=== PATIENT | male | born 1950 | race Caucasian/White ===

== ENCOUNTER → 2020-09-16 10:23 | Outpatient (BNVA) | payer MEDICARE, SELFPAY | PROVIDERS: PCP Internal Medicine; Visit Provider Internal Medicine | DX: I95.1 Orthostatic hypotension (principal); I10 Essential (primary) hypertension; Z79.899 Other long term (current) drug therapy; Z86.79 Personal history of other diseases of the circulatory system | CPT/HCPCS: 93005; 99212 ==

== ENCOUNTER 2021-02-15 10:03 | Day surgery (SDC) | payer MEDICARE, SELFPAY ==
--- NOTE | 2021-02-14 10:26 | P.CONAN_ITS ---
Documented by User: Petra Perezney 02/14/21 10:34 HPI - Anesthesia Eval Consult details Narrative: 70yo M for Colonoscopy tonsilar cancer with radiation - 2007 [facility] Active Problems Active Problems: All Active Problems (Updated 12/22/20 @ 09:10 by Olesya Billingsley MD) Colon cancer screening (Acute) Hypercholesterolemia (Acute) GERD (gastroesophageal reflux disease) (Acute) Orthostatic hypotension (Acute) Essential hypertension (Acute) PAF (paroxysmal atrial fibrillation) (Acute) Past Medical History Medical History Asthma Cancer of tonsil Essential hypertension GERD (gastroesophageal reflux disease) Hypercholesterolemia Orthostatic hypotension PAF (paroxysmal atrial fibrillation) Family History Family History Father Dementia Hx of CABG Mother Diabetes Surgical History Surgical History History of tonsillectomy S/P repair of hydrocele Social History Social History Alcohol intake: current Alcohol intake frequency: holidays/special occasions only Alcohol type: beer Smoking Status: Never smoker Use of substances other than those prescribed or required for medical reasons: No Advance Directives: No Advance Directives Information Provided: Yes Meds Allergies Allergy/AdvReac Type Severity Reaction Status Date / Time lisinopril AdvReac Unknown cough Verified 12/08/20 10:33 Home Medications Medication Instructions Recorded Confirmed Last Taken Type cholecalciferol (vitamin D3) 25 25 mcg PO DAILY 09/16/20 12/22/20 Unknown History mcg (1,000 unit) capsule cyanocobalamin (vitamin B-12) 1,000 mcg PO DAILY 09/16/20 12/22/20 Unknown History 1,000 mcg capsule loratadine 10 mg tablet 10 mg PO DAILY 09/16/20 12/22/20 Unknown History omeprazole 20 mg capsule,delayed 20 mg PO DAILY 09/16/20 12/22/20 Unknown History release albuterol sulfate 90 mcg/actuation 2 puff INHALATION Q4-6H PRN 12/22/20 12/22/20 Unknown History aerosol inhaler budesonide-formoterol HFA 160 2 puff INHALATION BID 12/22/20 12/22/20 Unknown History mcg-4.5 mcg/actuation aerosol inhaler metoprolol succinate 50 mg 25 mg PO DAILY tab 12/22/20 12/22/20 Unknown History tablet,extended release 24 hr Exam Exam Date and Time: February 14, 2021 1026 Assessment and Plan Assessment Anesthesia Assessment: Chart Reviewed Documented by User: Scott Bello 02/15/21 13:16 PMFSH Past Medical History Medical History Asthma Cancer of tonsil Essential hypertension GERD (gastroesophageal reflux disease) Hypercholesterolemia Orthostatic hypotension PAF (paroxysmal atrial fibrillation) Family History Family History Father Dementia Hx of CABG Mother Diabetes Surgical History Surgical History History of tonsillectomy S/P repair of hydrocele Social History Social History Alcohol intake: current Alcohol intake frequency: holidays/special occasions only Alcohol type: beer Smoking Status: Never smoker Use of substances other than those prescribed or required for medical reasons: No Advance Directives: No Advance Directives Information Provided: Yes Meds Allergies Allergy/AdvReac Type Severity Reaction Status Date / Time lisinopril AdvReac Unknown cough Verified 12/08/20 10:33 Home Medications Medication Instructions Recorded Confirmed Last Taken Type cholecalciferol (vitamin D3) 25 25 mcg PO DAILY 09/16/20 12/22/20 Unknown History mcg (1,000 unit) capsule cyanocobalamin (vitamin B-12) 1,000 mcg PO DAILY 09/16/20 12/22/20 Unknown H istory 1,000 mcg capsule loratadine 10 mg tablet 10 mg PO DAILY 09/16/20 12/22/20 Unknown History omeprazole 20 mg capsule,delayed 20 mg PO DAILY 09/16/20 12/22/20 Unknown History release albuterol sulfate 90 mcg/actuation 2 puff INHALATION Q4-6H PRN 12/22/20 12/22/20 Unknown History aerosol inhaler budesonide-formoterol HFA 160 2 puff INHALATION BID 12/22/20 12/22/20 Unknown History mcg-4.5 mcg/actuation aerosol inhaler metoprolol succinate 50 mg 25 mg PO DAILY tab 12/22/20 12/22/20 Unknown History tablet,extended release 24 hr Exam Airway Mallampati Class: III TM Dist: >3cm Neck ROM: Full Heart: [id number] Lungs: cta b/l Assessment and Plan Assessment Anesthesia Assessment: Anesthesia Plan Discussed, PAT Visit and Chart Reviewed Final Anesthetic Review NPO: Yes ASA Class: III Final Preanesthetic Review: No Changes in Pt Med Stat, Meds/Allgs Chart Reviewed, Consent Obtained/Reviewed and Anes Risks/Benef Reviewed Patient Risk: Intermediate Procedure Risk: Low Assessment/Block/Sedation in SS: Assess/Block/Sedation-SS Anesthetic Plan Anesthetic Plan: MAC: and Agree w/ Assess. and Plan Disposition: Standard PACU
[2021-02-15 10:56] VITALS: BP 155/88; PULSE 82; RESP 18; TEMP 36.6; O2SAT 96; BMI 23.4
[2021-02-15] MEDS: Lactated Ringers 1,000 ML 100 ML IVCONT (11:06)
--- NOTE | 2021-02-15 13:17 | MHC.SHP ---
Pre-Procedural Eval Section A The patient is an INPATIENT: No Changes since office visit: No Cold of Flu in the past 2 weeks, No New Medical Problems, No Changes in Medication and No Patient answered all questions The History & Physical has been completed within 30 days and I have reviewed it.: Yes Section B Chief Complaint: screening Allergies: Allergies Allergy/AdvReac Type Severity Reaction Status Date / Time lisinopril AdvReac Unknown cough Verified 12/08/20 10:33 Plan I have reviewed the history and physical and performed a pertinent physical examination on my patient. No changes have occurred unless specified.
--- NOTE | 2021-02-15 13:49 | PM.OP ---
Brief Operative Note Date of Service: 02/15/21 Pre-op diagnosis: screening Post-op diagnosis: other (limited exam) Procedure: colonoscopy to 60 cm Surgeon: Darshan Swartz Anesthesia: MAC Estimated blood loss (mL): 0 Pathology: none sent Condition: stable Disposition: PACU
[2021-02-15 13:52] VITALS: BP 96/52; PULSE 61; RESP 16; TEMP 36.7; O2SAT 99
[2021-02-15 14:07] VITALS: BP 144/67; PULSE 76; RESP 16; O2SAT 96
--- NOTE | 2021-02-15 14:12 | OP_ITS ---
SURGEON: Darshan Swartz MD INDICATIONS: Colon cancer screening. PREOPERATIVE DIAGNOSIS: POSTOPERATIVE DIAGNOSIS: PROCEDURE PERFORMED: Colonoscopy to 60 cm. ESTIMATED BLOOD LOSS: COMPLICATIONS: ANESTHESIA: ASSISTANTS: SPECIMENS: MEDICATIONS: Monitored anesthesia care. DESCRIPTION OF PROCEDURE: History and physical performed. The risks and benefits of the procedure were explained to the patient. Informed consent was obtained. The patient was placed in the left lateral decubitus position. A digital rectal exam was performed and showed some liquid stool. The Olympus pediatric video colonoscope was introduced into the rectum and advanced to 60 cm, where further advancement was no longer possible due to the poor prep. Examination was performed and the scope was removed. He tolerated the procedure well and was taken to recovery area in stable condition. FINDINGS: The visualized colonic mucosa was only visible by washing away liquid and semi-formed stool what was seen was normal; however, the exam was nondiagnostic and unable to be completed. Retroflexed examination showed internal hemorrhoids. IMPRESSION: Limited examination to 60 cm. RECOMMENDATION: Followup colonoscopy should be rescheduled with a 2-day prep within the next 6 months.. MD HAMZAH Worley/EDWARD / [id number] MTDD
[2021-02-15 14:22] VITALS: BP 145/80; PULSE 80; RESP 16; TEMP 36.7; O2SAT 96
== END 2021-02-15 14:47 | disposition home or self-care (01) ==
PROVIDERS: PCP Internal Medicine; Visit Provider Internal Medicine Gastroenterology
PROC: 0DJD8ZZ Inspection of Lower Intestinal Tract, Via Natural or Artificial Opening Endoscopic (ICD-10-PCS; CPT 45378; principal; 2021-02-15 11:30)
DX: Z12.11 Encounter for screening for malignant neoplasm of colon (principal); K64.8 Other hemorrhoids; K21.9 Gastro-esophageal reflux disease without esophagitis; I48.0 Paroxysmal atrial fibrillation; Z79.01 Long term (current) use of anticoagulants; J45.909 Unspecified asthma, uncomplicated; M19.042 Primary osteoarthritis, left hand; M19.041 Primary osteoarthritis, right hand; M17.0 Bilateral primary osteoarthritis of knee; I10 Essential (primary) hypertension; Z79.899 Other long term (current) drug therapy; Z79.1 Long term (current) use of non-steroidal anti-inflammatories (NSAID); Z85.818 Personal history of malignant neoplasm of other sites of lip, oral cavity, and pharynx; Z92.21 Personal history of antineoplastic chemotherapy; Z92.3 Personal history of irradiation
CPT/HCPCS: G0104

== ENCOUNTER 2021-03-01 08:28 | Day surgery (SDC) | payer MEDICARE, SELFPAY ==
[2021-02-24 11:48] VITALS: BMI 24.2
[2021-03-01 08:37] VITALS: BP 174/100; PULSE 79; RESP 16; TEMP 36.8; O2SAT 95
[2021-03-01] MEDS: Sodium Phosphate,Mono-Dibasic 133 ML ENEMA PR ×3 (08:51→09:42)
--- NOTE | 2021-03-01 08:55 | PC.NURSE ---
fleet enema performed. chapo well. laying on left side.
--- NOTE | 2021-03-01 09:02 | PC.NURSE ---
output from first enema is liquid brown.
--- NOTE | 2021-03-01 09:07 | PC.NURSE ---
SECOND FLEET GIVEN. [place] LEFT SIDE. DERICK WELL.
--- NOTE | 2021-03-01 09:23 | PC.NURSE ---
[facility]. SLIGHT BLOOD NOTED ON TOILET PAPER ONLY. PATIENT STATES HE HAS HEMMORHOIDS.
[2021-03-01] MEDS: Lactated Ringers 1,000 ML 100 ML IVCONT (09:30)
--- NOTE | 2021-03-01 09:36 | PC.NURSE ---
MD SMITH AWARE. OK TO PROCEED WITH PROCEDURE.
--- NOTE | 2021-03-01 09:39 | HO.ANESPROP2 ---
HPI - Anesthesia Eval Consult details Narrative: 89 yo male patient here for colonoscopy PMFSH Active Problems Active Problems: All Active Problems (Updated 02/24/21 @ 11:40 by Rosalina Dove) Colon cancer screening (Acute) Hypercholesterolemia (Acute) GERD (gastroesophageal reflux disease) (Acute) Orthostatic hypotension (Acute) Essential hypertension (Acute) PAF (paroxysmal atrial fibrillation) (Acute) Past Medical History Medical History Asthma Cancer of tonsil Essential hypertension GERD (gastroesophageal reflux disease) History of chemotherapy Hx of radiation therapy Hypercholesterolemia Orthostatic hypotension PAF (paroxysmal atrial fibrillation) Family History Family History Father Dementia Hx of CABG Mother Diabetes Family history of problems with anesthesia: No Surgical History Surgical History H/O colonoscopy History of tonsillectomy S/P repair of hydrocele History of Problems with Anesthesia: No Social History Social History Alcohol intake: current Alcohol intake frequency: holidays/special occasions only Alcohol type: beer Smoking Status: Never smoker Advance Directives Information Provided: No Meds Allergies Allergy/AdvReac Type Severity Reaction Status Date / Time lisinopril AdvReac Unknown cough Verified 12/08/20 10:33 Home Medications Medication Instructions Recorded Confirmed Last Taken Type cholecalciferol (vitamin D3) 25 25 mcg PO DAILY 09/16/20 02/24/21 Unknown History mcg (1,000 unit) capsule cyanocobalamin (vitamin B-12) 1,000 mcg PO DAILY 09/16/20 02/24/21 Unknown History 1,000 mcg capsule loratadine 10 mg tablet 10 mg PO DAILY 09/16/20 02/24/21 Unknown History omeprazole 20 mg capsule,delayed 20 mg PO DAILY 09/16/20 02/24/21 Unknown History release albuterol sulfate 90 mcg/actuation 2 puff INHALATION Q4-6H PRN 12/22/20 02/24/21 Unknown History aerosol inhaler budesonide-formoterol HFA 160 2 puff INHALATION BID 12/22/20 02/24/21 Unknown History mcg-4.5 mcg/actuation aerosol inhaler metoprolol succinate 50 mg 25 mg PO DAILY tab 12/22/20 02/24/21 Unknown History tablet,extended release 24 hr Exam Exam Date and Time: March 01, 2021 0939 Height,Weight and Vital Signs: Height 5 ft 10 in Weight 76.657 kg Last Vital Signs Temp 98.3 F 03/01/21 08:37 Pulse 79 03/01/21 08:37 Resp 16 03/01/21 08:37 BP 174/100 H 03/01/21 08:37 Pulse Ox 95 03/01/21 08:37 Airway Mallampati Class: II TM Dist: >3cm Neck ROM: Full Loose/Missing/Broken Teeth: Yes (Broken Back bottom right) Heart: RRR Lungs: CTAB Assessment and Plan Assessment Anesthesia Assessment: Anesthesia Plan Discussed and Chart Reviewed Final Anesthetic Review NPO: Yes ASA Class: III Final Preanesthetic Review: No Changes in Pt Med Stat, Meds/Allgs Chart Reviewed, Consent Obtained/Reviewed and Anes Risks/Benef Reviewed Patient Risk: Intermediate Procedure Risk: Low Assessment/Block/Sedation in SS: Assess/Block/Sedation-SS Anesthetic Plan Anesthetic Plan: MAC: Disposition: Standard PACU
[2021-03-01 10:17] VITALS: BP 113/64; PULSE 66; RESP 14; TEMP 36.1; O2SAT 98
--- NOTE | 2021-03-01 10:18 | PM.OP ---
Brief Operative Note Date of Service: 03/01/21 Pre-op diagnosis: screening Post-op diagnosis: same Procedure: colonsocopy Surgeon: Darshan Swartz Anesthesia: MAC Estimated blood loss (mL): 0 Pathology: none sent Condition: stable Disposition: PACU
[2021-03-01 10:32] VITALS: BP 152/95; PULSE 76; RESP 17; TEMP 36.1; O2SAT 98
--- NOTE | 2021-03-01 11:19 | OP_ITS ---
SURGEON: Darshan Swartz MD INDICATIONS: Colon cancer screening. PREOPERATIVE DIAGNOSIS: POSTOPERATIVE DIAGNOSIS: PROCEDURE PERFORMED: Colonoscopy to the terminal ileum. ESTIMATED BLOOD LOSS: COMPLICATIONS: ANESTHESIA: ASSISTANTS: SPECIMENS: MEDICATIONS: Monitored anesthesia care. DESCRIPTION OF PROCEDURE: History and physical performed. The risks and benefits of the procedure were explained to the patient. Informed consent was obtained. The patient was placed in left lateral decubitus position. A digital rectal exam was performed and was found to be normal. The Olympus pediatric video colonoscope was introduced into the rectum and advanced to the cecum without difficulty. The cecum was identified by transillumination, palpation, and identification of ileocecal valve. Examination was performed and the scope was removed. He tolerated the procedure well and was taken to recovery in stable condition. FINDINGS: The terminal ileum was examined and appeared normal. The visualized colonic mucosa was normal. There was a large amount of liquid stool and undigested food material limiting sensitivity examination for detection of small polyps. This was washed and suctioned as best possible. No polyps were identified. Retroflexed examination was normal. IMPRESSION: Normal colonoscopy. RECOMMENDATIONS: 1. Follow up as needed. 2. Repeat colonoscopy is recommended in 10 years for average risk individuals. MD HAMZAH Worley/EDWARD / [id number]
== END 2021-03-01 11:20 | disposition home or self-care (01) ==
PROVIDERS: PCP Internal Medicine; Visit Provider Internal Medicine Gastroenterology
PROC: 0DJD8ZZ Inspection of Lower Intestinal Tract, Via Natural or Artificial Opening Endoscopic (ICD-10-PCS; CPT 45378; principal; 2021-03-01 09:30)
DX: Z12.11 Encounter for screening for malignant neoplasm of colon (principal); K21.9 Gastro-esophageal reflux disease without esophagitis; J45.909 Unspecified asthma, uncomplicated; I48.0 Paroxysmal atrial fibrillation; I10 Essential (primary) hypertension; Z85.818 Personal history of malignant neoplasm of other sites of lip, oral cavity, and pharynx; Z92.21 Personal history of antineoplastic chemotherapy; Z92.3 Personal history of irradiation
CPT/HCPCS: G0121

== ENCOUNTER → 2021-09-19 09:26 | Outpatient (BNVA) | payer MEDICARE, SELFPAY | PROVIDERS: PCP Internal Medicine; Referring Provider Internal Medicine; Visit Provider Internal Medicine | DX: I48.0 Paroxysmal atrial fibrillation (principal); I95.1 Orthostatic hypotension; I10 Essential (primary) hypertension | CPT/HCPCS: 93005; 99212 ==

== ENCOUNTER 2022-01-20 08:16 | Outpatient (REF) | payer MEDICARE, SELFPAY ==
[2022-01-20 08:35] LABS: MANUAL DIFF FLAG NO
[2022-01-20 09:12] LABS: Basophils Absolute Auto 0.1 X10*3/uL (0.0-0.2); Basophils Percent Auto 1.2 % (0-2); Eosinophils Absolute Auto 0.2 X10*3/uL (0.0-0.4); Eosinophils Percent Auto 4.2 % (0-4); Hematocrit 40.3 % (42.0-52.0); Hemoglobin 13.2 g/dl (14.0-18.0); Imm Gran Abs Auto 0.01 X10*3/uL (0.00-0.03); Imm Gran Pct Auto 0.2 % (0.0-0.4); Lymphocytes Absolute Auto 0.9 X10*3/uL (1.2-4.9); Lymphocytes Percent Auto 21.9 % (20-40); Mean Corpuscular HGB Conc 32.8 g/dl (31.0-36.0); Mean Corpuscular Hemoglobin 30.3 pg (27.0-33.0); Mean Corpuscular Volume 92.4 fL (80.0-98.0); Mean Platelet Volume 9.9 fL (9.4-12.4); Monocytes Absolute Auto 0.5 X10*3/uL (0.1-1.2); Monocytes Percent Auto 11.4 % (2-11); Neutrophils Absolute Auto 2.5 x10*3/uL (2.0-8.3); Neutrophils Percent Auto 61.1 % (45-73); Platelet Count 221 X10*3/uL (160-400); Red Blood Count 4.36 X10*6/uL (4.60-5.80); Red Cell Distribution Width 12.5 % (11.0-16.0)
[2022-01-20 09:47] LABS: Appearance Urine CLEAR; Color Urine YELLOW; Glucose Urine UA NEG (NEG); Leukocyte Esterase Urine NEG (NEG); Nitrite Urine NEG (NEG); Urine Blood NEG (NEG); Urine Ketones NEG (NEG); Urine Protein NEG (NEG-TRACE)
[2022-01-20 10:04] LABS: Alanine Aminotransferase 26 U/L (0-40); Albumin Level 4.1 g/dL (3.5-5.0); Alkaline Phosphatase 67 U/L (39-117); Anion Gap 14 (12-20); Aspartate Amino Transferase 29 U/L (5-37); Bilirubin Total 0.8 mg/dL (0.0-1.0); Blood Urea Nitrogen 20 mg/dL (9-16); Calcium 9.6 mg/dL (8.4-10.2); Carbon Dioxide 27 mmol/L (22-29); Chloride 100 mmol/L (96-108); Cholesterol 158 mg/dL; Estimated Glomerular Filt Rate > 60; Glucose Random 95 mg/dL (60-115); HDL Cholesterol 67 mg/dL; LDL Cholesterol Calculated 84 mg/dl; Potassium 4.5 mmol/L (3.3-5.1); Sodium 136 mmol/L (135-145); Total Protein 6.2 g/dL (6.5-8.0); Triglycerides 36 mg/dL
[2022-01-20 10:13] LABS: Free T4 (Free Thyroxine) 1.07 ng/dL (0.71-1.85); Prostate Specific Antigen Scr 0.68 ng/mL (<0.05-4.0); Thyroid Stimulating Hormone 2.62 uIU/mL (0.32-4.0)
[2022-01-20 10:18] LABS: Folate 8.3 ng/mL (> or = 4.0); Vitamin B12 558 pg/mL (200-900)
[2022-01-20 10:19] LABS: RBC Urine 0 /HPF (0); WBC Urine 0 /HPF (0-4)
== END 2022-01-20 08:17 | disposition home or self-care (01) ==
LOC: HO.LAB 08:16
PROVIDERS: PCP Internal Medicine; Visit Provider Internal Medicine
DX: I10 Essential (primary) hypertension (principal); K59.00 Constipation, unspecified; E78.00 Pure hypercholesterolemia, unspecified; Z12.5 Encounter for screening for malignant neoplasm of prostate
CPT/HCPCS: 36415; 80053; 80061; 81001; 82607; 82746; 84153; 84439; 84443; 85025

== ENCOUNTER 2022-02-28 13:57 | Outpatient (REF) | payer MEDICARE, SELFPAY ==
--- NOTE | ~2022-02-28 | US_ITS ---
EXAMINATION: US PELVIS LIMITED (BLADDER) CLINICAL INFORMATION: Constipation. Urinary incontinence. COMPARISON: None TECHNIQUE: Real-time imaging of the bladder. FINDINGS: BLADDER: The bladder wall is thickened and trabeculated. No stone or mass is seen. Right ureteral jet is demonstrated; left is not. Prevoid bladder volume is 270 mL. Postvoid bladder volume is 17.2 mL. PROSTATE: The prostate gland is enlarged. The prostate gland measures 5.9 x 7.2 x 6.4 cm. Prostate volume 131 mL. US/US bladder IMPRESSION: Thickened trabeculated bladder wall. No post void bladder residual. Enlarged prostate gland.
== END 2022-02-28 13:58 | disposition home or self-care (01) ==
LOC: HO.US 13:57
PROVIDERS: Visit Provider Internal Medicine
DX: K59.00 Constipation, unspecified (principal)
CPT/HCPCS: 76857

== ENCOUNTER → 2022-08-10 10:17 | Outpatient (BNVA) | payer MEDICARE, SELFPAY | PROVIDERS: PCP Internal Medicine; Visit Provider Urology | DX: N40.0 Benign prostatic hyperplasia without lower urinary tract symptoms (principal) | CPT/HCPCS: 51798; 99202 ==

== ENCOUNTER → 2022-09-18 09:26 | Outpatient (BNVA) | payer MEDICARE, SELFPAY | PROVIDERS: PCP Internal Medicine; Referring Provider Internal Medicine; Visit Provider Internal Medicine | DX: I48.0 Paroxysmal atrial fibrillation (principal); I95.1 Orthostatic hypotension; I10 Essential (primary) hypertension | CPT/HCPCS: 93005; 99212 ==

== ENCOUNTER → 2022-10-25 10:24 | Outpatient (BNVA) | payer MEDICARE, SELFPAY | PROVIDERS: PCP Internal Medicine; Visit Provider Urology | DX: N40.1 Benign prostatic hyperplasia with lower urinary tract symptoms (principal); N13.8 Other obstructive and reflux uropathy; R33.8 Other retention of urine; R39.12 Poor urinary stream; R35.1 Nocturia | CPT/HCPCS: 51798; 99212 ==

== ENCOUNTER → 2022-12-21 13:31 | Outpatient (BNVA) | payer MEDICARE, SELFPAY | PROVIDERS: PCP Internal Medicine; Visit Provider Urology | DX: N40.1 Benign prostatic hyperplasia with lower urinary tract symptoms (principal); R39.12 Poor urinary stream; Z79.899 Other long term (current) drug therapy | CPT/HCPCS: Q3014 ==

== ENCOUNTER 2023-01-23 09:58 | Outpatient (REF) | payer MEDICARE, SELFPAY ==
[2023-01-23 10:21] LABS: MANUAL DIFF FLAG NO
[2023-01-23 10:34] LABS: Basophils Absolute Auto 0.1 X10*3/uL (0.0-0.2); Basophils Percent Auto 1.1 % (0-2); Eosinophils Absolute Auto 0.2 X10*3/uL (0.0-0.4); Eosinophils Percent Auto 3.3 % (0-4); Hematocrit 40.5 % (42.0-52.0); Hemoglobin 13.3 g/dl (14.0-18.0); Imm Gran Abs Auto 0.01 X10*3/uL (0.00-0.03); Imm Gran Pct Auto 0.2 % (0.0-0.4); Lymphocytes Absolute Auto 0.8 X10*3/uL (1.2-4.9); Lymphocytes Percent Auto 17.1 % (20-40); Mean Corpuscular HGB Conc 32.8 g/dl (31.0-36.0); Mean Corpuscular Hemoglobin 30.2 pg (27.0-33.0); Mean Platelet Volume 9.6 fL (9.4-12.4); Monocytes Absolute Auto 0.4 X10*3/uL (0.1-1.2); Monocytes Percent Auto 9.8 % (2-11); Neutrophils Absolute Auto 3.1 x10*3/uL (2.0-8.3); Neutrophils Percent Auto 68.5 % (45-73); Platelet Count 211 X10*3/uL (160-400); Red Cell Distribution Width 12.6 % (11.0-16.0); White Blood Count 4.5 X10*3/uL (4.8-10.8)
[2023-01-23 11:27] LABS: B Type Natriuretic Peptide 36 pg/mL (<100)
[2023-01-23 11:44] LABS: Alanine Aminotransferase 24 U/L (0-40); Alkaline Phosphatase 68 U/L (39-117); Anion Gap 13 (12-20); Aspartate Amino Transferase 28 U/L (5-37); Bilirubin Total 0.9 mg/dL (0.0-1.0); Blood Urea Nitrogen 17 mg/dL (9-16); Calcium 9.2 mg/dL (8.4-10.2); Carbon Dioxide 29 mmol/L (22-29); Chloride 101 mmol/L (96-108); Estimated Glomerular Filt Rate > 60; Glucose Random 119 mg/dL (60-115); Potassium 4.6 mmol/L (3.3-5.1); Sodium 138 mmol/L (135-145); Total Protein 6.1 g/dL (6.5-8.0)
[2023-01-23 12:15] LABS: Folate 11.1 ng/mL (> or = 4.0); Free T4 (Free Thyroxine) 1.03 ng/dL (0.71-1.85); Thyroid Stimulating Hormone 2.65 uIU/mL (0.32-4.0); Vitamin B12 658 pg/mL (200-900)
== END 2023-01-23 09:59 | disposition home or self-care (01) ==
LOC: HO.LAB 09:58
PROVIDERS: PCP Internal Medicine; Visit Provider Internal Medicine
DX: K21.9 Gastro-esophageal reflux disease without esophagitis (principal); I95.9 Hypotension, unspecified; E78.00 Pure hypercholesterolemia, unspecified; I48.0 Paroxysmal atrial fibrillation; I10 Essential (primary) hypertension
CPT/HCPCS: 36415; 80053; 82607; 82746; 83735; 83880; 84439; 84443; 85025

== ENCOUNTER → 2023-01-30 08:51 | Outpatient (REF) | payer MEDICARE, SELFPAY ==
--- NOTE | 2023-01-30 08:54 | CA_ITS ---
Transthoracic Echocardiogram Patient (Last, First, Middle): Jose Rafael Arellano T Gender: Male Date of : 1950 Age: 72 Procedure Date: 01/30/2023 Procedure Type: Transthoracic Echocardiogram Location: OP Height: 180.34 cm Weight: 74.84 kg BSA: 1.94 m2 Heart Rate: 79 bpm BP: 98 / 60 mmHg Core Java Software Engineer: SB Referring MD: Olesya Billingsley MD Symptoms: I48.0 - Paroxysmal atrial fibrillation Study Quality: Adequate ECG Rhythm: Sinus Conclusions: - The left ventricular systolic function is normal. The calculated ejection fraction is 60% by biplane method. - Moderate focal hypertrophy of the basal septum. - No obvious valvular pathology seen on this study. Findings Left Ventricle Normal left ventricular cavity size. The left ventricular systolic function is normal. The calculated ejection fraction is 60% by biplane method. There is no evidence of regional wall motion abnormalities. Diastolic function is normal for age. Moderate focal hypertrophy of the basal septum. Right Ventricle Mildly increased right ventricular cavity size. There is normal right ventricular systolic function. Atria Both atria are normal in size. Aortic Valve There is a normal trileaflet aortic valve. There is no aortic valve stenosis. There is no aortic valve regurgitation. Mitral Valve The mitral valve appears normal. There is no mitral valve regurgitation. There is no mitral valve stenosis. Pulmonic Valve The pulmonic valve is likely normal. Tricuspid Valve There is trace tricuspid valve regurgitation. There is no evidence of pulmonary hypertension. Great Vessels The asc aorta is normal in size. Small plaque is seen in the sino tubular ridge. Venous The inferior vena cava is normal in size and collapses greater than 50% with inspiration. Pericardium/Pleural There is no evidence of pericardial effusion. Prior Study Comparison No significant change compared to prior study dated: 01/20/2019. Recommendations, Care & Conclusions No obvious valvular pathology seen on this study. Measurements 2D Linear Measurements IVSd: 0.57 0.6-0.9/0.6-1.0 cm LVIDd: 4.93 3.9-5.3/4.2-5.9 cm LVIDd Index: 2.54 2.4-3.2/2.2-3.1 cm/m2 LVIDs: 3.64 2.0-3.6 cm LVPWd: 0.66 0.7-1.1 cm LA Diam: 2.30 2.7-3.8/3.0-4.0 cm LAIDs Index: 1.19 1.5-2.3 cm/m2 LV Mass: 118.83 67-162/88-224 g LV Mass Index: 61.25 43-95/49-115 g/m2 LVOT Diam: 2.10 3.0+(-)1.3 cm 2D Systolic Function EF 4C: 60.70 >55% EF 2C: 61.90 >55% EF BiP: 59.50 >55% Mitral Valve MV Pk E: 0.63 MV PK A: 0.90 MV Decel Time: 178.00 E/A: 0.70 E'Lateral: 6.85 E'Medial: 5.11 E/E' Med: 12.30 E/E' Lat: 9.20 PHT: 52.00 MVA PHT: 4.23 Decel Oliver: 3.53 Aortic Valve AoV Pk Simon: 0.98 AoV Pk Grad: 4.00 IMELDA: 3.62 LVOT LVOT Pk Simon: 1.02 LVOT Mn Simon: 0.68 LVOT VTI: 0.22 LVOT Pk Grad: 4.00 LVOT Mn Grad: 2.00 LVOT Diam: 2.10 LVOT Area: 3.46 Diastolic Function MV Pk E: 0.63 MV Pk A: 0.90 E/A: 0.70 E'Medial: 5.11 E/E' Med: 12.30 E' Laterial: 6.85 E/E' Lat: 9.20 Right Ventricle TAPSE (mm): 22.60 TVS' Simon: 15.10 Tricuspid Valve TR Pk Simon: 2.12 TR Pk Grad: 18.00 RA Press: 3.00 RVSP: 21.00 Great Vessels Aorta Sinus of Valsalva: 3.60 2.0-3.5 cm Ao Asc: 3.80 2.1-3.4 cm Ao Arch: 3.00 Pulmonary Valve PV Pk Simon: 0.85 Peak PV Grad: 3.00 Updated in Other Vendor System with Status of Final Akil Crystal MD electronically signed on 01/31/2023 12:05:02 PM with status of Final
== END ==
LOC: HO.CARD 08:51
PROVIDERS: PCP Internal Medicine; Visit Provider Internal Medicine
DX: I48.0 Paroxysmal atrial fibrillation (principal)
CPT/HCPCS: 93306

== ENCOUNTER → 2023-02-01 12:50 | Outpatient (BNVA) | payer MEDICARE, SELFPAY | PROVIDERS: PCP Internal Medicine; Referring Provider Internal Medicine; Visit Provider Internal Medicine | DX: I95.1 Orthostatic hypotension (principal); I48.0 Paroxysmal atrial fibrillation; I10 Essential (primary) hypertension | CPT/HCPCS: 99212 ==

== ENCOUNTER 2023-05-14 12:47 | Outpatient (AMB) | payer MEDICARE, SELFPAY ==
[2023-05-14 12:49] VITALS: BP 198/98; PULSE 89; O2SAT 95; BMI 23.5
--- NOTE | 2023-05-14 12:49 | MHC.PC.OV ---
Vital Signs 05/14/23 12:49 05/14/23 13:05 Height 5 ft 10 in Weight 164 lb BMI 23.5 BP 198/98 H 150/100 H Blood Pressure Location Lt brachial Lt brachial Position Sitting Sitting Pulse 89 Pulse Source Pulse Oximeter Pulse Oximetry (%) 95 Oxygen Delivery Method Room Air Intake Visit Reasons: 6m follow up Allergies lisinopril Adverse Reaction (Unknown, Verified 05/14/23 12:50) cough Medication List - Last Reconciled 05/14/23 by lOesya Billingsley MD albuterol sulfate 90 mcg/actuation (ProAir HFA) 2 puffs inhalation Q4-6H PRN atorvastatin 10 mg PO DAILY budesonide-formoterol 160-4.5 mcg/actuation (Symbicort) 2 puffs inhalation BID 90 days cholecalciferol (vitamin D3) 25 mcg PO DAILY cyanocobalamin (vitamin B-12) 1,000 mcg PO DAILY loratadine 10 mg PO DAILY losartan 100 mg PO DAILY metoprolol succinate ER 25 mg (1/2 x 50 mg) PO DAILY 30 days omeprazole 20 mg PO DAILY 90 days Tobacco use date assessed: 01/22/23 Fall risk assessment: No Falls in past year Last assessed Fall Risk: 05/14/23 Dental Screening Dental Screen Date: 05/14/23 Did you have a dental visit in the last 12 months?: No Did you have a dental problem in the last 6 months where you did not have access to dental care?: No Was dental information given to patient?: No HPI 6m follow up HPI Details 72 Year old male with hypertension, GERD hypercholesterolemia asthma BPH last seen in January 2023. Patient had an episode of syncope in which an echocardiogram was done: January 2023The left ventricular systolic function is normal.? The ? calculated ejection fraction is 60% by biplane method. ? - Moderate focal hypertrophy of the basal septum.? - No obvious valvular pathology seen on this study.? Patient has met with cardiology had episodes of low blood pressure with abdominal pain and blood pressure medications were held but now cardiology notes blood pressure has been running high placed back on metoprolol and losartan. admits to not taking med today. uses the symbicort regularly witht he poor quality of air. for the urination - takes alfuzosin but states not as effective as tamsulosin [facility] Medical History (Updated 05/14/23 @ 13:01 by Olesya Billingsley MD) Asthma Cancer of tonsil Colon cancer screening Essential hypertension GERD (gastroesophageal reflux disease) History of chemotherapy Hx of radiation therapy Hypercholesterolemia Hypotension Orthostatic hypotension PAF (paroxysmal atrial fibrillation) Syncope Urinary incontinence Surgical History H/O colonoscopy History of tonsillectomy S/P repair of hydrocele Family History Father Dementia Hx of CABG Mother Diabetes Social History Housing: House Alcohol intake: current Alcohol intake frequency: holidays/special occasions only Alcohol type: beer Patient Tobacco Use Status: Never used Tobacco e-Cigarette/Vaping Use: Never Used Second Hand Smoke Exposure: No service: No Current occupational status: retired Cognitive needs: No Hearing needs: No Vision needs: Yes Questionnaire PHQ-9 Over the last 2 weeks, how often have you been bothered by any of the following problems? 1. Little interest or pleasure in doing things: not at all 2. Feeling down, depressed, or hopeless: not at all 3. Trouble falling or staying asleep, or sleeping too much: not at all 4. Feeling tired or having little energy: not at all 5. Poor appetite or overeating: not at all 6. Feeling bad about yourself - or that you are a failure or have let yourself or your family down: not at all 7. Trouble concentrating on things, such as reading the newspaper or watching television: not at all 8. Moving or speaking so slowly that other people could have noticed. Or the opposite - being so fidgety or restless that you have been moving around a lot more than usual: not at all 9. Thoughts that you would be better off or of hurting yourself in some way: not at all Total score: 0 Depression Screening Interpretation: Negative Source: Developed by Drs. Scotty Jessica, Liliam Shaw, Deangelo Carvalho and colleagues, with an educational juan miguel from [employer]. Thrive Questionnaire Date Thrive assessed: 01/22/23 AUDIT C Alcohol Use Questionnaire (AUDIT-C) 1. How often do you have a drink containing alcohol?: Never 3. How often do you have six or more drinks on one occasion?: Never Total Score: 0 Score Reviewed/Action Taken: No LUZ ELENA-7 AMB Questionnaire LUZ ELENA-7 Date LUZ ELENA - 7 assessed: 01/22/23 Source: Developed by Drs. Scotty Jessica, Liliam Shaw, Deangelo Carvalho and colleagues, with an educational juan miguel from [employer]. Physical exam (Primary Care) Vital Signs: Last Vital Signs Pulse 89 05/14/23 12:49 BP 198/98 H 05/14/23 12:49 Pulse Ox 95 05/14/23 12:49 Oxygen Delivery Method Room Air 05/14/23 12:49 BMI result Body Mass Index 23.5 Tobacco/Smoking Status: Tobacco use Status Tobacco use date assessed 01/22/23 05/14/23 12:56 Patient Tobacco Use Status Never used Tobacco 05/14/23 12:56 e-Cigarette/Vaping Use Never Used 05/14/23 12:56 PHQ-9: PHQ-9 Score PHQ-9: Total score 0 05/14/23 12:56 Depression Screening Interpretation: Negative Thrive Assessment: Date of Thrive Assessment Date Thrive assessed 01/22/23 05/14/23 12:56 Const General: alert; No acute distress Eyes Conjunctivae: conjunctivae normal Resp Auscultation: clear to auscultation bilaterally Cardio Rate: regular rate Rhythm: regular rhythm GI Inspection: Yes normal to inspection Extrem General: Yes normal to inspection and No edema Assessment and Plan Assessment & Plan (1) Asthma: Code(s): J45.909 - Unspecified asthma, uncomplicated Plan: Continue with the inhaler as needed (2) Hypercholesterolemia: Code(s): E78.00 - Pure hypercholesterolemia, unspecified Plan: Avoid fried foods, chicken skin, eggs, butter margarine, pastries and meat. Be it pork or beef they have a lot of cholesterol LDL goal of less than 130 and triglyceride of (3) GERD (gastroesophageal reflux disease): Code(s): K21.9 - Gastro-esophageal reflux disease without esophagitis Plan: Avoid the foods that causes that usually spicy foods, tomato products, juices, coffee, soda and foods that your sensitive to. After eating do not lie down, allow 3-4 hours before in lie down. And keep the head of bed above 30 degrees to avoid the acid from going up. (4) Orthostatic hypotension: Code(s): I95.1 - Orthostatic hypotension Plan: Keep well hydrated and continue to monitor blood pressures (5) Essential hypertension: Code(s): I10 - Essential (primary) hypertension Plan: Continue with blood pressure medication. Decrease salt intake and exercise patient is on metoprolol 25 mg once a day, losartan 100 mg once a day (6) PAF (paroxysmal atrial fibrillation): Comment: no recurrence Code(s): I48.0 - Paroxysmal atrial fibrillation Plan: Patient has seen Cardiology and had 1 episode of recurrence only. No anticoagulation (7) Anemia: Code(s): D64.9 - Anemia, unspecified Orders: Orders Vitamin B12 and Folate Today D64.9 - Anemia, unspecified Comprehensive Met. Panel Today E78.00 - Pure hypercholesterolemia, unspecified Ferritin Today D64.9 - Anemia, unspecified IRON PROFILE Today D64.9 - Anemia, unspecified Lipid Panel Today E78.00 - Pure hypercholesterolemia, unspecified Free T4 (Free Thyroxine) Today E78.00 - Pure hypercholesterolemia, unspecified Thyroid Stimulating Hormone Today E78.00 - Pure hypercholesterolemia, unspecified Complete Blood Count Auto Diff Today D64.9 - Anemia, unspecified Reticulocyte Count Today D64.9 - Anemia, unspecified UA w Microscopic Today E78.00 - Pure hypercholesterolemia, unspecified Coding Level of Care Code Est Pt Level 4 (41411) Diagnoses Asthma J45.909 Hypercholesterolemia E78.00 GERD (gastroesophageal reflux disease) K21.9 Orthostatic hypotension I95.1 Essential hypertension I10 PAF (paroxysmal atrial fibrillation) I48.0 Anemia D64.9 Additional Codes PHQ-9 - 69896 - PHQ-9 Billing: Y ([id number])
[2023-05-14 13:05] VITALS: BP 150/100
== END 2023-05-14 13:15 | disposition home or self-care (01) ==
PROVIDERS: Visit Provider Internal Medicine
DX: J45.909 Unspecified asthma, uncomplicated (principal); K21.9 Gastro-esophageal reflux disease without esophagitis; I10 Essential (primary) hypertension; I48.0 Paroxysmal atrial fibrillation; E78.00 Pure hypercholesterolemia, unspecified; I95.1 Orthostatic hypotension; D64.9 Anemia, unspecified
CPT/HCPCS: 99214

== ENCOUNTER 2023-06-22 13:33 | Outpatient (AMB) | payer MEDICARE, SELFPAY ==
--- NOTE | 2023-06-22 13:43 | MHC.OFFVIS ---
Intake Intake Visit Reasons: 6m follow up Intake Note: Patient is present for Follow Up Urology Med: None Antibiotic Allergy: None Blood Thinner: None Pharmacy: [facility] PVR: 0ml Allergies lisinopril Adverse Reaction (Unknown, Verified 06/22/23 13:47) cough HPI HPI Comments History of Present Illness Details Jose Rafael is a pleasant male. He is a patient of Dr BRAY. He is seen for the following urologic conditions - lower urinary tract symptoms PVR 0 cc Does have some hesitancy and nocturia x3 Is considering procedure Alfuzosin had less dizziness then tamsulosin Not quite as effective for control of stream in symptoms Lower urinary tract symptoms Current therapy - alfuzosin Initial symptom presentation - lower urinary tract symptoms predominantly irritative symptoms. Prior treatment includes - tamsulosin Prostate Symptom Score - Initial moderate with bother 3 Symptoms include - urgency, frequency with nocturia greater than 2 - and are progressing Results from testing include - Renal/bladder US Yes Date 02/24 PVR 15 Prostate Size 130 Prior Prostate Score unknown PSA - 01/24 0.7 Associated conditions - none listed Treatment plan - alfuzosin [facility] Medical History Asthma Cancer of tonsil Colon cancer screening Essential hypertension GERD (gastroesophageal reflux disease) History of chemotherapy Hx of radiation therapy Hypercholesterolemia Hypotension Orthostatic hypotension PAF (paroxysmal atrial fibrillation) Syncope Urinary incontinence Surgical History H/O colonoscopy History of tonsillectomy S/P repair of hydrocele Family History Father Dementia Hx of CABG Mother Diabetes Social History Housing: House Alcohol intake: current Alcohol intake frequency: holidays/special occasions only Alcohol type: beer Patient Tobacco Use Status: Never used Tobacco e-Cigarette/Vaping Use: Never Used Second Hand Smoke Exposure: No service: No Current occupational status: retired Cognitive needs: No Hearing needs: No Vision needs: Yes Review of Systems Const Denies chills and Denies fever(s) Card Reports no additional complaints and Denies syncope Resp Denies cough GI Denies abdominal pain and Denies heartburn Reports as per HPI and Denies change in libido Neuro Denies syncope Psych Denies change in libido Endo Denies change in libido Physical Exam Const General: cooperative, healthy appearing, comfortable and no acute distress Orientation/consciousness: patient oriented x3 HEENT Face and sinus: Yes normal facial exam Mouth: moist mucous membranes Neck Neck: Yes normal visual inspection, Yes full ROM and Yes trachea midline Chest Chest palpation & inspection: normal inspection of the chest Resp Effort & Inspection: normal respiratory effort, able to speak in complete sentences and no respiratory distress GI Inspection: Yes normal to inspection Back/Spine/Pelvis Cervical Spine: normal cervical lordosis Thoracic/Lumbar Spine: thoracic and lumbar spine normal to inspection Skin General skin exam: no rashes or lesions noted Neuro General: patient oriented x3, gait normal, tone normal and moves all extremities Extrem General: Yes normal to inspection and Yes capillary refill normal Office Procedures Post Void Residual Post Residual Void Post Void Residual (PVR): 0 [id number] Void Residual by ultrasound Results AMB Urinalysis, Automated UA Leukoctes 0 [place]/uL Last Edit by lAana Santiago [facility] on 06/22/23 14:05 UA Nitrite Negative Last Edit by Alana Santiago [facility] on 06/22/23 14:05 UA Urobilinogen 0.2 mg/dL Last Edit by Alana Santiago [facility] on 06/22/23 14:05 UA Protein 0 mg/dL Last Edit by Alana Santiago [facility] on 06/22/23 14:05 UA pH 6.0 Last Edit by Alana Santiago [facility] on 06/22/23 14:05 UA Blood 0 [place]/uL Last Edit by Alana Santiago [facility] on 06/22/23 14:05 UA Specific [place] 1.015 Last Edit by Alana Santiago [facility] on 06/22/23 14:05 UA Ketone Negative Last Edit by Alana Santiago [facility] on 06/22/23 14:05 UA Bilirubin 0 mg/dL Last Edit by Alana Santiago [facility] on 06/22/23 14:05 UA Glucose 0 mg/dL Last Edit by Alana Santiago [facility] on 06/22/23 14:05 Assessment & Plan Assessment & Plan (1) BPH (benign prostatic hyperplasia): Code(s): N40.0 - Benign prostatic hyperplasia without lower urinary tract symptoms Plan Six month follow-up Orders: Orders AMB Urinalysis Automated Today Z13.9 - Encounter for screening, unspecified AMB Post Void Residual by ultrasound Today N40.0 - Benign prostatic hyperplasia without lower urinary tract symptoms Patient Instructions: Imaging studies, laboratory and physical exam results were discussed and reviewed in detail. No major barriers to patient understanding were identified. An opportunity to ask questions regarding the treatment plan was provided. All questions were answered. The patient expressed understanding and agreement with the above treatment plan. The patient is aware they should contact our office by phone for worsening of their current condition or the appearance of new urologic symptoms. Compliance is encouraged with any medications and followup testing that is ordered. It is a privilege to participate in the urologic care of your patient. If you have any questions or concerns regarding treatment for the above conditions, or other urologic issues, please do not hesitate to contact me. The office telephone contact is [phone]. This note is constructed using voice recognition software. While every effort has been made to ensure accuracy supervisor wound errors may have been included. Yours sincerely, Dr Davis Rivas MD, [facility] - Urology Providers of Expert, Compassionate Care for the Genitourinary System Coding Level of Care Code Est Pt Level 3 (80565) Diagnoses BPH (benign prostatic hyperplasia) N40.0 CPT Codes Post Residual Void - PVR CPT Code: 08055-Vkxh Void Residual by ultrasound ([id number])
== END 2023-06-22 14:32 | disposition home or self-care (01) ==
PROVIDERS: PCP Internal Medicine; Visit Provider Urology
DX: Z13.9 Encounter for screening, unspecified (principal); N40.0 Benign prostatic hyperplasia without lower urinary tract symptoms
CPT/HCPCS: 99213

== ENCOUNTER → 2023-06-22 13:33 | Outpatient (BNVA) | payer MEDICARE, SELFPAY | PROVIDERS: Visit Provider Urology | DX: N40.0 Benign prostatic hyperplasia without lower urinary tract symptoms (principal) | CPT/HCPCS: 51798; 81003; 99212 ==

== ENCOUNTER 2023-06-28 11:53 | Outpatient (AMB) | payer MEDICARE, SELFPAY ==
[2023-06-28 11:56] VITALS: BP 128/78; PULSE 82; O2SAT 97
--- NOTE | 2023-06-28 11:56 | MHC.PC.OV ---
Vital Signs 06/28/23 11:56 Weight 162 lb 2 oz BP 128/78 Blood Pressure Location Lt brachial Position Sitting Pulse 82 Pulse Source Pulse Oximeter Pulse Oximetry (%) 97 Oxygen Delivery Method Room Air Intake Visit Reasons: SAWV Intake Note: Patient is here for an Annual Wellness Visit. 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 Allergies lisinopril Adverse Reaction (Unknown, Verified 06/28/23 12:01) cough Tobacco use date assessed: 01/22/23 Dental Screening Dental Screen Date: 06/28/23 Did you have a dental visit in the last 12 months?: Yes Did you have a dental problem in the last 6 months where you did not have access to dental care?: No Was dental information given to patient?: Patient has dentist [facility] Medical History Asthma Cancer of tonsil Colon cancer screening Essential hypertension GERD (gastroesophageal reflux disease) History of chemotherapy Hx of radiation therapy Hypercholesterolemia Hypotension Orthostatic hypotension PAF (paroxysmal atrial fibrillation) Syncope Urinary incontinence Surgical History H/O colonoscopy History of tonsillectomy S/P repair of hydrocele Family History Father Dementia Hx of CABG Mother Diabetes Social History Housing: House Alcohol intake: current Alcohol intake frequency: holidays/special occasions only Alcohol type: beer Patient Tobacco Use Status: Never used Tobacco e-Cigarette/Vaping Use: Never Used Second Hand Smoke Exposure: No service: No Current occupational status: retired Cognitive needs: No Hearing needs: No Vision needs: Yes Questionnaire Thrive Questionnaire Date Thrive assessed: 01/22/23 LUZ ELENA-7 AMB Questionnaire LUZ ELENA-7 Date LUZ ELENA - 7 assessed: 01/22/23 Source: Developed by Drs. Scotty Jessica, Liliam Shaw, Deangelo Carvalho and colleagues, with an educational juan miguel from [employer]. Physical exam (Primary Care) Tobacco/Smoking Status: Tobacco use Status Tobacco use date assessed 01/22/23 06/22/23 14:13 Patient Tobacco Use Status Never used Tobacco 06/22/23 14:13 e-Cigarette/Vaping Use Never Used 06/22/23 14:13 Thrive Assessment: Date of Thrive Assessment Date Thrive assessed 01/22/23 06/22/23 14:13 Coding Diagnoses
--- NOTE | 2023-06-28 12:03 | AM.OFFVISMDC ---
Intake Vital Signs 06/28/23 11:56 Weight 162 lb 2 oz BP 128/78 Blood Pressure Location Lt brachial Position Sitting Pulse 82 Pulse Source Pulse Oximeter Pulse Oximetry (%) 97 Oxygen Delivery Method Room Air Intake Visit Reasons: SAWV Intake Note: Patient is here for an Annual Wellness Visit. 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 Accompanied by: Self / Same As Patient Allergies lisinopril Adverse Reaction (Unknown, Verified 06/28/23 12:08) cough Medication List - Last Reconciled 06/28/23 by MARKIE Foster albuterol sulfate 90 mcg/actuation (ProAir HFA) 2 puffs inhalation Q4-6H PRN atorvastatin 10 mg PO DAILY budesonide-formoterol 160-4.5 mcg/actuation (Symbicort) 2 puffs inhalation BID 90 days cholecalciferol (vitamin D3) 25 mcg PO DAILY cyanocobalamin (vitamin B-12) 1,000 mcg PO DAILY loratadine 10 mg PO DAILY losartan 100 mg PO DAILY metoprolol succinate ER 25 mg (1/2 x 50 mg) PO DAILY 30 days omeprazole 20 mg PO DAILY 90 days HPI SAWV HPI Details Patient is a 72-year-old male who presents today for subsequent wellness visit. Patient of Dr. Billingsley. Today we discussed patient's need for prostate cancer screening, he has order from his PCP, he was encouraged to complete his blood work. Up-to-date with immunizations. [place] of care was reviewed with the patient and he was provided with a screening schedule. End of life planning was discussed with the patient and he was provided with healthcare proxy and MOLST forms. ON LICENSE OF [facility] Medical History Asthma Cancer of tonsil Colon cancer screening Essential hypertension GERD (gastroesophageal reflux disease) History of chemotherapy Hx of radiation therapy Hypercholesterolemia Hypotension Orthostatic hypotension PAF (paroxysmal atrial fibrillation) Syncope Urinary incontinence Surgical History H/O colonoscopy History of tonsillectomy S/P repair of hydrocele Family History Father Dementia Hx of CABG Mother Diabetes Social History Housing: House Alcohol intake: current Alcohol intake frequency: holidays/special occasions only Alcohol type: beer Patient Tobacco Use Status: Never used Tobacco e-Cigarette/Vaping Use: Never Used Second Hand Smoke Exposure: No service: No Current occupational status: retired Cognitive needs: No Hearing needs: No Vision needs: Yes Questionnaire Medicare Wellness Checkup [age] What gender do you identify with?: male During the past 4 weeks, how much have you been bothered by emotional problems such as feeling anxious, depressed, irritable, sad or downhearted, and blue?: slightly During the past 4 weeks, has your physical & emotional health limited your social activities with family, friends, neighbors, or groups?: not at all During the past 4 weeks, how much bodily pain have you generally had?: very mild pain During the past 4 weeks, was someone available to help you if you needed & wanted help?: yes, quite a bit During the past 4 weeks, what was the hardest physical activity you could do for at least 2 minutes?: heavy Can you get to places out of walking distance without help? (For eg., can you travel alone on buses, taxis or drive your car?): Yes Can you go shopping for groceries or clothes without someone's help?: Yes Can you prepare your own meals?: Yes Can you do your housework without help?: Yes Because of any health problems, do you need the help of another person with your personal care needs such as eating, bathing, dressing or getting around the house?: No Can you handle your own money without help?: Yes During the past 4 weeks, how would you rate your health in general?: very good Are you having difficulties driving your car?: no Do you always fasten your seat belt when you are in a car?: yes, usually During past 4 weeks, have you been bothered by the following: never: Sexual problems?, Trouble eating well? and Problems using the telephone?, seldom: Teeth or denture problems? and sometimes: Falling or dizzy when standing up and Tiredness or fatigue? Have you fallen 2 or more times in the past year?: Yes Are you afraid of falling?: Yes Are you a smoker?: no During the past 4 weeks, how many drinks of wine, beer, or other alcoholic beverages did you have?: no alcohol at all Do you exercise for about 20 minutes 3 or more times a week?: yes, some of the time Have you been given information to help with the following?: yes: Keeping track of your medications? and no: Hazards in your house that might hurt you? How often do you have trouble taking medicines the way you have been told to take them?: I always take medicine as prescribed How confident are you that you can control & manage most of your health problems?: very confident What is your race?: White Mini Mental State Exam (MMSE) Orientation What is the (year) (season) (date) (day) (month)?: year, season, date, day and month Score Score: 5 Activity of Daily Living Bathing - sponge bath, tub bath or shower: receives no assistance (gets in/out by self, if usual bathing means Dressing - getting clothes from closets & drawers, including inner/outer garments & fasteners.: gets clothes & gets completely dressed without help Toileting - going to the 'toilet room' for urine/bowel elimination & cleaning self/arranging clothes: goes to toilet room, cleans self, arranges clothes without help Transfer: moves in & out of bed and chair without help (may use support object) Continence: controls urination/bowel movements completely by self Feeding: feeds self without help Total Score: 0 Information obtained from: patient Using telephone: independent Traveling: independent Shopping: independent Preparing meals: independent Housework: independent Taking medicine: independent Managing money: independent PHQ-9 Over the last 2 weeks, how often have you been bothered by any of the following problems? 1. Little interest or pleasure in doing things: not at all 2. Feeling down, depressed, or hopeless: not at all 3. Trouble falling or staying asleep, or sleeping too much: not at all 4. Feeling tired or having little energy: not at all 5. Poor appetite or overeating: not at all 6. Feeling bad about yourself - or that you are a failure or have let yourself or your family down: not at all 7. Trouble concentrating on things, such as reading the newspaper or watching television: not at all 8. Moving or speaking so slowly that other people could have noticed. Or the opposite - being so fidgety or restless that you have been moving around a lot more than usual: not at all 9. Thoughts that you would be better off or of hurting yourself in some way: not at all Total score: 0 Depression Screening Interpretation: Negative 31618 - PHQ-9 Billing: Yes Source: Developed by Drs. Scotty Jessica, Liliam Shaw, Deangelo Carvalho and colleagues, with an educational juan miguel from [employer]. PHQ-2/PHQ-9 PHQ-2 Over the last 2 weeks, how often have you been bothered by any of the following problems? 1. Little interest or pleasure in doing things: not at all 2. Feeling down, depressed, or hopeless: not at all Total score: 0 If score is 3 or greater, continue 3. Trouble falling or staying asleep, or sleeping too much: not at all 4. Feeling tired or having little energy: not at all 5. Poor appetite or overeating: not at all 6. Feeling bad about yourself - or that you are a failure or have let yourself or your family down: not at all 7. Trouble concentrating on things, such as reading the newspaper or watching television: not at all 8. Moving or speaking so slowly that other people could have noticed. Or the opposite - being so fidgety or restless that you have been moving around a lot more than usual: not at all 9. Thoughts that you would be better off or of hurting yourself in some way: not at all Total score: 0 0-4 None-Minimal, 5-9 Mild, 10-14 Moderate, 15-19 Moderately Severe, 20-27 Severe Source: Developed by Drs. Scotty Jessica, Liliam Shaw, Deangelo Carvalho and colleagues, with an educational juan miguel from [employer]. Physical Exam Vital Signs: Last Vital Signs Pulse 82 06/28/23 11:56 BP 128/78 06/28/23 11:56 Pulse Ox 97 06/28/23 11:56 Oxygen Delivery Method Room Air 06/28/23 11:56 Const General: cooperative and no acute distress Orientation/consciousness: patient oriented x3 HEENT Other: Whisper test: pass Neuro Other: Balance: Normal Get up and walk: able to Romberg: negative Tandem gait: able to General: patient oriented x3 Assessment & Plan Assessment & Plan (1) Adult general medical exam: Code(s): Z00.00 - Encounter for general adult medical examination without abnormal findings (2) Hypercholesterolemia: Code(s): E78.00 - Pure hypercholesterolemia, unspecified Plan: Continue current treatment. Reinforced low-cholesterol diet. (3) GERD (gastroesophageal reflux disease): Code(s): K21.9 - Gastro-esophageal reflux disease without esophagitis Plan: Continue omeprazole daily. Avoid GERD trigger foods. (4) Essential hypertension: Code(s): I10 - Essential (primary) hypertension Plan: Continue metoprolol, losartan. Low-sodium diet and exercise as tolerated. (5) PAF (paroxysmal atrial fibrillation): Comment: no recurrence Code(s): I48.0 - Paroxysmal atrial fibrillation Plan: Continue to follow-up with cardiology as scheduled. Continue metoprolol 25 mg daily (6) BPH (benign prostatic hyperplasia): Code(s): N40.0 - Benign prostatic hyperplasia without lower urinary tract symptoms Plan: Continue to follow-up with urology Dr. Rivas (7) Asthma: Code(s): J45.909 - Unspecified asthma, uncomplicated Plan: Stable Continue current inhalers as prescribed (8) Screening for prostate cancer: Code(s): Z12.5 - Encounter for screening for malignant neoplasm of prostate Plan: Patient has blood work order from his PCP Quality Reporting (2019) Depression/Bipolar (159/160/161/177) PHQ-9: Total score: 0 Coding Level of Care Code Medicare Subsequent (G0439) Diagnoses Adult general medical exam Z00.00 Hypercholesterolemia E78.00 GERD (gastroesophageal reflux disease) K21.9 Essential hypertension I10 PAF (paroxysmal atrial fibrillation) I48.0 BPH (benign prostatic hyperplasia) N40.0 Asthma J45.909 Screening for prostate cancer Z12.5 CPT Codes Advance Care Planning - Time spent: 1-15 minutes, not on file ([id number]) Advance Care Planning Date of discussion: 06/28/23 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
== END 2023-06-28 12:21 | disposition home or self-care (01) ==
PROVIDERS: Visit Provider Nurse Practitioner Family
DX: Z00.00 Encounter for general adult medical examination without abnormal findings (principal); K21.9 Gastro-esophageal reflux disease without esophagitis; I10 Essential (primary) hypertension; J45.909 Unspecified asthma, uncomplicated; E78.00 Pure hypercholesterolemia, unspecified
CPT/HCPCS: 1124F; G0439

== ENCOUNTER 2023-08-16 09:20 | Outpatient (REF) | payer MEDICARE, SELFPAY ==
[2023-08-16 09:40] LABS: MANUAL DIFF FLAG NO
[2023-08-16 10:01] LABS: Basophils Absolute Auto 0.1 X10*3/uL (0.0-0.2); Basophils Percent Auto 1.6 % (0-2); Eosinophils Absolute Auto 0.5 X10*3/uL (0.0-0.4); Eosinophils Percent Auto 9.3 % (0-4); Hematocrit 38.2 % (42.0-52.0); Imm Gran Abs Auto 0.02 X10*3/uL (0.00-0.03); Imm Gran Pct Auto 0.4 % (0.0-0.4); Lymphocytes Absolute Auto 0.9 X10*3/uL (1.2-4.9); Lymphocytes Percent Auto 17.3 % (20-40); Mean Corpuscular Hemoglobin 31.3 pg (27.0-33.0); Mean Corpuscular Volume 91.8 fL (80.0-98.0); Mean Platelet Volume 9.4 fL (9.4-12.4); Monocytes Absolute Auto 0.5 X10*3/uL (0.1-1.2); Monocytes Percent Auto 8.8 % (2-11); Neutrophils Absolute Auto 3.2 x10*3/uL (2.0-8.3); Neutrophils Percent Auto 62.6 % (45-73); Platelet Count 200 X10*3/uL (160-400); Red Blood Count 4.16 X10*6/uL (4.60-5.80); Red Cell Distribution Width 13.2 % (11.0-16.0); Retic HGB Equivalent 35.8 pg (30.0-35.0); Reticulocyte Percent 1.1 % (0.5-1.8); Reticulocytes Absolute 0.044 X10*6/uL (0.026-0.095); White Blood Count 5.1 X10*3/uL (4.8-10.8)
[2023-08-16 10:50] LABS: Appearance Urine Clear; Color Urine Yellow; Glucose Urine UA Negative (Negative); Leukocyte Esterase Urine Negative (Negative); Nitrite Urine Negative (Negative); PH 6.5 (5.0-9.0); Urine Blood Negative (Negative); Urine Ketones Negative (Negative); Urine Protein Negative (Neg-Trace)
[2023-08-16 10:55] LABS: Alanine Aminotransferase 16 U/L (0-40); Alkaline Phosphatase 67 U/L (39-117); Anion Gap 12 (12-20); Aspartate Amino Transferase 25 U/L (5-37); Bilirubin Total 0.8 mg/dL (0.0-1.0); Blood Urea Nitrogen 12 mg/dL (9-16); Calcium 9.6 mg/dL (8.4-10.2); Carbon Dioxide 28 mmol/L (22-29); Chloride 101 mmol/L (96-108); Cholesterol 157 mg/dL (<200); Estimated Glomerular Filt Rate > 60; Glucose Random 93 mg/dL (60-115); HDL Cholesterol 65 mg/dL (>40); Iron 90 mcg/dL (45-160); LDL Cholesterol Calculated 86 mg/dL (<100); Percent Iron Saturation 34 % (15-50); Potassium 4.2 mmol/L (3.3-5.1); Sodium 137 mmol/L (135-145); Total Iron Binding Capacity 267 mcg/dL (228-428); Total Protein 6.4 g/dL (6.5-8.0); Triglycerides 34 mg/dL (<150); Unsaturated Iron Binding 177 ug/dL
[2023-08-16 11:15] LABS: Ferritin 218 ng/mL (20-250); Free T4 (Free Thyroxine) 1.02 ng/dL (0.71-1.85); Thyroid Stimulating Hormone 2.69 uIU/mL (0.32-4.0)
[2023-08-16 11:17] LABS: Folate 8.7 ng/mL (> or = 4.0); Prostate Specific Antigen Scr 0.69 ng/mL (<0.05-4.0); Vitamin B12 1056 pg/mL (200-900)
[2023-08-16 12:49] LABS: Bacteria Urine None Seen (None Seen); Hyaline Casts Urine 0-2 /LPF (0-2); RBC Urine 0-2 /HPF (0-2); Squamous Epithelial Cell Urine 0-2 /HPF (0-2); WBC Urine 0-5 /HPF (0-5)
== END 2023-08-16 09:21 | disposition home or self-care (01) ==
LOC: HO.LAB 09:20
PROVIDERS: PCP Internal Medicine; Visit Provider Internal Medicine
DX: D64.9 Anemia, unspecified (principal); E78.00 Pure hypercholesterolemia, unspecified; N40.0 Benign prostatic hyperplasia without lower urinary tract symptoms; Z12.5 Encounter for screening for malignant neoplasm of prostate
CPT/HCPCS: 36415; 80053; 80061; 81001; 82607; 82728; 82746; 83540; 84153; 84439; 84443; 85025; 85045

== ENCOUNTER 2023-08-22 08:49 | Outpatient (AMB) | payer MEDICARE, SELFPAY ==
[2023-08-22 08:50] VITALS: BP 170/108; PULSE 79; O2SAT 96; BMI 23.4
--- NOTE | 2023-08-22 08:50 | MHC.PC.OV ---
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: No Accompanied by: Self / Same As Patient Allergies lisinopril Adverse Reaction (Unknown, Verified 08/22/23 08:53) cough Medication List - Last Reconciled 08/22/23 by Olesya Billingsley MD albuterol sulfate 90 mcg/actuation (ProAir HFA) 2 puffs inhalation Q4-6H PRN alfuzosin ER 10 mg PO BEDTIME 90 days atorvastatin 10 mg PO DAILY budesonide-formoterol 160-4.5 mcg/actuation (Symbicort) 2 puffs inhalation BID 90 days cholecalciferol (vitamin D3) 25 mcg PO DAILY cyanocobalamin (vitamin B-12) 1,000 mcg PO DAILY loratadine 10 mg PO DAILY losartan 100 mg PO DAILY omeprazole 20 mg PO DAILY 90 days Tobacco use date assessed: 01/22/23 Fall risk assessment: No Falls in past year Last assessed Fall Risk: 08/22/23 Dental Screening Dental Screen Date: 08/22/23 Did you have a dental visit in the last 12 months?: Yes Did you have a dental problem in the last 6 months where you did not have access to dental care?: No Was dental information given to patient?: Patient has dentist HPI 3 Mon F/U HPI Details 73-year-old male with asthma hypercholesterolemia GERD hypertension atrial fibrillation last seen in May 2023. Patient's colonoscopy is up-to-date echocardiogram earlier this year normal left ventricular ejection fraction. Patient was recently seen by the nurse practitioner in June for AW V. Patient follows up with urology for nocturia on alfuzosin [facility] Medical History (Updated 08/22/23 @ 09:14 by Olesya Billingsley MD) Screening for prostate cancer Hypotension Syncope Urinary incontinence Hx of radiation therapy History of chemotherapy Colon cancer screening Hypercholesterolemia Asthma GERD (gastroesophageal reflux disease) Cancer of tonsil Orthostatic hypotension Essential hypertension PAF (paroxysmal atrial fibrillation) Surgical History H/O colonoscopy S/P repair of hydrocele History of tonsillectomy Family History Father Dementia Hx of CABG Mother Diabetes Social History Housing: House Alcohol intake: current Alcohol intake frequency: holidays/special occasions only Alcohol type: beer Patient Tobacco Use Status: Never used Tobacco e-Cigarette/Vaping Use: Never Used Second Hand Smoke Exposure: No service: No Current occupational status: retired Cognitive needs: No Hearing needs: No Vision needs: Yes Questionnaire Thrive Questionnaire Date Thrive assessed: 01/22/23 LUZ ELENA-7 AMB Questionnaire LUZ ELENA-7 Date LUZ ELENA - 7 assessed: 01/22/23 Source: Developed by Drs. Scotty Jessica, Liliam Shaw, Deangelo Carvalho and colleagues, with an educational juan miguel from [employer]. Physical exam (Primary Care) Vital Signs: Last Vital Signs Pulse 79 08/22/23 08:50 BP 170/108 H 08/22/23 08:50 Pulse Ox 96 08/22/23 08:50 Oxygen Delivery Method Room Air 08/22/23 08:50 BMI result Body Mass Index 23.4 Tobacco/Smoking Status: Tobacco use Status Tobacco use date assessed 01/22/23 08/22/23 08:56 Patient Tobacco Use Status Never used Tobacco 08/22/23 08:56 e-Cigarette/Vaping Use Never Used 08/22/23 08:56 Thrive Assessment: Date of Thrive Assessment Date Thrive assessed 01/22/23 08/22/23 08:56 Const General: alert; No acute distress Eyes Conjunctivae: conjunctivae normal Resp Auscultation: clear to auscultation bilaterally Cardio Rate: regular rate Rhythm: regular rhythm GI Inspection: Yes normal to inspection Extrem General: Yes normal to inspection and No edema Assessment and Plan Assessment & Plan (1) Essential hypertension: Code(s): I10 - Essential (primary) hypertension Plan: Continue with blood pressure medication. Decrease salt intake and exercise patient is taking losartan 100 mg once a day and metoprolol 25 mg once a day. due to hypotension will d/c metoprolol (2) GERD (gastroesophageal reflux disease): Code(s): K21.9 - Gastro-esophageal reflux disease without esophagitis Plan: continune with omeprazole (3) Hypercholesterolemia: Code(s): E78.00 - Pure hypercholesterolemia, unspecified Plan: Avoid fried foods, chicken skin, eggs, butter margarine, pastries and meat. Be it pork or beef they have a lot of cholesterol LDL goal of less than 130 and triglyceride of less than 150 patient on atorvastatin 10 mg once a day (4) Asthma: Code(s): J45.909 - Unspecified asthma, uncomplicated Plan: Continue with controller as well as the rescue inhaler as needed (5) BPH (benign prostatic hyperplasia): Code(s): N40.0 - Benign prostatic hyperplasia without lower urinary tract symptoms Plan: Patient follows up with urology was placed on alfuzosin Medications: Refilled alfuzosin ER Take before bedtime 10 mg PO BEDTIME 90 days 90 tabs 1RF N40.0 - Benign prostatic hyperplasia without lower urinary tract symptoms, R39.12 - Poor urinary stream Discontinued metoprolol succinate ER Discontinued Reason: Doctor's Order 25 mg (1/2 x 50 mg) PO DAILY 30 days 15 tabs 1RF Coding Level of Care Code Est Pt Level 4 (11652) Diagnoses Essential hypertension I10 GERD (gastroesophageal reflux disease) K21.9 Hypercholesterolemia E78.00 Asthma J45.909 BPH (benign prostatic hyperplasia) N40.0
[2023-08-22 09:18] VITALS: BP 90/60
== END 2023-08-22 09:32 | disposition home or self-care (01) ==
PROVIDERS: PCP Internal Medicine; Visit Provider Internal Medicine
DX: I10 Essential (primary) hypertension (principal); K21.9 Gastro-esophageal reflux disease without esophagitis; E78.00 Pure hypercholesterolemia, unspecified; J45.909 Unspecified asthma, uncomplicated; N40.0 Benign prostatic hyperplasia without lower urinary tract symptoms
CPT/HCPCS: 99214

== ENCOUNTER 2023-09-11 14:21 | Outpatient (AMB) | payer MEDICARE, SELFPAY ==
[2023-09-11 14:29] VITALS: BP 72/40; PULSE 80; BMI 24.2
--- NOTE | 2023-09-11 14:29 | MHC.OFFVIS ---
Intake Vital Signs 09/11/23 14:29 09/11/23 14:44 09/11/23 14:55 Height 5 ft 10 in Weight 168 lb 6.931 oz BMI 24.2 BP 72/40 L 98/50 L 102/52 L Blood Pressure Location Lt brachial Rt brachial Rt brachial Position Sitting Sitting Sitting Pulse 80 Intake Visit Reasons: follow up Intake Note: f/u Homemaker Companion Required: No Allergies lisinopril Adverse Reaction (Unknown, Verified 09/11/23 14:31) cough Medication List - Last Reconciled 09/11/23 by Annelise Chen NP alfuzosin ER 10 mg PO BEDTIME 90 days atorvastatin 10 mg PO DAILY budesonide-formoterol 160-4.5 mcg/actuation (Symbicort) 2 puffs inhalation BID 90 days cholecalciferol (vitamin D3) 25 mcg PO DAILY cyanocobalamin (vitamin B-12) 1,000 mcg PO DAILY loratadine 10 mg PO DAILY losartan 100 mg PO DAILY omeprazole 20 mg PO DAILY 90 days HPI HPI Comments History of Present Illness Details 73-year-old male presents today for a follow-up. He reports doing well but he gets home blood pressures 80-140s systolic. He gets dizzy with low blood pressures. he denies palpitations, sob, or chest pain. Patient reports not always hydrating well but he has been trying to increase his fluids. He has a history of orthostatic hypotension. Blood pressure recheck by me upon my arrival to the room and before departure and was much improved. [facility] Medical History Screening for prostate cancer Hypotension Syncope Urinary incontinence Hx of radiation therapy History of chemotherapy Colon cancer screening Hypercholesterolemia Asthma GERD (gastroesophageal reflux disease) Cancer of tonsil Orthostatic hypotension Essential hypertension PAF (paroxysmal atrial fibrillation) Surgical History H/O colonoscopy S/P repair of hydrocele History of tonsillectomy Family History Father Dementia Hx of CABG Mother Diabetes Social History Housing: House Alcohol intake: current Alcohol intake frequency: holidays/special occasions only Alcohol type: beer Patient Tobacco Use Status: Never used Tobacco e-Cigarette/Vaping Use: Never Used Second Hand Smoke Exposure: No service: No Current occupational status: retired Cognitive needs: No Hearing needs: No Vision needs: Yes Review of Systems Const Denies chills, Denies fatigue, Denies fever(s), Denies frequent falls, Denies weakness, Denies weight gain and Denies weight loss ENT Reports dizziness Card Denies chest pain, Denies chest pain at rest, Denies chest pain with activity, Denies rapid heart rate, Denies pedal edema, Denies edema, Denies leg edema, Denies lightheadedness, Denies palpitations, Denies dyspnea, Denies dyspnea on exertion and Denies orthopnea Resp Denies cough, Denies dyspnea and Denies dyspnea on exertion GI Denies hematochezia and Denies change in stool character Musc Denies abnormal gait, Reports limited range of motion, Reports muscle cramps, Denies muscle weakness, Denies numbness, Denies radiating pain into limb, Denies stiffness and Denies tingling Neuro Denies abnormal gait, Reports dizziness, Denies frequent falls, Denies numbness, Denies tingling and Denies weakness Endo Denies fatigue and Denies palpitations Physical Exam Vital Signs: Last Vital Signs Pulse 80 09/11/23 14:29 BP 72/40 L 09/11/23 14:29 BMI result Body Mass Index 24.2 Const General: healthy appearing and no acute distress Orientation/consciousness: patient oriented x3 HEENT Head: Yes normal to inspection Eyes General: appearance normal, both eyes and all related structures Neck Neck: Yes normal visual inspection Chest Chest palpation & inspection: normal inspection of the chest Resp Effort & Inspection: normal respiratory effort Auscultation: clear to auscultation bilaterally Cardio Jugular venous distension: no JVD Palpation: normal PMI Rate: regular rate Rhythm: regular rhythm Heart sounds: S1 normal heart sound present, S2 normal heart sound present, no click, no gallops, no murmurs and no rubs GI Inspection: Yes normal to inspection Palpation (GI): Soft to palpation Skin General skin exam: no rashes or lesions noted Neuro General: patient oriented x3 Extrem General: Yes normal to inspection Psych Appearance: grossly normal Assessment & Plan Assessment & Plan (1) Orthostatic hypotension: Code(s): I95.1 - Orthostatic hypotension (2) Essential hypertension: Code(s): I10 - Essential (primary) hypertension (3) PAF (paroxysmal atrial fibrillation): Comment: no recurrence Code(s): I48.0 - Paroxysmal atrial fibrillation Plan Reduce losartan to 50mg. BP check in two weeks. Goal for blood pressure 90-130 systolic and 60-80 diastolic report low or high blood pressures. Hydrate well. Will have him see the doctor in 6 months or sooner if needed Medications: New losartan 50 mg PO DAILY 30 tabs 3RF Coding Level of Care Code Est Pt Level 3 (50304) Diagnoses Orthostatic hypotension I95.1 Essential hypertension I10 PAF (paroxysmal atrial fibrillation) I48.0
[2023-09-11 14:44] VITALS: BP 98/50
[2023-09-11 14:55] VITALS: BP 102/52
== END 2023-09-11 15:01 | disposition home or self-care (01) ==
PROVIDERS: Visit Provider Nurse Practitioner
DX: I95.1 Orthostatic hypotension (principal); I10 Essential (primary) hypertension; I48.0 Paroxysmal atrial fibrillation
CPT/HCPCS: 93010; 99213

== ENCOUNTER → 2023-09-11 14:21 | Outpatient (BNVA) | payer MEDICARE, SELFPAY | PROVIDERS: Visit Provider Nurse Practitioner | DX: I95.1 Orthostatic hypotension (principal); I10 Essential (primary) hypertension; I48.0 Paroxysmal atrial fibrillation | CPT/HCPCS: 93005; 99212 ==

== ENCOUNTER → 2023-09-25 09:20 | Outpatient (BNVA) | payer MEDICARE, SELFPAY | PROVIDERS: PCP Internal Medicine; Visit Provider Nurse Practitioner ==

== ENCOUNTER 2023-12-06 09:43 | Outpatient (AMB) | payer MEDICARE, SELFPAY ==
[2023-12-06 09:49] VITALS: BP 160/98; PULSE 83; O2SAT 96; BMI 24.0
--- NOTE | 2023-12-06 09:49 | MHC.PC.OV ---
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 Required: No Allergies lisinopril Adverse Reaction (Unknown, Verified 12/06/23 09:52) cough Medication List - Last Reconciled 12/06/23 by Olesya Billingsley MD alfuzosin ER 10 mg PO BEDTIME 90 days atorvastatin 10 mg PO DAILY budesonide-formoterol 160-4.5 mcg/actuation (Symbicort) 2 puffs inhalation BID 90 days cholecalciferol (vitamin D3) 25 mcg PO DAILY cyanocobalamin (vitamin B-12) 1,000 mcg PO DAILY loratadine 10 mg PO DAILY losartan 50 mg PO DAILY omeprazole 20 mg PO DAILY 90 days Tobacco use date assessed: 12/06/23 Fall risk assessment: No Falls in past year Last assessed Fall Risk: 12/06/23 Dental Screening Dental Screen Date: 12/06/23 Did you have a dental visit in the last 12 months?: Yes Did you have a dental problem in the last 6 months where you did not have access to dental care?: No Was dental information given to patient?: Patient has dentist HPI HTN, gerd HPI Details 73-year-old male with hypertension GERD hypercholesterolemia asthma and BPH last seen in August 2023. Patient's colonoscopy is up-to-date February 2021 10 years review of the notes in September was seen by Cardiology EKG was normal history of orthostatic no recurrence of atrial fibrillation patient's blood pressure medication was decreased to 50 mg of losartan once a day PFSH Medical History Screening for prostate cancer Hypotension Syncope Urinary incontinence Hx of radiation therapy History of chemotherapy Colon cancer screening Hypercholesterolemia Asthma GERD (gastroesophageal reflux disease) Cancer of tonsil Orthostatic hypotension Essential hypertension PAF (paroxysmal atrial fibrillation) Surgical History H/O colonoscopy S/P repair of hydrocele History of tonsillectomy Family History Father Dementia Hx of CABG Mother Diabetes Social History Housing: House Alcohol intake: current Alcohol intake frequency: holidays/special occasions only Alcohol type: beer Patient Tobacco Use Status: Never used Tobacco e-Cigarette/Vaping Use: Never Used Second Hand Smoke Exposure: No service: No Current occupational status: retired Cognitive needs: No Hearing needs: No Vision needs: Yes Questionnaire Thrive Questionnaire Date Thrive assessed: 12/06/23 AUDIT C Alcohol Use Questionnaire (AUDIT-C) 1. How often do you have a drink containing alcohol?: Never 3. How often do you have six or more drinks on one occasion?: Never Total Score: 0 Score Reviewed/Action Taken: No LUZ ELENA-7 AMB Questionnaire LUZ ELENA-7 Date LUZ ELENA - 7 assessed: 12/06/23 Source: Developed by Drs. Scotty Jessica, Liilam Shaw, Deangelo Carvalho and colleagues, with an educational juan miguel from [employer]. Physical exam (Primary Care) Vital Signs: Last Vital Signs Pulse 83 12/06/23 09:49 BP 160/98 H 12/06/23 09:49 Pulse Ox 96 12/06/23 09:49 Oxygen Delivery Method Room Air 12/06/23 09:49 BMI result Body Mass Index 24.0 Tobacco/Smoking Status: Tobacco use Status Tobacco use date assessed 12/06/23 12/06/23 09:55 Patient Tobacco Use Status Never used Tobacco 12/06/23 09:55 e-Cigarette/Vaping Use Never Used 12/06/23 09:55 Thrive Assessment: Date of Thrive Assessment Date Thrive assessed 12/06/23 12/06/23 09:55 Const General: alert; No acute distress Eyes Conjunctivae: conjunctivae normal Resp Auscultation: clear to auscultation bilaterally Cardio Rate: regular rate Rhythm: regular rhythm GI Inspection: Yes normal to inspection Extrem General: Yes normal to inspection and No edema Assessment and Plan Assessment & Plan (1) Essential hypertension: Code(s): I10 - Essential (primary) hypertension Plan: Continue with blood pressure medication. Decrease salt intake and exercise. With orthostatics patient was seen by Cardiology and has decrease the losartan to 50 mg once a day, will continue to monitor (2) Orthostatic hypotension: Code(s): I95.1 - Orthostatic hypotension Plan: Keep well hydrated decrease losartan (3) GERD (gastroesophageal reflux disease): Code(s): K21.9 - Gastro-esophageal reflux disease without esophagitis Plan: Avoid the foods that causes that usually spicy foods, tomato products, juices, coffee, soda and foods that your sensitive to. After eating do not lie down, allow 3-4 hours before in lie down. And keep the head of bed above 30 degrees to avoid the acid from going up. (4) Hypercholesterolemia: Code(s): E78.00 - Pure hypercholesterolemia, unspecified Plan: Avoid fried foods, chicken skin, eggs, butter margarine, pastries and meat. Be it pork or beef they have a lot of cholesterol LDL goal of less than 130 and triglyceride of less than 150 patient on atorvastatin 10 mg once a day (5) Asthma: Code(s): J45.909 - Unspecified asthma, uncomplicated Plan: Continue with Symbicort (6) BPH (benign prostatic hyperplasia): Code(s): N40.0 - Benign prostatic hyperplasia without lower urinary tract symptoms Plan: Continue with alfuzosin (7) Left arm weakness: Code(s): R29.898 - Other symptoms and signs involving the musculoskeletal system Plan: will do US carotids Medications: Discontinued losartan Discontinued Reason: Duplicate 100 mg PO DAILY 90 tabs 1RF I10 - Essential (primary) hypertension Coding Level of Care Code Est Pt Level 4 (70085) Diagnoses Essential hypertension I10 Orthostatic hypotension I95.1 GERD (gastroesophageal reflux disease) K21.9 Hypercholesterolemia E78.00 Asthma J45.909 BPH (benign prostatic hyperplasia) N40.0 Left arm weakness R29.898
[2023-12-06 10:17] VITALS: BP 154/90
== END 2023-12-06 10:22 | disposition home or self-care (01) ==
PROVIDERS: PCP Internal Medicine; Visit Provider Internal Medicine
DX: I10 Essential (primary) hypertension (principal); I95.1 Orthostatic hypotension; K21.9 Gastro-esophageal reflux disease without esophagitis; E78.00 Pure hypercholesterolemia, unspecified; J45.909 Unspecified asthma, uncomplicated; N40.0 Benign prostatic hyperplasia without lower urinary tract symptoms; R29.898 Other symptoms and signs involving the musculoskeletal system
CPT/HCPCS: 99214

== ENCOUNTER 2024-01-02 12:31 | Outpatient (AMB) | payer MEDICARE, SELFPAY ==
--- NOTE | 2024-01-02 12:35 | A.OFFVIS_ITS ---
Intake Intake Visit Reasons: 6M Follow Up(BPH)Confirmed portal Intake Note: Patient presents today for a telehealth follow-up Meds- Alfuzosin ER Allergies to Antibiotic- No Known Allergies Blood Thinner- None Patient symptoms: Patient stated he stopped taking Alfuzosin due to make him feel dizzy. Assurance Engineer Required: No Allergies lisinopril Adverse Reaction (Unknown, Verified 01/02/24 12:36) cough Medication List - Last Reconciled 01/02/24 by Davis Rivas MD atorvastatin 10 mg PO DAILY budesonide-formoterol 160-4.5 mcg/actuation (Symbicort) 2 puffs inhalation BID 90 days cholecalciferol (vitamin D3) 25 mcg PO DAILY cyanocobalamin (vitamin B-12) 1,000 mcg PO DAILY loratadine 10 mg PO DAILY losartan 50 mg PO DAILY omeprazole 20 mg PO DAILY 90 days HPI HPI Comments History of Present Illness Details Jose Rafael is a pleasant male. He is a patient of Dr BRAY. He is seen for the following urologic conditions - lower urinary tract symptoms Telemedicine Evaluation 15 min Consultation [employer] Video attempted PVR 0 cc Does have some hesitancy and nocturia x3 Is considering procedure Alfuzosin had less dizziness then tamsulosin Not quite as effective for control of stream in symptoms Lower urinary tract symptoms Current therapy - alfuzosin Initial symptom presentation - lower urinary tract symptoms predomina ntly irritative symptoms. Prior treatment includes - tamsulosin, alfuzosin Prostate Symptom Score - Initial moderate with bother 3 Symptoms include - urgency, frequency with nocturia great er than 2 - and are progressing Results from testing include - Renal/bladder US Yes Date 02/24 PVR 15 Prostate Size 130 Prior Prostate Score unknown PSA - 01/24 0.7 Associated conditions - none listed Treatment plan - alfuzosin [facility] Medical History Screening for prostate cancer Hypotension Syncope Urinary incontinence Hx of radiation therapy History of chemotherapy Colon cancer screening Hypercholesterolemia Asthma GERD (gastroesophageal reflux disease) Cancer of tonsil Orthostatic hypotension Essential hypertension PAF (paroxysmal atrial fibrillation) Surgical History H/O colonoscopy S/P repair of hydrocele History of tonsillectomy Family History Father Dementia Hx of CABG Mother Diabetes Social History Housing: House Alcohol intake: current Alcohol intake frequency: holidays/special occasions only Alcohol type: beer Patient Tobacco Use Status: Never used Tobacco e-Cigarette/Vaping Use: Never Used Second Hand Smoke Exposure: No service: No Current occupational status: retired Cognitive needs: No Hearing needs: No Vision needs: Yes Review of Systems Const All systems reviewed & are unremarkable except as noted in HPI and below Reports no additional complaints Resp Reports no additional complaints GI Reports no additional complaints Reports as per HPI Musc Reports no additional complaints Physical Exam Telemedicine evaluation Appropriate responses Regular breathing rate and rhythm HEENT Head: Yes normal to inspection Ears: hearing grossly normal bilaterally Eyes General: appearance normal, both eyes and all related structures Neck Neck: Yes normal visual inspection Chest Chest palpation & inspection: normal inspection of the chest Resp Effort & Inspection: normal respiratory effort and able to speak in complete sentences Assessment & Plan Assessment & Plan (1) BPH (benign prostatic hyperplasia): Code(s): N40.0 - Benign prostatic hyperplasia without lower urinary tract symptoms Plan Six-month follow-up PVR Medications: Discontinued alfuzosin ER Take before bedtime Discontinued Reason: Patient no longer taking 10 mg PO BEDTIME 90 tabs 1RF 90 days N40.0 - Benign prostatic hyperplasia without lower urinary tract symptoms, R39.12 - Poor urinary stream Patient Instructions: Imaging studies, laboratory and physical exam results were discussed and reviewed in detail. No major barriers to patient understanding were identified. An opportunity to ask questions regarding the treatment plan was provided. All questions were answered. The patient expressed understanding and agreement with the above treatment plan. The patient is aware they should contact our office by phone for worsening of their current condition or the appearance of new urologic symptoms. Compliance is encouraged with any medications and followup testing that is ordered. It is a privilege to participate in the urologic care of your patient. If you have any questions or concerns regarding treatment for the above conditions, or other urologic issues, please do not hesitate to contact me. The office telephone contact is [phone]. This note is constructed using voice recognition software. While every effort has been made to ensure accuracy breaker machine operator errors may have been included. Yours sincerely, Dr Davis Rivas MD, [facility] - Urology Providers of Expert, Compassionate Care for the Genitourinary System Telehealth Telehealth Location of provider rendering services: practice address Location of patient: address on file Patient Identification confirmed using: Name, : Yes Telehealth method: video Patient verbally consented to treatment: Yes Patient verbally consented to billing insurance company: Yes Patient informed of any privacy concerns related to visit: Yes Coding Level of Care Code Tele Est Pt Level 3 (98440) Diagnoses BPH (benign prostatic hyperplasia) N40.0
== END 2024-01-02 14:09 | disposition home or self-care (01) ==
LOC: HO.HUSH 12:32
PROVIDERS: PCP Internal Medicine; Visit Provider Urology
DX: N40.0 Benign prostatic hyperplasia without lower urinary tract symptoms (principal)
CPT/HCPCS: 99213

== ENCOUNTER → 2024-01-02 12:31 | Outpatient (BNVA) | payer MEDICARE, SELFPAY | PROVIDERS: PCP Internal Medicine; Visit Provider Urology ==

== ENCOUNTER 2024-02-27 10:20 | Outpatient (REF) | payer MEDICARE, SELFPAY ==
--- NOTE | ~2024-02-27 | US_ITS ---
EXAMINATION: US EXTRACRANIAL CAROTID DUPLEX, BILATERAL CLINICAL INFORMATION: TIA COMPARISON: None available. TECHNIQUE: Real-time ultrasound and Doppler techniques (integrating B-mode 2-D vascular images, Doppler spectral analysis and color-flow Doppler imaging) were utilized to interrogate the extracranial carotid arteries, the vertebral arteries and proximal subclavian arteries bilaterally. The degree of stenosis is determined by criteria similar to NASCET. FINDINGS: Right Side: 1. There is mild atherosclerotic plaque seen in the bifurcation/proximal ICA region. 2. The common carotid artery PSV proximally is 146 cm/s and distally 345 cm/s. 3. The proximal internal carotid artery velocities are 159 cm/s systolic and 62 cm/s diastolic. 4. The proximal external carotid artery PSV is 209 cm/s. 5. The vertebral artery shows antegrade flow. 6. The subclavian artery waveforms are normal. Left Side: 1. There is extensive atherosclerotic plaque seen in the bifurcation/proximal ICA region, minimal flow possibly retrograde. 2. The common carotid artery PSV proximally is 20 cm/s and distally 23 cm/s, flow not well evaluated. 3. The proximal internal carotid artery velocities are 37 cm/s systolic and 6 cm/s diastolic. 4. The proximal external carotid artery PSV is 40 cm/s. 5. The vertebral artery shows antegrade flow. 6. The subclavian artery waveforms are normal. US/US carotid duplex BI IMPRESSION: 1. RIGHT: Minimal, non-hemodynamically significant stenosis of the proximal right internal carotid artery corresponding to a 0-49% stenosis by velocity criteria. 2. LEFT: Extensive atherosclerotic plaque seen in the bifurcation/proximal ICA region, minimal flow possibly retrograde. CTA head and neck is recommended for further evaluation and has already been ordered.
== END 2024-02-27 10:21 | disposition home or self-care (01) ==
LOC: HO.US 10:20
PROVIDERS: PCP Internal Medicine; Visit Provider Internal Medicine
DX: Z13.89 Encounter for screening for other disorder (principal)
CPT/HCPCS: 93880

== ENCOUNTER 2024-02-27 11:06 | Emergency (ER) | payer MEDICARE, SELFPAY ==
--- NOTE | ~2024-02-27 | CT_ITS ---
EXAMINATION: CTA OF THE HEAD AND NECK CLINICAL INFORMATION: Abnormal carotid exam with intermittent TIA symptoms. COMPARISON: Carotid ultrasound report from 02/27/2024. Neck CT dated 08/10/2008. TECHNIQUE: Test bolus sequences followed by intravenous administration 70 mL of Omnipaque 350. Helical imaging was performed in the axial plane from the mediastinum to the skull vertex. Delayed postcontrast imaging of the head was also performed. The data was processed at the space technologist's workstation for generation of MIP sequences. Three-dimensional volume rendered reformatted images were also generated at an offline 3-D workstation. Stenoses are assessed in accordance with NASCET criteria unless otherwise indicated. This CT examination was performed using dose optimization techniques as appropriate, variously including the following: *Automated exposure control *Adjustment of mA and/or kV according to patient size (this includes techniques or standardized protocols for targeted exams where dose is matched to indication/reason for exam; i.e. extremities or head) *Use of iterative reconstruction technique DLP: 2355 mGy-cm. FINDINGS: CT head: There is no evidence of acute intracranial hemorrhage or territorial infarction. There is no loss of jones to white matter differentiation. No abnormal mass effect or midline shift is seen. No extra-axial fluid collections are identified. There is no abnormal enhancement. Mild generalized brain parenchymal volume loss noted with mild chronic white matter microangiopathic changes. 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 The soft tissues are normal. The mastoid air cells and visualized portions of the paranasal sinuses are well aerated. CTA neck: The imaged aortic arch and origins of the great vessels are patent with mild atherosclerotic wall calcification. The right common carotid artery minimally irregular from eccentric fibrofatty plaque and wall calcification, more so distally. Wall calcifications are present at the right carotid bifurcation, though the origin of the right internal carotid artery is normal. Remainder of the cervical right ICA is widely patent. The dominant left vertebral artery is normal in caliber. The V1 and majority of the V2 segments of the right vertebral artery to the level of the C3-C4 disc space are small in caliber with moderate multifocal areas of luminal irregularity, possibly due to a prior dissection with recanalization and collateral flow from a hypertrophic right paraspinal intramuscular arterial branch. The cervical left vertebral artery is normal. There is absence of contrast in the left common carotid artery approximately 1.5 cm distal to the vessel origin. At the left carotid bifurcation, contrast is present in the vasculature and the left carotid bulb is widely patent. Finding may be due to vessel recanalization or retrograde flow from left ECA branches. The remainder of the left internal carotid artery distal to this level is asymmetrically small in caliber, though opacifies with contrast to a slightly lesser degree at compared to the right ICA. There are chronic fatty atrophic changes of the submandibular glands. 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 Previous lobulated soft tissue along the tongue base on the 08/10/2008 exam is no longer seen. No pathologically enlarged cervical lymph nodes are visible. Moderate mid to lower cervical spondylosis with disc-osteophyte complexes visible at the C5-C6 and C6-C7 levels. There are subpleural fibrotic changes at the lung apices possibly due to previous radiation therapy. The imaged lungs are otherwise clear. CTA head: The intradural vertebral arteries and basilar artery are normal. The posterior cerebral arteries are widely patent. The right internal carotid artery is normal. The left internal carotid artery is reduced in caliber with slightly decreased avidity of contrast opacification compared to the normal right ICA. MOHSEN and MCA vascular complexes bilaterally are normal. The venous sinuses opacify normally. CT/CT angio head neck IMPRESSION: Age-indeterminate absence of contrast opacification just distal to the origin of the left common carotid artery to the level of the carotid bifurcation, which demonstrates atheromatous plaque and wall calcification. Decreased avidity of contrast in the left internal carotid artery distally, which is asymmetrically reduced in caliber compared to the normal right ICA. Irregular decreased caliber cervical right vertebral artery from the V1 segment through a majority of the V2 segment, where there is suspected collateral supply from a hypertrophied right paraspinal intramuscular branch at the C3-C4 level. Findings may be due to a prior chronic dissection with subsequent recanalization and collateral flow. Asymmetrically reduced caliber of the intracranial left internal carotid artery which is otherwise patent. The remaining intracranial vasculature at the level of the [place] is relatively normal. Findings reported to Dr. Collins at 2:10 PM on 02/27/2024.
--- NOTE | 2024-02-27 11:09 | ECG_ITS ---
Test Reason : STROKE ? Blood Pressure : / mmHG Vent. Rate : 083 BPM Atrial Rate : 083 BPM P-R Int : 180 ms QRS Dur : 094 ms QT Int : 346 ms P-R-T Axes : 050 -05 001 degrees QTc Int : 406 ms Normal sinus rhythm Normal ECG When compared with ECG of 05-MAY-2009 14:55, Inverted T waves have replaced nonspecific T wave abnormality in Inferior leads Referred By: Kimmy Collins Electronically Signed By:RENALDO HOUSE MD
[2024-02-27 11:16] VITALS: BP 230/130; PULSE 92; RESP 14; TEMP 36.7; O2SAT 95; BMI 23.9
--- NOTE | 2024-02-27 11:18 | ED.GENADULT ---
HPI - General Adult General Chief complaint: Stroke Stated complaint: Sent by dr Huerta Seen by Provider: 02/27/24 11:09 Source: patient and old records reviewed Mode of arrival: ambulatory Limitations: no limitations History of Present Illness HPI narrative: 73 yo male with PMH of PAF not on thinners reported one isolated episode, GERD, HLD, asthma, BPH, HTN states he took his BP medications today comes in with c/o asking for carotid studies from PCP for repeated episodes of dizziness, intermittent R arm weakness, syncope when standing over 6 months. He was in vascular lab today and they noted acute clot in L common carotid artery - he has no symptoms today or now and I spoke to Dr. Naidu who advised CTA head and neck. Patient is not on aspirin, thinners or anti-platelet agent. MD complaint: abnormal carotid study Onset (ago): minute(s) (10) Radiation: non-radiation Severity: moderate Relieving factors: rest Exacerbating factors: other (notes his syncope and arm issues happen when he stands up mostly) Associated symptoms: other (intermittent R arm weakness) Treatments prior to arrival: none Related Data Home Medications ?Medication ?Instructions ?Recorded ?Confirmed cholecalciferol (vitamin D3) 25 25 mcg PO DAILY 09/16/20 01/02/24 mcg (1,000 unit) capsule cyanocobalamin (vitamin B-12) 1,000 mcg PO DAILY 09/16/20 01/02/24 1,000 mcg capsule loratadine 10 mg tablet 10 mg PO DAILY 09/16/20 01/02/24 Previous Rx's ?Medication ?Instructions ?Recorded omeprazole 20 mg capsule,delayed 20 mg PO DAILY 90 days #90 caps 09/27/22 release budesonide-formoterol HFA 160 2 puff inhalation BID 90 days #3 ea 01/12/23 mcg-4.5 mcg/actuation aerosol inhaler (Symbicort) atorvastatin 10 mg tablet 10 mg PO DAILY #90 tabs 05/02/23 losartan 50 mg tablet 50 mg PO DAILY #30 tabs 01/24/24 aspirin 81 mg tablet,delayed 81 mg PO DAILY #30 tabs 02/27/24 release atorvastatin 40 mg tablet 40 mg PO DAILY #30 tabs 02/27/24 clopidogrel 75 mg tablet (Plavix) 75 mg PO DAILY #30 tabs 02/27/24 metoprolol succinate 25 mg 25 mg PO DAILY #30 tabs 02/27/24 tablet,extended release 24 hr (Toprol XL) Allergies Allergy/AdvReac Type Severity Reaction Status Date / Time lisinopril AdvReac Unknown cough Verified 02/27/24 11:18 Review of Systems Review of Systems: Constitutional : No Fever, No Chills, No Fatigue ENT/Mouth : No sore throat, No Rhinorrhea Eyes: No Eye Pain, No Swelling, No Redness Cardiovascular : No Chest Pain, No SOB, No Dyspnea on Exertion Respiratory : No Cough, No Sputum Gastrointestinal : No Nausea, No Vomiting, No Diarrhea, No abdominal Pain Genitourinary : No Dysuria, No Urinary Frequency, No Hematuria, Musculoskeletal : No joint pain, No Myalgias, No Joint Swelling Skin : No Skin Lesions, No rash Neuro : No Weakness, No Numbness, pos Dizziness, no Headache Psych : No Anxiety/Panic, No Depression Heme/Lymph: No Bruising, No Bleeding,No Lymphadenopathy Endocrine : No Polyuria, No Polydipsia All other systems reviewed and are negative PMFSH Past Medical History Attestation statement: The following information was validated with the patient. Source: old records reviewed Medical History Screening for prostate cancer Hypotension Syncope Urinary incontinence Hx of radiation therapy History of chemotherapy Colon cancer screening Hypercholesterolemia Asthma GERD (gastroesophageal reflux disease) Cancer of tonsil Orthostatic hypotension Essential hypertension PAF (paroxysmal atrial fibrillation) Surgical History H/O colonoscopy S/P repair of hydrocele History of tonsillectomy Family History Family History Father Dementia Hx of CABG Mother Diabetes Social History Social History Housing: House Alcohol intake: current Alcohol intake frequency: holidays/special occasions only Alcohol type: beer Patient Tobacco Use Status: Never used Tobacco Smoked in Last 30 Days: No e-Cigarette/Vaping Use: Never Used Second Hand Smoke Exposure: No Use of substances other than those prescribed or required for medical reasons: No Advance Directives: No Advance Directives Information Provided: No Do you have a plan to hurt others: No Plan service: No Current occupational status: retired Cognitive needs: No Hearing needs: No Vision needs: Yes Physical Exam ED Vital Signs: Vital Signs - 24 hr 02/27/24 11:16 02/27/24 11:50 02/27/24 12:15 Temperature 98.1 F Pulse Rate 92 80 76 Respiratory Rate 14 11 L Blood Pressure 230/130 H 258/129 H 224/135 H Pulse Oximetry 95 96 Oxygen Delivery Method Room Air Room Air 02/27/24 13:08 Temperature Pulse Rate 77 Respiratory Rate 16 Blood Pressure 175/102 H Pulse Oximetry 97 Oxygen Delivery Method Room Air BMI result Body Mass Index 23.9 Appearance: Alert. Oriented X3. No acute distress. anxious Eyes: Pupils equal, round and reactive to light. ENT: Pharynx normal. Neck: Normal inspection. Neck supple. CVS: Normal heart rate and rhythm. Pulses normal. Respiratory: No respiratory distress. Breath sounds normal. Abdomen: Soft and nontender. Skin: Skin warm and dry. Normal skin color. Normal skin turgor. Extremities: No lower extremity edema. No calf ttp Neuro: Oriented X 3. No motor deficit. No sensory deficit. NIH Stroke Scale Internal: Initial- Upon Arrival Level of Consciousness: Alert Level of Consciousness Questions: Answers both questions correctly Level of Consciousness Commands: Performs both tasks correctly Best Gaze: Normal Visual: No visual loss Facial Palsy: Normal Motor Arm (Right): No drift Motor Arm (Left): No drift Motor Leg (Right): No drift Motor Leg (Left): No drift Limb Ataxia: Absent Sensory: Normal Best Language: No aphasia Dysarthia: Normal Extinction and Inattention: No abnormality Score: 0 Course Course Course Narrative: good response to labetalol Medications Administered Discontinued Medications Generic Name Dose Route Start Last Admin Trade Name Freq PRN Reason Stop Dose Admin Iohexol 100 ml 02/27/24 13:12 02/27/24 13:12 Iohexol 350 Mg/Ml 100 Ml Infus..Btl IV 02/27/24 13:13 70 ml ONCE ONE Administration Labetalol HCl 5 mg 02/27/24 11:46 02/27/24 11:50 Labetalol Hcl 100 Mg/20 Ml Vial IVPUSH 02/27/24 11:47 5 mg ONCE ONE Administration Labetalol HCl 5 mg 02/27/24 13:02 02/27/24 13:16 Labetalol Hcl 100 Mg/20 Ml Vial IVPUSH 02/27/24 13:03 Not Given ONCE ONE Medical Decision Making Medical Decision Making [facility] Narrative: 73 yo male with PMH of PAF not on thinners reported one isolated episode, GERD, HLD, asthma, BPH, HTN here with c/o 6 months intermittent R arm weakness, syncope when standing and feeling dizzy at times while having 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 Naidu, his BP is incredibly elevated low dose labetalol ordered though I do not want to drop it acutely. Will touch base again with Dr. 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 Naidu) Lab Data [facility] Lab Attestation statement: I reviewed the patient's lab results. 02/27/24 11:35 02/27/24 11:35 Labs: Lab Results 02/27/24 02/27/24 02/27/24 Range/Units 11:34 11:35 13:27 WBC 5.0 (4.8-10.8) X10*3/uL RBC 4.77 (4.60-5.80) X10*6/uL Hgb 14.5 (14.0-18.0) g/dl Hct 42.5 (42.0-52.0) % MCV 89.1 (80.0-98.0) fL MCH 30.4 (27.0-33.0) pg MCHC 34.1 (31.0-36.0) g/dl RDW 12.7 (11.0-16.0) % Plt Count 208 (160-400) X10*3/uL MPV 9.3 L (9.4-12.4) fL Immature Gran % (Auto) 0.2 (0.0-0.4) % Neut % (Auto) 64.3 (45-73) % Lymph % (Auto) 15.3 L (20-40) % [place] % (Auto) 10.7 (2-11) % Eos % (Auto) 8.5 H (0-4) % Baso % (Auto) 1.0 (0-2) % Lymph # (Auto) 0.8 L (1.2-4.9) X10*3/uL [place] # (Auto) 0.5 (0.1-1.2) X10*3/uL Eos # (Auto) 0.4 (0.0-0.4) X10*3/uL Baso # (Auto) 0.1 (0.0-0.2) X10*3/uL Abs Immat Gran (auto) 0.01 (0.00-0.03) X10*3/uL Absolute Neuts (auto) 3.2 (2.0-8.3) x10*3/uL Absolute Nucleated RBC 0.000 (0.0-0.012) X10*3/uL Nucleated RBC % (auto) 0.0 (0.0-0.2) /100WBC PT 11.1 (11.1-13.3) SEC INR 0.9 (0.9-1.1) APTT 35.2 (26.0-36.8) SEC Sodium 138 (135-145) mmol/L Potassium 4.3 (3.3-5.1) mmol/L Chloride 101 (96-108) mmol/L Carbon Dioxide 31 H (22-29) mmol/L Anion Gap 10 L (12-20) BUN 18 H (9-16) mg/dL Creatinine 0.87 (0.5-1.4) mg/dL Estim Creat Clear Calc 79.2 Estimated GFR > 60 POC Glucose 125 H (60-115) mg/dL Random Glucose 108 (60-115) mg/dL Calcium 9.8 (8.4-10.2) mg/dL Magnesium 2.2 (1.6-2.6) mg/dL Total Bilirubin 0.6 (0.0-1.0) mg/dL Direct Bilirubin 0.3 (0.0-0.5) mg/dL AST 32 (5-37) U/L ALT 25 (0-40) U/L Alkaline Phosphatase 95 (39-117) U/L Total Protein 7.3 (6.5-8.0) g/dL Albumin 4.4 (3.5-5.0) g/dL Blood Type O Positive Antibody Screen NEGATIVE Independent Interpretation I performed an independent interpretation of an: EKG, Ultrasound and CT Scan Interpretation: Rate: 83 Rhythm: NSR Blaine: left Normal P waves. Normal RODRIGO. Normal QRS complex. ST T wave : no MICHEAL, inverted t waves III and aVF qTC: 406 prior studies: no acute ischemia The study has been interpreted contemporaneously by me. . Radiology Impression Discussion of test interpretation with radiology: I discussed test interpretation with the radiologist and I have reviewed the radiologist's reading. Radiologist Impression: call from radiology 209pm age indeterminate in L common carotid artery contrast again after bifurcation - occlusion in common carotid artery R vertebral artery irregular and decreased artery ? chronic dissection with collateral flow no infarcts External Record Review External record reviewed: Office record Prescription Management I considered prescription management with: Other (aspirin, plavix, toprol 25mg xl) Discharge Plan Discharge Clinical Impression: Bilateral carotid artery disease, Chronic hypertension Patient Disposition: Home, Self-Care Instructions: Chronic Hypertension (ED) Additional Instructions: no acute findings this is old disease but it needs to be treated spoke to our vascular doctor you will be started on two medications to help prevent worsening disease - aspirin and plavix. do not take any OTC NSAID but tylenol is okay AVOID MOTRIN, IBUPROFEN, ALEVE, NAPROSYN, IBUPROFEN return for bloody or black stools, bleeding or any other concerns I am going to add on blood pressure medication - hold if blood pressure less than 100 systolic (top number) heart rate less than [address] Billingsley and follow up with call Dr. Naidu and follow up with him number is listed below INCREASE YOUR ATORVASTATIN TO 40MG DAILY Prescriptions: New atorvastatin 40 mg tablet 40 mg PO DAILY Qty: 30 1RF metoprolol succinate [Toprol XL] 25 mg tablet extended release 24 hr 25 mg PO DAILY Qty: 30 1RF aspirin 81 mg tablet,delayed release (DR/EC) 81 mg PO DAILY Qty: 30 1RF clopidogrel [Plavix] 75 mg tablet 75 mg PO DAILY Qty: 30 1RF No Action budesonide-formoterol [Symbicort] 160-4.5 mcg/actuation HFA aerosol inhaler 2 puff inhalation BID 90 Days Qty: 3 0RF atorvastatin 10 mg tablet 10 mg PO DAILY Qty: 90 3RF losartan 50 mg tablet 50 mg PO DAILY Qty: 30 5RF omeprazole 20 mg capsule,delayed release(DR/EC) 20 mg PO DAILY 90 Days Qty: 90 0RF cyanocobalamin (vitamin B-12) 1,000 mcg capsule 1,000 mcg PO DAILY cholecalciferol (vitamin D3) 25 mcg (1,000 unit) capsule 25 mcg PO DAILY loratadine 10 mg tablet 10 mg PO DAILY Referrals: Augusto Naidu MD [Physician] - (call to schedule appointment - vascular surgery) Print Language: Turkmen
[2024-02-27 11:41] LABS: MANUAL DIFF FLAG NO
[2024-02-27 11:45] LABS: Basophils Absolute Auto 0.1 X10*3/uL (0.0-0.2); Eosinophils Absolute Auto 0.4 X10*3/uL (0.0-0.4); Eosinophils Percent Auto 8.5 % (0-4); Hematocrit 42.5 % (42.0-52.0); Hemoglobin 14.5 g/dl (14.0-18.0); Imm Gran Abs Auto 0.01 X10*3/uL (0.00-0.03); Imm Gran Pct Auto 0.2 % (0.0-0.4); Lymphocytes Absolute Auto 0.8 X10*3/uL (1.2-4.9); Lymphocytes Percent Auto 15.3 % (20-40); Mean Corpuscular HGB Conc 34.1 g/dl (31.0-36.0); Mean Corpuscular Hemoglobin 30.4 pg (27.0-33.0); Mean Corpuscular Volume 89.1 fL (80.0-98.0); Mean Platelet Volume 9.3 fL (9.4-12.4); Monocytes Absolute Auto 0.5 X10*3/uL (0.1-1.2); Monocytes Percent Auto 10.7 % (2-11); Neutrophils Absolute Auto 3.2 x10*3/uL (2.0-8.3); Neutrophils Percent Auto 64.3 % (45-73); Platelet Count 208 X10*3/uL (160-400); Red Blood Count 4.77 X10*6/uL (4.60-5.80); Red Cell Distribution Width 12.7 % (11.0-16.0)
[2024-02-27 11:50] VITALS: BP 258/129; PULSE 80
[2024-02-27] MEDS: Labetalol HCL 100 MG/20 ML VIAL IVPUSH (11:50)
[2024-02-27 11:54] LABS: INTERNATIONAL NORM RATIO 0.9 (0.9-1.1); Prothrombin Time 11.1 SEC (11.1-13.3)
[2024-02-27 11:57] LABS: Partial Thromboplastin Time 35.2 SEC (26.0-36.8)
--- NOTE | 2024-02-27 11:57 | PC.NURSE ---
Pt brought down to ED after venous duplex upstairs, that showed an occlusion in the left carotid artery. Pt is getting full stroke work-up, AOx4, Neuro intact, pt reports right arm tingling when lifting items, that lasts a few minutes, as well as loss of balance when standing. Meds given per JAN. 18G RAC, 20G LAC, Tele monitor placed. Labs drawn and sent to lab, awaiting scan. pt calm and cooperative, resting quietly. Pending swallow eval until after scan.
[2024-02-27 12:03] LABS: Alanine Aminotransferase 25 U/L (0-40); Albumin Level 4.4 g/dL (3.5-5.0); Alkaline Phosphatase 95 U/L (39-117); Anion Gap 10 (12-20); Aspartate Amino Transferase 32 U/L (5-37); Bilirubin Direct 0.3 mg/dL (0.0-0.5); Bilirubin Total 0.6 mg/dL (0.0-1.0); Blood Urea Nitrogen 18 mg/dL (9-16); Calcium 9.8 mg/dL (8.4-10.2); Carbon Dioxide 31 mmol/L (22-29); Chloride 101 mmol/L (96-108); Creatinine Clr Calc Pharmacy 79.2; Estimated Glomerular Filt Rate > 60; Glucose Random 108 mg/dL (60-115); Magnesium 2.2 mg/dL (1.6-2.6); Potassium 4.3 mmol/L (3.3-5.1); Sodium 138 mmol/L (135-145); Total Protein 7.3 g/dL (6.5-8.0)
[2024-02-27 12:15] VITALS: BP 224/135; PULSE 76; RESP 11; O2SAT 96
[2024-02-27 13:08] VITALS: BP 175/102; PULSE 77; RESP 16; O2SAT 97
[2024-02-27] MEDS: iohexoL 350 MG/ML 100 ML INFUS..BTL IV (13:12)
[2024-02-27 13:30] LABS: Glucose, Whole Blood 125 mg/dL (60-115)
[2024-02-27 14:59] VITALS: BP 103/58; PULSE 72; RESP 14; TEMP 36.3; O2SAT 96
[2024-02-27 15:48] VITALS: BP 131/80; PULSE 75; RESP 14; TEMP 36.3; O2SAT 98
== END 2024-02-27 15:55 | disposition home or self-care (01) ==
PROVIDERS: Emergency Provider Emergency Medicine; PCP Internal Medicine
DX: I77.9 Disorder of arteries and arterioles, unspecified (principal); I65.22 Occlusion and stenosis of left carotid artery; I10 Essential (primary) hypertension; I48.0 Paroxysmal atrial fibrillation; Z79.899 Other long term (current) drug therapy
CPT/HCPCS: 36415; 70496; 70498; 80048; 80076; 82947; 83735; 85025; 85610; 85730; 86850; 86900; 86901; 93005; 93880; 96374; 99284; 99285; J1920; Q9967

== ENCOUNTER → 2024-02-27 11:09 | Outpatient (BNV) | payer MEDICARE, SELFPAY | PROVIDERS: Emergency Provider Emergency Medicine; PCP Internal Medicine; Visit Provider Internal Medicine Cardiovascular Disease | DX: I63.9 Cerebral infarction, unspecified (principal) | CPT/HCPCS: 93010 ==

== ENCOUNTER 2024-03-13 09:40 | Outpatient (AMB) | payer MEDICARE, SELFPAY ==
[2024-03-13 09:43] VITALS: BP 150/80; PULSE 81; BMI 23.7
--- NOTE | 2024-03-13 09:43 | MHC.OFFVIS ---
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 Remote history of atrial fibrillation more than 15 years ago. Brief episode per patient but no recurrences since that time. Otherwise, he also has a history of hypertension, orthostatic hypotension. Orthostatic syncope with increased beta-blockers in the past. He continues to have labile episodes where sometimes the blood pressure goes quite low and he feels dizzy. Other times, it goes quite high. Sometimes as much as 200 mm Hg. On the lower side, as low as 60s. Is currently only on Losartan. [facility] Medical History Screening for prostate cancer Hypotension Syncope Urinary incontinence Hx of radiation therapy History of chemotherapy Colon cancer screening Hypercholesterolemia Asthma GERD (gastroesophageal reflux disease) Cancer of tonsil Orthostatic hypotension Essential hypertension PAF (paroxysmal atrial fibrillation) Surgical History H/O colonoscopy S/P repair of hydrocele History of tonsillectomy Family History Father Dementia Hx of CABG Mother Diabetes Social History Housing: House Alcohol intake: current Alcohol intake frequency: holidays/special occasions only Alcohol type: beer Patient Tobacco Use Status: Never used Tobacco e-Cigarette/Vaping Use: Never Used Second Hand Smoke Exposure: No service: No Current occupational status: retired Cognitive needs: No Hearing needs: No Vision needs: Yes Review of Systems Const Denies chills, Denies fatigue, Denies fever(s), Denies frequent falls, Denies weakness, Denies weight gain and Denies weight loss ENT Denies dizziness Card Denies chest pain, Denies leg edema, Denies lightheadedness, Denies palpitations, Denies dyspnea and Denies dyspnea on exertion Resp Denies cough, Denies dyspnea and Denies dyspnea on exertion GI Denies hematochezia Musc Denies abnormal gait, Denies muscle weakness, Denies numbness, Denies radiating pain into limb and Denies tingling Neuro Denies abnormal gait, Denies dizziness, Denies frequent falls, Denies numbness, Denies tingling and Denies weakness Endo Denies fatigue and Denies palpitations Physical Exam Vital Signs: Last Vital Signs Pulse 81 03/13/24 09:43 BP 150/80 H 03/13/24 09:43 BMI result Body Mass Index 23.7 Const General: comfortable and no acute distress Orientation/consciousness: patient oriented x3 HEENT Other: Unremarkable Head: Yes normal to inspection Neck Neck: Yes normal visual inspection Chest Chest palpation & inspection: normal inspection of the chest Resp Auscultation: clear to auscultation bilaterally Cardio Palpation: normal PMI Heart sounds: S1 normal heart sound present, S2 normal heart sound present, no gallops, no murmurs and no rubs GI Palpation (GI): Soft to palpation Back/Spine/Pelvis Other: unremarkable Skin General skin exam: no rashes or lesions noted Neuro General: patient oriented x3 Extrem General: Yes normal to inspection Psych Mental Status: mental status grossly normal Assessment & Plan Assessment & Plan (1) Essential hypertension: Code(s): I10 - Essential (primary) hypertension Category: Medical Plan: Difficult to treat as he has very labile episodes with high and low readings. He probably has to check his blood pressure daily and then take medicines only on the days when it is on the higher side. We discussed about this at length today. In the past, he has also been on amlodipine and metoprolol but not anymore in his list. On the days when the blood pressure is truly high, may need a higher dose of losartan and he can take an extra 50 mg tablet. Discussed today. (2) Orthostatic hypotension: Code(s): I95.1 - Orthostatic hypotension Category: Medical Plan: As discussed above. (3) PAF (paroxysmal atrial fibrillation): Comment: no recurrence Code(s): I48.0 - Paroxysmal atrial fibrillation Category: Medical Plan: PREETI in the past had shown sinus rhythm only with occasional PAC/PVCs but no atrial fibrillation. Echocardiogram with preserved LVEF at 60-65% and otherwise unremarkable. Continue beta-blockers. No need for anticoagulation as there is only 1 episode, based on history which is also remote. Plan Total time spent including review of data, counseling, documentation, coordination of care-31 minutes. Coding Level of Care Code Est Pt Level 4 (72418) Diagnoses Essential hypertension I10 Orthostatic hypotension I95.1 PAF (paroxysmal atrial fibrillation) I48.0
== END 2024-03-13 10:07 | disposition home or self-care (01) ==
PROVIDERS: PCP Internal Medicine; Visit Provider Internal Medicine
DX: I10 Essential (primary) hypertension (principal); I95.1 Orthostatic hypotension; I48.0 Paroxysmal atrial fibrillation
CPT/HCPCS: 99214

== ENCOUNTER → 2024-03-13 09:40 | Outpatient (BNVA) | payer MEDICARE, SELFPAY | PROVIDERS: PCP Internal Medicine; Visit Provider Internal Medicine | DX: I10 Essential (primary) hypertension (principal); I95.1 Orthostatic hypotension; I48.0 Paroxysmal atrial fibrillation | CPT/HCPCS: 99212 ==

== ENCOUNTER 2024-03-18 11:55 | Emergency (ER) | payer MEDICARE, SELFPAY ==
--- NOTE | ~2024-03-18 | XR_ITS ---
EXAMINATION: XR CHEST CLINICAL INFORMATION: Fever COMPARISON: None available. TECHNIQUE: Frontal view of the chest was obtained. FINDINGS: Lungs are well expanded. No interstitial infiltrate, consolidation or pleural effusion. Cardiac silhouette has normal size and contour. Mild dextrocurvature of the degenerated thoracic spine. XR/XR chest 1V IMPRESSION: No radiographic evidence of pneumonia. No acute pulmonary disease.
[2024-03-18 12:01] VITALS: BP 239/127; BP 241/131; PULSE 75; PULSE 77; RESP 18; TEMP 36.6; O2SAT 95; O2SAT 97; BMI 24.2
--- NOTE | 2024-03-18 12:06 | ECG_ITS ---
Test Reason : hypertention Blood Pressure : / mmHG Vent. Rate : 071 BPM Atrial Rate : 071 BPM P-R Int : 208 ms QRS Dur : 164 ms QT Int : 410 ms P-R-T Axes : 064 004 025 degrees QTc Int : 445 ms Normal sinus rhythm Non-specific intra-ventricular conduction block Possible Lateral infarct , age undetermined Abnormal ECG When compared with ECG of 27-FEB-2024 11:21, QRS duration has increased ST elevation now present in Anterior leads T wave amplitude has decreased in Anterior leads Referred By: Generic ED Physician Electronically Signed By:
[2024-03-18 12:29] LABS: MANUAL DIFF FLAG NO
--- NOTE | 2024-03-18 12:30 | ED.GENADULT ---
HPI - General Adult General Chief complaint: General Medical Stated complaint: HTN 250/120 Time Seen by Provider: 03/18/24 12:22 Source: patient Mode of arrival: ambulatory Limitations: no limitations History of Present Illness HPI narrative: 73-year-old male was history of hypertension takes metoprolol 25 mg daily and losartan 50 mg daily to control his blood pressure, states that his blood pressure usually runs on the high side, woke up this morning feeling pressure on the front of his neck when he checked his blood pressure was 220s over 110s at home called 911, in the ED patient appeared comfortable with no distress, stated that his neck pain is better his blood pressure found to be 239/127 in the ED, patient has no shortness of breath, or chest pain. no fever, no chills, no coughing, no chest trauma, no recent travel, no lower extremity swelling or tenderness , no headache, no blurry vision. Patient declined exertional dyspnea, orthopnea, and PND. Related Data Home Medications ?Medication ?Instructions ?Recorded ?Confirmed cholecalciferol (vitamin D3) 25 25 mcg PO DAILY 09/16/20 03/13/24 mcg (1,000 unit) capsule cyanocobalamin (vitamin B-12) 1,000 mcg PO DAILY 09/16/20 03/13/24 1,000 mcg capsule Previous Rx's ?Medication ?Instructions ?Recorded omeprazole 20 mg capsule,delayed 20 mg PO DAILY 90 days #90 caps 09/27/22 release budesonide-formoterol HFA 160 2 puff inhalation BID 90 days #3 ea 01/12/23 mcg-4.5 mcg/actuation aerosol inhaler (Symbicort) losartan 50 mg tablet 50 mg PO DAILY #30 tabs 01/24/24 aspirin 81 mg tablet,delayed 81 mg PO DAILY #30 tabs 02/27/24 release atorvastatin 40 mg tablet 40 mg PO DAILY #30 tabs 02/27/24 clopidogrel 75 mg tablet (Plavix) 75 mg PO DAILY #30 tabs 02/27/24 Allergies Allergy/AdvReac Type Severity Reaction Status Date / Time lisinopril AdvReac Unknown cough Verified 03/18/24 12:04 Review of Systems Review of Systems: All other systems are reviewed and are negative Constitutional: Reports as per HPI and Reports no additional constitutional complaints Eyes: Reports as per HPI and Reports no additional eye complaints Reports system reviewed and no additional complaints, except as documented Cardiovascular: Reports as per HPI and Reports no additional cardiovascular complaints Respiratory: Reports as per HPI and Reports no additional respiratory complaints Gastrointestinal: Reports as per HPI and Reports no additional gastrointestinal complaints Genitourinary: Reports no additional female genitourinary complaints Musculoskeletal: Reports no additional musculoskeletal complaints Skin/Breast: Reports system reviewed and no additional complaints, except as docu Psychiatric: Reports no additional psychiatric complaints Endocrine: Reports no additional endocrine complaints Hematologic/Lymphatic: Reports no additional hematologic/lymphatic complaints Allergic/Immunologic: Reports no additional allergic/immunologic complaints Reports system reviewed and no additional complaints, except as documented and Reports Abnormal speech present [facility] Past Medical History Medical History Screening for prostate cancer Hypotension Syncope Urinary incontinence Hx of radiation therapy History of chemotherapy Colon cancer screening Hypercholesterolemia Asthma GERD (gastroesophageal reflux disease) Cancer of tonsil Orthostatic hypotension Essential hypertension PAF (paroxysmal atrial fibrillation) Surgical History H/O colonoscopy S/P repair of hydrocele History of tonsillectomy Family History Family History Father Dementia Hx of CABG Mother Diabetes Social History Social History Housing: House Alcohol intake: current Alcohol intake frequency: holidays/special occasions only Alcohol type: beer Patient Tobacco Use Status: Never used Tobacco e-Cigarette/Vaping Use: Never Used Second Hand Smoke Exposure: No Advance Directives: No Advance Directives Information Provided: Yes service: No Current occupational status: retired Cognitive needs: No Hearing needs: No Vision needs: Yes Physical Exam ED Vital Signs: Vital Signs - 24 hr 03/18/24 12:01 03/18/24 12:59 03/18/24 14:14 Temperature 97.9 F 98.3 F Pulse Rate 75 70 72 Respiratory Rate 18 20 14 Blood Pressure 239/127 H 122/59 L 215/124 H Pulse Oximetry 95 97 97 Oxygen Delivery Method Room Air Room Air 03/18/24 16:27 Temperature 98.0 F Pulse Rate 75 Respiratory Rate 18 Blood Pressure 156/101 H Pulse Oximetry 97 Oxygen Delivery Method Room Air BMI result Body Mass Index 24.2 Vital signs have been reviewed and appear to be correct. Blood pressure elevated. Heart rate normal. Respiratory rate normal. Temperature normal. Oxygen saturation normal. Appearance: Alert. Oriented X3. No acute distress. Head: Normal external exam. Normocephalic. Atraumatic. No Quiros signs noted. No raccoon eyes noted Eyes: PERRLA. EOMI. Conjunctiva and sclera normal. Eyelids normal. ENT: TM's Normal. Pharynx normal. Uvula midline. Moist mucous membranes. No trismus noted. No drooling noted. No muffled voice noted. Neck: Normal inspection. Neck supple. FROM. No adenopathy. Thyroid Normal. No meningeal signs. No neck mass noted. CVS: Normal heart rate and rhythm. Heart sound normal. No murmurs noted. Pulses normal throughout. Respiratory: No respiratory distress. Painless inspiration. Breath sounds normal. No wheezes/rales/rhonchi noted. Chest nontender. No accessory muscle usage noted or decreased air movement noted. Abdomen: Soft and nontender. Bowel sounds normal in all 4 quadrants. No distention noted. No organomegaly noted. No visible injury noted. Back: No CVA tenderness. Full range of motion noted. Skin: Skin warm and dry. Normal skin color. Normal skin turgor. No rashes/lesions/lacerations noted. Extremities: No lower extremity edema. Extremities exhibit normal range of motion. Extremities nontender. Neuro: Oriented X 3. Cranial nerve exam: II-XII are grossly intact No motor deficit. No sensory deficit. Reflexes normal. Course Reevaluation(s) Reevaluation #1: a 73-year-old male with history of essential hypertension patient is compliant with his home medication came in blood pressure is high patient reported that his blood pressure fluctuates too much too fast normally, patient felt some anterior neck pain that the patient feels it is more of his anxiety, labs unrevealing, blood pressure is 156/101, no headache, no blurry vision, no CP, no SOB, no abdominal pain. Patient feels back to his normal baseline. Time: 17:28 Medications Administered Discontinued Medications Generic Name Dose Route Start Last Admin Trade Name Freq PRN Reason Stop Dose Admin Amlodipine Besylate 5 mg 03/18/24 12:29 03/18/24 13:02 Amlodipine Besylate 5 Mg Tablet PO 03/18/24 12:30 5 mg ONCE ONE Administration Protocol Medical Decision Making Differential Diagnosis Differential Diagnoses: The differential diagnosis associated with the presentation includes ( Essential hypertension, hypertensive emergency, ACS, pneumonia, pneumothorax, pleural effusion, electrolyte derangement, severe anemia.) Admission/Observation Consideration of admission/observation: Escalation of care including admission/observation considered Lab Data MDM Lab Attestation statement: I reviewed the patient's lab results. 03/18/24 12:19 03/18/24 12:19 Labs: Lab Results 03/18/24 03/18/24 Range/Units 12:19 16:23 WBC 5.1 (4.8-10.8) X10*3/uL RBC 4.47 L (4.60-5.80) X10*6/uL Hgb 13.9 L (14.0-18.0) g/dl Hct 40.6 L (42.0-52.0) % MCV 90.8 (80.0-98.0) fL MCH 31.1 (27.0-33.0) pg MCHC 34.2 (31.0-36.0) g/dl RDW 12.8 (11.0-16.0) % Plt Count 191 (160-400) X10*3/uL MPV 9.7 (9.4-12.4) fL Immature Gran % (Auto) 0.2 (0.0-0.4) % Neut % (Auto) 65.6 (45-73) % Lymph % (Auto) 13.0 L (20-40) % [place] % (Auto) 10.4 (2-11) % Eos % (Auto) 9.4 H (0-4) % Baso % (Auto) 1.4 (0-2) % Lymph # (Auto) 0.7 L (1.2-4.9) X10*3/uL [place] # (Auto) 0.5 (0.1-1.2) X10*3/uL Eos # (Auto) 0.5 H (0.0-0.4) X10*3/uL Baso # (Auto) 0.1 (0.0-0.2) X10*3/uL Abs Immat Gran (auto) 0.01 (0.00-0.03) X10*3/uL Absolute Neuts (auto) 3.3 (2.0-8.3) x10*3/uL Absolute Nucleated RBC 0.000 (0.0-0.012) X10*3/uL Nucleated RBC % (auto) 0.0 (0.0-0.2) /100WBC Sodium 135 (135-145) mmol/L Potassium 4.9 (3.3-5.1) mmol/L Chloride 99 (96-108) mmol/L Carbon Dioxide 27 (22-29) mmol/L Anion Gap 14 (12-20) BUN 15 (9-16) mg/dL Creatinine 0.79 (0.5-1.4) mg/dL Estim Creat Clear Calc 87.2 Estimated GFR > 60 Random Glucose 101 (60-115) mg/dL Calcium 9.7 (8.4-10.2) mg/dL Total Bilirubin 0.7 (0.0-1.0) mg/dL AST 41 H (5-37) U/L ALT 28 (0-40) U/L Alkaline Phosphatase 95 (39-117) U/L Troponin I High Sens < 2.7 3.7 (<3.5-35.0) ng/L Total Protein 6.9 (6.5-8.0) g/dL Albumin 4.2 (3.5-5.0) g/dL Lipase 29 (8-78) U/L Independent Interpretation I performed an independent interpretation of an: Plain X-Ray ( Chest: No acute intrathoracic pathology.) Radiology Impression Discussion of test interpretation with radiology: I have reviewed the radiologist's reading. Chronic Conditions Patient?s care impacted by: Hypertension Critical Care Time Critical Care Time Critical Care Time: Yes Total Critical Care Time: 40 Attestation: The patient was critically ill with a high probability of imminent or life-threatening deterioration. I spent greater than 30 minutes of discontinuous time evaluating the patient, delivering critical care at the bedside, discussing evaluating data with consultants. Critical care time does not include time spent performing separately billable procedures or teaching. Time spent performing critical care was 40 minutes. Discharge Plan Discharge Clinical Impression: Essential hypertension, Atypical chest pain Patient Disposition: Home, Self-Care Instructions: Hypertension (ED) Prescriptions: No Action budesonide-formoterol [Symbicort] 160-4.5 mcg/actuation HFA aerosol inhaler 2 puff inhalation BID 90 Days Qty: 3 0RF losartan 50 mg tablet 50 mg PO DAILY Qty: 30 5RF atorvastatin 40 mg tablet 40 mg PO DAILY Qty: 30 1RF aspirin 81 mg tablet,delayed release (DR/EC) 81 mg PO DAILY Qty: 30 1RF clopidogrel [Plavix] 75 mg tablet 75 mg PO DAILY Qty: 30 1RF omeprazole 20 mg capsule,delayed release(DR/EC) 20 mg PO DAILY 90 Days Qty: 90 0RF cyanocobalamin (vitamin B-12) 1,000 mcg capsule 1,000 mcg PO DAILY cholecalciferol (vitamin D3) 25 mcg (1,000 unit) capsule 25 mcg PO DAILY Referrals: Po,Olesya Vitale MD [Primary Care Provider] - Print Language: Turkmen
[2024-03-18 12:34] LABS: Basophils Absolute Auto 0.1 X10*3/uL (0.0-0.2); Basophils Percent Auto 1.4 % (0-2); Eosinophils Absolute Auto 0.5 X10*3/uL (0.0-0.4); Eosinophils Percent Auto 9.4 % (0-4); Hematocrit 40.6 % (42.0-52.0); Hemoglobin 13.9 g/dl (14.0-18.0); Imm Gran Abs Auto 0.01 X10*3/uL (0.00-0.03); Imm Gran Pct Auto 0.2 % (0.0-0.4); Lymphocytes Absolute Auto 0.7 X10*3/uL (1.2-4.9); Mean Corpuscular HGB Conc 34.2 g/dl (31.0-36.0); Mean Corpuscular Hemoglobin 31.1 pg (27.0-33.0); Mean Corpuscular Volume 90.8 fL (80.0-98.0); Mean Platelet Volume 9.7 fL (9.4-12.4); Monocytes Absolute Auto 0.5 X10*3/uL (0.1-1.2); Monocytes Percent Auto 10.4 % (2-11); Neutrophils Absolute Auto 3.3 x10*3/uL (2.0-8.3); Neutrophils Percent Auto 65.6 % (45-73); Platelet Count 191 X10*3/uL (160-400); Red Blood Count 4.47 X10*6/uL (4.60-5.80); Red Cell Distribution Width 12.8 % (11.0-16.0); White Blood Count 5.1 X10*3/uL (4.8-10.8)
[2024-03-18 12:46] LABS: Alanine Aminotransferase 28 U/L (0-40); Albumin Level 4.2 g/dL (3.5-5.0); Alkaline Phosphatase 95 U/L (39-117); Anion Gap 14 (12-20); Aspartate Amino Transferase 41 U/L (5-37); Bilirubin Total 0.7 mg/dL (0.0-1.0); Blood Urea Nitrogen 15 mg/dL (9-16); Calcium 9.7 mg/dL (8.4-10.2); Carbon Dioxide 27 mmol/L (22-29); Chloride 99 mmol/L (96-108); Creatinine Clr Calc Pharmacy 87.2; Estimated Glomerular Filt Rate > 60; Glucose Random 101 mg/dL (60-115); Lipase 29 U/L (8-78); Potassium 4.9 mmol/L (3.3-5.1); Sodium 135 mmol/L (135-145); Total Protein 6.9 g/dL (6.5-8.0)
[2024-03-18 12:59] VITALS: BP 122/59; PULSE 70; RESP 20; O2SAT 97
[2024-03-18] MEDS: amLODIPine Besylate 5 MG TABLET PO (13:02)
[2024-03-18 13:11] LABS: Troponin-I High Sensitivity < 2.7 ng/L (<3.5-35.0)
[2024-03-18 14:14] VITALS: BP 215/124; PULSE 72; RESP 14; TEMP 36.8; O2SAT 97
[2024-03-18 16:27] VITALS: BP 156/101; PULSE 75; RESP 18; TEMP 36.7; O2SAT 97
[2024-03-18 17:06] LABS: Troponin-I High Sensitivity 3.7 ng/L (<3.5-35.0)
== END 2024-03-18 18:36 | disposition home or self-care (01) ==
PROVIDERS: Emergency Provider Emergency Medicine; PCP Internal Medicine
DX: I10 Essential (primary) hypertension (principal); R07.89 Other chest pain; E78.00 Pure hypercholesterolemia, unspecified; I48.0 Paroxysmal atrial fibrillation; K21.9 Gastro-esophageal reflux disease without esophagitis
CPT/HCPCS: 36415; 71045; 80053; 83690; 84484; 85025; 93005; 99283

== ENCOUNTER 2024-03-20 09:56 | Outpatient (AMB) | payer MEDICARE, SELFPAY ==
--- NOTE | 2024-03-20 10:04 | A.OFFVIS_ITS ---
Intake Visit Reasons: ED follow up carotid stenosis s/p CTA Intake Note: Patient presents for follow up carotid stenosis, referred from ED. Patient went to the ED twice for dizziness and right arm weakness. CTA of head and neck done. Accompanied by: Self / Same As Patient Allergies lisinopril Adverse Reaction (Unknown, Verified 03/20/24 10:07) cough HPI HPI ED follow up carotid stenosis s/p CTA: Details: Very pleasant 73-year-old gentleman with the past medical history of hypertension AFib presented to the emergency room with episodes of dizziness and intermittent right arm weakness. He underwent CT angiogram which was concerning for clot in the left common carotid. He now presents to us for follow-up evaluation. Of note upon discussion with him he does note that this weakness of the left arm happens on a weekly basis. [facility] Medical History Screening for prostate cancer Hypotension Syncope Urinary incontinence Hx of radiation therapy History of chemotherapy Colon cancer screening Hypercholesterolemia Asthma GERD (gastroesophageal reflux disease) Cancer of tonsil Orthostatic hypotension Essential hypertension PAF (paroxysmal atrial fibrillation) Surgical History H/O colonoscopy S/P repair of hydrocele History of tonsillectomy Family History Father Dementia Hx of CABG Mother Diabetes Social History Housing: House Alcohol intake: current Alcohol intake frequency: holidays/special occasions only Alcohol type: beer Patient Tobacco Use Status: Never used Tobacco e-Cigarette/Vaping Use: Never Used Second Hand Smoke Exposure: No service: No Current occupational status: retired Cognitive needs: No Hearing needs: No Vision needs: Yes Review of Systems Const All systems reviewed & are unremarkable except as noted in HPI and below Reports no additional complaints ENT Reports Normal hearing present Card Denies chest pain, Denies chest pain at rest, Denies chest pain with activity and Denies pedal edema Resp Denies cough GI Denies abdominal pain Musc Denies abnormal gait, Denies muscle cramps and Denies radiating pain into limb Skin/Breast Denies skin ulcer and Denies wounds Neuro Reports Normal hearing present and Denies abnormal gait Psych Reports no additional complaints Physical Exam Const General: cooperative, healthy appearing and comfortable Orientation/consciousness: oriented to person, oriented to place and oriented to time HEENT Head: Yes normal to inspection Neck Neck: Yes normal visual inspection Carotids: no bruits Chest Chest palpation & inspection: normal inspection of the chest Resp Effort & Inspection: normal respiratory effort and able to speak in complete sentences Auscultation: clear to auscultation bilaterally, no crackles, no rales, no rhonchi and no wheezes Cardio Rate: regular rate Rhythm: regular rhythm Heart sounds: S1 normal heart sound present and S2 normal heart sound present Bruits: no carotid bruits Peripheral pulses: Peripheral pulses 2+ throughout GI Inspection: Yes normal to inspection Skin Wounds: no wounds Hair: normal Neuro General: oriented to person, oriented to place and oriented to time Cranial nerves: Yes CN's II-XII intact bilaterally and Yes Normal hearing present Cognition (Neuro): normal cognition Motor exam (neuro): 5/5 motor strength present throughout Extrem Other: venous exam: No significant superficial varicosities or spider telangiectasias, minimal edema General: No clubbing, No cyanosis and No edema Psych Appearance: grossly normal Mental Status: mental status grossly normal Speech and movement: Normal speech and movement present Results Reviewed Results Reviewed: CTA of the carotids dated 02/27/2024 demonstrates absence of contrast in the origin of the left common carotid Assessment & Plan Assessment & Plan (1) Carotid stenosis: Code(s): I65.29 - Occlusion and stenosis of unspecified carotid artery Category: Medical Qualifiers: Laterality: left Qualified Code(s): I65.22 - Occlusion and stenosis of left carotid artery Plan: In short patient has left carotid disease. It is difficult to ascertain if this is acute clot or what the true degree of stenosis of this is on the CT angiogram. He will require a carotid angiogram to better elucidate the true de gree of stenosis. Risks benefits complications including but not limited to bleeding infection stroke and were discussed in detail with the patient. He understood and consented. Coding Level of Care Code Est Pt Level 4 (19660) Diagnoses Stenosis of left carotid artery I65.22 Laterality: left
== END 2024-03-20 10:36 | disposition home or self-care (01) ==
PROVIDERS: PCP Internal Medicine; Visit Provider Surgery Vascular Surgery
DX: I65.22 Occlusion and stenosis of left carotid artery (principal)
CPT/HCPCS: 99214

== ENCOUNTER → 2024-03-20 09:56 | Outpatient (BNVA) | payer MEDICARE, SELFPAY | PROVIDERS: PCP Internal Medicine; Visit Provider Surgery Vascular Surgery | DX: I65.22 Occlusion and stenosis of left carotid artery (principal) | CPT/HCPCS: 99212 ==

== ENCOUNTER 2024-03-27 09:54 | Outpatient (AMB) | payer MEDICARE, SELFPAY ==
[2024-03-27 10:07] VITALS: BP 110/70; PULSE 82; O2SAT 94; BMI 23.1
--- NOTE | 2024-03-27 10:07 | A.OFFPC_ITS ---
Vital Signs 03/27/24 10:07 Height 5 ft 10 in Weight 161 lb BMI 23.1 BP 110/70 Blood Pressure Location Lt brachial Position Sitting Pulse 82 Pulse Source Pulse Oximeter Pulse Oximetry (%) 94 Oxygen Delivery Method Room Air Intake Visit Reasons: Hypertension Allergies lisinopril Adverse Reaction (Unknown, Verified 03/27/24 10:07) cough Medication List - Last Reconciled 03/27/24 by Olesya Billingsley MD amlodipine 10 mg PO DAILY PRN aspirin 81 mg PO DAILY atorvastatin 40 mg PO DAILY budesonide-formoterol 160-4.5 mcg/actuation (Symbicort) 2 puffs inhalation BID 90 days cholecalciferol (vitamin D3) 25 mcg PO DAILY clopidogrel (Plavix) 75 mg PO DAILY cyanocobalamin (vitamin B-12) 1,000 mcg PO DAILY losartan 50 mg PO DAILY metoprolol succinate ER 25 mg PO DAILY omeprazole 20 mg PO DAILY 90 days Tobacco use date assessed: 12/06/23 Fall risk assessment: No Falls in past year Last assessed Fall Risk: 03/27/24 Dental Screening Dental Screen Date: 12/06/23 HPI Hypertension HPI Details 73-year-old male with a history of hyper tension GERD hypercholesterolemia asthma BPH last seen in December 2023. Patient's colonoscopy is up-to-date . Patient was in the emergency room 03/18/2024 due to pressure on his neck and noted blood pressure to be 220s diagnosis of hypertension and atypical chest pain no additional medication given. review of the notes has seen vascular surgeon for the carotid stenosis had an ER visit for dizziness and CT angiogram(February 27, 2024) done showing a clot in the left common carotid 03/21/2024 advise carotid angiogram. Patient has recently seen Cardiology anyway March 13 remote history of atrial fibrillation diagnosis of orthostatic syncope with increase beta blockers in the past patient was advised losartan and he can take an extra 50 mg tablet for elevated blood pressures. Echocardiogram 60-65% ejection fraction otherwise negative. February 2024 noted ER visit also patient also followed up with Urology a December 2023 on BPH. [facility] Medical History Screening for prostate cancer Hypotension Syncope Urinary incontinence Hx of radiation therapy History of chemotherapy Colon cancer screening Hypercholesterolemia Asthma GERD (gastroesophageal reflux disease) Cancer of tonsil Orthostatic hypotension Essential hypertension PAF (paroxysmal atrial fibrillation) Surgical History H/O colonoscopy S/P repair of hydrocele History of tonsillectomy Family History Father Dementia Hx of CABG Mother Diabetes Social History Housing: House Alcohol intake: current Alcohol intake frequency: holidays/special occasions only Alcohol type: beer Patient Tobacco Use Status: Never used Tobacco e-Cigarette/Vaping Use: Never Used Second Hand Smoke Exposure: No service: No Current occupational status: retired Cognitive needs: No Hearing needs: No Vision needs: Yes Questionnaire PHQ-9 Over the last 2 weeks, how often have you been bothered by any of the following problems? 1. Little interest or pleasure in doing things: not at all 2. Feeling down, depressed, or hopeless: not at all 3. Trouble falling or staying asleep, or sleeping too much: not at all 4. Feeling tired or having little energy: not at all 5. Poor appetite or overeating: not at all 6. Feeling bad about yourself - or that you are a failure or have let yourself or your family down: not at all 7. Trouble concentrating on things, such as reading the newspaper or watching television: not at all 8. Moving or speaking so slowly that other people could have noticed. Or the opposite - being so fidgety or restless that you have been moving around a lot more than usual: not at all 9. Thoughts that you would be better off or of hurting yourself in some way: not at all Total score: 0 Depression Screening Interpretation: Negative Depression Screening Done: Yes 47513 - PHQ-9 Billing: Yes Source: Developed by Drs. Scotty Jessica, Liliam Shaw, Deangelo Carvalho and colleagues, with an educational juan miguel from [employer]. Thrive Questionnaire Date Thrive assessed: 12/06/23 AUDIT C Alcohol Use Questionnaire (AUDIT-C) 1. How often do you have a drink containing alcohol?: Never 3. How often do you have six or more drinks on one occasion?: Never Total Score: 0 Score Reviewed/Action Taken: No LUZ ELENA-7 AMB Questionnaire LUZ ELENA-7 Date LUZ ELENA - 7 assessed: 12/06/23 Source: Developed by Drs. Scotty Jessica, Liliam Shaw, Deangelo Carvalho and colleagues, with an educational juan miguel from [employer]. Physical exam (Primary Care) Vital Signs: Last Vital Signs Pulse 82 03/27/24 10:07 BP 110/70 03/27/24 10:07 Pulse Ox 94 03/27/24 10:07 Oxygen Delivery Method Room Air 03/27/24 10:07 BMI result Body Mass Index 23.1 Tobacco/Smoking Status: Tobacco use Status Tobacco use date assessed 12/06/23 03/27/24 10:12 Patient Tobacco Use Status Never used Tobacco 03/27/24 10:12 e-Cigarette/Vaping Use Never Used 03/27/24 10:12 PHQ-9: PHQ-9 Score PHQ-9: Total score 0 03/27/24 10:12 Depression Screening Interpretation: Negative Thrive Assessment: Date of Thrive Assessment Date Thrive assessed 12/06/23 03/27/24 10:12 Const General: alert; No acute distress Eyes Conjunctivae: conjunctivae normal Resp Auscultation: clear to auscultation bilaterally Cardio Rate: regular rate Rhythm: regular rhythm GI Inspection: Yes normal to inspection Extrem General: Yes normal to inspection and No edema Assessment and Plan Assessment & Plan (1) Carotid stenosis: Code(s): I65.29 - Occlusion and stenosis of unspecified carotid artery Qualifiers: Laterality: left Qualified Code(s): I65.22 - Occlusion and stenosis of left carotid artery Plan: Patient has seen the vascular surgeon and advised repeat CTA (2) Anemia: Code(s): D64.9 - Anemia, unspecified Plan: Chronic and stable (3) Hypercholesterolemia: Code(s): E78.00 - Pure hypercholesterolemia, unspecified Plan: Avoid fried foods, chicken skin, eggs, butter margarine, pastries and meat. Be it pork or beef they have a lot of cholesterol LDL goal of less than 70 and patient is on atorvastatin 40 mg once a day (4) GERD (gastroesophageal reflux disease): Code(s): K21.9 - Gastro-esophageal reflux disease without esophagitis Plan: Avoid the foods that causes that usually spicy foods, tomato products, juices, coffee, soda and foods that your sensitive to. After eating do not lie down, allow 3-4 hours before in lie down. And keep the head of bed above 30 degrees to avoid the acid from going up. (5) Essential hypertension: Code(s): I10 - Essential (primary) hypertension Plan: Continue with blood pressure medication. Decrease salt intake and exercise patient has been known to have a labile hypertension and is being followed up by Cardiology on losartan 50 mg once a day and metoprolol 25 mg once a day (6) PAF (paroxysmal atrial fibrillation): Comment: no recurrence Code(s): I48.0 - Paroxysmal atrial fibrillation Plan: Patient has had no recurrence and this is being monitored only. (7) Labile hypertension: Code(s): R09.89 - Other specified symptoms and signs involving the circulatory and resp iratory systems Orders: Orders Comprehensive Met. Panel Today E78.00 - Pure hypercholesterolemia, unspecified Lipid Panel Today E78.00 - Pure hypercholesterolemia, unspecified Complete Blood Count Auto Diff Today E78.00 - Pure hypercholesterolemia, unspecified Referrals Nephrology Referral R09.89 - Other specified symptoms and signs involving the circulatory and respiratory systems Coding Level of Care Code Est Pt Level 4 (73483) Diagnoses Stenosis of left carotid artery I65.22 Laterality: left Anemia D64.9 Hypercholesterolemia E78.00 GERD (gastroesophageal reflux disease) K21.9 Essential hypertension I10 PAF (paroxysmal atrial fibrillation) I48.0 Labile hypertension R09.89
== END 2024-03-27 10:45 | disposition home or self-care (01) ==
PROVIDERS: PCP Internal Medicine; Visit Provider Internal Medicine
DX: D64.9 Anemia, unspecified (principal); I65.22 Occlusion and stenosis of left carotid artery; I48.0 Paroxysmal atrial fibrillation; E78.00 Pure hypercholesterolemia, unspecified; K21.9 Gastro-esophageal reflux disease without esophagitis; I10 Essential (primary) hypertension
CPT/HCPCS: 99214

== ENCOUNTER 2024-04-07 09:12 | Outpatient (REF) | payer MEDICARE, SELFPAY ==
[2024-04-07 09:29] LABS: MANUAL DIFF FLAG NO
[2024-04-07 10:09] LABS: Basophils Absolute Auto 0.1 X10*3/uL (0.0-0.2); Basophils Percent Auto 1.3 % (0-2); Eosinophils Absolute Auto 0.2 X10*3/uL (0.0-0.4); Eosinophils Percent Auto 4.3 % (0-4); Hematocrit 38.7 % (42.0-52.0); Hemoglobin 13.3 g/dl (14.0-18.0); Imm Gran Abs Auto 0.01 X10*3/uL (0.00-0.03); Imm Gran Pct Auto 0.2 % (0.0-0.4); Lymphocytes Absolute Auto 0.7 X10*3/uL (1.2-4.9); Lymphocytes Percent Auto 15.7 % (20-40); Mean Corpuscular HGB Conc 34.4 g/dl (31.0-36.0); Mean Corpuscular Hemoglobin 31.1 pg (27.0-33.0); Mean Corpuscular Volume 90.6 fL (80.0-98.0); Monocytes Absolute Auto 0.5 X10*3/uL (0.1-1.2); Monocytes Percent Auto 10.3 % (2-11); Neutrophils Absolute Auto 3.2 x10*3/uL (2.0-8.3); Neutrophils Percent Auto 68.2 % (45-73); Platelet Count 210 X10*3/uL (160-400); Red Blood Count 4.27 X10*6/uL (4.60-5.80); Red Cell Distribution Width 12.6 % (11.0-16.0); White Blood Count 4.7 X10*3/uL (4.8-10.8)
[2024-04-07 11:04] LABS: Alanine Aminotransferase 23 U/L (0-40); Albumin Level 4.1 g/dL (3.5-5.0); Alkaline Phosphatase 75 U/L (39-117); Anion Gap 12 (12-20); Aspartate Amino Transferase 36 U/L (5-37); Bilirubin Total 0.8 mg/dL (0.0-1.0); Blood Urea Nitrogen 11 mg/dL (9-16); Calcium 9.2 mg/dL (8.4-10.2); Carbon Dioxide 25 mmol/L (22-29); Chloride 99 mmol/L (96-108); Cholesterol 135 mg/dL (<200); Estimated Glomerular Filt Rate > 60; Glucose Random 96 mg/dL (60-115); HDL Cholesterol 68 mg/dL (>40); LDL Cholesterol Calculated 60 mg/dL (<100); Potassium 4.2 mmol/L (3.3-5.1); Sodium 132 mmol/L (135-145); Total Protein 6.5 g/dL (6.5-8.0); Triglycerides 35 mg/dL (<150)
== END 2024-04-07 09:13 | disposition home or self-care (01) ==
LOC: HO.LAB 09:12
PROVIDERS: PCP Internal Medicine; Visit Provider Internal Medicine
DX: E78.00 Pure hypercholesterolemia, unspecified (principal)
CPT/HCPCS: 36415; 80053; 80061; 85025

== ENCOUNTER 2024-04-14 14:38 | Outpatient (AMB) | payer MEDICARE, SELFPAY ==
[2024-04-14 14:42] VITALS: BP 118/66; PULSE 75; O2SAT 97; BMI 23.1
--- NOTE | 2024-04-14 14:42 | HO.NEPHOV_ITS ---
Vital Signs 04/14/24 14:42 04/14/24 15:25 04/14/24 15:25 04/14/24 15:25 04/14/24 15:25 Height 5 ft 10 in Weight 161 lb BMI 23.1 BP 118/66 110/60 80/50 L 70/50 L 80/50 L Blood Pressure Location Lt brachial Lt brachial Lt brachial Lt brachial Rt brachial Position Sitting Supine Sitting Standing Sitting Pulse 75 Pulse Source Pulse Oximeter Pulse Oximetry (%) 97 Oxygen Delivery Method Room Air Intake Visit Reasons: Hypertension/ Conf Commercial Driver Required: No Accompanied by: Self / Same As Patient Allergies lisinopril Adverse Reaction (Unknown, Verified 04/14/24 14:44) cough HPI Comments Details: . Jose Rafael is a pleasant 73-year-old man with a history of hypertension for more than 10 years. He has been referred for labile hypertension. Jose Rafael is currently on losartan 50 mg and metoprolol 25 mg daily. He takes amlodipine 10 mg as needed. He is taken about 4 or 5 times this month. There has been a wide fluctuation in his blood pressure. Blood pressure has been as high as 239/130 mm Hg. And the low reading has been as low as 70/50 mm Hg. He has not undergone any workup for hypertension. He has a history of atrial fibrillation. He is on metoprolol for rate control. There is a history of peripheral as disease. He has been followed by Dr. Naidu. There was suspicion for carotid stenosis and is scheduled for an angiogram. He has no history of any kidney disease. No history of smoking. No history of dyslipidemia. He has no history of weight loss. No palpitation. No unexplained sweating. No edema. No urinary symptoms. No polyuria polydipsia. No hematuria. No headaches. No blurred vision. [facility] Medical History Screening for prostate cancer Hypotension Syncope Urinary incontinence Hx of radiation therapy History of chemotherapy Colon cancer screening Hypercholesterolemia Asthma GERD (gastroesophageal reflux disease) Cancer of tonsil Orthostatic hypotension Essential hypertension PAF (paroxysmal atrial fibrillation) Surgical History H/O colonoscopy S/P repair of hydrocele History of tonsillectomy Family History Father Dementia Hx of CABG Mother Diabetes Social History Housing: House Alcohol intake: current Alcohol intake frequency: holidays/special occasions only Alcohol type: beer Patient Tobacco Use Status: Never used Tobacco e-Cigarette/Vaping Use: Never Used Second Hand Smoke Exposure: No service: No Current occupational status: retired Cognitive needs: No Hearing needs: No Vision needs: Yes Review of Systems Const Denies fever(s) and Denies weight loss Card Denies chest pain Resp Denies cough and Denies hemoptysis GI Denies abdominal pain, Denies diarrhea and Denies nausea Musc Denies back pain Neuro Denies focal weakness Physical Exam Vital Signs: Last Vital Signs Pulse 75 04/14/24 14:42 BP 80/50 L 04/14/24 15:25 Pulse Ox 97 04/14/24 14:42 Oxygen Delivery Method Room Air 04/14/24 14:42 BMI result Body Mass Index 23.1 Const General: comfortable; No acute distress Orientation/consciousness: patient oriented x3 Eyes General: appearance normal, both eyes and all related structures Visual Mayer: normal visual mayer by confrontation Neck Neck: Yes supple and Yes no JVD Carotids: bruit on the right Resp Effort & Inspection: normal respiratory effort and respiratory effort not decreased Auscultation: rhonchi Cardio Palpation: no palpable S3 and no palpable S4 Heart sounds: no rubs GI Inspection: Yes normal to inspection Palpation (GI): Soft to palpation Percussion: Yes normal to percussion Auscultation: normal bowel sounds and Abdominal bruit (faint: right) General: Yes no CVA tenderness Back/Spine/Pelvis Back: no CVA tenderness Skin General skin exam: no petechiae and no purpura Neuro General: patient oriented x3 and no focal motor deficits Extrem General: No clubbing and No edema Results Reviewed Results Reviewed: Echocardiogram in 01/22/2023. - The left ventricular systolic function is normal. The calculated ejection fraction is 60% by biplane method. - Moderate focal hypertrophy of the basal septum. - No obvious valvular pathology seen on this study. Nephrology Results: Hgb 13.3 g/dl (14.0-18.0) L 04/07/24 WBC 4.7 X10*3/uL (4.8-10.8) L 04/07/24 Plt Count 210 X10*3/uL (160-400) 04/07/24 Sodium 132 mmol/L (135-145) L 04/07/24 Potassium 4.2 mmol/L (3.3-5.1) 04/07/24 Chloride 99 mmol/L (96-108) 04/07/24 Carbon Dioxide 25 mmol/L (22-29) 04/07/24 BUN 11 mg/dL (9-16) 04/07/24 Creatinine 0.89 mg/dL (0.5-1.4) 04/07/24 Calcium 9.2 mg/dL (8.4-10.2) 04/07/24 Assessment & Plan Assessment & Plan (1) Labile hypertension: Code(s): R09.89 - Other specified symptoms and signs involving the circulatory and respiratory systems Category: Medical Plan . Jose Rafael is a 73-year-old man with a history of labile hypertension. There has been wide fluctuation in his blood pressure. Secondary causes should be ruled out. With a history of vascular disease underlying renal artery stenosis should be ruled out. However endocrine causes like pheochromocytoma should be ruled out especially with significant orthostatic blood pressure changes. I have initiated a workup for the same. Including Doppler of the renal arteries Check serum catecholamines aldosterone and plasma renin activity Also obtain a 24 hour ambulatory blood pressure monitoring. For now I will continue with the current medication. Discussed importance of orthostatic precautions. At present renal function stable. He is mild hyponatremia. Encouraged him to limit free water intake for now. Orders: Orders Renin 1 Day R0 - Other specified symptoms and signs involving the circulatory and respiratory systems Catecholamines,Frac.,Random Ur 1 Day R0 - Other specified symptoms and signs involving the circulatory and respiratory systems Total Protein Urine Random 1 Day R0 - Other specified symptoms and signs involving the circulatory and respiratory systems Cortisol, Free 1 Day R0 - Other specified symptoms and signs involving the circulatory and respiratory systems AMB 24 Hour Blood Pressure Monitor PLACEMENT 1 Day I10 - Essential (primary) hypertension, R0. - Other specified symptoms and signs involving the circulatory and respiratory systems Aldosterone 1 Day R0 - Other specified symptoms and signs involving the circulatory and respiratory systems Catecholamines, Frac., Plasma 1 Day R0 - Other specified symptoms and signs involving the circulatory and respiratory systems Creatinine Urine 1 Day R09.89 - Other specified symptoms and signs involving the circulatory and respiratory systems Sodium Urine Random 1 Day R09.89 - Other specified symptoms and signs involving the circulatory and respiratory systems US renal doppler Today R09.89 - Other specified symptoms and signs involving the circulatory and respiratory systems Coding Level of Care Code New Pt Level 4 (31793) Diagnoses Labile hypertension R09.89
[2024-04-14 15:25] VITALS: BP 110/60; BP 70/50; BP 80/50
== END 2024-04-14 15:24 | disposition home or self-care (01) ==
PROVIDERS: PCP Internal Medicine; Visit Provider Internal Medicine Hypertension Specialist
DX: R09.89 Other specified symptoms and signs involving the circulatory and respiratory systems (principal)
CPT/HCPCS: 99204

== ENCOUNTER → 2024-04-14 14:38 | Outpatient (BNVA) | payer MEDICARE, SELFPAY | PROVIDERS: PCP Internal Medicine; Visit Provider Internal Medicine Hypertension Specialist | DX: R09.89 Other specified symptoms and signs involving the circulatory and respiratory systems (principal) | CPT/HCPCS: 99202 ==

== ENCOUNTER 2024-04-15 09:01 | Outpatient (REF) | payer MEDICARE, SELFPAY ==
[2024-04-15 12:02] LABS: Creatinine Urine 78.13 mg/dL; Total Protein Urine Random 9 mg/dL (<12)
[2024-04-20 11:08] LABS: Catecholamine,Calc Tot.(E+NE) 71 mcg/g cr (9-74); Creatinine, Random Urine 81 mg/dL (20-320); Dopamine, Random Urine 197 mcg/g cr (40-390); Epinephrine, Random Urine 4 mcg/g cr (2-16); Norepinephrine, Random Urine 67 mcg/g cr (7-65)
[2024-04-23 00:09] LABS: Cortisol, Free 0.72 mcg/dL
[2024-04-25 17:42] LABS: Renin 1.84 ng/mL/h (0.25-5.82)
[2024-05-03 23:08] LABS: Catecholamine Frac, Total 759 pg/mL
== END 2024-04-15 09:02 | disposition home or self-care (01) ==
LOC: HO.LAB 09:01
PROVIDERS: PCP Internal Medicine; Visit Provider Internal Medicine Hypertension Specialist
DX: R09.89 Other specified symptoms and signs involving the circulatory and respiratory systems (principal)
CPT/HCPCS: 36415; 82088; 82384; 82530; 82570; 84156; 84244; 84300

== ENCOUNTER → 2024-04-16 06:00 | Day surgery (SDC) | payer MEDICARE, SELFPAY ==
--- NOTE | ~2024-04-16 | CT_ITS ---
EXAMINATION: CT HEAD WITHOUT CONTRAST (STROKE PROTOCOL) CLINICAL INFORMATION: Stroke protocol. Recent angiogram COMPARISON: IR angiogram in external 04/16/2024. TECHNIQUE: Contiguous axial imaging was performed from the skull base to vertex without intravenous administration of contrast. This CT examination was performed using dose optimization techniques as appropriate, variously including the following: *Automated exposure control *Adjustment of mA and/or kV according to patient size (this includes techniques or standardized protocols for targeted exams where dose is matched to indication/reason for exam; i.e. extremities or head) *Use of iterative reconstruction technique DLP: 970 mGy-cm FINDINGS: There is mild prominence to the sulci and ventricles with moderate deep white matter gliosis. Minimal residual contrast enhancement in the [place] of [place]. No evidence for intra or extra-axial fluid collection, hemorrhage, mass, enhancing mass, or mass effect. Calvarium intact. CT/CT head for stroke IMPRESSION: No acute intracranial pathology. Results to be telephoned in by the [facility].
[2024-04-16 06:23] VITALS: BMI 23.2
[2024-04-16 06:38] LABS: MANUAL DIFF FLAG NO
[2024-04-16] MEDS: 0.9 % Sodium Chloride 1,000 ML 100 ML IVCONT (06:39)
[2024-04-16 06:56] LABS: Basophils Absolute Auto 0.1 X10*3/uL (0.0-0.2); Eosinophils Absolute Auto 0.2 X10*3/uL (0.0-0.4); Eosinophils Percent Auto 4.4 % (0-4); Hematocrit 41.5 % (42.0-52.0); Hemoglobin 14.1 g/dl (14.0-18.0); Imm Gran Abs Auto 0.01 X10*3/uL (0.00-0.03); Imm Gran Pct Auto 0.2 % (0.0-0.4); Lymphocytes Absolute Auto 0.8 X10*3/uL (1.2-4.9); Lymphocytes Percent Auto 14.9 % (20-40); Mean Corpuscular Hemoglobin 30.9 pg (27.0-33.0); Mean Corpuscular Volume 90.8 fL (80.0-98.0); Mean Platelet Volume 9.6 fL (9.4-12.4); Monocytes Absolute Auto 0.7 X10*3/uL (0.1-1.2); Monocytes Percent Auto 12.6 % (2-11); Neutrophils Absolute Auto 3.5 x10*3/uL (2.0-8.3); Neutrophils Percent Auto 66.9 % (45-73); Platelet Count 229 X10*3/uL (160-400); Red Blood Count 4.57 X10*6/uL (4.60-5.80); Red Cell Distribution Width 12.8 % (11.0-16.0); White Blood Count 5.2 X10*3/uL (4.8-10.8)
[2024-04-16 07:18] LABS: Blood Urea Nitrogen 16 mg/dL (9-16); Creatinine Clr Calc Pharmacy 79.2; Estimated Glomerular Filt Rate > 60
--- NOTE | 2024-04-16 09:53 | P.OP_ITS ---
Operative Note Operative Note Date of Service: 04/16/24 Narrative: Angiogram report from [facility] Preoperative diagnosis: Carotid stenosis Postoperative diagnosis: Same Procedure: 1. Ultrasound-guided right common femoral access 2. Aortic arch angiogram 3. Selective imaging of right common carotid 4. Selective imaging of left subclavian Surgeon:Augusto Naidu M.D., FACS, RPVI Reconciliation Analyst:None Anesthesia: Local with moderate conscious sedation. Total intraservice moderate sedation time was 63 minutes. I monitored the patient's level of consciousness and physiologic status continuously throughout the procedure. Specimens:none Drains:none Estimated blood loss: Less than 10 ml Implant: None Indications: Very pleasant 73-year-old gentleman with history of carotid stenosis. Had unusual findings questionable acute thrombus on CT angiogram. He has been worked up for labile hypertension. He now presents for diagnostic The patient has signed the informed consent after reviewing risks, complications, benefits, and alternatives previously discussed with the patient. The patient was given the opportunity to ask any additional questions or voice any concerns. All questions were answered to the patient's satisfaction. Procedure in detail: Patient was brought to the angiography suite prior to which a time-out was called for patient identification and site verification. Bilateral groins were prepped and draped in the standard surgical fashion. Under ultrasound guidance right common femoral was punctured with micro puncture needle and wire. Subsequently a precision 5 [place] sheath was then placed. Bentson wire was advanced to the level of the aorta. 4 [place] Citizen Flush catheter was brought up and parked at the level of the renal arteries. Aortogram was then undertaken. Pigtail catheter was brought up to the aortic arch and aortic arch angiogram was then undertaken. We then administered 3000 units of systemic heparin. After 5 minutes of circulation time we used a a C2 catheter and we were able to selectively cannulate the right innominate artery and selective angiogram of that was performed. We then did a selective angiogram subclavian and was able to image that as well. Unfortunately we were unable to cannulate the left common carotid which appear to be totally occluded. During the procedure the patient started off with an extremely high blood pressure of over 200. Hydralazine was administered and we had systolic of 180s a 2nd round of hydralazine was then administered. The pressure did come down enough to proceed with the procedure. During the procedure patient tolerated it all well. Became hypotensive towards the end of the procedure and somewhat lethargic. The concern was for a stroke. We administered an additional 2000 units of systemic heparin We placed a CELT closure device and terminated the procedure. At this time his pressure still remained hypotensive and he was somewhat confused. We subsequently called a radid response. Patient was taken to the emergency room. Prior to the emergency room noncontrast CT of the head was undertaken. This was noted to be negative for stroke. He was bolused nearly a L of crystalloid. Pressure did improve to a systolic of 90s. He was mentating well and transferred to emergency room for further workup. Interpretation of films: 1. Ultrasound demonstrates appropriate femoral access site. Vessel was patent with minimal stenosis. Needle entry was visualized. Image of ultrasound was saved. 2. Aortogram demonstrates appropriate caliber aorta. Minimal disease. Appropriate take-off of the renals. Renals were specifically visualized and no evidence of stenosis 3. Iliac images demonstrate no significant disease 4. Aortic arch was a type 3 arch 5. Innominate along with right carotid appear to be stable with no significant disease normal flow throughout 6. Left subclavian appear to be normal with supply to the face via collaterals. 7. We were unable to cannulate the left common carotid Conclusion: 1. Successful diagnostic angiogram. 2. Anticoagulation status: No change This note is constructed using voice recognition software. While every effort has been made to ensure accuracy, mobile developer errors may have been included. Thank you for allowing me to participate in the care of your patient. Yours sincerely, Augusto Naidu MD, FACS, R.P.V.I.
== END ==
LOC: HO.SSS 06:01
PROVIDERS: PCP Internal Medicine; Visit Provider Surgery Vascular Surgery
DX: I65.22 Occlusion and stenosis of left carotid artery (principal); I10 Essential (primary) hypertension; I97.88 Other intraoperative complications of the circulatory system, not elsewhere classified; I95.9 Hypotension, unspecified; Y83.8 Other surgical procedures as the cause of abnormal reaction of the patient, or of later complication, without mention of misadventure at the time of the procedure; Y92.234 Operating room of hospital as the place of occurrence of the external cause; I48.0 Paroxysmal atrial fibrillation; J45.909 Unspecified asthma, uncomplicated
CPT/HCPCS: 36222; 36225; 36227; 36415; 70450; 70496; 70498; 76775; 76937; 80048; 82550; 82565; 82947; 84484; 84520; 85025; 85610; 85730; 93005; 93975; 96372; 99152; 99153; 99222; 99285; A4364; C1769; C1887; C1894; J0360; J1644; J2250; J2310; J3010; Q9967

== ENCOUNTER → 2024-04-16 06:00 | Outpatient (BNV) | payer MEDICARE, SELFPAY | PROVIDERS: PCP Internal Medicine; Visit Provider Surgery Vascular Surgery | DX: I65.23 Occlusion and stenosis of bilateral carotid arteries (principal) | CPT/HCPCS: 36223; 75625; 75710; 76937; 99152 ==

== ENCOUNTER 2024-04-16 09:24 | Observation (INO) | payer MEDICARE, SELFPAY ==
[2024-04-16] VITALS (10 sets, daily range): BP systolic 95–173; BP diastolic 46–96; PULSE 71–87; RESP 12–20; TEMP 36.4–37; O2SAT 93–99; BMI 23.2
--- NOTE | ~2024-04-16 | US_ITS ---
EXAMINATION: RENAL ARTERY DOPPLER ULTRASOUND CLINICAL INFORMATION: Labile blood pressure COMPARISON: None TECHNIQUE: Renal ultrasound. Doppler ultrasound (spectral analysis and color Doppler) of the renal arteries and aorta were performed. FINDINGS: The right kidney measures 18.0 cm in sagittal (including a large cyst), 4.3 cm AP and 5.3 cm transverse dimensions. The left kidney measures 11.5 x 5.6 x 4.5 cm in sagittal, AP and transverse dimensions. The kidneys show calculi or hydronephrosis. The corticomedullary differentiation is normal. There is a large anechoic exophytic cyst off the lower pole of the right kidney measuring 9.6 x 5.6 x 8.1 cm. There is a smaller 4 mm cortical cyst in the upper pole of the right kidney. There is a punctate cortical calcification within the midpole of the left kidney. Incidental note is made of a simple anechoic cyst in the liver measuring 1.4 cm RENAL ARTERY VELOCITIES: Right: Proximally: 98.4 cm/s. Mid: 76.4 cm/s. Distal: 31.7 cm/s. Left: Proximally: 105 cm/s. Mid: 63.9 cm/s. Distally: 35.1 cm/s. SEGMENTAL RESISTIVE INDICES: Right: Upper: 0.68 Mid: 0.73 Lower: 0.78 Left: Upper: 0.72 Mid: 0.68 Lower: 0.71 Mid aortic velocity: 105 cm/s. Renal Aortic Ratio: Not applicable US/US renal doppler IMPRESSION: 1. Right renal simple cysts as described above. Punctate cortical calcification in the left kidney. The kidneys are otherwise normal in appearance. 2. There is no evidence of renal artery stenosis. Criteria: NORMAL: Renal artery peak systolic velocities < 180 cm/s. Renal aortic ratio < 3.5 Normal renal size. < 60% STENOSIS: Renal artery peak systolic velocities > 180 cm/s. Renal aortic ratio < 3.5 Renal size <2 cm difference between sides. > 60% STENOSIS Renal artery peak systolic velocities > 180 cm/s. Renal aortic ratio > 3.5 Renal size >2 cm difference between sides. Aortic PSV > 140 cm/s with normal renal artery PSV made over estimate severity. Aortic PSV > 100 cm/s with normal renal artery PSV may underestimate severity.
--- NOTE | ~2024-04-16 | CT_ITS ---
EXAMINATION: CT ANGIOGRAM HEAD CT ANGIOGRAM NECK CLINICAL INFORMATION: Right-sided facial droop. COMPARISON: CT head from 04/16/2024. CTA head and neck from 02/27/2024. TECHNIQUE: Initial noncontrast deli slicer imaging of the head and neck was performed. Comparison is made with noncontrast head CT from earlier today. Test bolus sequences followed by intravenous administration 70 mL of Omnipaque 350. Helical imaging was performed in the axial plane from the aortic arch to the skull vertex. Delayed postcontrast imaging of the head was also performed. The data was processed at the mechanical engineering technologist's workstation for generation of MIP sequences. Angled MIPs and volume rendered reformatted images were also generated at an offline 3D workstation. Stenoses are assessed in accordance with NASCET criteria unless otherwise indicated. This CT examination was performed using dose optimization techniques as appropriate, variously including the following: *Automated exposure control. *Adjustment of mA and/or kV according to patient size (this includes techniques or standardized protocols for targeted exams where dose is matched to indication/reason for exam; i.e. extremities or head). *Use of iterative reconstruction technique. DLP: 1581 mGy-cm FINDINGS: CT Head: There is no evidence of acute intracranial hemorrhage or edematous territorial infarction. [place]-white matter differentiation is preserved. A few foci of hypoattenuation in the periventricular and deep white matter are consistent with mild microangiopathy. The ventricles are normal in morphology and size. No evidence for obstructive hydrocephalus. No abnormal mass effect or midline shift. No extra-axial fluid collections. No pathologic intra-axial enhancement or regional oligemia. No acute soft tissue or osseous abnormalities. Mild mucosal thickening of the paranasal sinuses. Mild leftward nasal septal deviation with spurring. The mastoid air cells and middle ear cavities are clear. CT Neck: The thyroid gland and remaining cervical soft tissues are within normal limits. Straightening of the normal cervical lordosis. Mild degenerative anterolisthesis of C4 on C5. Advanced degenerative disc disease from C5-C7. Mild to moderate degenerative disc disease at all additional levels. Facet and uncovertebral joint arthropathy leads to osseous encroachment on the neural foramina from C2-C7. CT Upper Chest: The visualized lung apices and upper mediastinum are within normal limits. Neck CTA: Aortic Arch: Normal contour and caliber with mild calcific atherosclerotic disease. Classic 3 vessel branching pattern of the aortic arch. Great Vessel Origins: No significant stenosis of the branch origins. Right Common Carotid Artery: No focal stenosis or occlusion. Cervical Right Internal Carotid Artery: Endarterectomy changes. Calcific atherosclerotic disease of the carotid bulb and proximal internal carotid artery causing less than 50% stenosis. Left Common Carotid Artery: The left common carotid artery is occluded at its origin. Cervical Left Internal Carotid Artery: Reconstitution of the left internal carotid artery at the carotid bulb. The cervical segment of the left ICA is hypoplastic relative to the contralateral side. Cervical Right Vertebral Artery: Co-dominant. Chronic moderate atherosclerotic narrowing of the V1 and proximal V2 segment. No occlusion. Cervical Left Vertebral Artery: Co-dominant. Atherosclerotic disease causes mild stenosis of the origin. No additional focal stenosis or occlusion. Brain CTA: Intracranial Internal Carotid Arteries: Calcific atherosclerotic disease of the intracranial internal carotid arteries without occlusion or flow-limiting stenosis. Right Anterior Cerebral Artery: Normal A1 segment. Normal opacification of the distal MOHSEN segments. Left Anterior Cerebral Artery: Normal A1 segment. Normal opacification of the distal MOHSEN segments. Anterior Communicating Artery: Normal. Right Middle Cerebral Artery: Normal M1 segment of the MCA without focal stenosis or occlusion. Normal arborization of the distal segments. Left Middle Cerebral Artery: Normal M1 segment of the MCA without focal stenosis or occlusion. Normal arborization of the distal segments. Right Vertebral Artery: Normal V4 segment. Normal opacification of the proximal segments of the posterior inferior cerebellar artery. Left Vertebral Artery: Normal V4 segment. Normal opacification of the proximal segments of the posterior inferior cerebellar artery. Basilar Artery: Normal without focal stenosis or occlusion. Normal appearance of the proximal superior cerebellar arteries. Right Posterior Cerebral Artery: Normal P1 segment. Normal opacification of the distal DRYING ROOM SUPERVISOR segments. Left Posterior Cerebral Artery: Normal P1 segment. Normal opacification of the distal DRYING ROOM SUPERVISOR segments. Normal opacification of the superior sagittal, straight, transverse, and sigmoid sinuses. CT/CT angio head neck stroke IMPRESSION: 1. No evidence of acute intracranial hemorrhage or edematous territorial infarction. Mild underlying microangiopathy. 2. 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 Reconstitution of the left ICA at the carotid bulb. 3. Chronic moderate atherosclerotic narrowings of the V1 and proximal V2 segments of the right vertebral artery. 4. Otherwise, CTA of the head and neck without proximal occlusion or flow-limiting stenosis. 5. Moderate multilevel degenerative spondyloarthropathy of the cervical spine.
--- NOTE | 2024-04-16 09:28 | ECG_ITS ---
Test Reason : stroke Blood Pressure : / mmHG Vent. Rate : 086 BPM Atrial Rate : 086 BPM P-R Int : 172 ms QRS Dur : 096 ms QT Int : 376 ms P-R-T Axes : 064 005 009 degrees QTc Int : 449 ms Normal sinus rhythm Normal ECG When compared with ECG of 18-MAR-2024 12:43, No significant change was found Referred By: Sugar Roper Electronically Signed By:MEG CARDENAS
--- NOTE | 2024-04-16 09:40 | ED_ITS ---
HPI - General Adult General Chief complaint: Stroke Stated complaint: stroke alert Time Seen by Provider: 04/16/24 09:54 Source: patient and other (Dr. Buckner, Nursing staff ) Mode of arrival: other (stretcher) Limitations: no limitations History of Present Illness ED Provider: Brown BAHENA HPI narrative: This is a 73-year-old male history of carotid stenosis, clot in L common carotid artery, urinary incontinence, syncope, hypercholesterolemia, asthma, GERD, cancer of tonsil, orthostatic hypotension, paroxysmal atrial fibrillation, essential hypertension presenting to the emergency department with r sided facial droop and aphasia per IR staff which started while getting a CT angiogram of the carotids. . According to staff members members who were at the bedside at approximately 08:48 patient started becoming hypotensive and could not answer basic questions, they also noted a R facial droop at that time they tried to give normal saline which minimally helped the pressure patient was altered aphasic unable to answer questions at one point. According to staff members he came in normotensive became hypertensive with a systolic pressure greater than 200 was given a total of 20 mg of hydralazine which brought his pressure down to systolic pressure in the 50s ( lowest 57/37) . He was also given IV heparin while in the procedure a total of 5000 units of heparin. He was sedated prior to the procedure with fentanyl and Versed, fentanyl 25 mcg and Versed half a mg. A rapid response was called to IR suite overhead, initally this case was handled by attending there and later was brought to the ED. Patient alert and oriented x4 on my examination initially, w/ minimal right- sided facial droop NIHSS-0 on my exam ( i can not speak to initial presentation at 0848 in procedure suite) Related Data Home Medications ?Medication ?Instructions ?Recorded ?Confirmed cholecalciferol (vitamin D3) 25 25 mcg PO DAILY 09/16/20 04/16/24 mcg (1,000 unit) capsule cyanocobalamin (vitamin B-12) 1,000 mcg PO DAILY 09/16/20 04/16/24 1,000 mcg capsule metoprolol succinate 25 mg 25 mg PO DAILY 03/20/24 04/16/24 tablet,extended release 24 hr amlodipine 10 mg tablet 10 mg PO DAILY PRN htn 03/27/24 04/16/24 omeprazole 20 mg capsule,delayed 20 mg PO DAILY PRN gerd 04/16/24 04/16/24 release Previous Rx's ?Medication ?Instructions ?Recorded budesonide-formoterol HFA 160 2 puff inhalation BID 90 days #3 ea 01/12/23 mcg-4.5 mcg/actuation aerosol inhaler (Symbicort) losartan 50 mg tablet 50 mg PO DAILY #30 tabs 01/24/24 aspirin 81 mg tablet,delayed 81 mg PO DAILY #30 tabs 02/27/24 release atorvastatin 40 mg tablet 40 mg PO DAILY #30 tabs 02/27/24 clopidogrel 75 mg tablet (Plavix) 75 mg PO DAILY #30 tabs 02/27/24 Allergies Allergy/AdvReac Type Severity Reaction Status Date / Time lisinopril AdvReac Intermediate cough Verified 04/16/24 09:49 Review of Systems 2 Review of Systems: Yes all other systems are reviewed and are negative [facility] Past Medical History Attestation statement: The following information was validated with the patient. Source: old records reviewed and nursing notes reviewed Medical History Screening for prostate cancer Hypotension Syncope Urinary incontinence Hx of radiation therapy History of chemotherapy Colon cancer screening Hypercholesterolemia Asthma GERD (gastroesophageal reflux disease) Cancer of tonsil Orthostatic hypotension Essential hypertension PAF (paroxysmal atrial fibrillation) Surgical History H/O colonoscopy S/P repair of hydrocele History of tonsillectomy Family History Family History Father Dementia Hx of CABG Mother Diabetes Social History Social History Housing: House Alcohol intake: current Alcohol intake frequency: holidays/special occasions only Alcohol type: beer Patient Tobacco Use Status: Never used Tobacco Smoked in Last 30 Days: No e-Cigarette/Vaping Use: Never Used Second Hand Smoke Exposure: No Use of substances other than those prescribed or required for medical reasons: No Advance Directives: No Do you have a plan to hurt others: No Plan service: No Current occupational status: retired Cognitive needs: No Hearing needs: No Vision needs: Yes Physical Exam ED Vital Signs: Vital Signs - 24 hr 04/16/24 09:40 04/16/24 10:06 04/16/24 10:41 Temperature 97.9 F 97.7 F Pulse Rate 84 84 82 Respiratory Rate 14 14 12 Blood Pressure 142/77 H 135/73 124/64 Pulse Oximetry 98 97 97 Oxygen Delivery Method Room Air Nasal Cannula Room Air Oxygen Flow Rate 2 04/16/24 11:30 04/16/24 11:57 Temperature 97.7 F Pulse Rate 82 85 Respiratory Rate 12 15 Blood Pressure 120/63 110/55 L Pulse Oximetry 99 99 Oxygen Delivery Method Room Air Nasal Cannula Oxygen Flow Rate 2 BMI result Body Mass Index 23.2 vss Appearance: Alert.? Oriented X3.? No acute distress.? Head: Normocephalic, atraumatic, no step-offs or deformities Eyes: Pupils equal, round and reactive to light.? Face: very mild/minimal r sided facial droop (unclear if this is patients baseline) Neck: Normal inspection.? Neck supple.? CVS: Normal heart rate and rhythm.? Pulses normal.? Respiratory: No respiratory distress.? Breath sounds normal.? Abdomen: Soft and nontender.? Skin: Skin warm and dry.? Normal skin color.? Normal skin turgor.? Extremities: No lower extremity edema.? No calf ttp. Neuro: Oriented X 3.? No motor deficit.? No sensory deficit. CN 2-12 intact Course Reevaluation(s) Reevaluation #1: I did discuss this case with Neurology Dr. Morgan who states no indication for TNK agrees this is likley secondary to rapid drop in BP. NIHSS- 0 still. Time: 10:00 Reevaluation #2: CBC appears to be at baseline. No acute electrolyte disturbances or acute findings requiring intervention on chemistry. Total CK 313 H. APTT elevated (198.2) likely secondary to receiving intraprocedural heparin wit IR. Time: 12:17 Reevaluation #3: Plan at this time is hospital admission for blood pressure monitoring. Time: 12:24 Medications Administered Discontinued Medications Generic Name Dose Route Start Last Admin Trade Name Freq PRN Reason Stop Dose Admin Iohexol 100 ml 04/16/24 09:48 04/16/24 09:48 Iohexol 350 Mg/Ml 100 Ml Infus..Btl IV 04/16/24 09:49 70 ml ONCE ONE Administration Medical Decision Making Medical Decision Making [facility] Narrative: 927 73 year old male presents w/ ams, hypotension, r sided facil droop, weakness since 847 which started during a CT angiogram of carotids w/ Dr. Buckner as an outpatient PE- very mild/minimal r sided facial droop (unclear if this is patients baseline) History and physical exam concerning for stroke versus intracranial hemorrhage. Also concerned for rapid drop in blood pressure which could be mimicking stroke- like symptoms. Hypertensive urgency or emergency can not be ruled out. Will rule out metabolic derangements. Will also rule out dysrhythmia. Plan labs, imaging, stroke protocol initiated at this time. patient financial services coordinator Reva Dee RN at bedside CT scans ( CT head) were ordered in the Interventional Radiology suite prior to patient arriving to the emergency department where they started his stroke workup. It continued into the emergency department after he was registered and brought in after a rapid response. Differential Diagnosis Differential Diagnoses: The differential diagnosis associated with the presentation includes History and physical exam concerning for stroke versus intracranial hemorrhage. Also concerned for rapid drop in blood pressure which could be mimicking stroke- like symptoms. Hypertensive urgency or emergency can not be ruled out. Will rule out metabolic derangements. Will also rule out dysrhythmia. Admission/Observation Consideration of admission/observation: Escalation of care including admission/observation considered Consult Healthcare Provider Management of the patient was discussed with: Stock Cutter (Dr. buckner, ) Lab Data [facility] Lab Attestation statement: I reviewed the patient's lab results. 04/16/24 10:27 04/16/24 10:27 Labs: Lab Results 04/16/24 04/16/24 Range/Units 09:50 10:27 WBC 6.8 (4.8-10.8) X10*3/uL RBC 4.39 L (4.60-5.80) X10*6/uL Hgb 13.4 L (14.0-18.0) g/dl Hct 39.5 L (42.0-52.0) % MCV 90.0 (80.0-98.0) fL MCH 30.5 (27.0-33.0) pg MCHC 33.9 (31.0-36.0) g/dl RDW 12.9 (11.0-16.0) % Plt Count 193 (160-400) X10*3/uL MPV 9.6 (9.4-12.4) fL Immature Gran % (Auto) 0.3 (0.0-0.4) % Neut % (Auto) 82.0 H (45-73) % Lymph % (Auto) 7.4 L (20-40) % Cowley % (Auto) 7.5 (2-11) % Eos % (Auto) 2.2 (0-4) % Baso % (Auto) 0.6 (0-2) % Lymph # (Auto) 0.5 L (1.2-4.9) X10*3/uL Cowley # (Auto) 0.5 (0.1-1.2) X10*3/uL Eos # (Auto) 0.2 (0.0-0.4) X10*3/uL Baso # (Auto) 0.0 (0.0-0.2) X10*3/uL Abs Immat Gran (auto) 0.02 (0.00-0.03) X10*3/uL Absolute Neuts (auto) 5.6 (2.0-8.3) x10*3/uL Absolute Nucleated RBC 0.000 (0.0-0.012) X10*3/uL Nucleated RBC % (auto) 0.0 (0.0-0.2) /100WBC PT 11.9 (11.1-13.3) SEC INR 1.0 (0.9-1.1) APTT 198.2 H* D (26.0-36.8) SEC Sodium 134 L (135-145) mmol/L Potassium 4.2 (3.3-5.1) mmol/L Chloride 103 (96-108) mmol/L Carbon Dioxide 21 L (22-29) mmol/L Anion Gap 14 (12-20) BUN 13 (9-16) mg/dL Creatinine 0.76 (0.5-1.4) mg/dL Estim Creat Clear Calc 90.7 Estimated GFR > 60 POC Glucose 97 (60-115) mg/dL Random Glucose 102 (60-115) mg/dL Calcium 9.2 (8.4-10.2) mg/dL Total Creatine Kinase 313 H (38-174) U/L Troponin I High Sens 3.2 (<3.5-35.0) ng/L Independent Interpretation I performed an independent interpretation of an: EKG (Vent. Rate : 086 BPM Atrial Rate : 086 BPM P-R Int : 172 ms QRS Dur : 096 ms QT Int : 376 ms P-R-T Axes : 064 005 009 degrees QTc Int : 449 ms Normal sinus rhythm Normal ECG When compared with ECG of 18-MAR-2024 12:43, No significant change was found) and CT Scan (CT/CT angio head neck stroke IMPRESSION: 1. No evidence of acute intracranial hemorrhage or edematous territorial infarction. Mild underlying microangiopathy. 2. 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 Reconstitution of the left ICA at the carotid bulb. 3. Chronic moderate atheroscl) Radiology Impression Discussion of test interpretation with radiology: I have reviewed the radiologist's reading. Independent Historian Clinical information obtained from an independent historian. History obtained from or confirmed by: Other (IR nurses, Dr. Buckner ) External Record Review External record reviewed: Inpatient record, Office record, Outpatient record, Prior outpatient labs, Prior outpatient radiology, Primary care record and Outside ED record Chronic Conditions Patient?s care impacted by: Other (carotid stenosis, clot in L common carotid artery, urinary incontinence, syncope, hypercholesterolemia, asthma, GERD, cancer of tonsil, orthostatic hypotension, paroxysmal atrial fibrillation, essential hypertension) Critical Care Time Critical Care Time Critical Care Time: Yes Total Critical Care Time: 45 Attestation: I attest to this time spent taking care of the patient, obtaining history, physical, reviewing labs, imaging, speaking to my attending, specialist or hospitalist. Discharge Plan Discharge Clinical Impression: Iatrogenic hypotension, Facial droop Patient Disposition: Admitted As Inpatient Print Language: Albanian
[2024-04-16] MEDS: iohexoL 350 MG/ML 100 ML INFUS..BTL IV (09:48)
--- NOTE | 2024-04-16 09:58 | PC.NURSE ---
pt brought to ED from IR following change in pt status during cerebral angiogram. pt initially vs 140/? on arrival to outpt, became hypertensive during procedure 200/? - remained a&ox4, no deficits. 20mg hydralazine given d/t elevated pressures. 3000u heparin given slow IVP as part of procedure protocol. [id number] change in pt status, pressures 57/30s, decreased pt responsiveness, aphasic, unable to visually track, R sided facial droop. additional 2000u of IVP heparin given. minimally more responsive. pt brought to out pt CT for dry head scan. pt arrived to ED more responsive, a&ox4 @ 0940 following commands [address] in CT. L carotid - access through R groin, supine post procedure ~ 1 hr. on arrival to ED bed, mild R sided facial droop off baseline per pt - otherwise neuro intact, following commands, pt a&ox4, hypertensive - other vss.
[2024-04-16 09:59] LABS: Glucose, Whole Blood 97 mg/dL (60-115)
--- NOTE | 2024-04-16 10:22 | MHC.STROKE ---
Notified by Rapid Response team of a stroke alert in the IR suite. Per IR staff report, pt was here for a carotid procedure and was noted to be hypertensive prior to procedure. Despite being given sedation medications, the patient remained hypertensive. One dose of Hydralazine 10mg was given with minimal effect and so an additional dose was given. Per IR staff, pt was mentating appropriately and answering their questions. BP began to trend down with lowest reading 57/37. Pt was altered and IR staff noted a right sided facial droop. IV fluids were given in an attempt to raise BP. A rapid repsonse was called to IR suite. Pt was sent to CT scan to rule out a stroke by IR staff. Pt was then brought down to ED. (Please see IR record for times and medications) (Heparin was given to patient during procedure). I met the ED provider and patient as he was being transferred from CT to the ED. It was decided by the provider and myself to bring patient directly to ED CT scanner to obtain a CTA as only a CT head was ordered from IR. Pt went directly to scan and we received report from Rapid Response team. Pt was moved from CT scan to ED bed 10. Pt was alert and oriented x 3. Answering all questions appropriately. Pt was able to name objects placed in front of him appropriately. No weakness noted. Moving all extremties. Speech clear. Very slight right sided facial droop noted otherwise neuro exam negative. Provider gave the patient an NIHSS -0. BP stable in the ED. Pt educated on ED process and is agreeable to plan. Will continue to assist as needed.
[2024-04-16 10:30] LABS: MANUAL DIFF FLAG NO
[2024-04-16 10:39] LABS: Basophils Percent Auto 0.6 % (0-2); Eosinophils Absolute Auto 0.2 X10*3/uL (0.0-0.4); Eosinophils Percent Auto 2.2 % (0-4); Hematocrit 39.5 % (42.0-52.0); Hemoglobin 13.4 g/dl (14.0-18.0); Imm Gran Abs Auto 0.02 X10*3/uL (0.00-0.03); Imm Gran Pct Auto 0.3 % (0.0-0.4); Lymphocytes Absolute Auto 0.5 X10*3/uL (1.2-4.9); Lymphocytes Percent Auto 7.4 % (20-40); Mean Corpuscular HGB Conc 33.9 g/dl (31.0-36.0); Mean Corpuscular Hemoglobin 30.5 pg (27.0-33.0); Mean Platelet Volume 9.6 fL (9.4-12.4); Monocytes Absolute Auto 0.5 X10*3/uL (0.1-1.2); Monocytes Percent Auto 7.5 % (2-11); Neutrophils Absolute Auto 5.6 x10*3/uL (2.0-8.3); Platelet Count 193 X10*3/uL (160-400); Prothrombin Time 11.9 SEC (11.1-13.3); Red Blood Count 4.39 X10*6/uL (4.60-5.80); Red Cell Distribution Width 12.9 % (11.0-16.0); White Blood Count 6.8 X10*3/uL (4.8-10.8)
[2024-04-16 10:46] LABS: Anion Gap 14 (12-20); Blood Urea Nitrogen 13 mg/dL (9-16); Calcium 9.2 mg/dL (8.4-10.2); Carbon Dioxide 21 mmol/L (22-29); Chloride 103 mmol/L (96-108); Creatinine Clr Calc Pharmacy 90.7; Estimated Glomerular Filt Rate > 60; Glucose Random 102 mg/dL (60-115); Potassium 4.2 mmol/L (3.3-5.1); Sodium 134 mmol/L (135-145)
[2024-04-16 10:52] LABS: Troponin-I High Sensitivity 3.2 ng/L (<3.5-35.0)
[2024-04-16 10:54] LABS: Partial Thromboplastin Time 198.2 SEC (26.0-36.8)
[2024-04-16 10:55] LABS: Stroke Lab Use COMPLETE
--- NOTE | 2024-04-16 12:47 | PHA.MEDREC ---
Pharmacy Consult ? Medication Reconciliation Pharmacy has completed the medication reconciliation.Spoke to pt at bedside, was able to name all medications unprompted. Only took Metoprolol and Losartan today before admit.
--- NOTE | 2024-04-16 13:08 | P.HPHOSP_ITS ---
History of Present Illness Date of Service: 04/16/24 Attending physician on admission: Gillian Ferrell Chief Complaint: Symptomatic hypotension Pt is a 73-year-old male with a PMH significant for?CAD, carotid stenosis, HTN, who presents to the ED from IR suite while getting CT angiogram of carotids. During procedure patient apparently became hypertensive with a systolic BP >200. Was given a total of 20 mg hydralazine which then brought his BP as low as 57/37. According to IR staff, and patient became altered, aphasic, unable to answer questions, and was noted to have a right sided facial droop and right- sided upper extremity weakness. Patient also given 5000 units IV heparin and sedated with fentanyl 25 mcg and Versed 0.5 mg. In response to hypotension, patient was given IVF with improvement to BP. Stroke workup was started in the IR suite and patient was then brought down to the ED for further evaluation. Patient alert and oriented x4 by the time he arrived at the ED. Patient continues to be?alert and oriented x4 at time of interview and exam. SBP has improved to the 130s. Patient complains of mild headache, otherwise has no acute medical concerns. Denies acute vision changes. No numbness, tingling, or weakness in extremities. Denies chest pain/pressure, palpitations. No shortness a breath. Denies fever, chills, nausea, vomiting, abdominal pain. In the ED pt was mostly normotensive with vital signs stable and WNL. Labs were grossly unremarkable. No leukocytosis. Stable H&H. No significant electrolyte abnormalities. Renal function WNL. CT of head found no acute intracranial pathology. CT of head found no evidence of acute intracranial hemorrhage or edematous territorial infarction, low showed mild underlying microangiopathy. Also found chronic occlusion of the left common carotid artery and reconstitution of the left ICA at the carotid bulb. Also found chronic moderate atherosclerotic narrowing of the V1 and proximal V2 segments of the right vertebral artery. EKG demonstrated normal sinus rhythm without evidence of significant ST elevations or depressions. Pt was treated with IVF. Pt will be admitted to the hospital under observation for treatment and management of transient cerebral ischemia secondary to hypotensive episode. Review of Systems 2 Review of Systems: AMS Right-sided facial droop Right-sided extremity weakness, since resolved Mild headache Denies acute vision changes No numbness or tingling of extremities No chest pain/pressure, palpitations Denies shortness of breath, difficulty breathing No fever, chills, nausea, vomiting, abdominal pain PMFSH Medical History Hypotension Screening for prostate cancer Syncope Urinary incontinence Hx of radiation therapy History of chemotherapy Colon cancer screening Hypercholesterolemia Asthma GERD (gastroesophageal reflux disease) Cancer of tonsil Orthostatic hypotension Essential hypertension PAF (paroxysmal atrial fibrillation) Family History Father Dementia Hx of CABG Mother Diabetes Surgical History H/O colonoscopy S/P repair of hydrocele History of tonsillectomy Social History Household Members: Spouse Housing: House Do you presently have visiting nurse or other home services: No Alcohol intake: current Alcohol intake frequency: holidays/special occasions only Alcohol type: beer Patient Tobacco Use Status: Never used Tobacco Smoked in Last 30 Days: No e-Cigarette/Vaping Use: Never Used Second Hand Smoke Exposure: No Use of substances other than those prescribed or required for medical reasons: No Currently Displaying Signs/Symptoms of Drug Intoxication Withdrawal: No Have you been hit, kicked, punched, or otherwise hurt by someone within the past year? If so, by whom?: No Do you feel safe in your current relationship?: Yes Is there a partner from a previous relationship who is making you feel unsafe now?: No Are you made to feel afraid or neglected: No Advance Directives: No Advance Directives Information Provided: Yes (Declined) Do you have a plan to hurt others: No Plan Recently lost weight without trying: No Nutrition Risks: No Nutritional Risk Poor oral hygiene: No service: No Current occupational status: retired Cognitive needs: No Hearing needs: No Vision needs: Yes Meds Allergies Allergy/AdvReac Type Severity Reaction Status Date / Time lisinopril AdvReac Intermediate cough Verified 04/16/24 09:49 Home Medications ?Medication ?Instructions ?Recorded ?Confirmed ?Last Taken ?Type cholecalciferol (vitamin D3) 25 25 mcg PO DAILY 09/16/20 04/16/24 Unknown History mcg (1,000 unit) capsule cyanocobalamin (vitamin B-12) 1,000 mcg PO DAILY 09/16/20 04/16/24 Unknown History 1,000 mcg capsule metoprolol succinate 25 mg 25 mg PO DAILY 03/20/24 04/16/24 04/16/24 History tablet,extended release 24 hr omeprazole 20 mg capsule,delayed 20 mg PO DAILY PRN gerd 04/16/24 04/16/24 Unknown History release Physical Exam 2 Vital Signs and Narrative: Vital Signs: Last Vital Signs Temp 97.7 F 04/16/24 11:57 Pulse 85 04/16/24 11:57 Resp 15 04/16/24 11:57 BP 110/55 L 04/16/24 11:57 Pulse Ox 99 04/16/24 11:57 O2 Del Method Nasal Cannula 04/16/24 11:57 O2 Flow Rate 2 04/16/24 11:57 BMI result Body Mass Index 23.2 Constitutional: Alert, in no acute distress. Mental Status: Oriented to person, place and time. Eyes: Pupils are equal, round, and reactive to light. Ear, Nose, and Throat: Oropharynx clear, mucous membranes moist. Ears and nose without deformities. Trachea midline. Respiratory: Clear to auscultation bilaterally. No wheezing, rales, or rhonchi. Cardiovascular: S1, S2 regular. No murmurs, rubs, or gallops. Gastrointestinal: Abdomen soft, non-tender, non-distended. Normal bowel sounds. Neurologic: Cranial nerves II-XII are grossly intact bilaterally. No focal neurological deficits. Moves all extremities spontaneously. Strength of upper and lower extremities equal bilaterally. Sensation to light touch intact of upper and lower extremities bilaterally. Skin: Warm, dry. Extremities: No edema. Psychiatric: Normal mood and affect. Results Labs 04/16/24 10:27 04/16/24 10:27 Labs: Laboratory Results - last 24 hr 04/16/24 04/16/24 09:50 10:27 MCV 90.0 MCH 30.5 MCHC 33.9 RDW 12.9 Plt Count 193 MPV 9.6 Immature Gran % (Auto) 0.3 Neut % (Auto) 82.0 H Lymph % (Auto) 7.4 L [place] % (Auto) 7.5 Eos % (Auto) 2.2 Baso % (Auto) 0.6 Lymph # (Auto) 0.5 L [place] # (Auto) 0.5 Eos # (Auto) 0.2 Baso # (Auto) 0.0 Abs Immat Gran (auto) 0.02 Absolute Neuts (auto) 5.6 Absolute Nucleated RBC 0.000 Nucleated RBC % (auto) 0.0 PT 11.9 INR 1.0 APTT 198.2 H* D Anion Gap 14 Estim Creat Clear Calc 90.7 Estimated GFR > 60 POC Glucose 97 Random Glucose 102 Calcium 9.2 Total Creatine Kinase 313 H Troponin I High Sens 3.2 Imaging Radiologist's Impressions: Impressions Head/Neck CTA 04/16/24 09:39 IMPRESSION: 1. No evidence of acute intracranial hemorrhage or edematous territorial infarction. Mild underlying microangiopathy. 2. 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 Reconstitution of the left ICA at the carotid bulb. 3. Chronic moderate atherosclerotic narrowings of the V1 and proximal V2 segments of the right vertebral artery. 4. Otherwise, CTA of the head and neck without proximal occlusion or flow-limiting stenosis. 5. Moderate multilevel degenerative spondyloarthropathy of the cervical spine. Assessment and Plan (1) Transient cerebral ischemia: Status: Acute (2) Hypotension: Status: Acute Plan Pt is a 73-year-old male with a PMH significant for?carotid stenosis, HTN, who presents to the ED from IR suite while getting CT angiogram of carotids. During procedure patient apparently became hypertensive with a systolic BP >200. Was given a total of 20 mg hydralazine which then brought his BP as low as 57/37. Pt was treated with IVF. Pt will be admitted to the hospital under observation for treatment and management of transient cerebral ischemia secondary to hypotensive episode. Transient cerebral ischemia from hypotensive episode Patient with AMS, right-sided facial droop and extremity weakness Since resolved, patient now back at baseline Likely secondary to hypotension from IV hydralazine while undergoing CT angiogram of carotids Patient given 1L IVF in the ED CT and CTA of head found no evidence of acute intracranial hemorrhage edematous territorial infarction No indication for continued stroke workup Monitor on telemetry Follow BP closely HTN Patient took home antihypertensives this morning Patient currently normotensive Follow BP closely, continue home meds tomorrow Carotid stenosis Continue aspirin, statin, Plavix GERD Continue PPI Full Code Attending:?Dr. Ferrell DVT Prophylaxis: Heparin Pt will be admitted to the hospital under observation for treatment and further evaluation transient cerebral ischemia secondary to hypotensive episode. Patient will be monitored on telemetry with close monitoring of BP. Quality Stroke Does the patient have a stroke diagnosis?: No VTE Prior VTE?: No VTE Risk Level:: Medical - moderate - high VTE Device Contraindication: Treatment Not Indicated VTE Drug Contraindication: N/A - Med Ordered
[2024-04-16 13:46] LABS: Prothrombin Time Whole Bld POC 12.5 sec (11.1-13.5)
[2024-04-16] MEDS: 0.9 % Sodium Chloride Flush 3 ML SYRINGE IVFLUSH (18:23)
[2024-04-16] MEDS: Acetaminophen 325 MG TABLET 650 MG PO (18:29)
--- NOTE | 2024-04-16 18:37 | PC.NURSE ---
pt a&ox4, hypertenisve, other vss, pt remains w neuros intact - R sided facial droop resolved as of ~ 1430. swallow eval passed. pt eating dinner w at bedside. per - pt bp occasionally drops after eating meals. hospitalist aware of bp - plan to revital in ~ 1hr and discuss POC. no new order at this time
--- NOTE | 2024-04-16 21:26 | PC.NURSE ---
aware of pt blood pressure at this time, no new orders.
[2024-04-16] MEDS: Heparin Sodium,Porcine 5,000 UNIT/ML VIAL 5000 UNIT SUBCUT (21:58)
--- NOTE | 2024-04-16 21:59 | PC.NURSE ---
pt medicated per mar, pt tolerated well.
[2024-04-17] VITALS (12 sets, daily range): BP systolic 66–216; BP diastolic 44–114; PULSE 67–96; RESP 16–20; TEMP 36.2–36.9; O2SAT 94–96; BMI 21.9
[2024-04-17] MEDS: 0.9 % Sodium Chloride Flush 3 ML SYRINGE IVFLUSH ×4 (00:12→21:53)
--- NOTE | 2024-04-17 07:54 | PC.NURSE ---
Pt at 0300 noted to have BP 216/114, rechecked x2 and 199 and 198 systolic bilaterally. Pt reporting new headache at that time. MD Nolan aware and amlodipine ordered. Pt informed med being ordered and would be in in a few minutes and pt stated He felt fine and thought his BP was back to normal and the headache was gone. BP rechecked and was 93/51 automated and manual recheck was 84/48. MD Nolan made aware and amlodipine dose held. Falls precautions maintained and reinforced with patient. Plan of care ongoing.
--- NOTE | 2024-04-17 08:51 | P.CONNP_ITS ---
History of Present Illness Reason for Consult Consult date: 04/17/24 Chief Complaint Chief complaint: Transient cerebral ischemia due to hypoperfusion History of Present Illness Narrative: Jose Rafael is a pleasant 73-year-old man with a history of hypertension for more than 10 years. Consulted for management of HTN I recently saw him in my office and initiated work up HE came to radiology for imaging of carotids. BP spiked to 230 mmHg Systolic Receive IV hydralazine 20 mg and promtly developed hypotension with facial droop Received IVF Over the past 12 hrs, facial droop has resolved BP remains labile h/o wide fluctuation in his blood pressure. Blood pressure has been as high as 239/130 mm Hg. And the low reading has been as low as 70/50 mm Hg. He has a history of atrial fibrillation. He is on metoprolol for rate control. There is a history of peripheral as disease. He has been followed by Dr. Naidu. He has no history of any kidney disease. No history of smoking. No history of dyslipidemia. He has no history of weight loss. No palpitation. No unexplained sweating. No edema. No urinary symptoms. No polyuria polydipsia. No hematuria. No headaches. No blurred vision. [facility] Past Medical History Medical History Hypotension Screening for prostate cancer Syncope Urinary incontinence Hx of radiation therapy History of chemotherapy Colon cancer screening Hypercholesterolemia Asthma GERD (gastroesophageal reflux disease) Cancer of tonsil Orthostatic hypotension Essential hypertension PAF (paroxysmal atrial fibrillation) Family History Family History Father Dementia Hx of CABG Mother Diabetes Surgical History Surgical History H/O colonoscopy S/P repair of hydrocele History of tonsillectomy Social History Social History Household Members: Spouse Housing: House Do you presently have visiting nurse or other home services: No Alcohol intake: current Alcohol intake frequency: holidays/special occasions only Alcohol type: beer Patient Tobacco Use Status: Never used Tobacco Smoked in Last 30 Days: No e-Cigarette/Vaping Use: Never Used Second Hand Smoke Exposure: No Use of substances other than those prescribed or required for medical reasons: No Currently Displaying Signs/Symptoms of Drug Intoxication Withdrawal: No Have you been hit, kicked, punched, or otherwise hurt by someone within the past year? If so, by whom?: No Do you feel safe in your current relationship?: Yes Is there a partner from a previous relationship who is making you feel unsafe now?: No Are you made to feel afraid or neglected: No Advance Directives: No Advance Directives Information Provided: Yes (Declined) Do you have a plan to hurt others: No Plan Recently lost weight without trying: No Nutrition Risks: No Nutritional Risk Poor oral hygiene: No service: No Current occupational status: retired Cognitive needs: No Hearing needs: No Vision needs: Yes Meds Allergies Allergy/AdvReac Type Severity Reaction Status Date / Time lisinopril AdvReac Intermediate cough Verified 04/16/24 09:49 Active Medications: Current Medications Acetaminophen (Acetaminophen 325 Mg Tablet) 650 mg PO Q6H PRN PRN Reason: Pain, Mild (Pain Scale 1-3) Last Admin: 04/16/24 18:29 Dose: 650 mg Aspirin (Aspirin Enteric Coated 81 Mg Tablet.Dr) 81 mg PO DAILY [facility] Atorvastatin Calcium (Atorvastatin Calcium 40 Mg Tablet) 40 mg PO DAILY [facility] Benzonatate (Benzonatate 100 Mg Capsule) 100 mg PO TID PRN PRN Reason: Cough Clopidogrel Bisulfate (Clopidogrel Bisulfate 75 Mg Tablet) 75 mg PO DAILY [facility] Cyanocobalamin (Cyanocobalamin (Vitamin B-12) 1,000 Mcg Tablet) 1,000 mcg PO DAILY [facility] Docusate Sodium (Docusate Sodium 100 Mg Capsule) 100 mg PO DAILY PRN PRN Reason: Constipation Famotidine (Famotidine 20 Mg Tablet) 20 mg PO DAILY [facility] Heparin Sodium (Porcine) (Heparin Sodium,Porcine 5,000 Unit/Ml Vial) 5,000 unit SUBCUT Q12H [facility] Last Admin: 04/16/24 21:58 Dose: 5,000 unit Losartan Potassium (Losartan Potassium 50 Mg Tablet) 50 mg PO DAILY [facility]; Protocol Melatonin (Melatonin 3 Mg Tablet) 6 mg PO BEDTIME PRN PRN Reason: Insomnia Metoprolol Succinate (Metoprolol Succinate Er 25 Mg Tab.Er.24h) 25 mg PO DAILY [facility]; Protocol Ondansetron HCl (Ondansetron Hcl 4 Mg/2 Ml Vial) 4 mg IVPUSH Q8H PRN PRN Reason: Nausea and Vomiting Sodium Chloride (0.9 % Sodium Chloride Flush 3 Ml Syringe) 3 ml IVFLUSH QSHIFT MIRIAM Last Admin: 04/17/24 00:12 Dose: 3 ml Vitamin D (Cholecalciferol (Vitamin D3) 25 Mcg Tablet) 25 mcg PO DAILY [facility] Home Medications ?Medication ?Instructions ?Recorded ?Confirmed ?Last Taken ?Type cholecalciferol (vitamin D3) 25 25 mcg PO DAILY 09/16/20 04/16/24 Unknown History mcg (1,000 unit) capsule cyanocobalamin (vitamin B-12) 1,000 mcg PO DAILY 09/16/20 04/16/24 Unknown History 1,000 mcg capsule metoprolol succinate 25 mg 25 mg PO DAILY 03/20/24 04/16/24 04/16/24 History tablet,extended release 24 hr omeprazole 20 mg capsule,delayed 20 mg PO DAILY PRN gerd 04/16/24 04/16/24 Unknown History release Physical Exam Vital Signs: Last Vital Signs Temp 97.2 F 04/17/24 07:44 Pulse 69 04/17/24 07:44 Resp 16 04/17/24 07:44 BP 90/55 L 04/17/24 07:44 Pulse Ox 96 04/17/24 07:44 O2 Del Method Room Air 04/17/24 07:44 O2 Flow Rate 2 04/16/24 11:57 BMI result Body Mass Index 21.9 Const General: comfortable; No acute distress Orientation/consciousness: patient oriented x3 Eyes General: appearance normal, both eyes and all related structures Visual Mayer: normal visual mayer by confrontation Neck Neck: Yes supple and Yes no JVD Resp Effort & Inspection: normal respiratory effort and respiratory effort not decreased Auscultation: rhonchi Cardio Palpation: no palpable S3 and no palpable S4 Heart sounds: no rubs GI Inspection: Yes normal to inspection Palpation (GI): Soft to palpation Percussion: Yes normal to percussion Auscultation: normal bowel sounds General: Yes no CVA tenderness Back/Spine/Pelvis Back: no CVA tenderness Skin General skin exam: no petechiae and no purpura Neuro General: patient oriented x3 and no focal motor deficits Extrem General: No clubbing and No edema Results Lab Results 04/16/24 10:27 04/16/24 10:27 Lab results: Chemistry 04/16/24 10:27 Sodium 134 L Potassium 4.2 Carbon Dioxide 21 L BUN 13 Creatinine 0.76 Calcium 9.2 Hematology 04/16/24 10:27 WBC 6.8 Hgb 13.4 L Plt Count 193 Assessment and Plan (1) Labile hypertension: Status: Acute Plan DDX : Renal artery stenosis r/o Pheo Suggest Hold all anti hypertensives due to severe hypotension Resume one medication at a time Can start with Captopril 25 mg TID - would be easier to titrate Would avoid long acting agents for now AVOID Hypotension and rapid lowering of BP. Rapid lowering disrupts renal auto regulation and cerebral perfusion AVOID IV antihypertensives for now Check renal doppler Await catecholamines Procedures Date of Service Date of Service: 04/17/24
--- NOTE | 2024-04-17 09:18 | MHC.CM.PN ---
CM ATTEMPTED TO MEET W/PT HOWEVER PT NOT IN RM/OFF UNIT, CM TO REVISIT.
[2024-04-17] MEDS: Heparin Sodium,Porcine 5,000 UNIT/ML VIAL 5000 UNIT SUBCUT ×2 (09:40→21:53)
[2024-04-17] MEDS: Aspirin Enteric Coated 81 MG TABLET.DR PO (09:41)
[2024-04-17] MEDS: Atorvastatin Calcium 40 MG TABLET PO (09:41)
[2024-04-17] MEDS: Clopidogrel Bisulfate 75 MG TABLET PO (09:42)
[2024-04-17] MEDS: Cyanocobalamin (Vitamin B-12) 1,000 MCG TABLET 1000 MCG PO (09:42)
[2024-04-17] MEDS: Famotidine 20 MG TABLET PO (09:42)
[2024-04-17] MEDS: Cholecalciferol (Vitamin D3) 25 MCG TABLET PO (09:42)
[2024-04-17] MEDS: 0.9 % Sodium Chloride 250 ML IVCONT (10:57)
--- NOTE | 2024-04-17 11:05 | P.PNIM_ITS ---
Subjective Subjective Date of Service: 04/17/24 Interval History: BP extremely labile with all meds held; 198/113->66/44; c/o ALANIZ + light sensitivity no facial droop or extremity weakness Review of Systems Review of Systems: Yes all other systems are reviewed and are negative Physical Exam 2 Vital Signs: Vital Signs: Last Vital Signs Temp 97.2 F 04/17/24 07:44 Pulse 69 04/17/24 07:44 Resp 16 04/17/24 07:44 BP 90/55 L 04/17/24 07:44 Pulse Ox 96 04/17/24 07:44 O2 Del Method Room Air 04/17/24 07:44 O2 Flow Rate 2 04/16/24 11:57 BMI result Body Mass Index 21.9 Gen: in no acute distress HEENT: sclera anicteric, moist mucus membranes Neck: supple Lungs: clear to auscultation bilaterally Heart: regular rate and rhythm, no murmurs Abd: soft, non-tender, non-distended Ext: no edema Skin: warm/well-perfused Neuro: alert and oriented x3, no focal findings, no facial droop, no pronator drift Psych: appropriate affect Objective Data Active Medications Acetaminophen (Acetaminophen 325 Mg Tablet) 650 mg PO Q6H PRN PRN Reason: Pain, Mild (Pain Scale 1-3) Last Admin: 04/16/24 18:29 Dose: 650 mg Documented By: BEATRIZ Aspirin (Aspirin Enteric Coated 81 Mg Tablet.) 81 mg PO DAILY [facility] Last Admin: 04/17/24 09:41 Dose: 81 mg Documented By: LISA Atorvastatin Calcium (Atorvastatin Calcium 40 Mg Tablet) 40 mg PO DAILY [facility] Last Admin: 04/17/24 09:41 Dose: 40 mg Documented By: LISA Benzonatate (Benzonatate 100 Mg Capsule) 100 mg PO TID PRN PRN Reason: Cough Clopidogrel Bisulfate (Clopidogrel Bisulfate 75 Mg Tablet) 75 mg PO DAILY [facility] Last Admin: 04/17/24 09:42 Dose: 75 mg Documented By: LISA Cyanocobalamin (Cyanocobalamin (Vitamin B-12) 1,000 Mcg Tablet) 1,000 mcg PO DAILY [facility] Last Admin: 04/17/24 09:42 Dose: 1,000 mcg Documented By: LISA Docusate Sodium (Docusate Sodium 100 Mg Capsule) 100 mg PO DAILY PRN PRN Reason: Constipation Famotidine (Famotidine 20 Mg Tablet) 20 mg PO DAILY [facility] Last Admin: 04/17/24 09:42 Dose: 20 mg Documented By: LISA Heparin Sodium (Porcine) (Heparin Sodium,Porcine 5,000 Unit/Ml Vial) 5,000 unit SUBCUT Q12H [facility] Last Admin: 04/17/24 09:40 Dose: 5,000 unit Documented By: LISA Sodium Chloride (Ns) 250 mls @ 250 mls/hr IVCONT .Q1H [facility] Stop: 04/17/24 11:59 Last Admin: 04/17/24 10:57 Dose: 250 mls/hr Documented By: LISA Losartan Potassium (Losartan Potassium 50 Mg Tablet) 50 mg PO DAILY [facility]; Protocol Melatonin (Melatonin 3 Mg Tablet) 6 mg PO BEDTIME PRN PRN Reason: Insomnia Metoprolol Succinate (Metoprolol Succinate Er 25 Mg Tab.Er.24h) 25 mg PO DAILY [facility]; Protocol Ondansetron HCl (Ondansetron Hcl 4 Mg/2 Ml Vial) 4 mg IVPUSH Q8H PRN PRN Reason: Nausea and Vomiting Sodium Chloride (0.9 % Sodium Chloride Flush 3 Ml Syringe) 3 ml IVFLUSH QSHIFT [facility] Last Admin: 04/17/24 09:41 Dose: 3 ml Documented By: LISA Vitamin D (Cholecalciferol (Vitamin D3) 25 Mcg Tablet) 25 mcg PO DAILY [facility] Last Admin: 04/17/24 09:42 Dose: 25 mcg Documented By: LISA Labs 04/16/24 10:27 04/16/24 10:27 Labs: Laboratory Results - last 24 hr 04/16/24 04/16/24 09:50 09:51 Whole Blood PT 12.5 Whole Blood INR 1.0 POC Glucose 97 Assessment and Plan (1) Transient cerebral ischemia: Status: Acute (2) Hypotension: Status: Acute (3) Labile hypertension: Status: Acute Assessment and Plan: d2 73yo M with carotid stenosis + HTN, was getting carotid antiogram with vascular surgeon 04/16/24; TEEN COUNSELOR called for R facial droop and RUE weakness due to hypotension that occurred after getting IV hydralazine for hypertensive urgency transient cerebral ischemia due to hypotension cerebrovascular disease - due to IV hydralazine + known carotid stenosis; avoid hypotension - continue DAPT [ASA/clopidogrel], atorvastatin labile BP/hypotension/hypertension - renal dopplers pending; Nephrology consulted; plasma + urine metanephrines pending, cortisol pending - hold meds for now [losartan, metoprolol succinate] GERD - H2RA VTE ppx - UFH dispo - eventual home In my clinical judgment, the patient requires continued inpatient hospitalization for the following reasons: extremely labile BP Total time managing care of this patient today: 50 minutes. Quality Stroke Does the patient have a stroke diagnosis?: No VTE Prior VTE?: No VTE Risk Level:: Medical - moderate - high VTE Device Contraindication: Treatment Not Indicated VTE Drug Contraindication: N/A - Med Ordered
--- NOTE | 2024-04-17 12:58 | MHC.CM.PN ---
CLIFTON 04/17/24, EMR REVIEWED, PT IN IR FOR PROCEDURE WHEN FACIAL DROOP WAS NOTICED, PT ADMITTED TO OBS, PT REMAINS W/LABILE BP HOWEVER OTHERWISE BACK TO BASELINE PER MD NOTES. CM MET W/PT WHO REPORTS HE LIVES W/ IS FULLY INDEP, DENIES USE OF DME/SERVICES, PT DOES NOT FEEL NEED FOR SERVICES ON DC, PT EDUCATED ON AND DECLINED TO COMPLETE A HCP REPORTING HE WILL DISCUSS W/FAMILY. PCP ON FILE VERIFIED. ANTIC DC HOME SELF CARE W/ FOR TRANSPORT
[2024-04-18] VITALS (9 sets, daily range): BP systolic 118–215; BP diastolic 70–112; PULSE 71–83; RESP 16–20; TEMP 36.1–36.7; O2SAT 95–98
[2024-04-18] MEDS: Acetaminophen 325 MG TABLET 650 MG PO (00:50)
[2024-04-18 08:36] LABS: Anion Gap 10 (12-20); Blood Urea Nitrogen 9 mg/dL (9-16); Calcium 9.2 mg/dL (8.4-10.2); Carbon Dioxide 28 mmol/L (22-29); Chloride 100 mmol/L (96-108); Creatinine Clr Calc Pharmacy 89.6; Estimated Glomerular Filt Rate > 60; Glucose Random 91 mg/dL (60-115); Potassium 4.3 mmol/L (3.3-5.1); Sodium 134 mmol/L (135-145)
[2024-04-18] MEDS: Cyanocobalamin (Vitamin B-12) 1,000 MCG TABLET 1000 MCG PO (09:48)
[2024-04-18] MEDS: Aspirin Enteric Coated 81 MG TABLET.DR PO (09:48)
[2024-04-18] MEDS: Atorvastatin Calcium 40 MG TABLET PO (09:48)
[2024-04-18] MEDS: Famotidine 20 MG TABLET PO (09:48)
[2024-04-18] MEDS: Heparin Sodium,Porcine 5,000 UNIT/ML VIAL 5000 UNIT SUBCUT ×2 (09:48→20:27)
[2024-04-18] MEDS: 0.9 % Sodium Chloride Flush 3 ML SYRINGE IVFLUSH ×3 (09:48→23:38)
[2024-04-18] MEDS: Cholecalciferol (Vitamin D3) 25 MCG TABLET PO (09:48)
[2024-04-18] MEDS: Clopidogrel Bisulfate 75 MG TABLET PO (09:48)
--- NOTE | 2024-04-18 11:01 | PM.CNCAR ---
History of Present Illness History of Present Illness Date of Service: 04/18/24 Chief complaint: Transient cerebral ischemia due to hypoperfusion Narrative: This is a cardiology consultation regarding labile hypertension. Patient apparently was getting angiogram of the carotids. During that procedure, he apparently became hypertensive when the blood pressures were going up over 200 mm Hg. Subsequently, he received hydralazine and then the blood pressures went into the 50s. Patient apparently became altered, aphasic, unable to answer questions and then had a right-sided facial droop/right upper extremity weakness. Then he got IV fluids. Stroke workup started and then he went to the ER. By the time he arrived to the ED he was much improved apparently. Since that time, he has been having markedly elevated blood pressures. At the current time, he states he is feeling somewhat dazed and he feels as though the blood pressures have been going down. He does get seen in the outpatient clinic and even at home, his blood pressures are extremely labile and go very much into the 200s and then all the way down into the 60s. He has been maintained on a combination of losartan/beta-blockers and generally able to manage at home although he continues to have regular symptoms. Review of Systems Review of Systems: Yes all other systems are reviewed and are negative Constitutional: Constitutional: Reports as per HPI and Reports no additional constitutional complaints Eyes: Eyes: Reports as per HPI and Denies no additional eye complaints ENT: Denies system reviewed and no additional complaints, except as documented and Reports as per HPI Cardiovascular: Cardiovascular: Reports as per HPI, Reports no additional cardiovascular complaints, Denies acrocyanosis, Denies cool extremities, Denies chest pain, Denies leg edema, Denies lightheadedness, Denies palpitations and Denies dyspnea Respiratory: Respiratory: Reports as per HPI, Denies no additional respiratory complaints and Denies dyspnea Gastrointestinal: Gastrointestinal: Reports as per HPI and Denies no additional gastrointestinal complaints Genitourinary: Genitourinary: Reports no additional male genitourinary complaints and Reports as per HPI Musculoskeletal: Musculoskeletal: Reports no additional musculoskeletal complaints and Reports as per HPI Integumentary/Breasts: Skin/Breast: Reports system reviewed and no additional complaints, except as docu Neurologic: Reports system reviewed and no additional complaints, except as documented and Reports as per HPI Psychiatric: Psychiatric: Reports no additional psychiatric complaints and Reports as per HPI Endocrine: Endocrine: Reports no additional endocrine complaints, Reports as per HPI and Denies palpitations Hematologic/Lymphatic: Hematologic/Lymphatic: Reports no additional hematologic/lymphatic complaints and Reports as per HPI Allergic/Immunologic: Allergic/Immunologic: Reports no additional allergic/immunologic complaints and Reports as per HPI [facility] Past Medical History Medical History Hypotension Screening for prostate cancer Syncope Urinary incontinence Hx of radiation therapy History of chemotherapy Colon cancer screening Hypercholesterolemia Asthma GERD (gastroesophageal reflux disease) Cancer of tonsil Orthostatic hypotension Essential hypertension PAF (paroxysmal atrial fibrillation) Family History Family History Father Dementia Hx of CABG Mother Diabetes Surgical History Surgical History H/O colonoscopy S/P repair of hydrocele History of tonsillectomy Social History Social History Household Members: Spouse Housing: House Do you presently have visiting nurse or other home services: No Alcohol intake: current Alcohol intake frequency: holidays/special occasions only Alcohol type: beer Patient Tobacco Use Status: Never used Tobacco Smoked in Last 30 Days: No e-Cigarette/Vaping Use: Never Used Second Hand Smoke Exposure: No Use of substances other than those prescribed or required for medical reasons: No Currently Displaying Signs/Symptoms of Drug Intoxication Withdrawal: No Have you been hit, kicked, punched, or otherwise hurt by someone within the past year? If so, by whom?: No Do you feel safe in your current relationship?: Yes Is there a partner from a previous relationship who is making you feel unsafe now?: No Are you made to feel afraid or neglected: No Advance Directives: No Advance Directives Information Provided: Yes (Declined) Do you have a plan to hurt others: No Plan Recently lost weight without trying: No Nutrition Risks: No Nutritional Risk Poor oral hygiene: No service: No Current occupational status: retired Cognitive needs: No Hearing needs: No Vision needs: Yes Meds Allergies Allergy/AdvReac Type Severity Reaction Status Date / Time lisinopril AdvReac Intermediate cough Verified 04/16/24 09:49 Active Medications: Current Medications Acetaminophen (Acetaminophen 325 Mg Tablet) 975 mg PO Q6H PRN PRN Reason: mild pain,headache or fever Aspirin (Aspirin Enteric Coated 81 Mg Tablet.) 81 mg PO DAILY [facility] Last Admin: 04/18/24 09:48 Dose: 81 mg Atorvastatin Calcium (Atorvastatin Calcium 40 Mg Tablet) 40 mg PO DAILY [facility] Last Admin: 04/18/24 09:48 Dose: 40 mg Benzonatate (Benzonatate 100 Mg Capsule) 100 mg PO TID PRN PRN Reason: Cough Clopidogrel Bisulfate (Clopidogrel Bisulfate 75 Mg Tablet) 75 mg PO DAILY [facility] Last Admin: 04/18/24 09:48 Dose: 75 mg Cyanocobalamin (Cyanocobalamin (Vitamin B-12) 1,000 Mcg Tablet) 1,000 mcg PO DAILY [facility] Last Admin: 04/18/24 09:48 Dose: 1,000 mcg Docusate Sodium (Docusate Sodium 100 Mg Capsule) 100 mg PO DAILY PRN PRN Reason: Constipation Famotidine (Famotidine 20 Mg Tablet) 20 mg PO DAILY [facility] Last Admin: 04/18/24 09:48 Dose: 20 mg Heparin Sodium (Porcine) (Heparin Sodium,Porcine 5,000 Unit/Ml Vial) 5,000 unit SUBCUT Q12H [facility] Last Admin: 04/18/24 09:48 Dose: 5,000 unit Losartan Potassium (Losartan Potassium 50 Mg Tablet) 50 mg PO DAILY [facility]; Protocol Melatonin (Melatonin 3 Mg Tablet) 6 mg PO BEDTIME PRN PRN Reason: Insomnia Metoprolol Succinate (Metoprolol Succinate Er 25 Mg Tab.Er.24h) 25 mg PO DAILY [facility]; Protocol Ondansetron HCl (Ondansetron Hcl 4 Mg/2 Ml Vial) 4 mg IVPUSH Q8H PRN PRN Reason: Nausea and Vomiting Sodium Chloride (0.9 % Sodium Chloride Flush 3 Ml Syringe) 3 ml IVFLUSH QSHIFT [facility] Last Admin: 04/18/24 09:48 Dose: 3 ml Vitamin D (Cholecalciferol (Vitamin D3) 25 Mcg Tablet) 25 mcg PO DAILY [facility] Last Admin: 04/18/24 09:48 Dose: 25 mcg Home Medications ?Medication ?Instructions ?Recorded ?Confirmed ?Last Taken ?Type cholecalciferol (vitamin D3) 25 25 mcg PO DAILY 09/16/20 04/16/24 Unknown History mcg (1,000 unit) capsule cyanocobalamin (vitamin B-12) 1,000 mcg PO DAILY 09/16/20 04/16/24 Unknown History 1,000 mcg capsule metoprolol succinate 25 mg 25 mg PO DAILY 03/20/24 04/16/24 04/16/24 History tablet,extended release 24 hr omeprazole 20 mg capsule,delayed 20 mg PO DAILY PRN gerd 04/16/24 04/16/24 Unknown History release Physical Exam Vital Signs: Vital Signs: Last Vital Signs Temp 97.6 F 04/18/24 07:57 Pulse 73 04/18/24 07:57 Resp 18 04/18/24 07:57 BP 158/92 H 04/18/24 07:57 Pulse Ox 96 04/18/24 07:57 O2 Del Method Room Air 04/18/24 07:57 O2 Flow Rate 2 04/16/24 11:57 BMI result Body Mass Index 21.9 Const: General: comfortable and no acute distress Orientation/consciousness: patient oriented x3 HEENT: Other: Unremarkable Head: Yes normal to inspection Neck: Neck: Yes normal visual inspection Chest: Chest palpation & inspection: normal inspection of the chest Resp: Auscultation: clear to auscultation bilaterally Cardio: Palpation: normal PMI Heart sounds: S1 normal heart sound present, S2 normal heart sound present, no gallops, no murmurs and no rubs GI: Palpation (GI): Soft to palpation Back/Spine/Pelvis: Other: unremarkable Skin: General skin exam: no rashes or lesions noted Neuro: General: patient oriented x3 Extrem: General: Yes normal to inspection Psych: Mental Status: mental status grossly normal Objective Labs and Meds 04/16/24 10:27 04/18/24 07:14 Lab results: Laboratory Results - last 24 hr 04/18/24 07:14 Hold Purple Top SEE NOTE Sodium 134 L Potassium 4.3 Chloride 100 Carbon Dioxide 28 Anion Gap 10 L BUN 9 Creatinine 0.73 Estim Creat Clear Calc 89.6 Estimated GFR > 60 Random Glucose 91 Calcium 9.2 ECG Interpretation: EKG shows sinus rhythm at 86/Min; no significant ST-T changes and otherwise unremarkable. Normal MN and corrected QT. Imaging Radiologist's impression: Impressions Renal Ultrasound 04/17/24 09:24 IMPRESSION: 1. Right renal simple cysts as described above. Punctate cortical calcification in the left kidney. The kidneys are otherwise normal in appearance. 2. There is no evidence of renal artery stenosis. Criteria: NORMAL: Renal artery peak systolic velocities < 180 cm/s. Renal aortic ratio < 3.5 Normal renal size. < 60% STENOSIS: Renal artery peak systolic velocities > 180 cm/s. Renal aortic ratio < 3.5 Renal size <2 cm difference between sides. > 60% STENOSIS Renal artery peak systolic velocities > 180 cm/s. Renal aortic ratio > 3.5 Renal size >2 cm difference between sides. Aortic PSV > 140 cm/s with normal renal artery PSV made over estimate severity. Aortic PSV > 100 cm/s with normal renal artery PSV may underestimate severity. Renal Ultrasound 04/17/24 09:24 IMPRESSION: 1. Right renal simple cysts as described above. Punctate cortical calcification in the left kidney. The kidneys are otherwise normal in appearance. 2. There is no evidence of renal artery stenosis. Criteria: NORMAL: Renal artery peak systolic velocities < 180 cm/s. Renal aortic ratio < 3.5 Normal renal size. < 60% STENOSIS: Renal artery peak systolic velocities > 180 cm/s. Renal aortic ratio < 3.5 Renal size <2 cm difference between sides. > 60% STENOSIS Renal artery peak systolic velocities > 180 cm/s. Renal aortic ratio > 3.5 Renal size >2 cm difference between sides. Aortic PSV > 140 cm/s with normal renal artery PSV made over estimate severity. Aortic PSV > 100 cm/s with normal renal artery PSV may underestimate severity. Assessment and Plan (1) Transient cerebral ischemia: Status: Acute (2) Labile hypertension: Status: Acute Plan At home, it seems he takes losartan 50 mg daily and some beta-blockers. He continues to have labile readings and the blood pressures go well into the 200s and then all the way into the 60s and 70s. Unfortunately, very difficult situation and this has also been a long-term issue. Likely happened in the hospital setting because of the IV hydralazine. Await the catecholamines other tests sent by Nephrology. It seems that captopril was initiated but once again had labile issues. Probably hold all meds and see what happens to his blood pressure. Once it starts going up again, may just try to use his home regimen which has been able to maintain for some time even though it is not perfect. Also additional measures that he does by himself is to use smaller meals extra. Discussed with Dr. Ferrell. Procedures Date of Service Date of Service: 04/18/24
--- NOTE | 2024-04-18 11:50 | HO.PM.IMPN ---
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, SBP has ranged from 60s to 200s as an outpt Review of Systems Review of Systems: Yes all other systems are reviewed and are negative Physical Exam Vital Signs: Vital Signs: Last Vital Signs Temp 97.4 F 04/18/24 11:45 Pulse 71 04/18/24 11:45 Resp 18 04/18/24 11:45 BP 130/70 04/18/24 11:45 Pulse Ox 95 04/18/24 11:45 O2 Del Method Room Air 04/18/24 11:45 O2 Flow Rate 2 04/16/24 11:57 BMI result Body Mass Index 21.9 Gen: in no acute distress HEENT: sclera anicteric, moist mucus membranes Neck: supple Lungs: clear to auscultation bilaterally Heart: regular rate and rhythm, no murmurs Abd: soft, non-tender, non-distended Ext: no edema Skin: warm/well-perfused Neuro: alert and oriented x3, no focal findings, no facial droop, no pronator drift Psych: appropriate affect Objective Data Active Medications Acetaminophen (Acetaminophen 325 Mg Tablet) 975 mg PO Q6H PRN PRN Reason: mild pain,headache or fever Aspirin (Aspirin Enteric Coated 81 Mg Tablet.) 81 mg PO DAILY [facility] Last Admin: 04/18/24 09:48 Dose: 81 mg Documented By: LISA Atorvastatin Calcium (Atorvastatin Calcium 40 Mg Tablet) 40 mg PO DAILY [facility] Last Admin: 04/18/24 09:48 Dose: 40 mg Documented By: LISA Benzonatate (Benzonatate 100 Mg Capsule) 100 mg PO TID PRN PRN Reason: Cough Clopidogrel Bisulfate (Clopidogrel Bisulfate 75 Mg Tablet) 75 mg PO DAILY [facility] Last Admin: 04/18/24 09:48 Dose: 75 mg Documented By: LISA Cyanocobalamin (Cyanocobalamin (Vitamin B-12) 1,000 Mcg Tablet) 1,000 mcg PO DAILY [facility] Last Admin: 04/18/24 09:48 Dose: 1,000 mcg Documented By: LISA Docusate Sodium (Docusate Sodium 100 Mg Capsule) 100 mg PO DAILY PRN PRN Reason: Constipation Famotidine (Famotidine 20 Mg Tablet) 20 mg PO DAILY [facility] Last Admin: 04/18/24 09:48 Dose: 20 mg Documented By: LISA Heparin Sodium (Porcine) (Heparin Sodium,Porcine 5,000 Unit/Ml Vial) 5,000 unit SUBCUT Q12H [facility] Last Admin: 04/18/24 09:48 Dose: 5,000 unit Documented By: LISA Losartan Potassium (Losartan Potassium 50 Mg Tablet) 50 mg PO DAILY [facility]; Protocol Melatonin (Melatonin 3 Mg Tablet) 6 mg PO BEDTIME PRN PRN Reason: Insomnia Metoprolol Succinate (Metoprolol Succinate Er 25 Mg Tab.Er.24h) 25 mg PO DAILY [facility]; Protocol Ondansetron HCl (Ondansetron Hcl 4 Mg/2 Ml Vial) 4 mg IVPUSH Q8H PRN PRN Reason: Nausea and Vomiting Sodium Chloride (0.9 % Sodium Chloride Flush 3 Ml Syringe) 3 ml IVFLUSH QSHIFT [facility] Last Admin: 04/18/24 09:48 Dose: 3 ml Documented By: LISA Vitamin D (Cholecalciferol (Vitamin D3) 25 Mcg Tablet) 25 mcg PO DAILY [facility] Last Admin: 04/18/24 09:48 Dose: 25 mcg Documented By: LISA Labs 04/16/24 10:27 04/18/24 07:14 Labs: Laboratory Results - last 24 hr 04/18/24 07:14 Hold Purple Top SEE NOTE Anion Gap 10 L Estim Creat Clear Calc 89.6 Estimated GFR > 60 Random Glucose 91 Calcium 9.2 Assessment and Plan (1) Transient cerebral ischemia: Status: Acute (2) Hypotension: Status: Acute (3) Labile hypertension: Status: Acute Assessment and Plan: d3 73yo M with carotid stenosis + HTN, was getting carotid angiogram with vascular surgeon 04/16/24; JOB SITE SUPERVISOR called for R facial droop and RUE weakness due to hypotension that occurred after getting IV hydralazine for hypertensive urgency transient cerebral ischemia due to hypotension cerebrovascular disease - possibly due to IV hydralazine + known carotid stenosis - continue DAPT [ASA/clopidogrel], atorvastatin labile BP/hypotension/hypertension - Nephrology consulted; plasma + urine metanephrines pending, cortisol pending, PRA pending; renal dopplers negative - Cardiology consulted; resume home meds [losartan, metoprolol succinate] and monitor another night GERD - H2RA VTE ppx - UFH dispo - eventual home In my clinical judgment, the patient requires continued inpatient hospitalization for the following reasons: extremely labile BP Total time managing care of this patient today: 50 minutes. Quality Stroke Does the patient have a stroke diagnosis?: No VTE Prior VTE?: No VTE Risk Level:: Medical - moderate - high VTE Device Contraindication: Treatment Not Indicated VTE Drug Contraindication: N/A - Med Ordered
--- NOTE | 2024-04-18 14:30 | MHC.CM.PN ---
EMR REVIEWED, PT W/LABILE BP'S, NOT READY FOR DC, CM WILL PLACE [facility] REFERRAL AND CONT TO FOLLOW DC NEEDS.
--- NOTE | 2024-04-18 20:37 | P.PNNP_ITS ---
Subjective Subjective Date of Service: 04/18/24 Interval history: BP continues to be extremely labile; Discussed with Hospitalist Physical Exam 2 Vital Signs: Vital Signs: Last Vital Signs Temp 96.9 F 04/18/24 16:00 Pulse 76 04/18/24 16:00 Resp 16 04/18/24 16:00 BP 160/92 H 04/18/24 16:00 Pulse Ox 97 04/18/24 16:00 O2 Del Method Room Air 04/18/24 16:00 O2 Flow Rate 2 04/16/24 11:57 BMI result Body Mass Index 21.9 Const: General: comfortable and no acute distress O rientation/consciousness: patient oriented x3 HEENT: Head: Yes normocephalic Mouth: Normal oral and palatal mucosa present Eyes: EOM: EOMs intact bilaterally Neck: Neck: Yes supple Resp: Auscultation: clear to auscultation bilaterally Cardio: Jugular venous distension: no JVD Rate: regular rate GI: Palpation (GI): Soft to palpation Auscultation: normal bowel sounds : General: Yes no CVA tenderness Back/Spine/Pelvis: Back: no CVA tenderness Skin: General skin exam: no rashes or lesions noted Neuro: General: patient oriented x3 and moves all extremities Extrem: General: Yes no pedal edema Objective Data Labs 04/16/24 10:27 04/18/24 07:14 Labs: Laboratory Results - last 24 hr 04/18/24 07:14 Hold Purple Top SEE NOTE Sodium 134 L Potassium 4.3 Chloride 100 Carbon Dioxide 28 Anion Gap 10 L BUN 9 Creatinine 0.73 Estim Creat Clear Calc 89.6 Estimated GFR > 60 Random Glucose 91 Calcium 9.2 Procedures Date of Service Date of Service: 04/18/24 Assessment & Plan Assessment and plan (1) Uncontrolled hypertension: Status: Acute Plan BP continues to be labile Work up in progress; Could start Amlodipine Should increase BP medications only slowly Needs close F/U with Dr Krishnan after hospital D/C Progress Note: Quality Stroke Does the patient have a stroke diagnosis?: No
[2024-04-19 04:00] VITALS: BP 168/92; PULSE 77; RESP 17; TEMP 36.4; O2SAT 97
[2024-04-19 08:00] VITALS: BP 116/68; PULSE 71; RESP 18; TEMP 36.3; O2SAT 98
[2024-04-19 08:17] VITALS: BP 116/68
[2024-04-19] MEDS: Metoprolol Succinate ER 25 MG TAB.ER.24H PO (08:17)
[2024-04-19] MEDS: Cyanocobalamin (Vitamin B-12) 1,000 MCG TABLET 1000 MCG PO (08:17)
[2024-04-19] MEDS: Cholecalciferol (Vitamin D3) 25 MCG TABLET PO (08:17)
[2024-04-19] MEDS: Clopidogrel Bisulfate 75 MG TABLET PO (08:17)
[2024-04-19] MEDS: Atorvastatin Calcium 40 MG TABLET PO (08:18)
[2024-04-19] MEDS: Aspirin Enteric Coated 81 MG TABLET.DR PO (08:18)
[2024-04-19] MEDS: 0.9 % Sodium Chloride Flush 3 ML SYRINGE IVFLUSH (08:19)
[2024-04-19] MEDS: Acetaminophen 325 MG TABLET 975 MG PO (08:19)
[2024-04-19] MEDS: Heparin Sodium,Porcine 5,000 UNIT/ML VIAL 5000 UNIT SUBCUT (08:22)
--- NOTE | 2024-04-19 10:06 | PM.PNCARD ---
Subjective Subjective Date of Service: 04/19/24 Interval history: He states that he feels okay. No new concerns. Review of Systems Review of Systems Yes all other systems are reviewed and are negative Constitutional: Reports as per HPI and Reports no additional constitutional complaints Eyes: Reports as per HPI and Denies no additional eye complaints Denies system reviewed and no additional complaints, except as documented and Reports as per HPI Cardiovascular: Reports as per HPI, Reports no additional cardiovascular complaints, Denies acrocyanosis, Denies cool extremities, Denies chest pain, Denies leg edema, Denies lightheadedness, Denies palpitations and Denies dyspnea Respiratory: Reports as per HPI, Denies no additional respiratory complaints and Denies dyspnea Gastrointestinal: Reports as per HPI and Denies no additional gastrointestinal complaints Genitourinary: Reports no additional male genitourinary complaints and Reports as per HPI Musculoskeletal: Reports no additional musculoskeletal complaints and Reports as per HPI Skin/Breast: Reports system reviewed and no additional complaints, except as docu Reports system reviewed and no additional complaints, except as documented and Reports as per HPI Psychiatric: Reports no additional psychiatric complaints and Reports as per HPI Endocrine: Reports no additional endocrine complaints, Reports as per HPI and Denies palpitations Hematologic/Lymphatic: Reports no additional hematologic/lymphatic complaints and Reports as per HPI Allergic/Immunologic: Reports no additional allergic/immunologic complaints and Reports as per HPI Physical Exam Vital Signs: Last Vital Signs Temp 97.4 F 04/19/24 08:00 Pulse 71 04/19/24 08:00 Resp 18 04/19/24 08:00 BP 116/68 04/19/24 08:17 Pulse Ox 98 04/19/24 08:00 O2 Del Method Room Air 04/19/24 08:00 O2 Flow Rate 2 04/16/24 11:57 BMI result Body Mass Index 21.9 Const General: comfortable and no acute distress Orientation/consciousness: patient oriented x3 HEENT Other: Unremarkable Head: Yes normal to inspection Neck Neck: Yes normal visual inspection Chest Chest palpation & inspection: normal inspection of the chest Resp Auscultation: clear to auscultation bilaterally Cardio Palpation: normal PMI Heart sounds: S1 normal heart sound present, S2 normal heart sound present, no gallops, no murmurs and no rubs GI Palpation (GI): Soft to palpation Back/Spine/Pelvis Other: unremarkable Skin General skin exam: no rashes or lesions noted Neuro General: patient oriented x3 Extrem General: Yes normal to inspection Psych Mental Status: mental status grossly normal Objective Labs and Meds 04/16/24 10:27 04/18/24 07:14 Progress Note: A&P Assessment and plan (1) Transient cerebral ischemia: Status: Acute (2) Labile hypertension: Status: Acute Plan At home, he takes losartan 50 mg daily and some beta-blockers. He continues to have labile readings and the blood pressures go well into the 200s and then all the way into the 60s and 70s. However, improved in the last 24 Hrs. Unfortunately, very difficult situation and this has also been a long-term issue. Likely happened in the hospital setting because of the IV hydralazine. Await the catecholamines other tests sent by Nephrology. It seems that captopril was initiated but once again had labile issues. I believe that he can just continue his usual home regime of Losartan and Toprol that he adjusts himself according to his symptoms. d/w . Time Spent With Patient Time: Total time managing care of this patient today ____ minutes. Progress Note: Quality Stroke Does the patient have a stroke diagnosis?: No Procedures Date of Service Date of Service: 04/19/24
--- NOTE | 2024-04-19 10:18 | PM.DS ---
DS: Providers Provider Date of Service: 04/19/24 Date of admission: 04/16/24 13:53 Date of discharge: 04/19/24 Primary care physician: Olesya Billingsley MD Consults: 04/17/24 08:12 Consult to Nephrology Routine Consulting Provider: [facility] Reason for consultation: Extremely labile BP; 04/18/24 07:37 Consult to Cardiology Routine Consulting Provider: [facility] Reason for consultation: Extremely labile BP/hypotension/hypertension DS: Diagnosis Discharge Diagnosis (1) Transient cerebral ischemia: Status: Acute (2) Labile hypertension: Status: Acute (3) Hypotension: Status: Acute (4) Facial droop: Status: Acute (5) Uncontrolled hypertension: Status: Acute (6) Carotid stenosis: Status: Acute DS: Summary Hospital Course Hospital Course: From the history and physical by the admitting hospitalist, SCOTT Luna, 04/16/24: Pt is a 73-year-old male with a PMH significant for?CAD, carotid stenosis, HTN, who presents to the ED from IR suite while getting CT angiogram of carotids. During procedure patient apparently became hypertensive with a systolic BP >200. Was given a total of 20 mg hydralazine which then brought his BP as low as 57/37. According to IR staff, and patient became altered, aphasic, unable to answer questions, and was noted to have a right sided facial droop and right-sided upper extremity weakness. Patient also given 5000 units IV heparin and sedated with fentanyl 25 mcg and Versed 0.5 mg. In response to hypotension, patient was given IVF with improvement to BP. Stroke workup was started in the IR suite and patient was then brought down to the ED for further evaluation. Patient alert and oriented x4 by the time he arrived at the ED. Patient continues to be?alert and oriented x4 at time of interview and exam. SBP has improved to the 130s. Patient complains of mild headache, otherwise has no acute medical concerns. Denies acute vision changes. No numbness, tingling, or weakness in extremities. Denies chest pain/pressure, palpitations. No shortness a breath. Denies fever, chills, nausea, vomiting, abdominal pain. In the ED pt was mostly normotensive with vital signs stable and WNL. Labs were grossly unremarkable. No leukocytosis. Stable H&H. No significant electrolyte abnormalities. Renal function WNL. CT of head found no acute intracranial pathology. CT of head found no evidence of acute intracranial hemorrhage or edematous territorial infarction, low showed mild underlying microangiopathy. Also found chronic occlusion of the left common carotid artery and reconstitution of the left ICA at the carotid bulb. Also found chronic moderate atherosclerotic narrowing of the V1 and proximal V2 segments of the right vertebral artery. EKG demonstrated normal sinus rhythm without evidence of significant ST elevations or depressions. Pt was treated with IVF. Pt will be admitted to the hospital under observation for treatment and management of transient cerebral ischemia secondary to hypotensive episode. 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 Symptoms completely resolved and were likely due to transient cerebral ischemia from hypotension due to IV hydralazine and known carotid stenosis. He was admitted to the telemetry unit with Cardiology and Nephrology consultations. Blood pressure continued to be extremely labile. Outpatient workup by Nephrology pending, including cortisol, PRA, and plasma + urine metanephrines. Renal doppler US done while in patient and was completely normal. On 04/18/24, his home medications [losartan + metoprolol succinate] were resumed and his BP continued to be labile but less so. He was discharged home with follow-up with his specialists and will continue to take his antihypertensives with self-adjustment according to symptoms and home BP, as the patient has been doing previously. Time Attestation Discharge Coordination Time (in mins): 40 Quality: Safe Use of Opioids Does Pt have an Active Cancer Diagnosis on the Problem List?: No Quality: Stroke Does the patient have a stroke diagnosis?: No Physical Exam Vital Signs: Vital Signs: Last Vital Signs Temp 97.4 F 04/19/24 08:00 Pulse 71 04/19/24 08:00 Resp 18 04/19/24 08:00 BP 116/68 04/19/24 08:17 Pulse Ox 98 04/19/24 08:00 O2 Del Method Room Air 04/19/24 08:00 O2 Flow Rate 2 04/16/24 11:57 BMI result Body Mass Index 21.9 Gen: in no acute distress HEENT: sclera anicteric, moist mucus membranes Neck: supple Lungs: clear to auscultation bilaterally Heart: regular rate and rhythm, no murmurs Abd: soft, non-tender, non-distended Ext: no edema Skin: warm/well-perfused Neuro: alert and oriented x3, no focal findings, no facial droop, no pronator drift Psych: appropriate affect DS: Data Data Completed and Pending Completed studies during hospitalization [Text1]: Laboratory Results WBC 6.8 X10*3/uL (4.8-10.8) 04/16/24 10:27 RBC 4.39 X10*6/uL (4.60-5.80) L 04/16/24 10:27 Hgb 13.4 g/dl (14.0-18.0) L 04/16/24 10: Hct 39.5 % (42.0-52.0) L 04/16/24 10: MCV 90.0 fL (80.0-98.0) 04/16/24 10: MCH 30.5 pg (27.0-33.0) 04/16/24 10: MCHC 33.9 g/dl (31.0-36.0) 04/16/24 10: RDW 12.9 % (11.0-16.0) 04/16/24 10: Plt Count 193 X10*3/uL (160-400) 04/16/24 10: MPV 9.6 fL (9.4-12.4) 04/16/24 10: Immature Gran % (Auto) 0.3 % (0.0-0.4) 04/16/24 10: Neut % (Auto) 82.0 % (45-73) H 04/16/24 10:27 Lymph % (Auto) 7.4 % (20-40) L 04/16/24 10: [place] % (Auto) 7.5 % (2-11) 04/16/24 10: Eos % (Auto) 2.2 % (0-4) 04/16/24 10: Baso % (Auto) 0.6 % (0-2) 04/16/24 10:27 Lymph # (Auto) 0.5 X10*3/uL (1.2-4.9) L 04/16/24 10:27 [place] # (Auto) 0.5 X10*3/uL (0.1-1.2) 04/16/24 10:27 Eos # (Auto) 0.2 X10*3/uL (0.0-0.4) 04/16/24 10:27 Baso # (Auto) 0.0 X10*3/uL (0.0-0.2) 04/16/24 10:27 Abs Immat Gran (auto) 0.02 X10*3/uL (0.00-0.03) 04/16/24 10:27 Absolute Neuts (auto) 5.6 x10*3/uL (2.0-8.3) 04/16/24 10:27 Absolute Nucleated RBC 0.000 X10*3/uL (0.0-0.012) 04/16/24 10: Nucleated RBC % (auto) 0.0 /100WBC (0.0-0.2) 04/16/24 10:27 Hold Purple Top SEE NOTE 04/18/24 07:14 PT 11.9 SEC (11.1-13.3) 04/16/24 10:27 Whole Blood PT 12.5 sec (11.1-13.5) 04/16/24 09:51 INR 1.0 (0.9-1.1) 04/16/24 10:27 Whole Blood INR 1.0 (0.9-1.1) 04/16/24 09:51 APTT 198.2 SEC (26.0-36.8) H* D 04/16/24 10:27 Sodium 134 mmol/L (135-145) L 04/18/24 07:14 Potassium 4.3 mmol/L (3.3-5.1) 04/18/24 07:14 Chloride 100 mmol/L (96-108) 04/18/24 07:14 Carbon Dioxide 28 mmol/L (22-29) 04/18/24 07:14 Anion Gap 10 (12-20) L 04/18/24 07:14 BUN 9 mg/dL (9-16) 04/18/24 07:14 Creatinine 0.73 mg/dL (0.5-1.4) 04/18/24 07:14 Estim Creat Clear Calc 89.6 04/18/24 07:14 Estimated GFR > 60 04/18/24 07:14 POC Glucose 97 mg/dL (60-115) 04/16/24 09:50 Random Glucose 91 mg/dL (60-115) 04/18/24 07:14 Calcium 9.2 mg/dL (8.4-10.2) 04/18/24 07:14 Total Creatine Kinase 313 U/L (38-174) H 04/16/24 10:27 Troponin I High Sens 3.2 ng/L (<3.5-35.0) 04/16/24 10:27 Impressions Head/Neck CTA 04/16/24 09:39 IMPRESSION: 1. No evidence of acute intracranial hemorrhage or edematous territorial infarction. Mild underlying microangiopathy. 2. 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 Reconstitution of the left ICA at the carotid bulb. 3. Chronic moderate atherosclerotic narrowings of the V1 and proximal V2 segments of the right vertebral artery. 4. Otherwise, CTA of the head and neck without proximal occlusion or flow-limiting stenosis. 5. Moderate multilevel degenerative spondyloarthropathy of the cervical spine. Renal Ultrasound 04/17/24 09:24 IMPRESSION: 1. Right renal simple cysts as described above. Punctate cortical calcification in the left kidney. The kidneys are otherwise normal in appearance. 2. There is no evidence of renal artery stenosis. Criteria: NORMAL: Renal artery peak systolic velocities < 180 cm/s. Renal aortic ratio < 3.5 Normal renal size. < 60% STENOSIS: Renal artery peak systolic velocities > 180 cm/s. Renal aortic ratio < 3.5 Renal size <2 cm difference between sides. > 60% STENOSIS Renal artery peak systolic velocities > 180 cm/s. Renal aortic ratio > 3.5 Renal size >2 cm difference between sides. Aortic PSV > 140 cm/s with normal renal artery PSV made over estimate severity. Aortic PSV > 100 cm/s with normal renal artery PSV may underestimate severity. Discharge Plan Discharge Patient Disposition: Home, Self-Care Discharge Diagnosis: transient cerebral ischemia due to hypotension carotid occlusive disease labile blood pressure Referrals: Jourdan Krishnan MD [Physician] - 1 Week Augusto Naidu MD [Physician] - 2 Weeks Po,Olesya Vitale MD [Primary Care Provider] - 1 Week Akil Crystal MD [Physician] - 2 Weeks Discharge Medications: New atorvastatin 80 mg tablet 80 mg PO BEDTIME Qty: 30 0RF Rx Instructions: replaces prior dose of 40 mg Continued losartan 50 mg tablet 50 mg PO DAILY Qty: 30 5RF aspirin 81 mg tablet,delayed release (DR/EC) 81 mg PO DAILY Qty: 30 1RF clopidogrel [Plavix] 75 mg tablet 75 mg PO DAILY Qty: 30 1RF omeprazole 20 mg capsule,delayed release(DR/EC) 20 mg PO DAILY PRN (Reason: gerd) cyanocobalamin (vitamin B-12) 1,000 mcg capsule 1,000 mcg PO DAILY cholecalciferol (vitamin D3) 25 mcg (1,000 unit) capsule 25 mcg PO DAILY metoprolol succinate 25 mg tablet extended release 24 hr 25 mg PO DAILY Discontinued atorvastatin 40 mg tablet 40 mg PO DAILY Qty: 30 1RF Discharge Orders: Discharge Order (Routine); Ordered 04/19/24 Ordered By: Gillian Ferrell Diet: Mediterranean Activity on Discharge: As tolerated Stand Alone Forms: Patient Portal Discharge page Print Language: Kazakh Care Plan Goals: prevention of stroke and other cardiovascular complications Health Concerns: transient cerebral ischemia due to hypotension carotid occlusive disease labile blood pressure Plan of Treatment: resume antihypertensives check your blood pressure regularly; keep a log and bring it to your core composer machine tender and cardiolgoist Please follow up with your primary care doctor within 1 week. Return to the hospital if you experience recurrent or worsening symptoms. follow up with your specialists: - core composer machine tender Dr Krishnan in 1 week - estimator project manager Dr Crystal in 2 weeks - vascular surgeon Dr Naidu in 2 weeks Assessment: See Discharge Summary. Patient Instructions: Carotid Artery Disease (DC), Mediterranean Diet (DC), Arteriogram of Carotid Arteries (DC)
--- NOTE | 2024-04-19 11:16 | MHC.CM.PN ---
PT CLEARED TO DC NO SERVICES ORDERED PRIVATE TRANSPORT
== END 2024-04-19 11:09 | disposition home or self-care (01) ==
LOC: HO.ED 12:24 → HO.EDOVER 14:16 → HO.IMC 19:34
PROVIDERS: Physician Assistant; Admitting Provider Student in an Organized Health Care Education/Training Program; Emergency Provider Emergency Medicine Emergency Medical Services; PCP Internal Medicine; Visit Provider Family Medicine
DX: G45.9 Transient cerebral ischemic attack, unspecified (principal); I95.9 Hypotension, unspecified; R09.89 Other specified symptoms and signs involving the circulatory and respiratory systems; I10 Essential (primary) hypertension; R29.810 Facial weakness; I48.0 Paroxysmal atrial fibrillation; J45.909 Unspecified asthma, uncomplicated; I95.89 Other hypotension; K21.9 Gastro-esophageal reflux disease without esophagitis; Z79.899 Other long term (current) drug therapy; Z85.89 Personal history of malignant neoplasm of other organs and systems; Z92.21 Personal history of antineoplastic chemotherapy
CPT/HCPCS: 36415; 70496; 70498; 76775; 80048; 82550; 82947; 84484; 85025; 85610; 85730; 93005; 93975; 96372; 99222; 99285; J1644; Q9967

== ENCOUNTER → 2024-04-16 09:28 | Outpatient (BNV) | payer MEDICARE, SELFPAY | PROVIDERS: Admitting Provider Student in an Organized Health Care Education/Training Program; Emergency Provider Emergency Medicine Emergency Medical Services; PCP Internal Medicine; Visit Provider Internal Medicine | DX: I63.9 Cerebral infarction, unspecified (principal) | CPT/HCPCS: 93010 ==

== ENCOUNTER → 2024-04-16 13:53 | Outpatient (BNV) | payer MEDICARE, SELFPAY | PROVIDERS: Admitting Provider Student in an Organized Health Care Education/Training Program; Emergency Provider Emergency Medicine Emergency Medical Services; PCP Internal Medicine; Visit Provider Student in an Organized Health Care Education/Training Program | DX: G45.9 Transient cerebral ischemic attack, unspecified (principal); R09.89 Other specified symptoms and signs involving the circulatory and respiratory systems; I95.9 Hypotension, unspecified; R29.810 Facial weakness; I10 Essential (primary) hypertension; I65.22 Occlusion and stenosis of left carotid artery | CPT/HCPCS: 99222; 99232; 99233; 99239 ==

== ENCOUNTER → 2024-04-16 13:53 | Outpatient (BNV) | payer MEDICARE, SELFPAY | PROVIDERS: Admitting Provider Student in an Organized Health Care Education/Training Program; Emergency Provider Emergency Medicine Emergency Medical Services; PCP Internal Medicine; Visit Provider Internal Medicine | DX: G45.9 Transient cerebral ischemic attack, unspecified (principal); R09.89 Other specified symptoms and signs involving the circulatory and respiratory systems | CPT/HCPCS: 99223; 99233 ==

== ENCOUNTER → 2024-04-16 13:53 | Outpatient (BNV) | payer MEDICARE, SELFPAY | PROVIDERS: Admitting Provider Student in an Organized Health Care Education/Training Program; Emergency Provider Emergency Medicine Emergency Medical Services; PCP Internal Medicine; Visit Provider Internal Medicine Nephrology | DX: R03.0 Elevated blood-pressure reading, without diagnosis of hypertension (principal) | CPT/HCPCS: 99223; 99232 ==

== ENCOUNTER 2024-04-28 10:12 | Outpatient (AMB) | payer MEDICARE, SELFPAY ==
[2024-04-28 10:13] VITALS: BP 90/60; PULSE 87; O2SAT 98; BMI 23.0
--- NOTE | 2024-04-28 10:13 | HO.NEPHOV ---
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 Jose Rafael is a pleasant 73-year-old man with a history of hypertension for more than 10 years. He has been referred for labile hypertension. Jose Rafael is currently on losartan 50 mg and metoprolol 25 mg daily. He takes amlodipine 10 mg as needed. He is taken about 4 or 5 times this month. There has been a wide fluctuation in his blood pressure. Blood pressure has been as high as 239/130 mm Hg. And the low reading has been as low as 70/50 mm Hg. He has not undergone any workup for hypertension. He has a history of atrial fibrillation. He is on metoprolol for rate control. There is a history of peripheral as disease. He has been followed by Dr. Naidu. There was suspicion for carotid stenosis and is scheduled for an angiogram. He has no history of any kidney disease. No history of smoking. No history of dyslipidemia. He has no history of weight loss. No palpitation. No unexplained sweating. No edema. No urinary symptoms. No polyuria polydipsia. No hematuria. No headaches. No blurred vision. 04/28/2024. Recently hospitalized for rapid AFib. He underwent workup for the hypertension. Plasma renin activity and aldosterone were normal. Catecholamines were also normal. Doppler of the renal arteries did not reveal any renal artery stenosis. There has been wide fluctuation of blood pressure. He is monitoring blood pressure at home. [facility] Medical History (Updated 04/28/24 @ 10:16 by MIKE Cristina) H/O coronary angiogram (~04/2024) Hypotension Screening for prostate cancer Syncope Urinary incontinence Hx of radiation therapy History of chemotherapy Colon cancer screening Hypercholesterolemia Asthma GERD (gastroesophageal reflux disease) Cancer of tonsil Orthostatic hypotension Essential hypertension PAF (paroxysmal atrial fibrillation) Surgical History H/O colonoscopy S/P repair of hydrocele History of tonsillectomy Family History Father Dementia Hx of CABG Mother Diabetes Social History Household Members: Spouse Housing: House Do you presently have visiting nurse or other home services: No Alcohol intake: current Alcohol intake frequency: holidays/special occasions only Alcohol type: beer Patient Tobacco Use Status: Never used Tobacco e-Cigarette/Vaping Use: Never Used Second Hand Smoke Exposure: No service: No Current occupational status: retired Cognitive needs: No Hearing needs: No Vision needs: Yes Physical Exam Vital Signs: Last Vital Signs Pulse 87 04/28/24 10:13 BP 90/60 04/28/24 10:13 Pulse Ox 98 04/28/24 10:13 Oxygen Delivery Method Room Air 04/28/24 10:13 BMI result Body Mass Index 23.0 Const General: comfortable; No acute distress Orientation/consciousness: patient oriented x3 Eyes General: appearance normal, both eyes and all related structures Visual Mayer: normal visual mayer by confrontation Neck Neck: Yes supple and Yes no JVD Resp Effort & Inspection: normal respiratory effort and respiratory effort not decreased Auscultation: rhonchi Cardio Palpation: no palpable S3 and no palpable S4 Heart sounds: no rubs GI Inspection: Yes normal to inspection Palpation (GI): Soft to palpation Percussion: Yes normal to percussion Auscultation: normal bowel sounds General: Yes no CVA tenderness Back/Spine/Pelvis Back: no CVA tenderness Skin General skin exam: no petechiae and no purpura Neuro General: patient oriented x3 and no focal motor deficits Extrem General: No clubbing and No edema Results Reviewed Nephrology Results: Hgb 13.4 g/dl (14.0-18.0) L 04/16/24 WBC 6.8 X10*3/uL (4.8-10.8) 04/16/24 Plt Count 193 X10*3/uL (160-400) 04/16/24 Sodium 134 mmol/L (135-145) L 04/18/24 Potassium 4.3 mmol/L (3.3-5.1) 04/18/24 Chloride 100 mmol/L (96-108) 04/18/24 Carbon Dioxide 28 mmol/L (22-29) 04/18/24 BUN 9 mg/dL (9-16) 04/18/24 Creatinine 0.73 mg/dL (0.5-1.4) 04/18/24 Calcium 9.2 mg/dL (8.4-10.2) 04/18/24 Urine Creatinine 78.13 mg/dL 04/15/24 Renal US 04/17/24 Assessment & Plan Assessment & Plan (1) Labile hypertension: Code(s): R09.89 - Other specified symptoms and signs involving the circulatory and respiratory systems Category: Medical Plan . Jose Rafael is a 73-year-old man with a history of labile hypertension. Blood pressure continues to fluctuate. No renal artery stenosis based on renal Doppler. No evidence of hyperaldosteronism based on recent plasma renin activity and aldosterone levels. Pheochromocytoma is also seems unlikely based on recent catecholamines levels. obtain a 24 hour ambulatory blood pressure monitoring. For now I will continue with the current medication. Continue with losartan 50 mg and metoprolol 25 mg. Discussed importance of orthostatic precautions. At present renal function stable. He has a history of mild hyponatremia. Encouraged him to limit free water intake for now. Orders: Orders AMB 24 Hour Blood Pressure Monitor PLACEMENT Today I10 - Essential (primary) hypertension Coding Level of Care Code Est Pt Level 4 (23692) Diagnoses Labile hypertension R09.89
== END 2024-04-28 10:35 | disposition home or self-care (01) ==
PROVIDERS: PCP Internal Medicine; Visit Provider Internal Medicine Hypertension Specialist
DX: R09.89 Other specified symptoms and signs involving the circulatory and respiratory systems (principal)
CPT/HCPCS: 99214

== ENCOUNTER → 2024-04-28 10:12 | Outpatient (BNVA) | payer MEDICARE, SELFPAY | PROVIDERS: PCP Internal Medicine; Visit Provider Internal Medicine Hypertension Specialist | DX: R09.89 Other specified symptoms and signs involving the circulatory and respiratory systems (principal); Z79.899 Other long term (current) drug therapy | CPT/HCPCS: 99212 ==

== ENCOUNTER → 2024-04-29 10:00 | Outpatient (BNVA) | payer MEDICARE, SELFPAY | PROVIDERS: PCP Internal Medicine; Visit Provider Internal Medicine Hypertension Specialist ==

== ENCOUNTER 2024-04-30 09:33 | Outpatient (AMB) | payer MEDICARE, SELFPAY ==
[2024-04-30 09:36] VITALS: BP 130/74; PULSE 90; O2SAT 95; BMI 23.0
--- NOTE | 2024-04-30 09:36 | MHC.PC.OV ---
Vital Signs 04/30/24 09:36 Height 5 ft 10 in Weight 160 lb 0.1 oz BMI 23.0 BP 130/74 Blood Pressure Location Lt brachial Position Sitting Pulse 90 Pulse Source Pulse Oximeter Pulse Oximetry (%) 95 Oxygen Delivery Method Room Air Intake Visit Reasons: TIA ADMITTED 04/16 AND DISCHARGED 04/19 Intake Note: Patient is here for hospital discharge follow up. 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 Allergies lisinopril Adverse Reaction (Intermediate, Verified 04/30/24 10:14) cough Medication List - Last Reconciled 04/30/24 by Jo Winter PA-C aspirin 81 mg PO DAILY atorvastatin 80 mg PO BEDTIME cholecalciferol (vitamin D3) 25 mcg PO DAILY clopidogrel (Plavix) 75 mg PO DAILY cyanocobalamin (vitamin B-12) 1,000 mcg PO DAILY losartan 50 mg PO DAILY metoprolol succinate ER 25 mg PO DAILY PRN omeprazole 20 mg PO DAILY PRN Tobacco use date assessed: 12/06/23 Fall risk assessment: No Falls in past year Last assessed Fall Risk: 04/30/24 Dental Screening Dental Screen Date: 12/06/23 HPI TIA ADMITTED 04/16 AND DISCHARGED 04/19 HPI Details 73 year old male with history of Afib, hypertension, GERD, hypercholesterolemia, asthma and recent TIA, and patient of Dr. Billingsley last seen March 2024 coming in for hospital discharge follow up. Patient was admitted to [facility] April 16, 2024. Seen by vascular surgeon for diagnostic angiogram after unusual findings of possible acute thrombus on head CT. During the procedure the patient was initially normotensive but became hypertensive in the 200s, given Hydralazine and BP dropped to 57/37. Patient became aphasic with a right sided facial droop and altered, unable to answer questions. Transferred to ED and responded well to IV fluids, BP normalized and patient AxO x4 back to baseline. Patient was admitted for further monitoring and TIA rule out.? Seen by Cardiology for labile HTN while admitted was trialed in Captopril but blood pressures worsened, advice to continue monitoring and on current outpatient drug regimen (losartan and metoprolol with amlodipine PRN). Patient will need to self manage his BP at home per cardiology. Nephrology ordered urine and plasma metanephrines, cortisol, PRA, and renal US which were all within normal limits. Discharged from hospital to follow up with cardiology, nephrology and vascular surgery on an outpatient basis. Follow up with nephrology April 28 was placed on ambulatory blood pressure monitoring and will continue to follow up with nephrology.? Patient is symptomatic with headache when elevated BP and has generalized weakness and vision changes in left eye with Low BP. Last took amlodipine PRN a few weeks ago and cut back on metoprolol because was having symptomatic low BP. Denies passing out from low BP but has come close to it. Patient needs to follow up with vascular surgeon. TCM TCM Information Date of Discharge 04/19/24 Discharged From [facility] Medical History H/O coronary angiogram (~04/2024) Hypotension Screening for prostate cancer Syncope Urinary incontinence Hx of radiation therapy History of chemotherapy Colon cancer screening Hypercholesterolemia Asthma GERD (gastroesophageal reflux disease) Cancer of tonsil Orthostatic hypotension Essential hypertension PAF (paroxysmal atrial fibrillation) Surgical History H/O colonoscopy S/P repair of hydrocele History of tonsillectomy Family History Father Dementia Hx of CABG Mother Diabetes Social History Household Members: Spouse Housing: House Do you presently have visiting nurse or other home services: No Alcohol intake: current Alcohol intake frequency: holidays/special occasions only Alcohol type: beer Patient Tobacco Use Status: Never used Tobacco e-Cigarette/Vaping Use: Never Used Second Hand Smoke Exposure: No service: No Current occupational status: retired Cognitive needs: No Hearing needs: No Vision needs: Yes Questionnaire Thrive Questionnaire Date Thrive assessed: 12/06/23 AUDIT C Alcohol Use Questionnaire (AUDIT-C) 1. How often do you have a drink containing alcohol?: Never 3. How often do you have six or more drinks on one occasion?: Never Total Score: 0 Score Reviewed/Action Taken: No LUZ ELENA-7 AMB Questionnaire LUZ ELENA-7 Date LUZ ELENA - 7 assessed: 12/06/23 Source: Developed by Liliam MonteiroW. Colin, Deangelo Carvalho and colleagues, with an educational juan miguel from [employer]. Review of Systems Const Reports no additional complaints and Denies daytime sleepiness Eyes Reports change in vision (decreased vision in L eye with hypotension) ENT Reports no additional complaints Card Denies chest pain at rest, Denies chest pain with activity, Denies diaphoresis, Denies syncope, Denies rapid heart rate, Denies irregular heart rhythm and Denies leg edema Resp Reports no additional complaints GI Reports no additional complaints Reports no additional complaints Musc Reports no additional complaints Skin/Breast Reports system reviewed and no additional complaints, except as documented Neuro Reports no additional complaints, Reports Abnormal speech present and Denies syncope Psych Reports no additional complaints Endo Reports no additional complaints Francisco/Lymph Reports no additional complaints Aller/Immun Reports no additional complaints Physical exam (Primary Care) Vital Signs: Last Vital Signs Pulse 90 04/30/24 09:36 BP 130/74 04/30/24 09:36 Pulse Ox 95 04/30/24 09:36 Oxygen Delivery Method Room Air 04/30/24 09:36 BMI result Body Mass Index 23.0 Tobacco/Smoking Status: Tobacco use Status Tobacco use date assessed 12/06/23 04/30/24 09:37 Patient Tobacco Use Status Never used Tobacco 04/30/24 09:37 e-Cigarette/Vaping Use Never Used 04/30/24 09:37 Thrive Assessment: Date of Thrive Assessment Date Thrive assessed 12/06/23 04/30/24 09:37 Const General: cooperative, healthy appearing, comfortable and no acute distress Nutritional Appearance: average body habitus Orientation/consciousness: patient oriented x3 Limitations: no limitations [facility] Head: Yes normal to inspection and Yes normocephalic Ears: hearing grossly normal bilaterally and external ears normal General nose exam: Normal external nose present Face and sinus: Yes normal facial exam Eyes General: appearance normal, both eyes and all related structures Neck Neck: Yes normal visual inspection Chest Chest palpation & inspection: normal inspection of the chest Resp Effort & Inspection: normal respiratory effort and no audible wheezes Auscultation: clear to auscultation bilaterally, no crackles, no rales, no rhonchi and no wheezes Cardio Rate: regular rate Rhythm: regular rhythm Heart sounds: S1 normal heart sound present and S2 normal heart sound present Peripheral pulses: radial pulses present Skin General skin exam: no rashes or lesions noted Neuro General: patient oriented x3 Cognition (Neuro): normal cognition Speech: Abnormal speech present Gait exam (Neuro): Normal gait present Extrem General: Yes normal to inspection, Yes full ROM and Yes normal gait Psych Appearance: grossly normal Mental Status: mental status grossly normal Speech and movement: Normal speech and movement present Affect: normal affect Attitude: cooperative Thought process: Normal thought process present Thought content: Normal thought content present Insight: Good insight present (Psych) Judgement: Good judgement present (Psych) Assessment and Plan Assessment & Plan (1) Labile hypertension: Code(s): R09.89 - Other specified symptoms and signs involving the circulatory and respiratory systems Plan: Blood pressure normal today in office. Patient has been keeping log of blood pressures especially when symptomatic. Continues to take Losartan daily and has cut back on the metoprolol because it has been making him light headed, rarely uses amlodipine. Per cardiology consultation note patient can self manage his blood pressure medications. Nephrology is following with ambulatory blood pressure monitoring and awaiting those results. Nephrology recommends continuing on current drug regimen of metoprolol and losartan. Patient will follow up with nephrology in June for further management of blood pressure. (2) Carotid stenosis: Code(s): I65.29 - Occlusion and stenosis of unspecified carotid artery Qualifiers: Laterality: left Qualified Code(s): I65.22 - Occlusion and stenosis of left carotid artery Plan: Currently has no follow up scheduled with Dr. Naidu. Patient will follow up with Dr. Naidu following diagnostic angiogram for results and further management. (3) PAF (paroxysmal atrial fibrillation): Comment: no recurrence Code(s): I48.0 - Paroxysmal atrial fibrillation Plan: Recent EKGs showed no evidence of Afib. Per hospital note, on metoprolol for Afib and hypertension. Advised patient to follow up with nephrology and cardiology before cutting back on metoprolol. Plan Thank you for letting me participate in this patient's care. I personally spent 60 minutes reviewing the notes, seeing the patient and documenting for this visit. Coding Level of Care Code Est Pt Level 4 (50150) Diagnoses Labile hypertension R09.89 Stenosis of left carotid artery I65.22 Laterality: left PAF (paroxysmal atrial fibrillation) I48.0
== END 2024-04-30 10:14 | disposition home or self-care (01) ==
PROVIDERS: PCP Internal Medicine
DX: R09.89 Other specified symptoms and signs involving the circulatory and respiratory systems (principal); I65.22 Occlusion and stenosis of left carotid artery; I48.0 Paroxysmal atrial fibrillation
CPT/HCPCS: 99214

== ENCOUNTER → 2024-04-30 09:42 | Outpatient (BNVA) | payer MEDICARE, SELFPAY | PROVIDERS: PCP Internal Medicine; Visit Provider Internal Medicine Hypertension Specialist ==

== ENCOUNTER 2024-05-19 14:17 | Outpatient (AMB) | payer MEDICARE, SELFPAY ==
--- NOTE | 2024-05-19 14:21 | MHC.OFFVIS ---
Vital Signs 05/19/24 14:28 BP 118/52 L Blood Pressure Location Lt brachial Position Sitting Intake Visit Reasons: Follow Up 04/16 Angio Intake Note: Patient presents for follow up angio performed on 04/16/24. Patient has no complaints. Allergies lisinopril Adverse Reaction (Intermediate, Verified 05/19/24 14:23) cough HPI HPI Follow Up 04/16 Angio: Details: Very pleasant 73-year-old gentleman presents for follow-up status post carotid angio. This all began originally with concerns of high-grade carotid stenosis. He did have an element of renal insufficiency so a decision was made to undergo carotid angiogram. Subsequent to this he actually had a rapid response called on him due to his hypotension and mental status changes. He was subsequently admitted for day observed and then discharged. Upon workup it was noted that his right carotid was within normal limits in his left carotid was blocked. He now presents for routine follow-up. [facility] Medical History H/O coronary angiogram (~04/2024) Hypotension Screening for prostate cancer Syncope Urinary incontinence Hx of radiation therapy History of chemotherapy Colon cancer screening Hypercholesterolemia Asthma GERD (gastroesophageal reflux disease) Cancer of tonsil Orthostatic hypotension Essential hypertension PAF (paroxysmal atrial fibrillation) Surgical History H/O colonoscopy S/P repair of hydrocele History of tonsillectomy Family History Father Dementia Hx of CABG Mother Diabetes Social History Household Members: Spouse Housing: House Do you presently have visiting nurse or other home services: No Alcohol intake: current Alcohol intake frequency: holidays/special occasions only Alcohol type: beer Patient Tobacco Use Status: Never used Tobacco e-Cigarette/Vaping Use: Never Used Second Hand Smoke Exposure: No service: No Current occupational status: retired Cognitive needs: No Hearing needs: No Vision needs: Yes Review of Systems Const All systems reviewed & are unremarkable except as noted in HPI and below Reports no additional complaints ENT Reports Normal hearing present Card Denies chest pain, Denies chest pain at rest, Denies chest pain with activity and Denies pedal edema Resp Denies cough GI Denies abdominal pain Musc Denies abnormal gait, Denies muscle cramps and Denies radiating pain into limb Skin/Breast Denies skin ulcer and Denies wounds Neuro Reports Normal hearing present and Denies abnormal gait Psych Reports no additional complaints Physical Exam Vital Signs: Last Vital Signs BP 118/52 L 05/19/24 14:28 Const General: cooperative, healthy appearing and comfortable Orientation/consciousness: oriented to person, oriented to place and oriented to time HEENT Head: Yes normal to inspection Neck Neck: Yes normal visual inspection Carotids: no bruits Chest Chest palpation & inspection: normal inspection of the chest Resp Effort & Inspection: normal respiratory effort and able to speak in complete sentences Auscultation: clear to auscultation bilaterally, no crackles, no rales, no rhonchi and no wheezes Cardio Rate: regular rate Rhythm: regular rhythm Heart sounds: S1 normal heart sound present and S2 normal heart sound present Bruits: no carotid bruits Peripheral pulses: Peripheral pulses 2+ throughout GI Inspection: Yes normal to inspection Skin Wounds: no wounds Hair: normal Neuro General: oriented to person, oriented to place and oriented to time Cranial nerves: Yes CN's II-XII intact bilaterally and Yes Normal hearing present Cognition (Neuro): normal cognition Motor exam (neuro): 5/5 motor strength present throughout Extrem Other: venous exam: No significant superficial varicosities or spider telangiectasias, minimal edema General: No clubbing, No cyanosis and No edema Psych Appearance: grossly normal Mental Status: mental status grossly normal Speech and movement: Normal speech and movement present Results Reviewed Results Reviewed: Angiogram dated 04/16/[address] performed 04/16/2024 demonstrates right-sided less than 50% left side occlusion Assessment & Plan Assessment & Plan (1) Carotid stenosis: Code(s): I65.29 - Occlusion and stenosis of unspecified carotid artery Category: Medical Qualifiers: Laterality: left Qualified Code(s): I65.22 - Occlusion and stenosis of left carotid artery Plan: In short I do not believe his syncopal episodes are related to his carotids. He has had a significant workup. The concern here is his extreme swings in blood pressure. He goes from severe hypertension to hypotension. This needs to be stabilized. We will continue to monitor his carotid status and he is scheduled for 6 month carotid ultrasound with us. Thank you for allowing us to assist in his care. If there are any questions or concerns please do not hesitate to contact us. Orders: Orders US carotid duplex BI 6 Months I65.22 - Occlusion and stenosis of left carotid artery Coding Level of Care Code Est Pt Level 4 (53305) Diagnoses Stenosis of left carotid artery I65.22 Laterality: left
[2024-05-19 14:28] VITALS: BP 118/52
== END 2024-05-19 15:31 | disposition home or self-care (01) ==
PROVIDERS: PCP Internal Medicine; Visit Provider Surgery Vascular Surgery
DX: I65.22 Occlusion and stenosis of left carotid artery (principal)
CPT/HCPCS: 99214

== ENCOUNTER → 2024-05-19 14:17 | Outpatient (BNVA) | payer MEDICARE, SELFPAY | PROVIDERS: PCP Internal Medicine; Visit Provider Surgery Vascular Surgery | DX: I65.22 Occlusion and stenosis of left carotid artery (principal) | CPT/HCPCS: 99212 ==

== ENCOUNTER 2024-06-05 11:05 | Outpatient (AMB) | payer MEDICARE, SELFPAY ==
[2024-06-05 11:08] VITALS: BP 64/46; PULSE 83; O2SAT 95; BMI 22.8
--- NOTE | 2024-06-05 11:08 | HO.NEPHOV_ITS ---
Vital Signs 06/05/24 11:08 06/05/24 11:47 Height 5 ft 10 in Weight 159 lb BMI 22.8 BP 64/46 L 80/50 L Blood Pressure Location Lt brachial Lt brachial Position Sitting Sitting Pulse 83 Pulse Source Pulse Oximeter Pulse Oximetry (%) 95 Oxygen Delivery Method Room Air Intake Visit Reasons: 6 wk follow up/ Conf Public Records Researcher Required: No Accompanied by: Self / Same As Patient Allergies lisinopril Adverse Reaction (Intermediate, Verified 06/05/24 11:11) cough Medication List - Last Reconciled 06/05/24 by Jourdan Krishnan MD aspirin 81 mg PO DAILY 90 days atorvastatin 80 mg PO BEDTIME cholecalciferol (vitamin D3) 25 mcg PO DAILY clopidogrel (Plavix) 75 mg PO DAILY cyanocobalamin (vitamin B-12) 1,000 mcg PO DAILY metoprolol succinate ER 25 mg PO DAILY PRN omeprazole 20 mg PO DAILY PRN HPI Comments Details: . Jose Rafael is a pleasant 73-year-old man with a history of hypertension for more than 10 years. He has been referred for labile hypertension. Jose Rafael is currently on losartan 50 mg and metoprolol 25 mg daily. He takes amlodipine 10 mg as needed. He is taken about 4 or 5 times this month. There has been a wide fluctuation in his blood pressure. Blood pressure has been as high as 239/130 mm Hg. And the low reading has been as low as 70/50 mm Hg. He has not undergone any workup for hypertension. He has a history of atrial fibrillation. He is on metoprolol for rate control. There is a history of peripheral as disease. He has been followed by Dr. Naidu. There was suspicion for carotid stenosis and is scheduled for an angiogram. He has no history of any kidney disease. No history of smoking. No history of dyslipidemia. He has no history of weight loss. No palpitation. No unexplained sweating. No edema. No urinary symptoms. No polyuria polydipsia. No hematuria. No headaches. No blurred vision. 04/28/2024. Recently hospitalized for rapid AFib. He underwent workup for the hypertension. Plasma renin activity and aldosterone were normal. Catecholamines were also normal. Doppler of the renal arteries did not reveal any renal artery stenosis. There has been wide fluctuation of blood pressure. 06/05/2024. He has been monitoring blood pressure at home BP readings have been rather low. [facility] Medical History H/O coronary angiogram (~04/2024) Hypotension Screening for prostate cancer Syncope Urinary incontinence Hx of radiation therapy History of chemotherapy Colon cancer screening Hypercholesterolemia Asthma GERD (gastroesophageal reflux disease) Cancer of tonsil Orthostatic hypotension Essential hypertension PAF (paroxysmal atrial fibrillation) Surgical History H/O colonoscopy S/P repair of hydrocele History of tonsillectomy Family History Father Dementia Hx of CABG Mother Diabetes Social History Household Members: Spouse Housing: House Do you presently have visiting nurse or other home services: No Alcohol intake: current Alcohol intake frequency: holidays/special occasions only Alcohol type: beer Patient Tobacco Use Status: Never used Tobacco e-Cigarette/Vaping Use: Never Used Second Hand Smoke Exposure: No service: No Current occupational status: retired Cognitive needs: No Hearing needs: No Vision needs: Yes Physical Exam Vital Signs: Last Vital Signs Pulse 83 06/05/24 11:08 BP 80/50 L 06/05/24 11:47 Pulse Ox 95 06/05/24 11:08 Oxygen Delivery Method Room Air 06/05/24 11:08 BMI result Body Mass Index 22.8 Awake. Comfortable. Neck is supple. Mucosa moist. Lungs clear Heart S1-S2 heard no gallop. Abdomen soft. Extremities no edema. No involuntary movements. No myoclonus. Results Reviewed Nephrology Results: No Data to Display Assessment & Plan Assessment & Plan (1) Labile hypertension: Code(s): R09.89 - Other specified symptoms and signs involving the circulatory and respiratory systems Category: Medical Plan . Jose Rafael is a 73-year-old man with a history of labile hypertension. Blood pressure continues to fluctuate. No renal artery stenosis based on renal Doppler. No evidence of hyperaldosteronism based on recent plasma renin activity and aldosterone levels. Pheochromocytoma is also seems unlikely based on recent catecholamines levels. In view of significantly low blood pressure I will stop losartan. Continue metoprolol 25 mg. Discussed importance of orthostatic precautions. At present renal function stable. He has a history of mild hyponatremia. Encouraged him to limit free water intake for now. Orders: Orders Basic Metabolic Panel 4 Weeks R09.89 - Other specified symptoms and signs involving the circulatory and respiratory systems Medications: Changed From metoprolol succinate ER 25 mg PO DAILY PRN To metoprolol succinate ER 25 mg PO .evening 30 tabs 3RF Coding Level of Care Code Est Pt Level 4 (14593) Diagnoses Labile hypertension R09.89
[2024-06-05 11:47] VITALS: BP 80/50
== END 2024-06-05 11:51 | disposition home or self-care (01) ==
PROVIDERS: PCP Internal Medicine; Visit Provider Internal Medicine Hypertension Specialist
DX: R09.89 Other specified symptoms and signs involving the circulatory and respiratory systems (principal)
CPT/HCPCS: 99214

== ENCOUNTER → 2024-06-05 11:05 | Outpatient (BNVA) | payer MEDICARE, SELFPAY | PROVIDERS: PCP Internal Medicine; Visit Provider Internal Medicine Hypertension Specialist | DX: R09.89 Other specified symptoms and signs involving the circulatory and respiratory systems (principal) | CPT/HCPCS: 99212 ==

== ENCOUNTER 2024-06-23 09:04 | Outpatient (REF) | payer MEDICARE, SELFPAY ==
[2024-06-23 10:05] LABS: Anion Gap 10 (12-20); Blood Urea Nitrogen 14 mg/dL (9-16); Calcium 9.6 mg/dL (8.4-10.2); Carbon Dioxide 29 mmol/L (22-29); Chloride 99 mmol/L (96-108); Estimated Glomerular Filt Rate > 60; Glucose Random 102 mg/dL (60-115); Potassium 4.4 mmol/L (3.3-5.1); Sodium 134 mmol/L (135-145)
[2024-06-23 10:29] LABS: Prostate Specific Antigen 0.69 ng/mL (<0.05-4.0)
== END 2024-06-23 09:05 | disposition home or self-care (01) ==
LOC: HO.LAB 09:04
PROVIDERS: Absent Provider Internal Medicine Hypertension Specialist; PCP Internal Medicine; Visit Provider Urology
DX: N40.0 Benign prostatic hyperplasia without lower urinary tract symptoms (principal); R09.89 Other specified symptoms and signs involving the circulatory and respiratory systems; Z12.5 Encounter for screening for malignant neoplasm of prostate
CPT/HCPCS: 36415; 80048; 84153

== ENCOUNTER 2024-06-27 13:55 | Outpatient (AMB) | payer MEDICARE, SELFPAY ==
--- NOTE | 2024-06-27 13:40 | A.OFFVIS_ITS ---
Intake Visit Reasons: 6M Follow Up- PSA/PVR(PSA) Intake Note: Patient presents today for a telehealth 6m follow-up psa/pvr Meds- vitamin B-12 Allergies to Antibiotic- No Known Allergies Blood Thinner-ASPIRIN Carbonation Equipment Operator Required: No Allergies lisinopril Adverse Reaction (Intermediate, Verified 06/27/24 13:53) cough HPI Comments Details: Jose Rafael is a pleasant male. He is a patient of Dr Billingsley. He is seen for the following urologic conditions - lower urinary tract symptoms Telemedicine Evaluation 15 min Consultation [employer] attempted PSA 06/28 0.7 Discussed results Does not tolerate medications Nocturia x4 Recommend prostate procedure He will consider Alfuzosin had less dizziness then tamsulosin Not quite as effective for control of stream in symptoms Not currently on alpha blockers Lower urinary tract symptoms Current therapy - alfuzosin Initial symptom presentation - lower urinary tract symptoms predominantly irritative symptoms. Prior treatment includes - tamsulosin, alfuzosin Prostate Symptom Score - Initial moderate with bother 3 Symptoms include - urgency, frequency with nocturia greater than 2 - and are progressing Results from testing include - Renal/bladder US Yes Date 02/24 PVR 15 Prostate Size 130 Prior Prostate Score unknown PSA - 01/24 0.7 Associated conditions - none listed Treatment plan - alfuzosin [facility] Medical History H/O coronary angiogram (~04/2024) Hypotension Screening for prostate cancer Syncope Urinary incontinence Hx of radiation therapy History of chemotherapy Colon cancer screening Hypercholesterolemia Asthma GERD (gastroesophageal reflux disease) Cancer of tonsil Orthostatic hypotension Essential hypertension PAF (paroxysmal atrial fibrillation) Surgical History H/O colonoscopy S/P repair of hydrocele History of tonsillectomy Family History Father Dementia Hx of CABG Mother Diabetes Social History Household Members: Spouse Housing: House Do you presently have visiting nurse or other home services: No Alcohol intake: current Alcohol intake frequency: holidays/special occasions only Alcohol type: beer Patient Tobacco Use Status: Never used Tobacco e-Cigarette/Vaping Use: Never Used Second Hand Smoke Exposure: No service: No Current occupational status: retired Cognitive needs: No Hearing needs: No Vision needs: Yes Review of Systems Const All systems reviewed & are unremarkable except as noted in HPI and below Reports no additional complaints Resp Reports no additional complaints GI Reports no additional complaints Reports as per HPI Musc Reports no additional complaints Physical Exam Telemedicine evaluation Appropriate responses Regular breathing rate and rhythm HEENT Head: Yes normal to inspection Ears: hearing grossly normal bilaterally Eyes General: appearance normal, both eyes and all related structures Neck Neck: Yes normal visual inspection Chest Chest palpation & inspection: normal inspection of the chest Resp Effort & Inspection: normal respiratory effort and able to speak in complete sentences Telehealth Telehealth Location of provider rendering services: practice address Location of patient: address on file Patient Identification confirmed using: Name, : Yes Telehealth method: voice only Patient verbally consented to treatment: Yes Patient verbally consented to billing insurance company: Yes Patient informed of any privacy concerns related to visit: Yes Assessment & Plan Assessment & Plan (1) BPH (benign prostatic hyperplasia): Code(s): N40.0 - Benign prostatic hyperplasia without lower urinary tract symptoms Category: Medical Plan PRN Followup Orders: Orders Prostate Specific Antigen 06/23/24 N40.0 - Benign prostatic hyperplasia without lower urinary tract symptoms Patient Instructions: Imaging studies, laboratory and physical exam results were discussed and reviewed in detail. No major barriers to patient understanding were identified. An opportunity to ask questions regarding the treatment plan was provided. All questions were answered. The patient expressed understanding and agreement with the above treatment plan. The patient is aware they should contact our office by phone for worsening of their current condition or the appearance of new urologic symptoms. Compliance is encouraged with any medications and followup testing that is ordered. It is a privilege to participate in the urologic care of your patient. If you have any questions or concerns regarding treatment for the above conditions, or other urologic issues, please do not hesitate to contact me. The office telephone contact is [phone]. This note is constructed using voice recognition software. While every effort has been made to ensure accuracy senior javascript engineer errors may have been included. Yours sincerely, Dr Davis Rivas MD, [facility] - Urology Providers of Expert, Compassionate Care for the Genitourinary System Coding Level of Care Code Tele Est Pt Level 3 (62699) Diagnoses BPH (benign prostatic hyperplasia) N40.0
== END 2024-06-27 14:21 | disposition home or self-care (01) ==
LOC: HO.HUSH 13:55
PROVIDERS: PCP Internal Medicine; Visit Provider Urology
DX: N40.0 Benign prostatic hyperplasia without lower urinary tract symptoms (principal)
CPT/HCPCS: 99213

== ENCOUNTER → 2024-06-27 13:55 | Outpatient (BNVA) | payer MEDICARE, SELFPAY | PROVIDERS: PCP Internal Medicine; Visit Provider Urology ==

== ENCOUNTER 2024-07-02 09:11 | Outpatient (AMB) | payer MEDICARE, SELFPAY ==
[2024-07-02 09:12] VITALS: BP 140/92; PULSE 76; O2SAT 98; BMI 22.7
--- NOTE | 2024-07-02 09:12 | A.OFFVIS_ITS ---
Intake Vital Signs 07/02/24 09:12 Height 5 ft 10 in Weight 158 lb BMI 22.7 BP 140/92 H Blood Pressure Location Lt brachial Position Sitting Pulse 76 Pulse Source Pulse Oximeter Pulse Oximetry (%) 98 Oxygen Delivery Method Room Air Intake Visit Reasons: Annual Intake Note: Did have coffee prior to coming in today. Allergies lisinopril Adverse Reaction (Intermediate, Verified 07/02/24 09:13) cough Medication List - Last Reconciled 07/02/24 by Olesya Billingsley MD albuterol sulfate 90 mcg/actuation 2 puffs inhalation Q6H PRN aspirin 81 mg PO DAILY 90 days atorvastatin 10 mg PO BEDTIME budesonide-formoterol 160-4.5 mcg/actuation (Symbicort) 2 puffs inhalation BID cholecalciferol (vitamin D3) 25 mcg PO DAILY clopidogrel (Plavix) 75 mg PO DAILY cyanocobalamin (vitamin B-12) 1,000 mcg PO DAILY metoprolol succinate ER 25 mg PO .evening omeprazole 20 mg PO DAILY PRN HPI Annual HPI Details 73-year-old male with a history of carot id stenosis anemia of chronic disease hypercholesterolemia GERD hypertension atrial fibrillation last seen in 03/24/2024. Patient has a labile hypertension and was sent to Nephrology. Patient's colonoscopy is up-to-date 02/22/2021. Review of the notes has been seeing Urology through Telehealth for nocturia was given alfuzosin(less dizziness than tamsulosin). Nephrology notes no renal artery stenosis, no evidence of hyper although, unlikely pheochromocytoma, advised to continue on metoprolol 25 mg advised to limit free water intake.. Patient also followed up with vascular for the carotid artery workup has been negative. [facility] Medical History (Updated 07/02/24 @ 15:11 by Olesya Billingsley MD) Essential hypertension H/O coronary angiogram (~04/2024) Hypotension Screening for prostate cancer Syncope Urinary incontinence Hx of radiation therapy History of chemotherapy Colon cancer screening Hypercholesterolemia Asthma GERD (gastroesophageal reflux disease) Cancer of tonsil Orthostatic hypotension PAF (paroxysmal atrial fibrillation) Surgical History H/O colonoscopy S/P repair of hydrocele History of tonsillectomy Family History Father Dementia Hx of CABG Mother Diabetes Social History (Updated 07/02/24 @ 09:40 by Olesya Billingsley MD) Household Members: Spouse Housing: House Do you presently have visiting nurse or other home services: No Alcohol intake: former Patient Tobacco Use Status: Never used Tobacco e-Cigarette/Vaping Use: Never Used Second Hand Smoke Exposure: No service: No Current occupational status: retired Cognitive needs: No Hearing needs: No Vision needs: Yes Questionnaire Medicare Wellness Checkup [age] What gender do you identify with?: male During the past 4 weeks, how much have you been bothered by emotional problems such as feeling anxious, depressed, irritable, sad or downhearted, and blue?: slightly During the past 4 weeks, has your physical & emotional health limited your social activities with family, friends, neighbors, or groups?: not at all During the past 4 weeks, how much bodily pain have you generally had?: no pain During the past 4 weeks, was someone available to help you if you needed & wa nted help?: yes, as much as I wanted During the past 4 weeks, what was the hardest physical activity you could do for at least 2 minutes?: moderate Can you get to places out of walking distance without help? (For eg., can you travel alone on buses, taxis or drive your car?): Yes Can you go shopping for groceries or clothes without someone's help?: Yes Can you prepare your own meals?: Yes Can you do your housework without help?: Yes Because of any health problems, do you need the help of another person with your personal care needs such as eating, bathing, dressing or getting around the house?: No Can you handle your own money without help?: Yes During the past 4 weeks, how would you rate your health in general?: very good During the past 4 weeks how have things been going for you?: pretty well Are you having difficulties driving your car?: no Do you always fasten your seat belt when you are in a car?: yes, usually During past 4 weeks, have you been bothered by the following: never: Sexual problems?, Trouble eating well?, Teeth or denture problems? and Problems using the telephone? and sometimes: Falling or dizzy when standing up and Tiredness or fatigue? Have you fallen 2 or more times in the past year?: No Are you afraid of falling?: No Are you a smoker?: no During the past 4 weeks, how many drinks of wine, beer, or other alcoholic beverages did you have?: no alcohol at all Do you exercise for about 20 minutes 3 or more times a week?: no, I usually do not exercise this much Have you been given information to help with the following?: no: Hazards in your house that might hurt you? and no: Keeping track of your medications? How often do you have trouble taking medicines the way you have been told to take them?: I always take medicine as prescribed How confident are you that you can control & manage most of your health problems?: somewhat confident What is your race?: White PHQ-9 Over the last 2 weeks, how often have you been bothered by any of the following problems? 1. Little interest or pleasure in doing things: not at all 2. Feeling down, depressed, or hopeless: not at all 3. Trouble falling or staying asleep, or sleeping too much: not at all 4. Feeling tired or having little energy: not at all 5. Poor appetite or overeating: not at all 6. Feeling bad about yourself - or that you are a failure or have let yourself or your family down: not at all 7. Trouble concentrating on things, such as reading the newspaper or watching television: not at all 8. Moving or speaking so slowly that other people could have noticed. Or the opposite - being so fidgety or restless that you have been moving around a lot more than usual: not at all 9. Thoughts that you would be better off or of hurting yourself in some way: not at all Total score: 0 Depression Screening Interpretation: Negative Depression Screening Done: Yes 90920 - PHQ-9 Billing: Yes Source: Developed by Drs. Scotty Jessica, Liliam Shaw, Deangelo Carvalho and colleagues, with an educational juan miguel from [employer]. Thrive Questionnaire Date Thrive assessed: 07/02/24 I am a: Patient What is your living situation today?: I have a steady place to live Within the past 12 months, did the food you bought not last and you didn't have the money to get more?: Never true Within the past 12 months, did you worry whether your food would run out before you got money to buy more?: Never true Do you have trouble paying for medicines?: No Do you have trouble getting transportation to medical appointments?: No Do you have trouble paying your heating and electricity bill?: No Do you have trouble taking care of your child, family member or friend?: No Do you have trouble with day-to-day activities such as bathing, preparing meals, shopping, managing finances, etc.?: No Are you currently unemployed and looking for a job?: No Are you interested in more education?: No Currently or been in a relationship where the following occur: No concerns reported THRIVE Score: 0 LUZ ELENA-7 AMB Questionnaire LUZ ELENA-7 Date LUZ ELENA - 7 assessed: 07/02/24 Feeling nervous, anxious, or on edge: 1 = Several days Not being able to stop or control worryin = Several days Worrying too much about different things: 1 = Several days Trouble relaxin = Not at all Being so restless that it is hard to sit still: 0 = Not at all Becoming easily annoyed or irritable: 0 = Not at all Feeling afraid as if something awful might happen: 0 = Not at all Total LUZ ELENA-7 score (0-4 normal; 5-9 mild; 10-14 moderate; 15-21 severe): 3 Source: Developed by Drs. Scotty Jessica, Liliam Shaw, Deangelo Carvalho and colleagues, with an educational juan miguel from [employer]. Review of Systems Const Denies poor appetite and Denies weakness Eyes Denies no additional complaints ENT Reports Normal hearing present, Denies dizziness, Denies nasal congestion, Denies tinnitus and Denies sore throat Card Denies chest pain, Denies syncope, Denies rapid heart rate and Denies dyspnea Resp Denies cough and Denies dyspnea GI Denies change in stool character, Reports constipation, Denies diarrhea, Denies nausea and Denies vomiting Denies dysuria and Denies urinary frequency Neuro Reports Normal hearing present, Denies confusion, Denies dizziness, Denies s yncope and Denies weakness Psych Denies confusion Physical Exam Vital Signs: Last Vital Signs Pulse 76 07/02/24 09:12 BP 140/92 H 07/02/24 09:12 Pulse Ox 98 07/02/24 09:12 Oxygen Delivery Method Room Air 07/02/24 09:12 BMI result Body Mass Index 22.7 Const General: No confusion Orientation/consciousness: No confusion HEENT Head: Yes normocephalic Ears: external ears normal and TM's normal bilaterally Face and sinus: Yes normal facial exam Mouth: moist mucous membranes Throat: Yes tonsils normal Eyes Conjunctivae: conjunctivae normal Pupils: Equal, round and reactive pupils present and Pupil accommodation reflex normal Direct Ophthalmoscopy: normal light reflex Neck Neck: No lymphadenopathy Thyroid: Thyroid normal Chest Chest palpation & inspection: normal inspection of the chest Resp Effort & Inspection: normal respiratory effort and no audible wheezes Auscultation: clear to auscultation bilaterally, no crackles, no wheezes and lung sounds not diminished Cardio Rate: regular rate Rhythm: regular rhythm Peripheral pulses: radial pulses present and dorsalis pedis present GI Other: guaiac negative enlarged prostate Palpation (GI): no masses Auscultation: normal bowel sounds and normoactive bowel sounds Male General Exam: Yes normal external exam Skin General skin exam: no rashes or lesions noted Rashes: no rashes Neuro General: No confusion Cranial nerves: Yes Equal, round and reactive pupils present and Yes Normal hearing present Cognition (Neuro): normal cognition Gait exam (Neuro): Normal gait present Motor exam (neuro): 5/5 motor strength present throughout Deep tendon reflexes (DTR's): Right brachioradialis reflex intensity grade: 2+, Left brachioradialis reflex intensity grade: 2+, Right patellar reflex intensity grade: 2+ and Left patellar reflex intensity grade: 2+ Extrem General: No edema Assessment & Plan Assessment & Plan (1) Labile hypertension: Code(s): R09.89 - Other specified symptoms and signs involving the circulatory and respiratory systems Plan: Patient is being followed up by Nephrology presently and continuing with metoprolol (2) Carotid stenosis: Code(s): I65.29 - Occlusion and stenosis of unspecified carotid artery Qualifiers: Laterality: left Qualified Code(s): I65.22 - Occlusion and stenosis of left carotid artery Plan: Patient has seen vascular and continuing to monitor (3) Anemia: Code(s): D64.9 - Anemia, unspecified Qualifiers: Anemia type: unspecified type Qualified Code(s): D64.9 - Anemia, unspecified Plan: Anemia of chronic disease and stable (4) BPH (benign prostatic hyperplasia): Code(s): N40.0 - Benign prostatic hyperplasia without lower urinary tract symptoms Qualifiers: Lower urinary tract symptom presence: symptoms present Lower urinary tr act symptom detail: urinary frequency Qualified Code(s): N40.1 - Benign prostatic hyperplasia with lower urinary tract symptoms; R35.0 - Frequency of micturition Plan: Patient has been seen by Urology and has been placed on alfuzosin. but the BP changes and stopped (5) Asthma: Code(s): J45.909 - Unspecified asthma, uncomplicated Qualifiers: Asthma severity: mild Asthma persistence: intermittent Asthma complication type: uncomplicated Qualified Code(s): J45.20 - Mild intermittent asthma, uncomplicated Plan: Stable (6) Hypercholesterolemia: Code(s): E78.00 - Pure hypercholesterolemia, unspecified Plan: Avoid fried foods, chicken skin, eggs, butter margarine, pastries and meat. Be it pork or beef they have a lot of cholesterol LDL goal of less than 70 and triglyceride of less than 150 on atorvastatin 80 mg once a (7) GERD (gastroesophageal reflux disease): Code(s): K21.9 - Gastro-esophageal reflux disease without esophagitis Qualifiers: Esophagitis presence: without esophagitis Qualified Code(s): K21.9 - Gastro-esophageal reflux disease without esophagitis Plan: Avoid the foods that causes that usually spicy foods, tomato products, juices, coffee, soda and foods that your sensitive to. After eating do not lie down, allow 3-4 hours before in lie down. And keep the head of bed above 30 degrees to avoid the acid from going up. (8) PAF (paroxysmal atrial fibrillation): Comment: no recurrence Code(s): I48.0 - Paroxysmal atrial fibrillation Plan: No recurrence continuing to monitor (9) Medicare annual wellness visit, subsequent: Code(s): Z00.00 - Encounter for general adult medical examination without abnormal findings Plan: Patient is advised to eat healthy, keep well hydrated, keep active and have adequate sleep. (10) Dysphagia: Code(s): R13.10 - Dysphagia, unspecified Qualifiers: Dysphagia type: oropharyngeal phase Qualified Code(s): R13.12 - Dysphagia, oropharyngeal phase Plan: Will request for a swallowing test (11) Constipation: Code(s): K59.00 - Constipation, unspecified Qualifiers: Constipation type: slow transit constipation Qualified Code(s): K59.01 - Slow transit constipation Plan: Three rules for constipation 1. Diet need to have a high fiber diet less of meat 2. Increase oral fluids 3. Exercise Orders: Orders FL barium swallow Today R13.10 - Dysphagia, unspecified Vitamin B12 and Folate 6 Months R09.89 - Other specified symptoms and signs involving the circulatory and respiratory systems FL upper GI series Today R13.10 - Dysphagia, unspecified Complete Blood Count Auto Diff 6 Months R09.89 - Other specified symptoms and signs involving the circulatory and respiratory systems Comprehensive Met. Panel 6 Months R09.89 - Other specified symptoms and signs involving the circulatory and respiratory systems Ferritin 6 Months R09.89 - Other specified symptoms and signs involving the circulatory and respiratory systems Free T4 (Free Thyroxine) 6 Months R09.89 - Other specified symptoms and signs involving the circulatory and respiratory systems Reticulocyte Count 6 Months R09.89 - Other specified symptoms and signs involving the circulatory and respiratory systems Lipid Panel 6 Months E78.00 - Pure hypercholesterolemia, unspecified, R09.89 - Other specified symptoms and signs involving the circulatory and respiratory systems IRON PROFILE 6 Months R09.89 - Other specified symptoms and signs involving the circulatory and respiratory systems Thyroid Stimulating Hormone 6 Months R09.89 - Other specified symptoms and signs involving the circulatory and respiratory systems Prostate Specific Antigen Scr 6 Months R09.89 - Other specified symptoms and signs involving the circulatory and respiratory systems Medications: New sennosides-docusate sodium 8.6-50 mg (Senna Plus) 2 tab-caps (2 x 8.6-50 mg) PO BEDTIME 60 caps 3RF K59.00 - Constipation, unspecified Changed From atorvastatin replaces prior dose of 40 mg 80 mg PO BEDTIME 90 tabs 1RF To atorvastatin 10 mg PO BEDTIME 90 tabs 1RF Quality Reporting (2019) Depression/Bipolar (159/160/161/177) PHQ-9: Total score: 0 Coding Level of Care Code Medicare Subsequent (G0439) Diagnoses Labile hypertension R09.89 Stenosis of left carotid artery I65.22 Laterality: left Anemia, unspecified type D64.9 Anemia type: unspecified type Benign prostatic hyperplasia with urinary frequency N40.1; R35.0 Lower urinary tract symptom presence: symptoms present Lower urinary tract symptom detail: urinary frequency Mild intermittent asthma without complication J45.20 Asthma severity: mild Asthma persistence: intermittent Asthma complication type: uncomplicated Hypercholesterolemia E78.00 Gastroesophageal reflux disease without esophagitis K21.9 Esophagitis presence: without esophagitis PAF (paroxysmal atrial fibrillation) I48.0 Medicare annual wellness visit, subsequent Z00.00 Oropharyngeal dysphagia R13.12 Dysphagia type: oropharyngeal phase Slow transit constipation K59.01 Constipation type: slow transit constipation
== END 2024-07-02 09:58 | disposition home or self-care (01) ==
PROVIDERS: PCP Internal Medicine; Visit Provider Internal Medicine
DX: Z00.00 Encounter for general adult medical examination without abnormal findings (principal); R09.89 Other specified symptoms and signs involving the circulatory and respiratory systems; I48.0 Paroxysmal atrial fibrillation; I65.22 Occlusion and stenosis of left carotid artery; D64.9 Anemia, unspecified; N40.1 Benign prostatic hyperplasia with lower urinary tract symptoms; R35.0 Frequency of micturition; J45.20 Mild intermittent asthma, uncomplicated; E78.00 Pure hypercholesterolemia, unspecified; K21.9 Gastro-esophageal reflux disease without esophagitis; R13.12 Dysphagia, oropharyngeal phase; K59.01 Slow transit constipation
CPT/HCPCS: G0439

== ENCOUNTER 2024-07-03 10:04 | Outpatient (AMB) | payer MEDICARE, SELFPAY ==
[2024-07-03 10:05] VITALS: BP 200/120; PULSE 74; O2SAT 96; BMI 22.8
--- NOTE | 2024-07-03 10:05 | HO.NEPHOV ---
Vital Signs 07/03/24 10:05 07/03/24 10:17 Height 5 ft 10 in Weight 159 lb BMI 22.8 BP 200/120 H 140/80 H Blood Pressure Location Lt brachial Lt brachial Position Sitting Sitting Pulse 74 Pulse Source Pulse Oximeter Pulse Oximetry (%) 96 Oxygen Delivery Method Room Air Intake Visit Reasons: hypertension/ LVM Management Coordinator Required: No Accompanied by: Self / Same As Patient Allergies lisinopril Adverse Reaction (Intermediate, Verified 07/03/24 10:06) cough Medication List - Last Reconciled 07/03/24 by Jourdan Krishnan MD albuterol sulfate 90 mcg/actuation 2 puffs inhalation Q6H PRN aspirin 81 mg PO DAILY 90 days atorvastatin 10 mg PO BEDTIME budesonide-formoterol 160-4.5 mcg/actuation (Symbicort) 2 puffs inhalation BID cholecalciferol (vitamin D3) 25 mcg PO DAILY clopidogrel (Plavix) 75 mg PO DAILY cyanocobalamin (vitamin B-12) 1,000 mcg PO DAILY metoprolol succinate ER 25 mg PO .evening omeprazole 20 mg PO DAILY PRN sennosides-docusate sodium 8.6-50 mg (Senna Plus) 2 tab-caps (2 x 8.6-50 mg) PO BEDTIME HPI Comments Details: . Jose Rafael is a pleasant 73-year-old man with a history of hypertension for more than 10 years. He has been referred for labile hypertension. Jose Rafael is currently on losartan 50 mg and metoprolol 25 mg daily. He takes amlodipine 10 mg as needed. He is taken about 4 or 5 times this month. There has been a wide fluctuation in his blood pressure. Blood pressure has been as high as 239/130 mm Hg. And the low reading has been as low as 70/50 mm Hg. He has not undergone any workup for hypertension. He has a history of atrial fibrillation. He is on metoprolol for rate control. There is a history of peripheral as disease. He has been followed by Dr. Naidu. There was suspicion for carotid stenosis and is scheduled for an angiogram. He has no history of any kidney disease. No history of smoking. No history of dyslipidemia. He has no history of weight loss. No palpitation. No unexplained sweating. No edema. No urinary symptoms. No polyuria polydipsia. No hematuria. No headaches. No blurred vision. 04/28/2024. Recently hospitalized for rapid AFib. He underwent workup for the hypertension. Plasma renin activity and aldosterone were normal. Catecholamines were also normal. Doppler of the renal arteries did not reveal any renal artery stenosis. There has been wide fluctuation of blood pressure. 06/05/2024. He has been monitoring blood pressure at home BP readings have been rather low. 07/03/24 Doing better HE started Losartan 50 mg Q PM. Home BP acceptable PFSH Medical History (Updated 07/02/24 @ 15:11 by Olesya Billingsley MD) Essential hypertension H/O coronary angiogram (~04/2024) Hypotension Screening for prostate cancer Syncope Urinary incontinence Hx of radiation therapy History of chemotherapy Colon cancer screening Hypercholesterolemia Asthma GERD (gastroesophageal reflux disease) Cancer of tonsil Orthostatic hypotension PAF (paroxysmal atrial fibrillation) Surgical History H/O colonoscopy S/P repair of hydrocele History of tonsillectomy Family History Father Dementia Hx of CABG Mother Diabetes Social History Household Members: Spouse Housing: House Do you presently have visiting nurse or other home services: No Alcohol intake: former Patient Tobacco Use Status: Never used Tobacco e-Cigarette/Vaping Use: Never Used Second Hand Smoke Exposure: No service: No Current occupational status: retired Cognitive needs: No Hearing needs: No Vision needs: Yes Physical Exam Vital Signs: Last Vital Signs Pulse 74 07/03/24 10:05 BP 140/80 H 07/03/24 10:17 Pulse Ox 96 07/03/24 10:05 Oxygen Delivery Method Room Air 07/03/24 10:05 BMI result Body Mass Index 22.8 Awake. Comfortable. Neck is supple. Mucosa moist. Lungs clear Heart S1-S2 heard no gallop. Abdomen soft. Extremities no edema. No involuntary movements. No myoclonus. Results Reviewed Nephrology Results: Sodium 134 mmol/L (135-145) L 06/23/24 Potassium 4.4 mmol/L (3.3-5.1) 06/23/24 Chloride 99 mmol/L (96-108) 06/23/24 Carbon Dioxide 29 mmol/L (22-29) 06/23/24 BUN 14 mg/dL (9-16) 06/23/24 Creatinine 0.89 mg/dL (0.5-1.4) 06/23/24 Calcium 9.6 mg/dL (8.4-10.2) 06/23/24 Assessment & Plan Assessment & Plan (1) Labile hypertension: Code(s): R09.89 - Other specified symptoms and signs involving the circulatory and respiratory systems Category: Medical Plan . Jose Rafael is a 73-year-old man with a history of labile hypertension. Blood pressure continues to fluctuate. No renal artery stenosis based on renal Doppler. No evidence of hyperaldosteronism based on recent plasma renin activity and aldosterone levels. Pheochromocytoma is also seems unlikely based on recent catecholamines levels. Continue metoprolol 25 mg. Also takes Losartan 50 mg Q PM ( not on med list) Discussed importance of orthostatic precautions. At present renal function stable. He has a history of mild hyponatremia. Encouraged him to limit free water intake for now. Orders: Orders Basic Metabolic Panel 4 Months R09.89 - Other specified symptoms and signs involving the circulatory and respiratory systems Coding Level of Care Code Est Pt Level 4 (80426) Diagnoses Labile hypertension R09.89
[2024-07-03 10:17] VITALS: BP 140/80
== END 2024-07-03 10:19 | disposition home or self-care (01) ==
PROVIDERS: PCP Internal Medicine; Visit Provider Internal Medicine Hypertension Specialist
DX: R09.89 Other specified symptoms and signs involving the circulatory and respiratory systems (principal)
CPT/HCPCS: 99214

== ENCOUNTER → 2024-07-03 10:04 | Outpatient (BNVA) | payer MEDICARE, SELFPAY | PROVIDERS: PCP Internal Medicine; Visit Provider Internal Medicine Hypertension Specialist | DX: R09.89 Other specified symptoms and signs involving the circulatory and respiratory systems (principal) | CPT/HCPCS: 99212 ==

== ENCOUNTER 2024-08-06 08:42 | Outpatient (REF) | payer MEDICARE, SELFPAY ==
[2024-08-06 08:58] LABS: MANUAL DIFF FLAG NO
[2024-08-06 09:47] LABS: Basophils Absolute Auto 0.1 X10*3/uL (0.0-0.2); Basophils Percent Auto 1.2 % (0-2); Eosinophils Absolute Auto 0.3 X10*3/uL (0.0-0.4); Eosinophils Percent Auto 6.7 % (0-4); Hematocrit 40.5 % (42.0-52.0); Hemoglobin 13.5 g/dl (14.0-18.0); Imm Gran Abs Auto 0.01 X10*3/uL (0.00-0.03); Imm Gran Pct Auto 0.2 % (0.0-0.4); Immature Retic Fraction 6.3 % (2.3-13.4); Lymphocytes Absolute Auto 0.9 X10*3/uL (1.2-4.9); Lymphocytes Percent Auto 18.1 % (20-40); Mean Corpuscular HGB Conc 33.3 g/dl (31.0-36.0); Mean Corpuscular Hemoglobin 30.7 pg (27.0-33.0); Mean Platelet Volume 9.7 fL (9.4-12.4); Monocytes Absolute Auto 0.6 X10*3/uL (0.1-1.2); Monocytes Percent Auto 10.8 % (2-11); Neutrophils Absolute Auto 3.2 x10*3/uL (2.0-8.3); Platelet Count 203 X10*3/uL (160-400); Red Cell Distribution Width 12.5 % (11.0-16.0); Retic HGB Equivalent 34.9 pg (30.0-35.0); Reticulocyte Percent 0.9 % (0.5-1.8); Reticulocytes Absolute 0.038 X10*6/uL (0.026-0.095); White Blood Count 5.1 X10*3/uL (4.8-10.8)
[2024-08-06 10:25] LABS: Alanine Aminotransferase 18 U/L (0-40); Albumin Level 4.2 g/dL (3.5-5.0); Alkaline Phosphatase 83 U/L (39-117); Anion Gap 13 (12-20); Aspartate Amino Transferase 26 U/L (5-37); Bilirubin Total 0.7 mg/dL (0.0-1.0); Blood Urea Nitrogen 16 mg/dL (9-16); Calcium 9.4 mg/dL (8.4-10.2); Carbon Dioxide 25 mmol/L (22-29); Chloride 101 mmol/L (96-108); Cholesterol 153 mg/dL (<200); Estimated Glomerular Filt Rate > 60; Glucose Random 93 mg/dL (60-115); HDL Cholesterol 71 mg/dL (>40); Iron 86 mcg/dL (45-160); LDL Cholesterol Calculated 76 mg/dL (<100); Percent Iron Saturation 31 % (15-50); Potassium 4.4 mmol/L (3.3-5.1); Sodium 135 mmol/L (135-145); Total Iron Binding Capacity 280 mcg/dL (228-428); Total Protein 6.9 g/dL (6.5-8.0); Triglycerides 31 mg/dL (<150); Unsaturated Iron Binding 194 ug/dL
[2024-08-06 10:48] LABS: Folate 5.6 ng/mL (> or = 4.0); Prostate Specific Antigen Scr 0.68 ng/mL (<0.05-4.0); Vitamin B12 396 pg/mL (200-900)
[2024-08-06 10:50] LABS: Ferritin 276 ng/mL (20-250); Free T4 (Free Thyroxine) 0.97 ng/dL (0.71-1.85); Thyroid Stimulating Hormone 2.26 uIU/mL (0.32-4.0)
== END 2024-08-06 08:43 | disposition home or self-care (01) ==
LOC: HO.LAB 08:42
PROVIDERS: PCP Internal Medicine; Visit Provider Internal Medicine
DX: R09.89 Other specified symptoms and signs involving the circulatory and respiratory systems (principal); E78.00 Pure hypercholesterolemia, unspecified; Z12.5 Encounter for screening for malignant neoplasm of prostate
CPT/HCPCS: 36415; 80053; 80061; 82607; 82728; 82746; 83540; 84153; 84439; 84443; 85025; 85045

== ENCOUNTER 2024-08-14 09:41 | Outpatient (AMB) | payer MEDICARE, SELFPAY ==
[2024-08-14 09:44] VITALS: BP 148/72; PULSE 71; O2SAT 94; BMI 23.0
--- NOTE | 2024-08-14 09:44 | MHC.PC.OV ---
Vital Signs 08/14/24 09:44 Height 5 ft 10 in Weight 160 lb BMI 23.0 BP 148/72 H Blood Pressure Location Lt brachial Position Sitting Pulse 71 Pulse Source Pulse Oximeter Pulse Oximetry (%) 94 Oxygen Delivery Method Room Air Intake Visit Reasons: labile HTN, cholesterol Cloth Hauler Required: No Allergies lisinopril Adverse Reaction (Intermediate, Verified 08/14/24 09:44) cough Tobacco use date assessed: 12/06/23 Fall risk assessment: No Falls in past year Last assessed Fall Risk: 08/14/24 Dental Screening Dental Screen Date: 12/06/23 HPI labile HTN, cholesterol HPI Details 74-year-old male with labile hypertension being followed up by Nephrology history of carotid stenosis anemia BPH asthma hypercholesterolemia GERD atrial fibrillation dysphagia last seen in June 2024. Patient is up-to-date with colonoscopy 2020. last seen renal 07/03/2024 presently. No renal artery stenosis no evidence of hyper although so presently on metoprolol and losartan PFSH Medical History (Updated 07/02/24 @ 15:11 by Olesya Billingsley MD) Essential hypertension H/O coronary angiogram (~04/2024) Hypotension Screening for prostate cancer Syncope Urinary incontinence Hx of radiation therapy History of chemotherapy Colon cancer screening Hypercholesterolemia Asthma GERD (gastroesophageal reflux disease) Cancer of tonsil Orthostatic hypotension PAF (paroxysmal atrial fibrillation) Surgical History H/O colonoscopy S/P repair of hydrocele History of tonsillectomy Family History Father Dementia Hx of CABG Mother Diabetes Social History Household Members: Spouse Housing: House Do you presently have visiting nurse or other home services: No Alcohol intake: former Patient Tobacco Use Status: Never used Tobacco e-Cigarette/Vaping Use: Never Used Second Hand Smoke Exposure: No service: No Current occupational status: retired Cognitive needs: No Hearing needs: No Vision needs: Yes Questionnaire Thrive Questionnaire Date Thrive assessed: 07/02/24 Are you currently unemployed and looking for a job?: No AUDIT C Alcohol Use Questionnaire (AUDIT-C) 1. How often do you have a drink containing alcohol?: Never 3. How often do you have six or more drinks on one occasion?: Never Total Score: 0 LUZ ELENA-7 AMB Questionnaire LUZ ELENA-7 Date LUZ ELENA - 7 assessed: 07/02/24 Source: Developed by Drs. Scotty Jessica, Liliam Shaw, Deangelo Carvalho and colleagues, with an educational juan miguel from [employer]. Physical exam (Primary Care) Vital Signs: Last Vital Signs Pulse 71 08/14/24 09:44 BP 148/72 H 08/14/24 09:44 Pulse Ox 94 08/14/24 09:44 Oxygen Delivery Method Room Air 08/14/24 09:44 BMI result Body Mass Index 23.0 Tobacco/Smoking Status: Tobacco use Status Tobacco use date assessed 12/06/23 08/14/24 09:45 Patient Tobacco Use Status Never used Tobacco 08/14/24 09:45 e-Cigarette/Vaping Use Never Used 08/14/24 09:45 Thrive Assessment: Date of Thrive Assessment Date Thrive assessed 07/02/24 08/14/24 09:45 Const General: alert; No acute distress Eyes Conjunctivae: conjunctivae normal Resp Auscultation: clear to auscultation bilaterally Cardio Rate: regular rate Rhythm: regular rhythm GI Inspection: Yes normal to inspection Extrem General: Yes normal to inspection and No edema Office Procedures Flu Questionnaire Does the patient have a severe egg allergy?: No Does the patient have severe life threatening allergies?: No Does the patient have a fever or illness today?: No Has the patient ever had Guillain-[place] Syndrome?: No Has the patient ever had any past reaction to a flu shot?: No Immunizations Fluarix Triv [id number] (PF) 45 mcg (15 mcg x 3)/0.5 mL IM syringe Performing Provider: Olesya Billingsley MD [facility] [facility] Administered by: MIKE Encarnacion on 08/14/24 09:52 Dose Route Admin Location Dispensed Lot Number Expiration Date [facility] Grain Elevator Superintendent 0.5 mL IM Left Deltoid 0.5 mL [id number] 05/04/25 [id number] Marginize VIS Given Date VIS Provided VIS Publication Date 08/14/24 Single Vaccine 21 Eligibility Eligibility Date Funding Source Not [facility] Eligible 08/14/24 Private Coding Level of Care Code Est Pt Level 4 (23575) Diagnoses Labile hypertension R09.89 PAF (paroxysmal atrial fibrillation) I48.0 Gastroesophageal reflux disease without esophagitis K21.9 Esophagitis presence: without esophagitis Hypercholesterolemia E78.00 Mild intermittent asthma without complication J45.20 Asthma severity: mild Asthma persistence: intermittent Asthma complication type: uncomplicated Oropharyngeal dysphagia R13.12 Dysphagia type: oropharyngeal phase Assessment & Plan Assessment & Plan (1) Labile hypertension: Code(s): R09.89 - Other specified symptoms and signs involving the circulatory and respiratory systems Category: Medical Plan: Patient has been treated with metoprolol 25 mg once a day and losartan 50 mg once a day and has been follow-up with Nephrology. (2) PAF (paroxysmal atrial fibrillation): Comment: no recurrence Code(s): I48.0 - Paroxysmal atrial fibrillation Category: Medical Plan: Stable no recurrent (3) GERD (gastroesophageal reflux disease): Code(s): K21.9 - Gastro-esophageal reflux disease without esophagitis Category: Medical Qualifiers: Esophagitis presence: without esophagitis Qualified Code(s): K21.9 - Gastro-esophageal reflux disease without esophagitis Plan: Avoid the foods that causes that usually spicy foods, tomato products, juices, coffee, soda and foods that your sensitive to. After eating do not lie down, allow 3-4 hours before in lie down. And keep the head of bed above 30 degrees to avoid the acid from going up. (4) Hypercholesterolemia: Code(s): E78.00 - Pure hypercholesterolemia, unspecified Category: Medical Plan: Avoid fried foods, chicken skin, eggs, butter margarine, pastries and meat. Be it pork or beef they have a lot of cholesterol on atorvastatin 10 mg at bedtime (5) Asthma: Code(s): J45.909 - Unspecified asthma, uncomplicated Category: Medical Qualifiers: Asthma severity: mild Asthma persistence: intermittent Asthma complication type: uncomplicated Qualified Code(s): J45.20 - Mild intermittent asthma, uncomplicated Plan: Continue with the albuterol and Symbicort (6) Dysphagia: Code(s): R13.10 - Dysphagia, unspecified Category: Medical Qualifiers: Dysphagia type: oropharyngeal phase Qualified Code(s): R13.12 - Dysphagia, oropharyngeal phase Plan: reminded test Orders: Orders Influenza [id number] Immunization Today Z23 - Encounter for immunization Medications: Refilled clopidogrel (Plavix) 75 mg PO DAILY 90 tabs 1RF
== END 2024-08-14 10:22 | disposition home or self-care (01) ==
PROVIDERS: PCP Internal Medicine; Visit Provider Internal Medicine
DX: R09.89 Other specified symptoms and signs involving the circulatory and respiratory systems (principal); I48.0 Paroxysmal atrial fibrillation; K21.9 Gastro-esophageal reflux disease without esophagitis; E78.00 Pure hypercholesterolemia, unspecified; J45.20 Mild intermittent asthma, uncomplicated; R13.12 Dysphagia, oropharyngeal phase; Z23 Encounter for immunization

== ENCOUNTER → 2024-08-14 09:41 | Outpatient (BNVA) | payer MEDICARE, SELFPAY | PROVIDERS: PCP Internal Medicine; Visit Provider Internal Medicine | DX: Z23 Encounter for immunization (principal); R09.89 Other specified symptoms and signs involving the circulatory and respiratory systems; I48.0 Paroxysmal atrial fibrillation; K21.9 Gastro-esophageal reflux disease without esophagitis; E78.00 Pure hypercholesterolemia, unspecified; J45.20 Mild intermittent asthma, uncomplicated; R13.12 Dysphagia, oropharyngeal phase | CPT/HCPCS: 90471; 90656; 99212 ==

== ENCOUNTER 2024-09-16 08:18 | Outpatient (REF) | payer MEDICARE, SELFPAY ==
--- NOTE | ~2024-09-16 | FL_ITS ---
EXAMINATION: XR FLUOROSCOPY UPPER GI WITH AIR CLINICAL INFORMATION: Dysphagia COMPARISON: None TECHNIQUE: Fluoroscopic air contrast upper GI examination was performed utilizing standard techniques with thin and thick barium and effervescent granules. Numerous spot images were obtained. FINDINGS: Lateral cine images of the oropharynx and hypopharynx demonstrate normal swallow mechanism with normal epiglottic inversion and soft palate elevation. There is excessive pooling of contrast in the vallecula and piriform sinuses. There is laryngeal penetration with thick barium. On the fourth swallow, silent tracheal aspiration was observed. No additional barium was administered to the patient. No nasopharyngeal reflux present. Hypopharyngeal structures appear normal without evidence of mass or diverticulum. There was no significant cricopharyngeal achalasia. Multiple surgical clips are noted in the neck and posterior to the hypopharynx. Dual and single contrast images of the esophagus demonstrate a normal caliber and contour. There is normal mucosal appearance. No strictures, masses, or ulcerations are seen. Esophageal peristalsis is moderately disorganized, with extensive tertiary nonpropulsive contractions. No evidence of hiatus hernia identified. No significant gastroesophageal reflux was seen during the course of the examination and on reflux views. Dual contrast and single contrast images of the stomach a demonstrated normal contour. The gastric rugal folds have a thickened appearance, suggestive of gastritis. There are multiple foci of contrast pooling in the body and antrum of the stomach that likely represents small mucosal ulcerations. No masses are seen. Contrast freely passed into the gastric antrum and duodenal bulb without delay. Single and air-contrast images of the duodenal bulb demonstrate no abnormality. The duodenal sweep has a normal appearance, course, and mucosal fold appearance. The imaged proximal jejunum has a normal fold pattern and caliber. FLUOROSCOPY TIME: 4 minutes 2 seconds Number of Spot Images: 8 Number of Cine: 10 DOSE AREA PRODUCT: 1854 uGy-m2 (microgray-meter squared) FL/FL upper GI w air w Ba Swallow IMPRESSION: 1. There is excessive pooling of contrast in the vallecula and piriform sinuses. Silent tracheal aspiration was observed on the fourth swallow. 2. Moderately disorganized esophageal peristalsis. 3. Thickened appearance of the gastric rugal folds. In addition there are multiple small foci of contrast pooling in the body and antrum of the stomach. These findings are suggestive of erosive gastritis. Recommend correlation of EGD. 5. Post surgical changes noted in the neck. This procedure was performed by Martin Benton PA-C, and supervised by Dr. Chen Electronically signed by: Clif Chen MD 09/16/2024 01:33 [place] [facility] [place]
== END 2024-09-16 08:19 | disposition home or self-care (01) ==
LOC: HO.XRAY 08:18
PROVIDERS: PCP Internal Medicine; Visit Provider Internal Medicine
DX: R13.10 Dysphagia, unspecified (principal)
CPT/HCPCS: 74246

== ENCOUNTER → 2024-09-16 08:21 | Outpatient (BNV) | payer MEDICARE, SELFPAY | PROVIDERS: PCP Internal Medicine; Visit Provider Physician Assistant Surgical | DX: R13.10 Dysphagia, unspecified (principal) | CPT/HCPCS: 74246 ==

== ENCOUNTER 2024-09-22 09:00 | Outpatient (AMB) | payer MEDICARE, SELFPAY ==
[2024-09-22 09:07] VITALS: BP 180/80; PULSE 82; BMI 22.8
--- NOTE | 2024-09-22 09:07 | A.OFFVIS_ITS ---
Vital Signs 09/22/24 09:07 Height 5 ft 10 in Weight 158 lb 11.725 oz BMI 22.8 BP 180/80 H Blood Pressure Location Lt brachial Position Sitting Pulse 82 Pulse Source Pulse Oximeter Intake Visit Reasons: 6m follow up Allergies lisinopril Adverse Reaction (Intermediate, Verified 08/14/24 09:44) cough Medication List - Last Reconciled 09/22/24 by Akil Crystal MD albuterol sulfate 90 mcg/actuation 2 puffs inhalation Q6H PRN aspirin 81 mg PO DAILY 90 days atorvastatin 10 mg PO BEDTIME budesonide-formoterol 160-4.5 mcg/actuation (Symbicort) 2 puffs inhalation BID cholecalciferol (vitamin D3) 25 mcg PO DAILY clopidogrel (Plavix) 75 mg PO DAILY cyanocobalamin (vitamin B-12) 1,000 mcg PO DAILY losartan 50 mg PO .q evening metoprolol succinate ER 25 mg PO .evening omeprazole 20 mg PO DAILY PRN sennosides-docusate sodium 8.6-50 mg (Senna Plus) 2 tab-caps (2 x 8.6-50 mg) PO BEDTIME HPI Comments Details: Jose Rafael returns for follow-up. Remote history of atrial fibrillation more than 15 years ago. Brief episode per patient but no recurrences since that time. Otherwise, he also has a history of hypertension, orthostatic hypotension. Orthostatic syncope with increased beta-blockers in the past. Blood pressure is still ongoing issue where he has very high and very low readings but he states he got used to it. Apparently, for the most part the labile nature is not as bad as in the past. It has been as much as 200 mm Hg as well as 60 mm Hg at different times. REPLACED BY [facility] Medical History (Updated 09/16/24 @ 17:51 by Olesya Billingsley MD) Essential hypertension H/O coronary angiogram (~04/2024) Hypotension Screening for prostate cancer Syncope Urinary incontinence Hx of radiation therapy History of chemotherapy Colon cancer screening Hypercholesterolemia Asthma GERD (gastroesophageal reflux disease) Cancer of tonsil Orthostatic hypotension PAF (paroxysmal atrial fibrillation) Surgical History H/O colonoscopy S/P repair of hydrocele History of tonsillectomy Family History Father Dementia Hx of CABG Mother Diabetes Social History Household Members: Spouse Housing: House Do you presently have visiting nurse or other home services: No Alcohol intake: former Patient Tobacco Use Status: Never used Tobacco e-Cigarette/Vaping Use: Never Used Second Hand Smoke Exposure: No service: No Current occupational status: retired Cognitive needs: No Hearing needs: No Vision needs: Yes Review of Systems Const Denies weakness ENT Denies dizziness Card Denies chest pain, Denies chest pain with activity, Denies syncope, Denies rapid heart rate, Denies pedal edema, Denies edema, Denies leg edema, Denies lightheadedness, Denies palpitations, Denies dyspnea, Denies dyspnea on exertion and Denies orthopnea Resp Denies cough, Denies dyspnea and Denies dyspnea on exertion GI Denies hematochezia and Denies change in stool character Musc Denies abnormal gait, Denies muscle cramps, Denies muscle weakness, Denies numbness, Denies radiating pain into limb and Denies tingling Neuro Denies abnormal gait, Denies dizziness, Denies syncope, Denies numbness, Denies tingling and Denies weakness Endo Denies palpitations Physical Exam Vital Signs: Last Vital Signs Pulse 82 09/22/24 09:07 BP 180/80 H 09/22/24 09:07 BMI result Body Mass Index 22.8 Const General: comfortable and no acute distress Orientation/consciousness: patient oriented x3 HEENT Other: Unremarkable Head: Yes normal to inspection Neck Neck: Yes normal visual inspection Chest Chest palpation & inspection: normal inspection of the chest Resp Auscultation: clear to auscultation bilaterally Cardio Palpation: normal PMI Heart sounds: S1 normal heart sound present, S2 normal heart sound present, no gallops, no murmurs and no rubs GI Palpation (GI): Soft to palpation Back/Spine/Pelvis Other: unremarkable Skin General skin exam: no rashes or lesions noted Neuro General: patient oriented x3 Extrem General: Yes normal to inspection Psych Mental Status: mental status grossly normal Assessment & Plan Assessment & Plan (1) Essential hypertension: Code(s): I10 - Essential (primary) hypertension Category: Medical Plan: Very difficult to treat because of labile readings. He has been taking losartan/metoprolol ER in the evenings and no changes with that. He states for the most part it is reasonable and only in rare instances it is extremely labile. Also concurrently seeing Nephrology. Has also been on amlodipine in the past. (2) Orthostatic hypotension: Code(s): I95.1 - Orthostatic hypotension Category: Medical Plan: As discussed above. (3) PAF (paroxysmal atrial fibrillation): Comment: no recurrence Code(s): I48.0 - Paroxysmal atrial fibrillation Category: Medical Plan: PREETI in the past had shown sinus rhythm only with occasional PAC/PVCs but no atrial fibrillation. Echocardiogram with preserved LVEF at 60-65% and otherwise unremarkable. Continue beta-blockers. No need for anticoagulation as there is only 1 episode, based on history which is also remote. Plan Total time spent including review of data, counseling, documentation, coordination of care-32 minutes. Coding Level of Care Code Est Pt Level 4 (82931) Diagnoses Essential hypertension I10 Orthostatic hypotension I95.1 PAF (paroxysmal atrial fibrillation) I48.0
== END 2024-09-22 09:29 | disposition home or self-care (01) ==
PROVIDERS: PCP Internal Medicine; Visit Provider Internal Medicine
DX: I10 Essential (primary) hypertension (principal); I95.1 Orthostatic hypotension; I48.0 Paroxysmal atrial fibrillation
CPT/HCPCS: 99214

== ENCOUNTER → 2024-09-22 09:00 | Outpatient (BNVA) | payer MEDICARE, SELFPAY | PROVIDERS: PCP Internal Medicine; Visit Provider Internal Medicine | DX: I10 Essential (primary) hypertension (principal); I95.1 Orthostatic hypotension; I48.0 Paroxysmal atrial fibrillation | CPT/HCPCS: 99212 ==

== ENCOUNTER 2024-10-17 11:29 | Day surgery (SDC) | payer MEDICARE, SELFPAY ==
[2024-10-15 12:21] VITALS: BMI 22.7
--- NOTE | 2024-10-16 09:42 | P.CONAN_ITS ---
Documented by User: Petra Rincon NP 10/16/24 10:00 HPI - Anesthesia Eval Consult details Narrative: 74yo M for Upper Endoscopy Following [facility] Cards and Renal for labile htn. No IFTIKHAR Remote afib except brief episode 04/2024 - no anticoag Plavix for carotid stenosis PMFSH Active Problems Active Problems: All Active Problems Erosive gastritis (Acute) Dysphagia (Acute) Medicare annual wellness visit, subsequent (Acute) Annual physical exam (Acute) Labile hypertension (Acute) Carotid stenosis (Acute) TIA (transient ischemic attack) (Acute) Left arm weakness (Acute) Anemia (Acute) BPH (benign prostatic hyperplasia) (Acute) Constipation (Acute) Asthma (Acute) Adult general medical exam (Acute) Hypercholesterolemia (Acute) GERD (gastroesophageal reflux disease) (Acute) Orthostatic hypotension (Acute) PAF (paroxysmal atrial fibrillation) (Acute) Past Medical History Medical History (Updated 09/16/24 @ 17:51 by Olesya Billingsley MD) Essential hypertension H/O coronary angiogram (~04/2024) Hypotension Screening for prostate cancer Syncope Urinary incontinence Hx of radiation therapy History of chemotherapy Colon cancer screening Hypercholesterolemia Asthma GERD (gastroesophageal reflux disease) Cancer of tonsil Orthostatic hypotension PAF (paroxysmal atrial fibrillation) Family History Family History Father Dementia Hx of CABG Mother Diabetes Family history of problems with anesthesia: No Surgical History Surgical History H/O colonoscopy S/P repair of hydrocele History of tonsillectomy History of Problems with Anesthesia: No Social History Social History Household Members: Spouse Housing: House Are you a primary critical care registered nurse to a significant other at home: No Do you presently have visiting nurse or other home services: No Alcohol intake: former Patient Tobacco Use Status: Never used Tobacco e-Cigarette/Vaping Use: Never Used Second Hand Smoke Exposure: No Use of substances other than those prescribed or required for medical reasons: No Have you been hit, kicked, punched, or otherwise hurt by someone within the past year? If so, by whom?: No Are you DNR?: No Advance Directives: No Advance Directives Information Provided: Yes Recently lost weight without trying: No Nutrition Risks: No Nutritional Risk Poor oral hygiene: No service: No Current occupational status: retired Cognitive needs: No Hearing needs: No Vision needs: Yes Meds Allergies Allergy/AdvReac Type Severity Reaction Status Date / Time lisinopril AdvReac Intermediate cough Verified 08/14/24 09:44 Home Medications ?Medication ?Instructions ?Recorded ?Confirmed ?Last Taken ?Type cholecalciferol (vitamin D3) 25 25 mcg PO DAILY 09/16/20 10/15/24 Unknown History mcg (1,000 unit) capsule omeprazole 20 mg capsule,delayed 20 mg PO DAILY PRN gerd 04/16/24 10/15/24 Un known History release cyanocobalamin (vitamin B-12) 1,000 mcg PO DAILY 04/28/24 10/15/24 Unknown History 1,000 mcg capsule albuterol sulfate 90 mcg/actuation 2 puff inhalation Q6H PRN 07/02/24 10/15/24 Unknown History aerosol inhaler Shortness Of Breath budesonide-formoterol HFA 160 2 puff inhalation BID 07/02/24 10/15/24 Unknown History mcg-4.5 mcg/actuation aerosol inhaler (Symbicort) Exam Height,Weight and Vital Signs: Height 5 ft 10 in Weight 71.668 kg Pertinent Lab Results Pertinent Lab Results: Laboratory Tests 08/06/24 08:56 WBC 5.1 Hgb 13.5 L Hct 40.5 L Plt Count 203 Sodium 135 Potassium 4.4 Chloride 101 Carbon Dioxide 25 BUN 16 Creatinine 0.86 Narrative Narrative: EKG 04/2024 Vent. Rate : 086 BPM Atrial Rate : 086 BPM P-R Int : 172 ms QRS Dur : 096 ms QT Int : 376 ms P-R-T Axes : 064 005 009 degrees QTc Int : 449 ms Normal sinus rhythm Normal ECG When compared with ECG of 18-MAR-2024 12:43, No significant change was found CT angio head neck stroke 04/2024 IMPRESSION: 1. No evidence of acute intracranial hemorrhage or edematous territorial infarction. Mild underlying microangiopathy. 2. 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 Reconstitution of the left ICA at the carotid bulb. 3. Chronic moderate atherosclerotic narrowings of the V1 and proximal V2 segments of the right vertebral artery. 4. Otherwise, CTA of the head and neck without proximal occlusion or flow-limiting stenosis. 5. Moderate multilevel degenerative spondyloarthropathy of the cervical spine. ECHO 2022 Conclusions: - The left ventricular systolic function is normal. The calculated ejection fraction is 60% by biplane method. - Moderate focal hypertrophy of the basal septum. - No obvious valvular pathology seen on this study. Assessment and Plan Assessment Anesthesia Assessment: Chart Reviewed Final Anesthetic Review Family History of Problems with Anesthesia: No History of Problems with Anesthesia: No Documented by User: Rachel Duggan MD 10/17/24 12:10 [facility] Past Medical History Medical History (Updated 09/16/24 @ 17:51 by Olesya Billingsley MD) Essential hypertension H/O coronary angiogram (~04/2024) Hypotension Screening for prostate cancer Syncope Urinary incontinence Hx of radiation therapy History of chemotherapy Colon cancer screening Hypercholesterolemia Asthma GERD (gastroesophageal reflux disease) Cancer of tonsil Orthostatic hypotension PAF (paroxysmal atrial fibrillation) Family History Family History Father Dementia Hx of CABG Mother Diabetes Surgical History Surgical History H/O colonoscopy S/P repair of hydrocele History of tonsillectomy Social History Social History Household Members: Spouse Housing: House Are you a primary critical care registered nurse to a significant other at home: No Do you presently have visiting nurse or other home services: No Alcohol intake: former Patient Tobacco Use Status: Never used Tobacco e-Cigarette/Vaping Use: Never Used Second Hand Smoke Exposure: No Use of substances other than those prescribed or required for medical reasons: No Have you been hit, kicked, punched, or otherwise hurt by someone within the past year? If so, by whom?: No Are you DNR?: No Advance Directives: No Advance Directives Information Provided: Yes Recently lost weight without trying: No Nutrition Risks: No Nutritional Risk Poor oral hygiene: No service: No Current occupational status: retired Cognitive needs: No Hearing needs: No Vision needs: Yes Meds Allergies Allergy/AdvReac Type Severity Reaction Status Date / Time lisinopril AdvReac Intermediate cough Verified 08/14/24 09:44 Home Medications ?Medication ?Instructions ?Recorded ?Confirmed ?Last Taken ?Type cholecalciferol (vitamin D3) 25 25 mcg PO DAILY 09/16/20 10/15/24 Unknown History mcg (1,000 unit) capsule omeprazole 20 mg capsule,delayed 20 mg PO DAILY PRN gerd 04/16/24 10/15/24 Unknown History release cyanocobalamin (vitamin B-12) 1,000 mcg PO DAILY 04/28/24 10/15/24 Unknown History 1,000 mcg capsule albuterol sulfate 90 mcg/actuation 2 puff inhalation Q6H PRN 07/02/24 10/15/24 Unknown History aerosol inhaler Shortness Of Breath budesonide-formoterol HFA 160 2 puff inhalation BID 07/02/24 10/15/24 Unknown History mcg-4.5 mcg/actuation aerosol inhaler (Symbicort) Exam Airway Mallampati Class: III TM Dist: >3cm Neck ROM: Full Assessment and Plan Assessment Anesthesia Assessment: Anesthesia Plan Discussed Final Anesthetic Review NPO: Yes ASA Class: III Final Preanesthetic Review: No Changes in Pt Med Stat, Meds/Allgs Chart Reviewed, Consent Obtained/Reviewed and Anes Risks/Benef Reviewed Patient Risk: Intermediate Procedure Risk: Low Anesthetic Plan Anesthetic Plan: TIVA Disposition: Standard PACU
[2024-10-17 11:53] VITALS: BP 184/102; PULSE 83; RESP 16; TEMP 36.6; O2SAT 97; BMI 22.5
--- NOTE | 2024-10-17 12:16 | MHC.SHP ---
Pre-Procedural Eval Section A - 24 Hr Update-Section A only Date of Service: 10/17/24 The patient is an INPATIENT: No Changes since office visit: No Cold of Flu in the past 2 weeks, No New Medical Problems, No Changes in Medication and No Patient answered all questions The patient has been examined within 24 hours of the surgical procedure. The History & Physical has been completed within 30 days and I have reviewed it.: Yes Section B - Complete if H&P > 30 days Chief Complaint: Abnormal findings on diagnostic imaging of other p Allergies: Allergies Allergy/AdvReac Type Severity Reaction Status Date / Time lisinopril AdvReac Intermediate cough Verified 08/14/24 09:44 Plan I have reviewed the history and physical and performed a pertinent physical examination on my patient. No changes have occurred unless specified. Time Spent With Patient Time: Total time managing care of this patient today ____ minutes.
[2024-10-17] MEDS: Lactated Ringers 1,000 ML 100 ML IVCONT ×2 (12:18→12:27)
[2024-10-17 12:19] VITALS: BP 184/102; PULSE 83; RESP 16; TEMP 36.6; O2SAT 97
[2024-10-17 12:51] VITALS: BP 99/60; PULSE 72; RESP 16; TEMP 36.6; O2SAT 97
[2024-10-17 13:06] VITALS: BP 114/66; PULSE 81; RESP 16; O2SAT 97
--- NOTE | 2024-10-17 13:10 | OP_ITS ---
DATE OF SERVICE: 10/17/2024 SURGEON: Darshan Swartz MD INDICATIONS: Dysphagia and abnormal barium swallow. PREOPERATIVE DIAGNOSIS: POSTOPERATIVE DIAGNOSIS: PROCEDURE PERFORMED: Upper endoscopy with biopsy. ESTIMATED BLOOD LOSS: COMPLICATIONS: ANESTHESIA: Medications, monitored anesthesia care. ASSISTANTS: SPECIMENS: DESCRIPTION OF PROCEDURE: History and physical performed. The risks and benefits of the procedure were explained to the patient. Informed consent was obtained. The patient was placed in the left lateral decubitus position. The Olympus video gastroscope was introduced into the esophagus, stomach, and duodenum. Examination was performed. The scope was removed. He tolerated the procedure well and was taken to recovery room in stable condition. FINDINGS: Esophagus: The esophagus appeared normal. There was no stricture at the upper esophageal sphincter and the scope easily passed from the hypopharynx into this upper esophagus. There was some telangiectasias on the soft palate and in the back of the hypopharynx consistent with the patient's previous radiation therapy. Stomach: The stomach showed no evidence of masses, ulcers, or polyps. Antral biopsies were obtained to evaluate for H pylori. Duodenum: The bulb and 2nd portion were normal. IMPRESSION: Normal upper endoscopy. RECOMMENDATION: 1. Follow up the biopsy results. 2. If dysphagia persists, referral will be made for a swallowing evaluation with speech therapy. MD HAMZAH Worley/EDWARD / [phone]
[2024-10-17 13:21] VITALS: BP 126/66; PULSE 81; RESP 16; TEMP 36.7; O2SAT 98
== END 2024-10-17 14:45 | disposition home or self-care (01) ==
PROVIDERS: PCP Internal Medicine; Visit Provider Internal Medicine Gastroenterology
PROC: 0DJ08ZZ Inspection of Upper Intestinal Tract, Via Natural or Artificial Opening Endoscopic (ICD-10-PCS; CPT 43235; principal; 2024-10-17 12:30)
DX: R93.3 Abnormal findings on diagnostic imaging of other parts of digestive tract (principal); R13.19 Other dysphagia; Z85.818 Personal history of malignant neoplasm of other sites of lip, oral cavity, and pharynx; Z92.21 Personal history of antineoplastic chemotherapy; Z92.3 Personal history of irradiation; K21.9 Gastro-esophageal reflux disease without esophagitis; I10 Essential (primary) hypertension; I48.0 Paroxysmal atrial fibrillation; E78.5 Hyperlipidemia, unspecified; J45.909 Unspecified asthma, uncomplicated; Z79.899 Other long term (current) drug therapy; Z79.82 Long term (current) use of aspirin; Z79.1 Long term (current) use of non-steroidal anti-inflammatories (NSAID); Z98.890 Other specified postprocedural states
CPT/HCPCS: 43239; 88305; 88342; J2003; J2704

== ENCOUNTER 2024-11-19 09:57 | Outpatient (REF) | payer MEDICARE, OTHER, SELFPAY ==
--- NOTE | ~2024-11-19 | US_ITS ---
EXAMINATION: BILATERAL CAROTID ULTRASOUND WITH DOPPLER HISTORY: I65.22 - Occlusion and stenosis of left carotid artery COMPARISON: Comparison is made with the prior examination dated 02/27/2024. TECHNIQUE: Real time and Color and Spectral doppler ultrasonography of the carotid and vertebral arteries was performed in multiple planes. FINDINGS: There is a moderate amount of plaque in the right carotid bulb and proximal internal carotid artery. There is a large amount of plaque in the left common carotid and proximal internal carotid artery. The left common carotid artery is occluded and there is reversal of flow in the left internal carotid artery. These findings are similar in appearance to the prior study. VERTEBRAL FLOW DIRECTION: Antegrade bilaterally. PEAK SYSTOLIC VELOCITIES (in cm/sec): RIGHT: CCA: Prox: 122 Dist: 226 ICA: Prox: 156 Mid: 127 Dist: 127 ICA/CCA Ratio: 0.56 ECA: 232 Peak ICA EDV: 60 LEFT: CCA: Prox: n/a Dist: n/a ICA: Prox: 20 Mid: 18 Dist: 65 ICA/CCA Ratio: n/a ECA: 230 Peak ICA EDV: 33 US/US carotid duplex BI IMPRESSION: 1. Findings consistent with 50-79% stenosis of the right internal carotid artery by criteria similar to NASCET. 2. The left common carotid artery is occluded without significant stenosis of the internal carotid artery. Electronically signed by: Scotty Stewart MD 11/20/2024 07:16 AM [facility]
== END 2024-11-19 09:58 | disposition home or self-care (01) ==
LOC: HO.US 09:57
PROVIDERS: PCP Internal Medicine; Visit Provider Surgery Vascular Surgery
DX: I65.22 Occlusion and stenosis of left carotid artery (principal)
CPT/HCPCS: 93880

== ENCOUNTER → 2024-11-19 09:59 | Outpatient (BNV) | payer MEDICARE, OTHER, SELFPAY | PROVIDERS: PCP Internal Medicine; Visit Provider Radiology Diagnostic Radiology | DX: I65.22 Occlusion and stenosis of left carotid artery (principal) | CPT/HCPCS: 93880 ==

== ENCOUNTER 2024-11-28 13:41 | Outpatient (REF) | payer MEDICARE, OTHER, SELFPAY ==
[2024-11-28 15:09] LABS: Anion Gap 13 (12-20); Blood Urea Nitrogen 17 mg/dL (9-16); Calcium 9.7 mg/dL (8.4-10.2); Carbon Dioxide 26 mmol/L (22-29); Chloride 101 mmol/L (96-108); Estimated Glomerular Filt Rate > 60; Glucose Random 99 mg/dL (60-115); Potassium 4.5 mmol/L (3.3-5.1); Sodium 135 mmol/L (135-145)
--- OUTSIDE RECORDS SUMMARY | 2024-11-28 15:24 | XMS_ITS ---
Author Organization [facility] Address [address] [place] [address] Care Team Providers Care Strategic Accounts Manager Name Role Phone Po Olesya KIM Primary Care Provider Darshan Hayes Jr REASON FOR VISIT dysphagia,abn barium swallow PROBLEMS Problem Type ICD Code Onset Dates Problem Status W/U Status Risk SNOMED Code Notes Problem Dysphagia (R13.10) Active confirmed Dysphagia (97091222) Encounters Encounter Location Date Provider Diagnosis [facility] [place] Out[place] [address] [place] [id number] 10/17/2024 Darshan Swartz Jr Dysphagia R13.10 and Abnormal barium swallow R93.3 ASSESSMENTS Encounter Date Diagnosis Assessment Notes Treatment Notes Treatment Clinical Notes 10/17/2024 Dysphagia (ICD-10 - R13.10) 10/17/2024 Abnormal barium swallow (ICD-10 - R93.3) PLAN OF TREATMENT Next Appt Details Provider Name:Darshan barrera Jr, 04/13/2025 09:20:00 AM, [address], [address], [place], [address],
--- OUTSIDE RECORDS SUMMARY | 2024-11-28 15:25 | XMS_ITS | Patient Health Record ---
Author Organization [facility] Address [address] [place] [address] Care Team Providers Care Marketing Strategist Name Role Phone Olesya Billingsley MD Primary Care Provider Darshan Hayes Jr Unavailable ALLERGIES No Known Allergies RESULTS Component Value Reference Range Notes Pathology Reviewed date:10/23/2024 09:03:23 AM Interpretation: Performing Lab:[facility], [address] [place] [id number] Notes/Report: REASON FOR REFERRAL No Information MEDICATIONS Medication SIG (Take, Route, Frequency, Duration) Notes Start Date End Date Status Ibuprofen PRN Active Vitamin D Active Vitamin B-12 Active Aspirin Low Dose 81 MG TAKE 1 TABLET BY MOUTH DAILY Oral for 90 Active Clopidogrel Bisulfate 75 MG TAKE 1 TABLE T BY MOUTH DAILY Oral for 90 Active Metoprolol Succinate ER 25 MG TAKE 1 TABLET BY MOUTH IN THE EVENING Oral for 30 Active Losartan Potassium A ctive IMMUNIZATIONS Vaccine Route Administration Date Status Comme nts Influenza Unknown 08/18/2020 Administered Influenza Unknown 09/10/2024 Administered SOCIAL HISTORY Sex Assigned At : Social History Observation Description Sex Assigned At Unknown Alcohol Screen Question Answer Notes Did you have a drink containing alcohol in the p ast year? No Points 0 Interpretation Negative PROBLEMS Problem Type ICD Code Onset Dates Problem Status W/U Status Risk SNOMED Code Notes Problem Colon cancer screening (Z12.11) Active confirmed 335196319 Problem Other dysphagia (R13.19) Active confirmed 14926071 Problem Dysphagia (R13.10) Active confirmed Dys phagia (04624719) Problem Abnormal upper gastrointestinal barium series (R93.3) Active confirmed 285120111 Problem Long-term use of aspirin therapy (Z79.82) Active confirmed 580728671 Problem Irritable bowel syndrome with both constipation and diarrhea (K58.2) Active confirmed 36222135 Problem Encntr long-term NSAID use (Z79.1) Active confirmed 524677989 VITAL SIGNS Temperature 98.7 degrees Fahrenheit 09/24/2024 Blood pressure diastolic 00 mm Hg 09/24/2024 Height 72 in 09/24/2024 Blood pressure systolic 000 mm Hg 09/24/2024 Weight 161 lb 6 oz lbs 09/24/2024 BMI 21.88 kg/m2 09/24/2024 Encounters Encounter Location Date Provider Diagnosis [facility] Outpatient [address] [place], [place] [id number] 10/17/2024 Darshan Swartz Jr Dysphagia R13.10 and Abnormal barium swallow R93.3 [facility] [address] [place] [address] [place] [address] 09/24/2024 Darshan Swartz Jr Abnormal upper gastrointestinal barium series R93.3 ; Other dysphagia R13.19 and Long-term use of aspirin therapy Z79.82 [facility] [address] [facility] [address] [place] [address] 10/23/2024 Darshan Swartz Jr ASSESSMENTS Encounter Date Diagnosis Assessment Notes Treatment Notes Treatment Clinical Notes 10/17/2024 Dysphagia (ICD-10 - R13.10) 10/17/2024 Abnormal barium swal low (ICD-10 - R93.3) 09/24/2024 Other dysphagia (ICD -10 - R13.19) 09/24/2024 Abnormal upper gastrointestinal barium series (ICD-10 - R93.3) Endoscopy material was printed 09/24/2024 Long-term use of aspirin therapy (ICD-10 - Z79.82) PLAN OF TREATMENT Future Test Test Name Order Date COLONOSCOPY 02/09/2021 UPPER GI ENDOSCOPY 09/24/2024 Next Appt Details Provider Name:Darshan barrera Jr, 04/13/2025 09:20:00 AM, [address] [place] [address], [address], [place], [address], Insurance Providers Payer Name Payer Address Payer Phone Subscriber Number Group Number Insured Name Patient Relationship to Insured Coverage Start Date Coverage End Date MEDICARE OF [place] [address] [place] [address] [phone] [id number] Jose Rafael Arellano Self - patient is the insured [facility] [address] [place] [address] [phone] [id number] Jose Rafael Arellano Self - patient is the insured MEDICAL (GENERAL) HISTORY Medical History History ICD Code Hypertension with labile blood pressure Hyperlipidemia Osteoarthritis Asthma Gastroesophageal reflux disease Paroxysmal atrial fibrillation Colonoscopy 02/23, normal, ten-year follo wup Surgical History Surgery Date(Month/Year) Tonsil cancer, status post surgery, chem otherapy, and radiation Hospitalization History Reason Date(Month/Year) Labile blood pressure/transient cerebral ischemia 04/28
--- OUTSIDE RECORDS SUMMARY | 2024-11-28 15:25 | XMS_ITS ---
Author Organization [facility] Address [address] [facility] [address] [place] [address] Care Team Providers Care Skatesman Name Role Phone Po Olesya KIM Primary Care Provider Darshan Hayes Jr REASON FOR VISIT pathology Encounters Encounter Location Date Provider Diagnosis [facility] [address] [place] [address] 10/23/2024 Darshan Swartz Jr PLAN OF TREATMENT Next Appt Details Provider Name:Darshan barrera Jr, 04/13/2025 09:20:00 AM, [address] [place] [address], [address], [place], [address],
--- OUTSIDE RECORDS SUMMARY | 2024-11-28 15:25 | XMS_ITS ---
Author Organization [facility] Address [address] [place] [address] Care Team Providers Care Disc Pad Grinder Name Role Phone Po Olesya KIM Primary Care Provider Darshan Hayes Jr Unavailable ALLERGIES No Known Allergies REASON FOR VISIT Patient presents today for gastritis MEDICATIONS Medication SIG (Take, Route, Frequency, Duration) Notes Start Date End Date Status Ibuprofen PRN Active Aspirin Low Dose 81 MG TAKE 1 TABLET BY MOUTH DAILY Oral for 90 Active Clopidogrel Bisulfate 75 MG TAKE 1 TABLE T BY MOUTH DAILY Oral for 90 Active Metoprolol Succinate ER 25 MG TAKE 1 TABLET BY MOUTH IN THE EVENING Oral for 30 Active Vitamin D Active Vitamin B-12 Active Losartan Potassium A ctive SOCIAL HISTORY Sex Assigned At : Social History Observation Description Sex Assigned At Unknown Alcohol Screen Question Answer Notes Did you have a drink containing alcohol in the p ast year? No Points 0 Interpretation Negative PROBLEMS Problem Type ICD Code Onset Dates Problem Status W/U Status Risk SNOMED Code Notes Problem Abnormal upper gastrointestinal barium series (R93.3) Active confirmed 065825965 Problem Other dysphagia (R13.19) Active confirmed 91206398 Problem Long-term use of aspirin therapy (Z79.82) Active confirmed 258272347 VITAL SIGNS BMI 21.88 kg/m2 09/24/2024 Blood pressure systolic 000 mm Hg 09/24/20 24 Blood pressure diastolic 00 mm Hg 024 Height 72 in 09/24/2024 Temperature 98.7 degrees Fahrenheit 09/24/20 Weight 161 lb 6 oz lbs 09/24/2024 Encounters Encounter Location Date Provider Diagnosis [facility] [address] [place] [address] 09/24/2024 Darshan Swartz Jr Abnormal upper gastrointestinal barium series R93.3 ; Other dysphagia R13.19 and Long-term use of aspirin therapy Z79.82 ASSESSMENTS Encounter Date Diagnosis Assessment Notes Treatment Notes Treatment Clinical Notes 09/24/2024 Abnormal upper gastrointestinal barium series (ICD-10 - R93.3) Endoscopy material was printed 09/24/2024 Other dysphagia (ICD -10 - R13.19) 09/24/2024 Long-term use of aspirin therapy (ICD-10 - Z79.82) PLAN OF TREATMENT Treatment Notes Assessment Notes Abnormal upper gastrointestinal barium s eries Endoscopy material was printed Future Test Test Name Order Date UPPER GI ENDOSCOPY 09/24/2024 Next Appt Details Follow Up: 1 Year, Reason: Provider Name:Darshan barrera Jr, 04/13/2025 09:20:00 AM, [address], [address], [place], [address], Progress Notes * Examination Category Sub-Category Detail Notes General Examination GENERAL APPEARANCE: in no ac manny distress HEAD: normocephalic EYES: sclera non-icteric NECK/THYROID: no lymphadenopathy HEART: S1, S2 normal, no mu rmurs CHEST: normal shape and exp ansion LUNGS: clear to auscultatio n bilaterally ABDOMEN: soft, nontender, non distended, bowel sounds present, no organomegaly SKIN: anicteric EXTREMITIES: no clubbing, cyanosi s, or edema PSYCH: cognitive function i ntact ORAL CAVITY: mucosa moist
== END 2024-11-28 13:42 | disposition home or self-care (01) ==
LOC: HO.LAB 13:41
PROVIDERS: PCP Internal Medicine; Visit Provider Internal Medicine Hypertension Specialist
DX: R09.89 Other specified symptoms and signs involving the circulatory and respiratory systems (principal)
CPT/HCPCS: 36415; 80048

== ENCOUNTER 2024-12-02 09:25 | Outpatient (AMB) | payer MEDICARE, SELFPAY ==
[2024-12-02 09:25] VITALS: BP 130/82; PULSE 127; O2SAT 91; BMI 22.3
--- NOTE | 2024-12-02 09:25 | HO.NEPHOV_ITS ---
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: No Accompanied by: Self / Same As Patient Allergies lisinopril Adverse Reaction (Intermediate, Verified 12/02/24 09:28) cough Medication List - Last Reconciled 12/02/24 by Jourdan Krishnan MD albuterol sulfate 90 mcg/actuation 2 puffs inhalation Q6H PRN aspirin 81 mg PO DAILY 90 days atorvastatin 10 mg PO BEDTIME budesonide-formoterol 160-4.5 mcg/actuation (Symbicort) 2 puffs inhalation BID cholecalciferol (vitamin D3) 25 mcg PO DAILY clopidogrel (Plavix) 75 mg PO DAILY cyanocobalamin (vitamin B-12) 1,000 mcg PO DAILY losartan 50 mg PO QPM metoprolol succinate ER 25 mg PO QPM omeprazole 20 mg PO DAILY PRN sennosides-docusate sodium 8.6-50 mg (Senna Plus) 2 tab-caps (2 x 8.6-50 mg) PO BEDTIME HPI Comments Details: . Jose Rafael is a pleasant 73-year-old man with a history of hypertension for more than 10 years. He has been referred for labile hypertension. Jose Rafael is currently on losartan 50 mg and metoprolol 25 mg daily. He takes amlodipine 10 mg as needed. He is taken about 4 or 5 times this month. There has been a wide fluctuation in his blood pressure. Blood pressure has been as high as 239/130 mm Hg. And the low reading has been as low as 70/50 mm Hg. He has not undergone any workup for hypertension. He has a history of atrial fibrillation. He is on metoprolol for rate control. There is a history of peripheral as disease. He has been followed by Dr. Naidu. There was suspicion for carotid stenosis and is scheduled for an angiogram. He has no history of any kidney disease. No history of smoking. No history of dyslipidemia. He has no history of weight loss. No palpitation. No unexplained sweating. No edema. No urinary symptoms. No polyuria polydipsia. No hematuria. No headaches. No blurred vision. 04/28/2024. Recently hospitalized for rapid AFib. He underwent workup for the hypertension. Plasma renin activity and aldosterone were normal. Catecholamines were also normal. Doppler of the renal arteries did not reveal any renal artery stenosis. There has been wide fluctuation of blood pressure. 06/05/2024. He has been monitoring blood pressure at home BP readings have been rather low. 07/03/24 Doing better;HE started Losartan 50 mg Q PM.Home BP acceptable 12/02/24 Tolerating meds No syncopy NOt using TEDs [facility] Medical History (Updated 09/16/24 @ 17:51 by Olesya Billingsley MD) Essential hypertension H/O coronary angiogram (~04/2024) Hypotension Screening for prostate cancer Syncope Urinary incontinence Hx of radiation therapy History of chemotherapy Colon cancer screening Hypercholesterolemia Asthma GERD (gastroesophageal reflux disease) Cancer of tonsil Orthostatic hypotension PAF (paroxysmal atrial fibrillation) Surgical History (Updated 12/02/24 @ 09:27 by MIKE Cristina) History of endoscopy (~10/2024) H/O colonoscopy S/P repair of hydrocele History of tonsillectomy Family History Father Dementia Hx of CABG Mother Diabetes Social History Household Members: Spouse Housing: House Are you a primary child care sitter to a significant other at home: No Do you presently have visiting nurse or other home services: No Alcohol intake: former Patient Tobacco Use Status: Never used Tobacco e-Cigarette/Vaping Use: Never Used Second Hand Smoke Exposure: No service: No Current occupational status: retired Cognitive needs: No Hearing needs: No Vision needs: Yes Physical Exam Vital Signs: Last Vital Signs Pulse 127 H 12/02/24 09:25 BP 130/82 12/02/24 09:25 Pulse Ox 91 L 12/02/24 09:25 Oxygen Delivery Method Room Air 12/02/24 09:25 BMI result Body Mass Index 22.3 Results Reviewed Nephrology Results: Hgb 13.5 g/dl (14.0-18.0) L 08/06/24 WBC 5.1 X10*3/uL (4.8-10.8) 08/06/24 Plt Count 203 X10*3/uL (160-400) 08/06/24 Sodium 135 mmol/L (135-145) 11/28/24 Potassium 4.5 mmol/L (3.3-5.1) 11/28/24 Chloride 101 mmol/L (96-108) 11/28/24 Carbon Dioxide 26 mmol/L (22-29) 11/28/24 BUN 17 mg/dL (9-16) H 11/28/24 Creatinine 0.81 mg/dL (0.5-1.4) 11/28/24 Calcium 9.7 mg/dL (8.4-10.2) 11/28/24 Assessment & Plan Assessment & Plan (1) Orthostatic hypotension: Code(s): I95.1 - Orthostatic hypotension Category: Medical Plan: As discussed above. (2) PAF (paroxysmal atrial fibrillation): Comment: no recurrence Code(s): I48.0 - Paroxysmal atrial fibrillation Category: Medical Plan: PREETI in the past had shown sinus rhythm only with occasional PAC/PVCs but no atrial fibrillation. Echocardiogram with preserved LVEF at 60-65% and otherwise unremarkable. Continue beta-blockers. No need for anticoagulation as there is only 1 episode, based on history which is also remote. (3) Labile hypertension: Code(s): R09.89 - Other specified symptoms and signs involving the circulatory and respiratory systems Category: Medical Plan . Jose Rafael is a 73-year-old man with a history of labile hypertension. Blood pressure continues to fluctuate. No renal artery stenosis based on renal Doppler. No evidence of hyperaldosteronism based on recent plasma renin activity and aldosterone levels. Pheochromocytoma is also seems unlikely based on recent catecholamines levels. Continue metoprolol 25 mg. Also takes Losartan 50 mg Q PM ( not on med list) Discussed importance of orthostatic precautions. At present renal function stable. He has a history of mild hyponatremia. Encouraged him to limit free water intake for now. Coding Level of Care Code Est Pt Level 4 (07048) Diagnoses Orthostatic hypotension I95.1 PAF (paroxysmal atrial fibrillation) I48.0 Labile hypertension R09.89
[2024-12-02 09:39] VITALS: BP 80/50; PULSE 74
--- OUTSIDE RECORDS SUMMARY | 2024-12-02 09:57 | XMS_ITS ---
Author Organization [facility] Address [address] [place] [address] Care Team Providers Care Sort Manager Name Role Phone Po Olesya KIM Primary Care Provider Darshan Hayes Jr REASON FOR VISIT dysphagia,abn barium swallow PROBLEMS Problem Type ICD Code Onset Dates Problem Status W/U Status Risk SNOMED Code Notes Problem Dysphagia (R13.10) Active confirmed Dysphagia (36035366) Encounters Encounter Location Date Provider Diagnosis [facility] Outpatient [address] [place] [phone] 10/17/2024 Darshan Swartz Jr Dysphagia R13.10 and Abnormal barium swallow R93.3 ASSESSMENTS Encounter Date Diagnosis Assessment Notes Treatment Notes Treatment Clinical Notes 10/17/2024 Dysphagia (ICD-10 - R13.10) 10/17/2024 Abnormal barium swallow (ICD-10 - R93.3) PLAN OF TREATMENT Next Appt Details Provider Name:Darshan barrera Jr, 04/13/2025 09:20:00 AM, [address] [facility], [address], [place], [address],
--- OUTSIDE RECORDS SUMMARY | 2024-12-02 09:57 | XMS_ITS | Patient Health Record ---
Author Organization [facility] Address [address] [place] [address] Care Team Providers Care Backup Operator Name Role Phone Olesya Billingsley MD Primary Care Provider Darshan Hayes Jr Unavailable ALLERGIES No Known Allergies RESULTS Component Value Reference Range Notes Pathology Reviewed date:10/23/2024 09:03:23 AM Interpretation: Performing Lab:[facility], [address] [place] [phone] Notes/Report: REASON FOR REFERRAL No Information MEDICATIONS [...] Problem Colon cancer screening (Z12.11) Active confirmed 057901066 Problem Other dysphagia (R13.19) Active confirmed 57068197 Problem Dysphagia (R13.10) Active confirmed Dys phagia (95003332) Problem Abnormal upper gastrointestinal barium series (R93.3) Active confirmed 240656055 Problem Long-term use of aspirin therapy (Z79.82) Active confirmed 907503678 Problem Irritable bowel syndrome with both constipation and diarrhea (K58.2) Active confirmed 07160863 Problem Encntr long-term NSAID use (Z79.1) Active confirmed 007343527 VITAL SIGNS Temperature 98.7 degrees Fahrenheit 09/24/2024 Blood pressure diastolic 00 mm Hg 09/24/2024 Height 72 in 09/24/2024 Blood pressure systolic 000 mm Hg 09/24/2024 Weight 161 lb 6 oz lbs 09/24/2024 BMI 21.88 kg/m2 09/24/2024 Encounters Encounter Location Date Provider Diagnosis [facility] Out[place] [address] [place], [place] [phone] 10/17/2024 Darshan Swartz Jr Dysphagia R13.10 and Abnormal barium swallow R93.3 [facility] [address] [place] [address] [place] [phone] 09/24/2024 Darshan Swartz Jr Abnormal upper gastrointestinal barium series R93.3 ; Other dysphagia R13.19 and Long-term use of aspirin therapy Z79.82 [facility] [address] [facility] [address] [place] [phone] 10/23/2024 Darshan Swartz Jr ASSESSMENTS Encounter Date [...] Provider Name:Darshan barrera Jr, 04/13/2025 09:20:00 AM, [address] [place] [address], [address], [place], [address], Insurance Providers Payer Name Payer Address Payer Phone Subscriber Number Group Number Insured Name Patient Relationship to Insured Coverage Start Date Coverage End Date MEDICARE OF [place] [address] [place] [address] [id number] Jose Rafael Arellano Self - patient is the insured [facility] [address] [place] [address] [phone] [id number] Jose Rafael Arellano Self - patient is [...]
--- OUTSIDE RECORDS SUMMARY | 2024-12-02 09:58 | XMS_ITS ---
Author Organization [facility] Address [address] [place] [address] Care Team Providers Care Math Teacher Name Role Phone Po Olesya KIM Primary [...] upper gastrointestinal barium series (R93.3) Active confirmed 280880218 Problem Other dysphagia (R13.19) Active confirmed 51517213 Problem Long-term use of aspirin therapy (Z79.82) Active confirmed 415377974 VITAL SIGNS BMI 21.88 kg/m2 09/24/2024 Blood pressure systolic 000 mm Hg 09/24/20 24 Blood pressure diastolic 00 mm Hg 024 Height 72 in 09/24/2024 Temperature 98.7 degrees Fahrenheit 09/24/20 24 Weight 161 lb 6 oz lbs 09/24/2024 Encounters Encounter Location Date Provider Diagnosis [facility] [address] [place] [address] 09/24/2024 Darshan Swartz Jr Abnormal upper gastrointestinal [...] 09:20:00 AM, [address], [address], [place], [address], Progress Notes * Examination Category Sub-Category Detail [...]
--- OUTSIDE RECORDS SUMMARY | 2024-12-02 09:58 | XMS_ITS ---
Author Organization [facility] Address [address] [facility] [address] [place] [address] Care Team Providers Care Review Analyst Name Role Phone Po Olesya KIM Primary Care Provider Darshan Hayes Jr REASON FOR VISIT pathology Encounters Encounter Location Date Provider Diagnosis [facility] [address] [place] [address] 10/23/2024 Darshan Swartz Jr PLAN OF TREATMENT Next Appt Details Provider Name:Darshan barrera Jr, 04/13/2025 09:20:00 AM, [address] [place] [address], [address], [place], [address],
== END 2024-12-02 09:44 | disposition home or self-care (01) ==
PROVIDERS: PCP Internal Medicine; Visit Provider Internal Medicine Hypertension Specialist
DX: I95.1 Orthostatic hypotension (principal); I48.0 Paroxysmal atrial fibrillation; R09.89 Other specified symptoms and signs involving the circulatory and respiratory systems
CPT/HCPCS: 99214

== ENCOUNTER → 2024-12-02 09:25 | Outpatient (BNVA) | payer MEDICARE, SELFPAY | PROVIDERS: PCP Internal Medicine; Visit Provider Internal Medicine Hypertension Specialist | DX: I10 Essential (primary) hypertension (principal); I95.1 Orthostatic hypotension; I48.0 Paroxysmal atrial fibrillation; R09.89 Other specified symptoms and signs involving the circulatory and respiratory systems; Z79.899 Other long term (current) drug therapy | CPT/HCPCS: 99212 ==

== ENCOUNTER → 2024-12-09 08:54 | Outpatient (BNVA) | payer MEDICARE, OTHER, SELFPAY | PROVIDERS: PCP Internal Medicine; Visit Provider Surgery Vascular Surgery | DX: I65.22 Occlusion and stenosis of left carotid artery (principal); R55 Syncope and collapse | CPT/HCPCS: 99212 ==

== ENCOUNTER 2025-01-05 09:40 | Outpatient (AMB) | payer MEDICARE, SELFPAY ==
[2025-01-05 09:47] VITALS: BP 134/62; PULSE 67; O2SAT 95; BMI 22.6
--- NOTE | 2025-01-05 09:47 | A.OFFPC_ITS ---
Vital Signs 01/05/25 09:47 Height 5 ft 10.5 in Weight 160 lb BMI 22.6 BP 134/62 Blood Pressure Location Lt brachial Position Sitting Pulse 67 Pulse Source Pulse Oximeter Pulse Oximetry (%) 95 Oxygen Delivery Method Room Air Intake Visit Reasons: 6 Months F/U Allergies Seasonal Allergies Allergy (Mild, Verified 01/05/25 09:47) Nasal congestion lisinopril Adverse Reaction (Intermediate, Verified 01/05/25 09:47) cough Tobacco use date assessed: 01/05/25 Fall risk assessment: 1 Fall in past year (Trip over a rug about 1 week ago. Br uise is fading on right side of face. ) Last assessed Fall Risk: 01/05/25 Dental Screening Dental Screen Date: 01/05/25 Did you have a dental visit in the last 12 months?: Yes Did you have a dental problem in the last 6 months where you did not have access to dental care?: No Was dental information given to patient?: Patient has dentist HPI 6 Months F/U HPI Details tripped on a rug last week had hematoma R side of the face [facility] Medical History (Updated 01/05/25 @ 10:07 by Olesya Billingsley MD) Syncope Essential hypertension H/O coronary angiogram (~04/2024) Hypotension Screening for prostate cancer Urinary incontinence Hx of radiation therapy History of chemotherapy Colon cancer screening Hypercholesterolemia Asthma GERD (gastroesophageal reflux disease) Cancer of tonsil Orthostatic hypotension PAF (paroxysmal atrial fibrillation) Surgical History History of endoscopy (~10/2024) H/O colonoscopy S/P repair of hydrocele History of tonsillectomy Family History Father Dementia Hx of CABG Mother Diabetes Social History Household Members: Spouse Housing: House Are you a primary care companion to a significant other at home: No Do you presently have visiting nurse or other home services: No Alcohol intake: former Patient Tobacco Use Status: Never used Tobacco Tobacco use type: Cigarette e-Cigarette/Vaping Use: Never Used Second Hand Smoke Exposure: No service: No Current occupational status: retired Cognitive needs: No Hearing needs: No Vision needs: Yes Questionnaire PHQ-9 Over the last 2 weeks, how often have you been bothered by any of the following problems? 1. Little interest or pleasure in doing things: not at all 2. Feeling down, depressed, or hopeless: not at all 3. Trouble falling or staying asleep, or sleeping too much: not at all 4. Feeling tired or having little energy: not at all 5. Poor appetite or overeating: not at all 6. Feeling bad about yourself - or that you are a failure or have let yourself or your family down: not at all 7. Trouble concentrating on things, such as reading the newspaper or watching television: not at all 8. Moving or speaking so slowly that other people could have noticed. Or the opposite - being so fidgety or restless that you have been moving around a lot more than usual: not at all 9. Thoughts that you would be better off or of hurting yourself in some way: not at all Total score: 0 Depression Screening Interpretation: Negative Depression Screening Done: Yes 16035 - PHQ-9 Billing: Yes Source: Developed by Drs. Scotty Jessica, Liliam Shaw, Deangelo Carvalho and colleagues, with an educational juan miguel from [employer]. Thrive Questionnaire Date Thrive assessed: 01/05/25 I am a: Patient What is your living situation today?: I have a steady place to live Within the past 12 months, did the food you bought not last and you didn't have the money to get more?: Never true Within the past 12 months, did you worry whether your food would run out before you got money to buy more?: Never true Do you have trouble paying for medicines?: No Do you have trouble getting transportation to medical appointments?: No Do you have trouble paying your heating and electricity bill?: No Do you have trouble taking care of your child, family member or friend?: No Do you have trouble with day-to-day activities such as bathing, preparing meals, shopping, managing finances, etc.?: No Are you currently unemployed and looking for a job?: No Are you interested in more education?: No Currently or been in a relationship where the following occur: No concerns reported THRIVE Score: 0 AUDIT C Alcohol Use Questionnaire (AUDIT-C) 3. How often do you have six or more drinks on one occasion?: Never Total Score: 0 LUZ ELENA-7 AMB Questionnaire LUZ ELENA-7 Date LUZ ELENA - 7 assessed: 01/05/25 Feeling nervous, anxious, or on edge: 0 = Not at all Not being able to stop or control worryin = Not at all Worrying too much about different things: 0 = Not at all Trouble relaxin = Not at all Being so restless that it is hard to sit still: 0 = Not at all Becoming easily annoyed or irritable: 0 = Not at all Feeling afraid as if something awful might happen: 0 = Not at all Total LUZ ELENA-7 score (0-4 normal; 5-9 mild; 10-14 moderate; 15-21 severe): 0 Source: Developed by Drs. Scotty Jessica, Liliam Shaw, Deangelo Carvalho and colleagues, with an educational juan miguel from [employer]. LUZ ELENA-7 Assessment Billing LUZ ELENA-7 Assessment Tool: LUZ ELENA-7 Assessment 21794 Physical exam (Primary Care) Vital Signs: Last Vital Signs Pulse 67 01/05/25 09:47 BP 134/62 01/05/25 09:47 Pulse Ox 95 01/05/25 09:47 Oxygen Delivery Method Room Air 01/05/25 09:47 BMI result Body Mass Index 22.6 Tobacco/Smoking Status: Tobacco use Status Tobacco use date assessed 01/05/25 01/05/25 09:56 Patient Tobacco Use Status Never used Tobacco 01/05/25 09:56 Tobacco use type Cigarette 01/05/25 09:56 e-Cigarette/Vaping Use Never Used 01/05/25 09:56 PHQ-9: PHQ-9 Score PHQ-9: Total score 0 01/05/25 10:08 Depression Screening Interpretation: Negative Thrive Assessment: Date of Thrive Assessment Date Thrive assessed 01/05/25 01/05/25 09:56 Currently or been in a relationship where the following occur: No concerns reported Const General: alert; No acute distress Eyes Conjunctivae: conjunctivae normal Resp Auscultation: clear to auscultation bilaterally Cardio Rate: regular rate Rhythm: regular rhythm GI Inspection: Yes normal to inspection Extrem General: Yes normal to inspection and No edema Coding Level of Care Code Est Pt Level 4 (23694) Complex EM visit Add On G2211 Diagnoses Syncope, unspecified syncope type R55 Syncope type: unspecified Labile hypertension R09.89 Benign prostatic hyperplasia with urinary frequency N40.1; R35.0 Lower urinary tract symptom detail: urinary frequency Lower urinary tract symptom presence: symptoms present Mild intermittent asthma without complication J45.20 Asthma complication type: uncomplicated Asthma persistence: intermittent Asthma severity: mild Hypercholesterolemia E78.00 Gastroesophageal reflux disease without esophagitis K21.9 Esophagitis presence: without esophagitis Additional Codes LUZ ELENA-7 Assessment Billing - LUZ ELENA-7 Assessment Tool: LUZ ELENA-7 Assessment 53889 ([id number]) PHQ-9 - 01647 - PHQ-9 Billing: Yes ([id number]) Assessment & Plan Assessment & Plan (1) Syncope: Code(s): R55 - Syncope and collapse Category: Medical Qualifiers: Syncope type: unspecified Qualified Code(s): R55 - Syncope and collapse Plan: Patient during testing developed 1 of the symptoms question of seizures patient has been referred to Neurology (2) Labile hypertension: Code(s): R09.89 - Other specified symptoms and signs involving the circulatory and respiratory systems Category: Medical Plan: Patient is being followed up by Nephrology on losartan 50 mg once a day metoprolol 25 mg once a day. (3) BPH (benign prostatic hyperplasia): Code(s): N40.0 - Benign prostatic hyperplasia without lower urinary tract symptoms Category: Medical Qualifiers: Lower urinary tract symptom detail: urinary frequency Lower urinary tract symptom presence: symptoms present Qualified Code(s): N40.1 - Benign prostatic hyperplasia with lower urinary tract symptoms; R35.0 - Frequency of micturition Plan: Stable (4) Asthma: Code(s): J45.909 - Unspecified asthma, uncomplicated Category: Medical Qualifiers: Asthma complication type: uncomplicated Asthma persistence: intermittent Asthma severity: mild Qualified Code(s): J45.20 - Mild intermittent asthma, uncomplicated Plan: On albuterol inhaler and Symbicort (5) Hypercholesterolemia: Code(s): E78.00 - Pure hypercholesterolemia, unspecified Category: Medical Plan: Avoid fried foods, chicken skin, eggs, butter margarine, pastries and meat. Be it pork or beef they have a lot of cholesterol LDL done in 08/24/2024 (6) GERD (gastroesophageal reflux disease): Code(s): K21.9 - Gastro-esophageal reflux disease without esophagitis Category: Medical Qualifiers: Esophagitis presence: without esophagitis Qualified Code(s): K21.9 - Gastro-esophageal reflux disease without esophagitis Plan: Avoid the foods that causes that usually spicy foods, tomato products, juices, c offee, soda and foods that your sensitive to. After eating do not lie down, allow 3-4 hours before in lie down. And keep the head of bed above 30 degrees to avoid the acid from going up. Plan History of Present Illness The patient is a 74-year-old male presenting with a follow-up focus on labile hypertension and recent episodes suggesting seizures. He has a complex medical background with atrial fibrillation, GERD, hypercholesterolemia, BPH, asthma, and erosive gastritis. Atrial fibrillation monitoring in August 2024 showed no recurrence. Recent upper endoscopy showed no significant findings, and cholesterol was well managed as of August 2024. His labile hypertension was evaluated with a carotid angiogram last seen normal. Neurology referral was made following an episode with blank stares suggestive of seizure activity. The patient continues on metoprolol and losartan for cardiovascular management. Health Maintenance - Surveillance colonoscopy last completed in February 2021. - EGD performed in October 2024. - Regular monitoring of blood cholesterol and blood pressure. - Current medications: Losartan 50 mg once daily, Metoprolol 25 mg once daily, and stable on Albuterol inhaler. Social History Review of Systems - Neurological: Reports a recent episode suggestive of seizure activity, including blank stares. - Cardiovascular: Denies recent episodes of atrial fibrillation. - Gastrointestinal: Denies problems with swallowing. Physical Exam Results - Labs: Last blood work in August showing mild anemia (Hemoglobin 13.5) and normal electrolytes. - Cholesterol screening in August 2024 showed LDL of 76 mg/dL. - Upper Endoscopy (EGD) in October 2024 showed normal findings. - Imaging: Carotid angiogram normal. Plan To address the recent episode suggestive of seizure activity, an EEG is planned to investigate potential neurological issues. Atrial fibrillation management will continue as there has been no recurrence, and there is no need for anticoagulation therapy at present. Cardiovascular stability will be assured with continued use of losartan and metoprolol. Neurological and nephrology follow-ups will be imperative. The current medication regimen is effectively managing the patient's cholesterol levels. Asthma remains stable on current inhalation therapy. Patient was informed and verbally consented to the use of an ambient scribe for clinic note documentation during this visit. Discussion Notes During today's visit, the patient and I reviewed the recent episode of blank stares, indicative of possible seizure activity, necessitating an EEG. We discussed the normal angiogram results and the significance of continuing cardiovascular therapy. I outlined the treatment efficacy of the current regimen and reassured the patient of the absence of atrial fibrillation requiring anticoagulation. We discussed maintaining current lifestyle adaptations for managing asthma and cardiovascular health, emphasizing medication adherence. The patient was informed about and agreed to further neurologic evaluation and the importance of follow-up appointments, including with nephrology. Patient Instructions - Continue taking Losartan 50 mg daily and Metoprolol 25 mg daily as prescribed. - Keep using Albuterol inhaler as needed for asthma management. - Schedule and undergo the recommended EEG for further evaluation of potential seizure activity. - Maintain current diet and medication to manage cholesterol levels. - Follow up with neurology as scheduled. - Notify the office immediately if there are any changes in symptoms or new concerns. Orders: Orders EEG ambulatory Today R55 - Syncope and collapse Referrals Neurology Referral R55 - Syncope and collapse, R56.9 - Unspecified convulsions Medications: Refilled atorvastatin 10 mg PO BEDTIME 90 tabs 1RF R55 - Syncope and collapse
--- OUTSIDE RECORDS SUMMARY | 2025-01-05 10:44 | XMS_ITS | Patient Health Record ---
Author Organization [facility] Address [address] [place] [address] Care Team Providers Care Refractory Tile Helper Name Role Phone Olesya Billingsley MD Primary Care Provider Darshan Hayes Jr Unavailable ALLERGIES No Known Allergies RESULTS Component Value Reference Range Notes Pathology Reviewed date:10/23/2024 09:03:23 AM Interpretation: Performing Lab:[facility], [address] [place] [id number] Notes/Report: REASON FOR REFERRAL No Information MEDICATIONS [...] Problem Colon cancer screening (Z12.11) Active confirmed 644557904 Problem Other dysphagia (R13.19) Active confirmed 93754146 Problem Dysphagia (R13.10) Active confirmed Dys phagia (96915002) Problem Abnormal upper gastrointestinal barium series (R93.3) Active confirmed 254338656 Problem Long-term use of aspirin therapy (Z79.82) Active confirmed 691224177 Problem Irritable bowel syndrome with both constipation and diarrhea (K58.2) Active confirmed 68927244 Problem Encntr long-term NSAID use (Z79.1) Active confirmed 140704245 VITAL SIGNS Temperature 98.7 degrees Fahrenheit 09/24/2024 Blood pressure diastolic 00 mm Hg 09/24/2024 Height 72 in 09/24/2024 Blood pressure systolic 000 mm Hg 09/24/2024 Weight 161 lb 6 oz lbs 09/24/2024 BMI 21.88 kg/m2 09/24/2024 Encounters Encounter Location Date Provider Diagnosis [facility] [address] [address] [place], [place] [id number] 10/17/2024 Darshan Swartz Jr Dysphagia R13.10 and Abnormal barium swallow R93.3 [facility] [address] [place] [address] [place] [id number] 09/24/2024 Darshan Swartz Jr Abnormal upper gastrointestinal barium series R93.3 ; Other dysphagia R13.19 and Long-term use of aspirin therapy Z79.82 [facility] [address] [facility] [address] [place] [phone] 10/23/2024 Darshan Swartz Jr ASSESSMENTS Encounter Date [...] Provider Name:Darshan barrera Jr, 04/13/2025 09:20:00 AM, [address] [place] [address], [address], [place], [address], Insurance Providers Payer Name Payer Address Payer Phone Subscriber Number Group Number Insured Name Patient Relationship to Insured Coverage Start Date Coverage End Date [employer] [place] [address] [place] [address] [phone] [id number] Jose Rafael Arellano Self - patient is the insured [facility] [address] [place] [id number] [phone] [id number] Jose Rafael Arellano Self - patient is [...]
--- OUTSIDE RECORDS SUMMARY | 2025-01-05 10:44 | XMS_ITS ---
Author Organization [facility] Address [address] [place] [address] Care Team Providers Care Cloth Hauler Name Role Phone Po Olesya KIM Primary Care Provider Darshan Hayes Jr REASON FOR VISIT pathology Encounters Encounter Location Date Provider Diagnosis [facility] [address] [place] [address] 10/23/2024 Darshan Swartz Jr PLAN OF TREATMENT Next Appt Details Provider Name:Darshan barrera Jr, 04/13/2025 09:20:00 AM, [address] [place] [address], [address], [place], [address],
--- OUTSIDE RECORDS SUMMARY | 2025-01-05 10:44 | XMS_ITS ---
Author Organization [facility] Address [address] [place] [address] Care Team Providers Care Case Management Coordinator Name Role Phone Po Olesya KIM Primary Care Provider Darshan Hayes Jr REASON FOR VISIT dysphagia,abn barium swallow PROBLEMS Problem Type ICD Code Onset Dates Problem Status W/U Status Risk SNOMED Code Notes Problem Dysphagia (R13.10) Active confirmed Dysphagia (22175731) Encounters Encounter Location Date Provider Diagnosis [facility] Outpatient [address] [place] [phone] 10/17/2024 Darshan Swartz Jr Dysphagia R13.10 and Abnormal barium swallow R93.3 ASSESSMENTS Encounter Date Diagnosis Assessment Notes Treatment Notes Treatment Clinical Notes 10/17/2024 Dysphagia (ICD-10 - R13.10) 10/17/2024 Abnormal barium swallow (ICD-10 - R93.3) PLAN OF TREATMENT Next Appt Details Provider Name:Darshan barrera Jr, 04/13/2025 09:20:00 AM, [address], [address], [place], [address],
--- OUTSIDE RECORDS SUMMARY | 2025-01-05 10:45 | XMS_ITS ---
Author Organization [facility] Address [address] [place] [address] Care Team Providers Care Environmental Programs Manager Name Role Phone Po Olesya KIM [...] upper gastrointestinal barium series (R93.3) Active confirmed 163903908 Problem Other dysphagia (R13.19) Active confirmed 06587815 Problem Long-term use of aspirin therapy (Z79.82) Active confirmed 574717091 VITAL SIGNS Temperature 98.7 degrees Fahrenheit 09/24/20 24 Blood pressure systolic 000 mm Hg 09/24/20 24 Blood pressure diastolic 00 mm Hg 024 Height 72 in 09/24/2024 Weight 161 lb 6 oz lbs 09/24/2024 BMI 21.88 kg/m2 09/24/2024 Encounters Encounter Location Date Provider Diagnosis [facility] [address] [place] [address] 09/24/2024 Darshan Swartz Jr Abnormal upper gastrointestinal [...] 09:20:00 AM, [address], [address], [place], [address], Progress Notes * Examination Category Sub-Category Detail Notes General Examination GENERAL APPEARANCE: in no ac [place] distress HEAD: normocephalic EYES: sclera non-icteric NECK/THYROID: no lymphadenopathy HEART: S1, S2 normal, no mu rmurs CHEST: normal shape and exp ansion LUNGS: clear to auscultatio n bilaterally ABDOMEN: soft, nontender, non distended, bowel sounds present, no organomegaly SKIN: anicteric EXTREMITIES: no clubbing, cyanosi s, or edema PSYCH: cognitive function i ntact ORAL CAVITY: mucosa moist
== END 2025-01-05 10:27 | disposition home or self-care (01) ==
PROVIDERS: PCP Internal Medicine; Visit Provider Internal Medicine
DX: R55 Syncope and collapse (principal); R09.89 Other specified symptoms and signs involving the circulatory and respiratory systems; N40.1 Benign prostatic hyperplasia with lower urinary tract symptoms; R35.0 Frequency of micturition; J45.20 Mild intermittent asthma, uncomplicated; E78.00 Pure hypercholesterolemia, unspecified; K21.9 Gastro-esophageal reflux disease without esophagitis

== ENCOUNTER → 2025-01-05 09:40 | Outpatient (BNVA) | payer MEDICARE, SELFPAY | PROVIDERS: PCP Internal Medicine; Visit Provider Internal Medicine | DX: R55 Syncope and collapse (principal); R09.89 Other specified symptoms and signs involving the circulatory and respiratory systems; N40.1 Benign prostatic hyperplasia with lower urinary tract symptoms; R35.0 Frequency of micturition; J45.20 Mild intermittent asthma, uncomplicated; E78.00 Pure hypercholesterolemia, unspecified; K21.9 Gastro-esophageal reflux disease without esophagitis | CPT/HCPCS: 96127; 99212 ==

== ENCOUNTER 2025-01-13 13:52 | Outpatient (AMB) | payer MEDICARE, OTHER, SELFPAY ==
[2025-01-13 13:57] VITALS: BP 132/94; PULSE 79; O2SAT 96; BMI 22.6
--- NOTE | 2025-01-13 13:57 | A.OFFVIS_ITS ---
Vital Signs 01/13/25 13:57 Height 5 ft 10.5 in Weight 160 lb BMI 22.6 BP 132/94 H Blood Pressure Location Rt brachial Position Sitting Pulse 79 Pulse Source Pulse Oximeter Pulse Oximetry (%) 96 Oxygen Delivery Method Room Air Intake Visit Reasons: INP-Syncope & Collapse Intake Note: Patient inhouse referred by Dr. Billingsley for seizure like episodes and syncope Allergies Seasonal Allergies Allergy (Mild, Verified 01/13/25 13:59) Nasal congestion lisinopril Adverse Reaction (Intermediate, Verified 01/13/25 13:59) cough Medication List - Last Reconciled 01/13/25 by Kiley Krishnan MD albuterol sulfate 90 mcg/actuation 2 puffs inhalation Q6H PRN aspirin 81 mg PO DAILY 90 days atorvastatin 10 mg PO BEDTIME budesonide-formoterol 160-4.5 mcg/actuation (Symbicort) 2 puffs inhalation BID cholecalciferol (vitamin D3) 25 mcg PO DAILY cyanocobalamin (vitamin B-12) 1,000 mcg PO DAILY losartan 50 mg PO QPM metoprolol succinate ER 25 mg PO QPM omeprazole 20 mg PO DAILY PRN sennosides-docusate sodium 8.6-50 mg (Senna Plus) 2 tab-caps (2 x 8.6-50 mg) PO BEDTIME HPI Comments Details: 74y/o Right handed male comes for evaluation of staring episodes. He has h/o labile HTN and also carotid stenosis followed up by Dr. Naidu. During his carotid angiogram on April 2024 he became severely hypotensive , needing admission , He was unresponsive and confused transiently . He is here along for his visit today and was not able to provide enough history . According to to Dr. Mitchell notes his reports multiple brief staring episodes - says almost everyday.No other clear history was obtainable . He has labile hypertension managed by residential monitor. He reports short term recall issues, misplacing things etc. He drives good . He had a recent fall when he tripped over a rug , no other major head injuries. He reports orthostatic dizziness. He is not clear if he has ever passed out. When his BP drops he notices blurry vision in his left eye first . [facility] Medical History Syncope Essential hypertension H/O coronary angiogram (~04/2024) Hypotension Screening for prostate cancer Urinary incontinence Hx of radiation therapy History of chemotherapy Colon cancer screening Hypercholesterolemia Asthma GERD (gastroesophageal reflux disease) Cancer of tonsil Orthostatic hypotension PAF (paroxysmal atrial fibrillation) Surgical History History of endoscopy (~10/2024) H/O colonoscopy S/P repair of hydrocele History of tonsillectomy Family History Father Dementia Hx of CABG Mother Diabetes Social History Household Members: Spouse Housing: House Are you a primary hospice care sales consultant to a significant other at home: No Do you presently have visiting nurse or other home services: No Alcohol intake: former Patient Tobacco Use Status: Never used Tobacco Tobacco use type: Cigarette e-Cigarette/Vaping Use: Never Used Second Hand Smoke Exposure: No service: No Current occupational status: retired Cognitive needs: No Hearing needs: No Vision needs: Yes Physical Exam Vital Signs: Last Vital Signs Pulse 79 01/13/25 13:57 BP 132/94 H 01/13/25 13:57 Pulse Ox 96 01/13/25 13:57 Oxygen Delivery Method Room Air 01/13/25 13:57 BMI result Body Mass Index 22.6 Const General: cooperative and comfortable Nutritional Appearance: average body habitus Orientation/consciousness: patient oriented x3 Eyes Pupils: Equal, round and reactive pupils present Neuro General: patient oriented x3, gait normal, tone normal, moves all extremities and no focal motor deficits Cranial nerves: Yes Equal, round and reactive pupils present, Yes Bilaterally intact EOM present, Yes Nystagmus not present, Yes Normal facial strength present, Yes Midline tongue present, Yes Symmetric palate elevation present and Yes Ability to bilaterally elevate shoulders present Cognition (Neuro): normal cognition Gait exam (Neuro): Normal gait present Deep tendon reflexes (DTR's): Right triceps reflex intensity grade: 1+, Left triceps reflex intensity grade: 1+, Rt Biceps (C5, C6): 1+, Left biceps reflex intensity grade: 1+, Right brachioradialis reflex intensity grade: 1+, Left brachioradialis reflex intensity grade: 1+, Right patellar reflex intensity grade: 1+ and Left patellar reflex intensity grade: 1+ Coordination: [id number] test normal Orientation What is the (year) (season) (date) (day) (month)?: year, season, date, day and month Where are we (state) (county) (town or city) (hospital) (floor)?: state, county, town or city, hospital/clinic and floor Registration Name of 3 unrelated objects clearly and slowly, then ask patient to repeat all 3 of them. (1st repeat determines score. Make sure they can repeat all three): object 1, object 2 and object 3 Attention & Calculation (CHOOSE ONE) Spell WORLD backwards (DLROW): 5 letters Recall Ask patient to repeat the 3 items from question #3.: object 1 and object 2 Language Show patient a wristwatch & ask what it is. Repeat for pencil.: watch and pencil Ask the patient to repeat the phrase 'No ifs, ands, or buts' after you.: correct Ask the patient to 'take a piece of paper with their right hand' 'fold paper in half' 'place paper on floor': take paper in right hand, fold paper in half and place paper on floor Print the sentence 'CLOSE YOUR EYES' on a piece. If patient actually closes eyes then score.: followed written direction Give patient a blank piece of paper & ask to write a sentence. Score if it contains a noun & verb.: sentence contains subject and verb Ask patient to copy figure of intersecting pentagons exactly. Score if all 10 angles & 2 intersects are included.: all 10 angles present & 2 are intersected Score Score: 29 Assessment & Plan Assessment & Plan (1) Episodes of staring: Comment: ? seizures vs syncope due to low BP Code(s): R40.4 - Transient alteration of awareness Category: Medical (2) Syncope: Code(s): R55 - Syncope and collapse Category: Medical Qualifiers: Syncope type: unspecified Qualified Code(s): R55 - Syncope and collapse Plan I was unable to get a good history or details of the described episodes from the patient The information was obtained from Dr. Billingsley and Dr. Mitchell notes. I will evaluate him with MRI brain and EEG Orders: Orders EEG electroencephalogram Today R40.4 - Transient alteration of awareness, R55 - Syncope and collapse MR head/brain wo con Today R40.4 - Transient alteration of awareness Coding Level of Care Code New Pt Level 4 (28237) Complex EM visit Add On G2211 Diagnoses Episodes of staring R40.4 Syncope, unspecified syncope type R55 Syncope type: unspecified
--- OUTSIDE RECORDS SUMMARY | 2025-01-13 16:52 | XMS_ITS ---
Author Organization [facility] Address [address] [place] [address] Care Team Providers Care Green Chain Offbearer Name Role Phone Po Olesya KIM Primary Care Provider Darshan Hayes Jr [phone] REASON FOR VISIT dysphagia,abn barium swallow Problems Problem Type SNOMED Code ICD Code Onset Dates Problem Status W/U Status Risk Notes Problem Dysphagia (64213015) Dysphagia (R13.10) Active confirmed Encounters Encounter Location Date Provider Diagnosis [facility] [place] [address] [place] [phone] 10/17/2024 Darshan Swartz Jr Dysphagia R13.10 and Abnormal barium swallow R93.3 Assessments Encounter Date Diagnosis (ICD Code) Assessment Notes Treatment Notes Treatment Clinical Notes Section Notes 10/17/2024 Dysphagia (ICD-10 - R13.10) 10/17/2024 Abnormal barium swallow (ICD-10 - R93.3) Plan Of Treatment Next Appt Details Provider Name:Darshan barrera Jr, 04/13/2025 09:20:00 AM, [address], [address], [place], [address], Progress Notes * Jose Rafael ARELLANO TDOB:1950 (74 yo M)Acc No.[id number]:10/17/2024 EGD/MAC Patient:?Jose Rafael ARELLANO Provider:?Darshan Swartz MD :1950???Age:74 Y???Sex:Male John e:10/17/2024 Address:[address], [id number] Pcp:Olesya Billingsley MD Subjective: * Chief Complaints: * ???1. Dysphagia,abn barium s wallow. * Medical History:? Objective: * Vitals:? Assessment: * Assessment: 1.?Dysphagia - R13.10 (Prima ry)???2.?Abnormal barium swallow - R93.3??? Plan: * Treatment: * Procedure Codes:?86680 UPPER GI ENDOSCOPY, BIOPSY * * The named appointment provid er may or may not be the originator of this progress note, and it is not deemed complete until electronically signed by the appointment provider. Sign off status: Pending * Provider:?Darshan Swartz MD Date:?1 12/18/2023 Generated for Megha gupta/Martir/eTransmitting on:?01/13/2025 04:52 PM EDT
--- OUTSIDE RECORDS SUMMARY | 2025-01-13 16:53 | XMS_ITS ---
Author Organization [facility] Address [address] [place] [address] Care Team Providers Care Television Repairer Name Role Phone Olesya Billingsley MD Primary Care Provider Drew Swartz Jr, Darshan Cheek REASON FOR VISIT pathology Encounters Encounter Location Date Provider Diagnosis [facility] [address] [place] [address] 10/23/2024 Darshan Swartz Jr Plan Of Treatment Next Appt Details Provider Name:Darshan barrera Jr, 04/13/2025 09:20:00 AM, [address], [address], [place], [address], Progress Notes * Jose Rafael ARELLANO TDOB:1950 (74 yo M)Acc No.[id number]:10/23/2024 Patient:?Jose Rafael Arellano :1950???Age:74 Y???Sex:Male Address:[place], [address] * true * Date:? Generated for Jarrodi candy/Martir/eTransmitting on:?01/13/2025 04:52 PM EDT
--- OUTSIDE RECORDS SUMMARY | 2025-01-13 16:53 | XMS_ITS | Patient Health Record ---
Author Organization [facility] Address [address] [place] [address] Care Team Providers Care Boiler Out Name Role Phone Jose Cruz KIM [facility] Primary Care Provider Darshan Hayes Jr [phone] Allergies No Known Allergies Results Component Value Reference Range Notes Pathology Reviewed date:10/23/2024 09:03:23 AM Interpretation: Performing Lab:[facility], [address] [place] [id number] Notes/Report: Name: Jose Rafael Arellano ge/Sex: 74/M : 1950 Unit#: [id number] Attend Dr: Darshan Swartz MD Re10/17/24 Status : [facility] Location: [facility] Disch: SPEC : [id number] RECD : 10/17/248064 STATUS: CAT DÍAZ NUM: [id number] NOEL: 10/17/24-1242 [facility] DR: Darshan Swartz MD ENTERED: 10/17/24-14 32 SP TYPE: Surgical OTHR DR: Olesya Billingsley MD ORDERED: HE Stain/3, Gross Micro L4, IHC, H. pylori Addendum Addendum 1 Entered: 10/22/24 Immunostain for H py harpreet is negative with appropriate control. Addendum Signed ____ __(signature on file) Ariadne Lares 10/22/24 1640 Diagnosis Gastric antrum, biop sy: Gastric antral mucosa with mild reactive changes and focal minimal chronic inac tive inflammation; negative for intestinal metaplasia and dysplasia. Comment: Immunostain for H. pylori pending; addendum to follow. Clinical History Pre-Op Dx: Abnormal upper GI series and dysphagia Post-Op Dx: Normal exam Microscopic Description Microscopic sections reviewed. Material Received Antral bx Gross Description Received in formalin labeled ?antral bx? are 3 vela-pink rectangular tissue fragments ranging from 0.3-0.4 cm, sub mitted in toto in a cassette labeled A. CEDS Special studies orde red and performed: Immunostain for H. pylori on A1. CONTINUED ON NEXT PAGE Name: Jose Rafael Arellano ge/Sex: 74/M : 1950 Unit#: [id number] Attend Dr: Darshan Swartz MD Re10/17/24 Status : [facility] [place] Location: [facility] Disch: SPEC : [id number] RECD : 10/17/24 STATUS: CAT DÍAZ NUM: [id number] NOEL: 10/17/24-[address]: Darshan Swartz MD ENTERED: 10/17/24-14 32 SP TYPE: Surgical OTHR DR: Olesya Billingsley MD ORDERED: HE Stain/3, Gross Micro L4, IHC, H. pylori Copies To: Darshan Swartz MD [facility] [address] [place] [address] Olesya Billingsley MD [facility],[place] [address] [place] [address] Signed (si gnature on file) Ariadne Schulte 10/20/24 1419 END OF REPORT Reason For Referral No Information Medications Medication SIG (Take, Route, Frequency, Duration) Notes [...] for 30 Active Losartan Potassium A ctive Immunizations Vaccine Route Administration Date Status Comme nts Influenza Unknown 08/18/2020 Administered Influenza Unknown 09/10/2024 Administered Social History Alcohol Screen Question Answer Notes Did you have a drink containing alcohol in the p ast year? No Points 0 Interpretation Negative Section Notes: There is no tobacco use, alc ohol use is occasional. 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 There is no tobacco use, alc ohol use is occasional. There is no tobacco use, alc ohol use is occasional. Problems Problem Type SNOMED Code ICD Code Onset Dates Problem Status W/U Status Risk Notes Problem 887988637 Colon cancer screening (Z12.11) Active confirmed Problem 79458960 Other dysphagia (R13.19) Active confirmed Problem Dysphagia (79789085) Dysphagia (R13.10) Active confirmed Problem 908932454 Abnormal upper gastrointestinal barium series (R93.3) Active confirmed Problem 590917270 Long-term use of aspirin therapy (Z79.82) Active confirmed Problem 35891703 Irritable bowel syndrome with both constipation and diarrhea (K58.2) Active confirmed Problem 158311697 Encntr long-term NSAID use (Z79.1) Active confirmed Vital Signs Temperature 98.7 degrees Fahrenheit 09/24/2024 Blood pressure diastolic 00 mm Hg 09/24/2024 Height 72 in 09/24/2024 Blood pressure systolic 000 mm Hg 09/24/2024 Weight 161 lb 6 oz lbs 09/24/2024 BMI 21.88 kg/m2 09/24/2024 Encounters Encounter Location Date Provider Diagnosis [facility] [place] Out[facility] [address] [place] [phone] 10/17/2024 Darshan Swartz Jr Dysphagia R13.10 and Abnormal barium swallow R93.3 [facility] [address] [place] [address] 09/24/2024 Darshan Swartz Jr Abnormal upper gastrointestinal barium series R93.3 ; Other dysphagia R13.19 and Long-term use of aspirin therapy Z79.82 [facility] [address] [place] [address] 10/23/2024 Darshan Swartz Jr Assessments Encounter Date Diagnosis (ICD Code) Assessment Notes Treatment Notes Treatment Clinical Notes Section Notes 10/17/2024 Dysphagia (ICD-10 - R13.10) 10/17/2024 Abnormal barium swallow (ICD-10 - R93.3) 09/24/2024 Other dysphagia (ICD-10 - R13.19) We discussed dysphagia today. We reviewed his GI series in detail. It is likely there is a component of dry mouth causing some of his swallowing issues, and we recommended using plenty of water with swallowing pills or dry foods. Endoscopy will be arranged for further evaluation of his symptoms and the findings on his upper GI series. He is advised to stop antiplatelet drugs one week before the procedure. 09/24/2024 Abnormal upper gastrointestinal barium series (ICD-10 - R93.3) Endoscopy material was printed We discussed dysphagia today. We reviewed his GI series in detail. It is likely there is a component of dry mouth causing some of his swallowing issues, and we recommended using plenty of water with swallowing pills or dry foods. Endoscopy will be arranged for further evaluation of his symptoms and the findings on his upper GI series. He is advised to stop antiplatelet drugs one week before the procedure. 09/24/2024 Long-term use of aspirin therapy (ICD-10 - Z79.82) We discussed dysphagia today. We reviewed his GI series in detail. It is likely there is a component of dry mouth causing some of his swallowing issues, and we recommended using plenty of water with swallowing pills or dry foods. Endoscopy will be arranged for further evaluation of his symptoms and the findings on his upper GI series. He is advised to stop antiplatelet drugs one week before the procedure. Plan Of Treatment Future Test Test Name Order Date COLONOSCOPY 02/09/2021 UPPER GI ENDOSCOPY 09/24/2024 Next Appt Details Provider Name:Darshan barrera Jr, 04/13/2025 09:20:00 AM, [address], [address], [place], [address], Insurance Providers Payer Name Payer Address Payer Phone Subscriber Number Group Number Insured Name Patient Relationship to Insured Coverage Start Date Coverage End Date MEDICARE OF [place] [address] [place] [address] [id number] Jose Rafael Arellano Self - patient is the insured [facility] [address] [place] [address] [id number] Jose Rafael Arellano Self - patient is the insured Medical (General) History Medical History History ICD Code Hypertension with labile blood pressure Hyperlipidemia Osteoarthritis Asthma Gastroesophageal reflux disease Paroxysmal atrial fibrillation Colonoscopy 02/23, normal, ten-year follo wup Surgical History Surgery Date(Month/Year) Tonsil cancer, status post surgery, chem otherapy, and radiation Hospitalization History Reason Date(Month/Year) Labile blood pressure/transient cerebral ischemia 04/28
--- OUTSIDE RECORDS SUMMARY | 2025-01-13 16:53 | XMS_ITS ---
Author Organization [facility] Address [address] [place] [address] Care Team Providers Care Contract Clerk Name Role Phone Po Olesya KIM Primary Care Provider Darshan Hayes Jr Unavailable Allergies No Known Allergies REASON FOR VISIT Patient presents today for gastritis Medications Medication SIG (Take, Route, Frequency, Duration) [...] Vitamin B-12 Active Losartan Potassium A ctive Social History Alcohol Screen Question Answer Notes Did you have a drink containing alcohol in the p ast year? No Points 0 Interpretation Negative Section Notes: There is no tobacco use, alc ohol use is occasional. Problems Problem Type SNOMED Code ICD Code Onset Dates Problem Status W/U Status Risk Notes Problem 808559055 Abnormal upper gastrointestinal barium series (R93.3) Active confirmed Problem 62537133 Other dysphagia (R13.19) Active confirmed Problem 439365967 Long-term use of aspirin therapy (Z79.82) Active confirmed Vital Signs Temperature 98.7 degrees Fahrenheit 09/24/20 24 Blood pressure systolic 000 mm Hg 09/24/20 24 Blood pressure diastolic 00 mm Hg 024 Height 72 in 09/24/2024 Weight 161 lb 6 oz lbs 09/24/2024 BMI 21.88 kg/m2 09/24/2024 Encounters Encounter Location Date Provider Diagnosis [facility] [address] [place] [address] 09/24/2024 Darshan Swartz Jr Abnormal upper gastrointestinal barium series R93.3 ; Other dysphagia R13.19 and Long-term use of aspirin therapy Z79.82 Assessments Encounter Date Diagnosis (ICD Code) Assessment Notes Treatment Notes Treatment Clinical Notes Section Notes 09/24/2024 Abnormal upper gastrointestinal barium series [...] drugs one week before the procedure. 09/24/2024 Other dysphagia (ICD-10 - R13.19) We [...] week before the procedure. Plan Of Treatment Treatment Notes Assessment Notes Abnormal upper gastrointestinal barium s eries Endoscopy material was printed Future Test Test Name Order Date UPPER GI ENDOSCOPY 09/24/2024 Next Appt Details Follow Up: 1 Year, Reason: Provider Name:Darshan barrera Jr, 04/13/2025 09:20:00 AM, [address], [address], [place], [address], Progress Notes * Jose Rafael ARELLANO TDOB:1950 (74 yo M)Acc No.[id number]:09/24/2024 Progress Notes Patient:Jose Rafael Arnold Provider:?Darshan Swartz MD :1950???Age:74 Y???Sex:Male John e:09/24/2024 Address:[address], [facility] Pcp:Olesya Billingsley MD Subjective: * Chief Complaints: * ???1. Patient presents today for gastritis. * HPI: ???New symptom(s):? Mr. Arellano is a pleasant 74-year-old man seen today in consultation. He has a history of dysphagia since the spring. He describes foods like pills and food getting stuck in the throat when he swallows. He does note some postprandial coughing. Symptoms have not been progressive. 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 He does take omeprazole for reflux and this controls his symptoms well. He has had no hematemesis or melena. ?He underwent upper GI series for further evaluation in September. This is reviewed in detail including multiple findings and discussed extensively with the patient. Endoscopy was recommended for further evaluation. * ROS:?General/Constitutional:?Change in appetite?denies.?Fatigue?denies.?ENT:?Patient denies?difficulty swallowing.?Respiratory:?Patient denies?shortness of breath.?Cardiovascular:?Patient denies?chest pain.?Gastrointestinal:?Comments?See HPI for details.?Genitourinary:?Difficulty urinating?denies.?Incontinence?denies.?Musculoskeletal:?Patient denies?muscle aches.?Skin:?Patient denies?pruritis.?Neurologic:?Patient denies?low back pain.?Psychiatric:?Patient denies?mental or physical abuse.? * Medical History:?Hypertensio n with labile blood pressure, Hyperlipidemia, Osteoarthritis, Asthma, Gastroesophageal reflux disease, Paroxysmal atrial fibrillation, Colonoscopy 02/23, normal, ten-year followup. * Surgical History:?Tonsil can cer, status post surgery, chemotherapy, and radiation . * Hospitalization/Major Diagno stic Procedure:?Labile blood pressure/transient cerebral ischemia 04/28. * Family History:?Father: dece ased.?Mother: .? Family history is negative for colon cancer, polyps or liver ds. * Social History:?Tobacco Use:?Tobacco Use/Smoking?Are you a: nonsmoker.?Drugs/Alcohol:?Alcohol Screen?Did you have a drink containing alcohol in the past year??No,?Points?0,?Interpretation?Negative.?Miscellaneous:?Marital status: . Occupation: retired. ???There is no tobacco use, alcohol use is occasional. * Medications:?Taking Losartan Potassium , Taking Vitamin B-12 , Taking Vitamin D , Taking Ibuprofen , Notes: PRN, Taking Metoprolol Succinate ER 25 MG Tablet Extended Release 24 Hour TAKE 1 TABLET BY MOUTH IN THE EVENING Oral , Taking Clopidogrel Bisulfate 75 MG Tablet TAKE 1 TABLET BY MOUTH DAILY Oral , Taking Aspirin Low Dose 81 MG Tablet Delayed Release TAKE 1 TABLET BY MOUTH DAILY Oral , Discontinued amLODIPine Besylate , Discontinued Atorvastatin Calcium , Discontinued Loratadine , Discontinued MiraLax (colon prep) 8.3 ounce ((238) grams mixed with Gatorade or Crystal Light orally begin at 5:00 p.m. the day before the procedure, Medication List reviewed and reconciled with the patient * Allergies:?N.K.D.A. Objective: * Vitals:?Wt: 161 lb 6 oz, Ht: 72 in, BMI:21.88 Index, BP: 000/00 mm Hg, Temp: 98.7. * Examination: ???General Examination: ?GENERAL APPEARANCE:?in no acute distress.?HEAD:?normocephalic.?EYES:?sclera non-icteric.?ORAL CAVITY:?mucosa moist.?NECK/THYROID:?no lymphadenopathy.?SKIN:?anicteric.?HEART:?S1, S2 normal, no murmurs.?LUNGS:?clear to auscultation bilaterally.?CHEST:?normal shape and expansion.?ABDOMEN:?soft, nontender, nondistended, bowel sounds present, no organomegaly .?EXTREMITIES:?no clubbing, cyanosis, or edema.?PSYCH:?cognitive function intact.? Assessment: * Assessment: 1.?Abnormal upper gastrointe stinal barium series - R93.3 (Primary)?2.?Other dysphagia - R13.19?3.?Long-term use of aspirin therapy - Z79.82? We discussed dysphagia today . We reviewed his GI series in detail. [...] antiplatelet drugs one week before the procedure. Plan: * Treatment: Notes: Endoscopy material was printed??2.?Other dysphagia?Procedure: UPPER GI ENDOSCOPY (Ordered for 09/24/2024)* sched for 10/17/24 at 12:30 [facility] * Procedure Codes:?3017F COLOR ECTAL CA SCREEN DOC REV, G9903 Pt scrn [facility] id as non user, G9744 PATIENT NOT ELIG D/T ACTIVE DX HTN * Preventive Medicine:? ??Screenings:?Fall Risk Screening?Fall Risk Assessment:?Two or more falls without injury in the past year,?Screening:?Two or more falls without injury in the past year,?Plan of Care:?Documented,?Type of fall plan of care:?Balance, strength and gait training or instruction provided.? * Follow Up:?1 Year * * Sign off status: Completed true * Provider:?Darshan Swartz MD Date:?1 11/24/2023 Generated for Megha gupta/Martir/Roderick on:?01/13/2025 04:53 PM EDT History and Physical Notes * HPI (History of Present Illness) Category Sub-Category Detail Notes Category Not es New symptom(s) Mr. Arellano is a pleasant 74-year-old man seen today in consultation. He has a history of dysphagia since the spring. He describes foods like pills and food getting stuck in the throat when he swallows. He does note some postprandial coughing. Symptoms have not been progressive. 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 He does take omeprazole for reflux and this controls his symptoms well. He has had no hematemesis or melena. He underwent upper GI series for further evaluation in September. This is reviewed in detail including multiple findings and discussed extensively with the patient. Endoscopy was recommended for further evaluation. Examination Category Sub-Category Detail Notes Category Not es General Examination GENERAL APPEARANCE: in no acute di stress HEAD: normocephalic EYES: sclera non-icteric NECK/THYROID: no lymphadenopathy HEART: S1, S2 normal, no mu rmurs CHEST: normal shape and exp ansion LUNGS: clear to auscultatio n bilaterally ABDOMEN: soft, nontender, non distended, bowel sounds present, no organomegaly SKIN: anicteric EXTREMITIES: no clubbing, cyanosi s, or edema PSYCH: cognitive function i ntact ORAL CAVITY: mucosa moist
== END 2025-01-13 14:50 | disposition home or self-care (01) ==
LOC: HO.HSMS 13:52
PROVIDERS: PCP Internal Medicine; Visit Provider Psychiatry & Neurology Neurology
DX: R40.4 Transient alteration of awareness (principal); R55 Syncope and collapse
CPT/HCPCS: 99204; G2211

== ENCOUNTER → 2025-01-13 13:52 | Outpatient (BNVA) | payer MEDICARE, OTHER, SELFPAY | PROVIDERS: PCP Internal Medicine; Visit Provider Psychiatry & Neurology Neurology | DX: R40.4 Transient alteration of awareness (principal); R55 Syncope and collapse | CPT/HCPCS: 99202 ==

== ENCOUNTER 2025-01-21 10:21 | Outpatient (REF) | payer MEDICARE, OTHER, SELFPAY ==
--- NOTE | ~2025-01-21 | MR_ITS ---
EXAMINATION: MR BRAIN WITHOUT CONTRAST CLINICAL INFORMATION: Transient alterations of awareness. COMPARISON: Correlated to CT brain and CT angiogram brain dated April 16, 2024. TECHNIQUE: MRI of the brain was obtained using routine sequences without contrast. FINDINGS: No restricted diffusion. No acute intracranial hemorrhage, mass effect, midline shift, hydrocephalus or herniation. Bilateral, multifocal patchy, perpendicularly oriented to the corpus callosum deep periventricular white matter hyperintense T2 FLAIR signal involving centrum semiovale and rodriguez radiata. Subtle hyperintense FLAIR signal in the subependymal of the third ventricle and the mamillary bodies. Increased T2 FLAIR and intermediate T1 signal within the left ICA. There is a well-defined lobulated CSF signal abnormality in the posterior upper aspect of the clivus communicating with the prepontine cistern. Prominence of the extra-axial CSF spaces cerebral sulci and ventricles. Sellar/suprasellar region demonstrated no gross masses or signal abnormality. Craniocervical junction is intact and normal. MR/MR head/brain wo con IMPRESSION: No acute stroke/nonhemorrhagic ischemia. White matter disease. Consider small vessel occlusive disease in the correct clinical settings. 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 Electronically signed by: Moises Ceja MD 01/21/2025 12:50 PM EDT
--- OUTSIDE RECORDS SUMMARY | 2025-01-21 12:07 | XMS_ITS ---
Author Organization [facility] Address [address] [place] [address] Care Team Providers Care Waistline Joiner Lockstitch Name Role Phone Po Olesya KIM Primary Care Provider Darshan Hayes Jr [phone] REASON FOR VISIT dysphagia,abn barium swallow Problems Problem Type SNOMED Code ICD Code Onset Dates Problem Status W/U Status Risk Notes Problem Dysphagia (56017263) Dysphagia (R13.10) Active confirmed Encounters Encounter Location Date Provider Diagnosis [facility] [place] [address] [place] [phone] 10/17/2024 Darshan Swartz Jr Dysphagia R13.10 and Abnormal barium swallow R93.3 Assessments Encounter Date Diagnosis (ICD Code) Assessment Notes Treatment Notes Treatment Clinical Notes Section Notes 10/17/2024 Dysphagia (ICD-10 - R13.10) 10/17/2024 Abnormal barium swallow (ICD-10 - R93.3) Plan Of Treatment Next Appt Details Provider Name:Darshan barrera Jr, 04/13/2025 09:20:00 AM, [address], [address], [place], [address], Progress Notes * Jose Rafael ARELLANO TDOB:1950 (74 yo M)Acc No.[id number]:10/17/2024 EGD/MAC Patient:?Jose Rafael ARELLANO Provider:?Darshan Swartz MD :1950???Age:74 Y???Sex:Male John e:10/17/2024 Address:[address], [place] Pcp:Olesya Billingsley MD Subjective: * Chief Complaints: * ???1. Dysphagia,abn barium s wallow. * Medical History:? Objective: * Vitals:? Assessment: * Assessment: 1.?Dysphagia - R13.10 (Prima ry)???2.?Abnormal barium swallow - R93.3??? Plan: * Treatment: * Procedure Codes:?07508 UPPER GI ENDOSCOPY, BIOPSY * * The named appointment provid er may or may not be the originator of this progress note, and it is not deemed complete until electronically signed by the appointment provider. Sign off status: Pending * Provider:?Darshan Swartz MD Date:?1 12/18/2023 Generated for Megha gupta/Martir/eTransmitting on:?01/21/2025 12:07 PM EDT
--- OUTSIDE RECORDS SUMMARY | 2025-01-21 12:08 | XMS_ITS | Patient Health Record ---
Author Organization [facility] Address [address] [place] [address] Care Team Providers Care Die Stamper Name Role Phone Jose Cruz KIM [facility] Primary Care Provider Darshan Hayes Jr Allergies No Known Allergies Results Component Value Reference Range Notes Pathology Reviewed date:10/23/2024 09:03:23 AM Interpretation: Performing Lab:[facility], [address] [place] [id number] Notes/Report: Name: Jose Rafael Arellano ge/Sex: 74/M : 1950 Unit#: [id number] Attend Dr: Darshan Swartz MD Re10/17/24 Status : [facility] Location: [facility] Disch: SPEC : [id number] RECD : 10/17/246039 STATUS: CAT DÍAZ NUM: [id number] NOEL: 10/17/24-[address] [facility] [address]: Darshan Swartz MD ENTERED: 10/17/24-14 32 SP TYPE: Surgical OTHR DR: Olesya Billingsley MD ORDERED: HE Stain/3, Gross Micro L4, IHC, H. pylori Addendum Addendum 1 Entered: 10/22/24 Immunostain for H py harpreet is negative with appropriate control. Addendum Signed ____ __(signature on file) Ariadne Etna 10/22/24 1640 Diagnosis Gastric antrum, biop sy: [...] Rafael Arellano ge/Sex: 74/M : 1950 Unit#: [id number] Attend Dr: Darshan Swartz MD Re10/17/24 Status : [facility] Location: [facility] Disch: SPEC : [id number] RECD : 10/17/24 STATUS: CAT DÍAZ NUM: [id number] NOEL: 10/17/24-[address]: Darshan Swartz MD ENTERED: 10/17/24-14 32 SP TYPE: Surgical OTHR DR: Olesya Billingsley MD ORDERED: HE Stain/3, Gross Micro L4, IHC, H. pylori Copies To: Darshan Swartz MD [facility] [address] [place] [address] Olesya Billingsley MD [facility] Primary Care,[place] [address] [place] [address] Signed (si gnature on file) Ariadne Schulte [...] Problem Status W/U Status Risk Notes Problem 557642066 Colon cancer screening (Z12.11) Active confirmed Problem 68199672 Other dysphagia (R13.19) Active confirmed Problem Dysphagia (48364360) Dysphagia (R13.10) Active confirmed Problem 822702887 Abnormal upper gastrointestinal barium series (R93.3) Active confirmed Problem 302323974 Long-term use of aspirin therapy (Z79.82) Active confirmed Problem 03301767 Irritable bowel syndrome with both constipation and diarrhea (K58.2) Active confirmed Problem 432327901 Encntr long-term NSAID use (Z79.1) Active confirmed Vital Signs Temperature 98.7 degrees Fahrenheit 09/24/2024 Blood pressure diastolic 00 mm Hg 09/24/2024 Height 72 in 09/24/2024 Blood pressure systolic 000 mm Hg 09/24/2024 Weight 161 lb 6 oz lbs 09/24/2024 BMI 21.88 kg/m2 09/24/2024 Encounters Encounter Location Date Provider Diagnosis [facility] [place] [address] [place] [phone] 10/17/2024 Darshan Swartz Jr Dysphagia R13.10 and Abnormal barium swallow R93.3 [facility] [address] [place] [address] 09/24/2024 Darshan Swartz Jr Abnormal upper gastrointestinal barium series R93.3 ; Other dysphagia R13.19 and Long-term use of aspirin therapy Z79.82 [facility] [address] [place] [address] 10/23/2024 Darshan Swartz Jr Assessments Encounter Date [...] 09:20:00 AM, [address], [address], [place], [address], Insurance Providers Payer Name Payer Address Payer Phone Subscriber Number Group Number Insured Name Patient Relationship to Insured Coverage Start Date Coverage End Date MEDICARE OF [place] [address] [place] [address] [id number] Jose Rafael Arellano Self - patient is the insured [facility] [address] [place] [address] [id number] Jose Rafael Arellano Self - patient is [...]
--- OUTSIDE RECORDS SUMMARY | 2025-01-21 12:08 | XMS_ITS ---
Author Organization [facility] Address [address] [place] [address] Care Team Providers Care Environmental Science Professor Name Role Phone Olesya Billingsley MD Primary Care Provider Drew Swartz Jr, Darshan Cheek [phone] REASON FOR VISIT pathology Encounters Encounter Location Date Provider Diagnosis [facility] [address] [place] [address] 10/23/2024 Darshan Swartz Jr Plan Of Treatment Next Appt Details Provider Name:Darshan barrera Jr, 04/13/2025 09:20:00 AM, [address], [address], [place], [address], Progress Notes * Jose Rafael ARELLANO TDOB:1950 (74 yo M)Acc No.[id number]:10/23/2024 Patient:?Jose Rafael Arellano :1950???Age:74 Y???Sex:Male Address:[place], [address] * true * Date:? Generated for Jarrodi candy/Martir/eTransmitting on:?01/21/2025 12:07 PM EDT
--- OUTSIDE RECORDS SUMMARY | 2025-01-21 12:08 | XMS_ITS ---
Author Organization [facility] Address [address] [place] [address] Care Team Providers Care Thread Winder Automatic Name Role Phone Po Olesya KIM Primary [...] Problem Status W/U Status Risk Notes Problem 212143304 Abnormal upper gastrointestinal barium series (R93.3) Active confirmed Problem 31189652 Other dysphagia (R13.19) Active confirmed Problem 218744518 Long-term use of aspirin therapy (Z79.82) Active confirmed Vital Signs Temperature 98.7 degrees Fahrenheit 09/24/20 24 Blood pressure systolic 000 mm Hg 09/24/20 24 Blood pressure diastolic 00 mm Hg 024 Height 72 in 09/24/2024 Weight 161 lb 6 oz lbs 09/24/2024 BMI 21.88 kg/m2 09/24/2024 Encounters Encounter Location Date Provider Diagnosis [facility] [address] [place] [address] 09/24/2024 Darshan Swartz Jr Abnormal upper gastrointestinal [...] Name:Darshan barrera Jr, 04/13/2025 09:20:00 AM, [address], [address], [place], [address], Progress Notes * Jose Rafael ARELLANO TDOB:1950 (74 yo M)Acc No.[id number]:09/24/2024 Progress Notes Patient:Jose Rafael Aronld Provider:?Darshan Swartz MD :1950???Age:74 Y???Sex:Male John e:09/24/2024 Address:[address], [facility] Pcp:Olesya Billingsley MD Subjective: * Chief Complaints: [...] for 09/24/2024)* sched for 10/17/24 at 12:30 [facility] * Procedure Codes:?3017F COLOR ECTAL CA SCREEN DOC REV, G9903 Pt scrn [facility] id as non user, G9744 PATIENT NOT [...] MD Date:?1 11/24/2023 Generated for Megha gupta/Martir/Roderick on:?01/21/2025 12:07 PM EDT History and Physical Notes * [...]
== END 2025-01-21 10:22 | disposition home or self-care (01) ==
LOC: HO.MRI 10:21
PROVIDERS: PCP Internal Medicine; Visit Provider Psychiatry & Neurology Neurology
DX: R40.4 Transient alteration of awareness (principal)
CPT/HCPCS: 70551

== ENCOUNTER → 2025-01-21 10:29 | Outpatient (BNV) | payer MEDICARE, OTHER, SELFPAY | PROVIDERS: PCP Internal Medicine; Visit Provider Radiology Diagnostic Radiology | DX: R40.4 Transient alteration of awareness (principal) | CPT/HCPCS: 70551 ==

== ENCOUNTER 2025-01-29 08:22 | Outpatient (REF) | payer MEDICARE, OTHER, SELFPAY ==
--- OUTSIDE RECORDS SUMMARY | 2025-01-29 08:47 | XMS_ITS ---
Author Organization [facility] Address [address] [place] [address] Care Team Providers Care Enterprise Engineer Name Role Phone Po Olesya KIM Primary Care Provider Darshan Hayes Jr [phone] REASON FOR VISIT dysphagia,abn barium swallow Problems Problem Type SNOMED Code ICD Code Onset Dates Problem Status W/U Status Risk Notes Problem Dysphagia (48354868) Dysphagia (R13.10) Active confirmed Encounters Encounter Location Date Provider Diagnosis [facility] Out[place] [address] [place] [phone] 10/17/2024 Darshan Swartz Jr Dysphagia R13.10 and Abnormal barium swallow R93.3 Assessments Encounter Date Diagnosis (ICD Code) Assessment Notes Treatment Notes Treatment Clinical Notes Section Notes 10/17/2024 Dysphagia (ICD-10 - R13.10) 10/17/2024 Abnormal barium swallow (ICD-10 - R93.3) Plan Of Treatment Next Appt Details Provider Name:Darshan barrera Jr, 04/13/2025 09:20:00 AM, [address], [address], [place], [address], Progress Notes * Jose Rafael ARELLANO TDOB:1950 (74 yo M)Acc No.[id number]:10/17/2024 EGD/MAC Patient:?Jose Rafael ARELLANO Provider:?Darshan Swartz MD :1950???Age:74 Y???Sex:Male John e:10/17/2024 Address:[address], [place] Pcp:Olesya Billingsley MD Subjective: * Chief Complaints: * ???1. Dysphagia,abn barium s wallow. * Medical History:? Objective: * Vitals:? Assessment: * Assessment: 1.?Dysphagia - R13.10 (Prima ry)???2.?Abnormal barium swallow - R93.3??? Plan: * Treatment: * Procedure Codes:?61774 UPPER GI ENDOSCOPY, BIOPSY * * The named appointment provid er may or may not be the originator of this progress note, and it is not deemed complete until electronically signed by the appointment provider. Sign off status: Pending * Provider:?Darshan Swartz MD Date:?1 12/18/2023 Generated for Megha gupta/Martir/eTransmitting on:?01/29/2025 08:46 AM EDT
--- OUTSIDE RECORDS SUMMARY | 2025-01-29 08:47 | XMS_ITS ---
Author Organization [facility] Address [address] [place] [address] Care Team Providers Care Adjunct Sociology Professor Name Role Phone Olesya Billingsley MD Primary Care Provider Drew Swartz Jr, Darshan Cheek [phone] REASON FOR VISIT pathology Encounters Encounter Location Date Provider Diagnosis [facility] [address] [place] [address] 10/23/2024 Darshan Swartz Jr Plan Of Treatment Next Appt Details Provider Name:Darshan barrera Jr, 04/13/2025 09:20:00 AM, [address], [address], [place], [address], Progress Notes * Jose Rafael ARELLANO TDOB:1950 (74 yo M)Acc No.[id number]:10/23/2024 Patient:?Jose Rafael Arellano :1950???Age:74 Y???Sex:Male Address:[place], [address] * true * Date:? Generated for Printi candy/Martir/eTransmitting on:?01/29/2025 08:46 AM EDT
--- OUTSIDE RECORDS SUMMARY | 2025-01-29 08:47 | XMS_ITS ---
Author Organization [facility] Address [address] [place] [address] Care Team Providers Care Highballer Name Role Phone Po Olesya KIM Primary [...] Problem Status W/U Status Risk Notes Problem 788519554 Abnormal upper gastrointestinal barium series (R93.3) Active confirmed Problem 52472418 Other dysphagia (R13.19) Active confirmed Problem 956048488 Long-term use of aspirin therapy (Z79.82) Active confirmed Vital Signs Temperature 98.7 degrees Fahrenheit 09/24/20 24 Blood pressure systolic 000 mm Hg 09/24/20 24 Blood pressure diastolic 00 mm Hg 024 Height 72 in 09/24/2024 Weight 161 lb 6 oz lbs 09/24/2024 BMI 21.88 kg/m2 09/24/2024 Encounters Encounter Location Date Provider Diagnosis [facility] [address] [place] [address] 09/24/2024 Darshan Swartz Jr Abnormal upper gastrointestinal [...] Name:Darshan barrera Jr, 04/13/2025 09:20:00 AM, [address], [address], [place], [address], Progress Notes * Jose Rafael ARELLANO TDOB:1950 (74 yo M)Acc No.[id number]:09/24/2024 Progress Notes Patient:Jose Rafael Arnold Provider:?Darshan Swartz MD :1950???Age:74 Y???Sex:Male John e:09/24/2024 Address:[address], [facility] Pcp:Olesya Billingsley MD Subjective: * Chief Complaints: [...] sched for 10/17/24 at 12:30 [facility] * Procedure Codes:?3017F COLOR ECTAL CA SCREEN DOC REV, G9903 Pt scrn [facility] id as non user, G9744 PATIENT NOT [...] MD Date:?1 11/24/2023 Generated for Megha gupta/Martir/Roderick on:?01/29/2025 08:46 AM EDT History and Physical Notes * HPI [...]
--- OUTSIDE RECORDS SUMMARY | 2025-01-29 08:47 | XMS_ITS | Patient Health Record ---
Author Organization [facility] Address [address] [place] [address] Care Team Providers Care Senior Test Engineer Name Role Phone Jose Cruz KIM [facility] Primary Care Provider Darshan Hayes Jr Allergies No Known Allergies Results Component Value Reference Range Notes Pathology Reviewed date:10/23/2024 09:03:23 AM Interpretation: Performing Lab:[facility], [address] [place] [id number] Notes/Report: Name: Jose Rafael Arellano ge/Sex: 74/M : 1950 Unit#: [id number] Attend Dr: Darshan Swartz MD Re10/17/24 Status : [facility] Location: [facility] Disch: SPEC : [id number] RECD : 10/17/242508 STATUS: CAT DÍAZ NUM: [id number] NOEL: 10/17/24-[address] [facility] [address]: Darshan Swartz MD ENTERED: 10/17/24-14 32 SP TYPE: Surgical OTHR DR: Olesya Billingsley MD ORDERED: HE Stain/3, Gross Micro L4, IHC, H. pylori Addendum Addendum 1 Entered: 10/22/24 Immunostain for H py harpreet is negative with appropriate control. Addendum Signed ____ __(signature on file) Ariadne Celina 10/22/24 1640 Diagnosis Gastric antrum, biop sy: [...] Rafael Arellano ge/Sex: 74/M : 1950 Unit#: [id number] Attend Dr: Darshan Swartz MD Re10/17/24 Status : [facility] Location: [facility] Disch: SPEC : [id number] RECD : 10/17/24 STATUS: CAT DÍAZ NUM: [id number] NOEL: 10/17/24-[address]: Darshan Swartz MD ENTERED: 10/17/24-14 32 SP TYPE: Surgical OTHR DR: Olesya Billingsley MD ORDERED: HE Stain/3, Gross Micro L4, IHC, H. pylori Copies To: Darshan Swartz MD [facility] [address] [place] [address] Olesya Billingsley MD [facility] [place] [address] [place] [address] Signed (si gnature on file) Ariadne Schulte [...] Problem Status W/U Status Risk Notes Problem 662829317 Colon cancer screening (Z12.11) Active confirmed Problem 33403403 Other dysphagia (R13.19) Active confirmed Problem Dysphagia (90776600) Dysphagia (R13.10) Active confirmed Problem 167673652 Abnormal upper gastrointestinal barium series (R93.3) Active confirmed Problem 448092363 Long-term use of aspirin therapy (Z79.82) Active confirmed Problem 81739125 Irritable bowel syndrome with both constipation and diarrhea (K58.2) Active confirmed Problem 225768283 Encntr long-term NSAID use (Z79.1) Active confirmed Vital Signs Temperature 98.7 degrees Fahrenheit 09/24/2024 Blood pressure diastolic 00 mm Hg 09/24/2024 Height 72 in 09/24/2024 Blood pressure systolic 000 mm Hg 09/24/2024 Weight 161 lb 6 oz lbs 09/24/2024 BMI 21.88 kg/m2 09/24/2024 Encounters Encounter Location Date Provider Diagnosis [facility] Outpatient [address] [place] [id number] 10/17/2024 Darshan Swartz Jr Dysphagia R13.10 and Abnormal barium swallow R93.3 [facility] [address] [place] [address] 09/24/2024 Darshan Swartz Jr Abnormal upper gastrointestinal barium series R93.3 ; Other dysphagia R13.19 and Long-term use of aspirin therapy Z79.82 [facility] [address] [place] [address] 10/23/2024 Darshan Swartz Jr Assessments Encounter Date [...] 09:20:00 AM, [address], [address], [place], [address], Insurance Providers Payer Name Payer Address Payer Phone Subscriber Number Group Number Insured Name Patient Relationship to Insured Coverage Start Date Coverage End Date MEDICARE OF [place] [address] [place] [address] [id number] Jose Rafael Arellano Self - patient is the insured [facility] [address] [place] [address] [id number] Jose Rafael Arellano Self - patient is [...]
== END 2025-01-29 08:23 | disposition home or self-care (01) ==
LOC: HO.NEURO 08:22
PROVIDERS: PCP Internal Medicine; Visit Provider Psychiatry & Neurology Neurology
DX: R40.4 Transient alteration of awareness (principal); R55 Syncope and collapse
CPT/HCPCS: 95816

== ENCOUNTER 2025-03-12 10:00 | Outpatient (AMB) | payer MEDICARE, OTHER, SELFPAY ==
[2025-03-12 10:08] VITALS: BP 98/70; PULSE 76; O2SAT 95; BMI 22.2
--- NOTE | 2025-03-12 10:08 | HO.NEPHOV_ITS ---
Vital Signs 03/12/25 10:08 Height 5 ft 10.5 in Weight 157 lb BMI 22.2 BP 98/70 Blood Pressure Location Rt brachial Position Sitting Pulse 76 Pulse Source Pulse Oximeter Pulse Oximetry (%) 95 Oxygen Delivery Method Room Air Intake Visit Reasons: hypertension-Conf [place] Worker Required: No Accompanied by: Self / Same As Patient Allergies Seasonal Allergies Allergy (Mild, Verified 03/12/25 10:09) Nasal congestion lisinopril Adverse Reaction (Intermediate, Verified 03/12/25 10:09) cough Medication List - Last Reconciled 03/12/25 by Jourdan Krishnan MD albuterol sulfate 90 mcg/actuation 2 puffs inhalation Q6H PRN aspirin 81 mg PO DAILY 90 days atorvastatin 10 mg PO BEDTIME budesonide-formoterol 160-4.5 mcg/actuation (Symbicort) 2 puffs inhalation BID cholecalciferol (vitamin D3) 25 mcg PO DAILY cyanocobalamin (vitamin B-12) 1,000 mcg PO DAILY losartan 50 mg PO QPM metoprolol succinate ER 25 mg PO QPM omeprazole 20 mg PO DAILY PRN sennosides-docusate sodium 8.6-50 mg (Senna Plus) 2 tab-caps (2 x 8.6-50 mg) PO BEDTIME HPI Comments Details: . Jose Rafael is a pleasant 73-year-old man with a history of hypertension for more than 10 years. He has been referred for labile hypertension. Jose Rafael is currently on losartan 50 mg and metoprolol 25 mg daily. He takes amlodipine 10 mg as needed. He is taken about 4 or 5 times this month. There has been a wide fluctuation in his blood pressure. Blood pressure has been as high as 239/130 mm Hg. And the low reading has been as low as 70/50 mm Hg. He has not undergone any workup for hypertension. He has a history of atrial fibrillation. He is on metoprolol for rate control. There is a history of peripheral as disease. He has been followed by Dr. Naidu. There was suspicion for carotid stenosis and is scheduled for an angiogram. He has no history of any kidney disease. No history of smoking. No history of dyslipidemia. He has no history of weight loss. No palpitation. No unexplained sweating. No edema. No urinary symptoms. No polyuria polydipsia. No hematuria. No headaches. No blurred vision. 04/28/2024. Recently hospitalized for rapid AFib. He underwent workup for the hypertension. Plasma renin activity and aldosterone were normal. Catecholamines were also normal. Doppler of the renal arteries did not reveal any renal artery stenosis. There has been wide fluctuation of blood pressure. 06/05/2024. He has been monitoring blood pressure at home BP readings have been rather low. 07/03/24 ;Doing better;HE started Losartan 50 mg Q PM.Home BP acceptable 12/02/24 ;Tolerating meds ;No syncopy ;NOt using TEDs 03/12/25 Had 1 episode of BP spike last week up to 180 SBP- took extra amlodipine No syncope NOT using TEDS [facility] Medical History (Updated 01/13/25 @ 14:51 by Kiley Krishnan MD) Episodes of staring Syncope Essential hypertension H/O coronary angiogram (~04/2024) Hypotension Screening for prostate cancer Urinary incontinence Hx of radiation therapy History of chemotherapy Colon cancer screening Hypercholesterolemia Asthma GERD (gastroesophageal reflux disease) Cancer of tonsil Orthostatic hypotension PAF (paroxysmal atrial fibrillation) Surgical History History of endoscopy (~10/2024) H/O colonoscopy S/P repair of hydrocele History of tonsillectomy Family History Father Dementia Hx of CABG Mother Diabetes Social History Household Members: Spouse Housing: House Are you a primary social worker palliative care to a significant other at home: No Do you presently have visiting nurse or other home services: No Alcohol intake: former Patient Tobacco Use Status: Never used Tobacco Tobacco use type: Cigarette e-Cigarette/Vaping Use: Never Used Second Hand Smoke Exposure: No service: No Current occupational status: retired Cognitive needs: No Hearing needs: No Vision needs: Yes Physical Exam Vital Signs: Last Vital Signs Pulse 76 03/12/25 10:08 BP 98/70 03/12/25 10:08 Pulse Ox 95 03/12/25 10:08 Oxygen Delivery Method Room Air 03/12/25 10:08 BMI result Body Mass Index 22.2 Awake. Comfortable. Neck is supple. Mucosa moist. Lungs clear Heart S1-S2 heard no gallop. Abdomen soft. Extremities no edema. No involuntary movements. No myoclonus. Results Reviewed Nephrology Results: No Data to Display Assessment & Plan Assessment & Plan (1) Orthostatic hypotension: Code(s): I95.1 - Orthostatic hypotension Category: Medical Plan: As discussed above. (2) Labile hypertension: Code(s): R09.89 - Other specified symptoms and signs involving the circulatory and respiratory systems Category: Medical Plan . Jose Rafael is a 74-year-old man with a history of labile hypertension. Blood pressure continues to fluctuate. No renal artery stenosis based on renal Doppler. No evidence of hyperaldosteronism based on recent plasma renin activity and aldosterone levels. Pheochromocytoma is also seems unlikely based on recent catecholamines levels. Continue metoprolol 25 mg. Also takes Losartan 50 mg Q PM ( not on med list) Discussed importance of orthostatic precautions. Encouraged to use TEDs At present renal function stable. He has a history of mild hyponatremia. Encouraged him to limit free water intake for now. Orders: Orders Complete Blood Count no Diff 4 Months R09.89 - Other specified symptoms and signs involving the circulatory and respiratory systems Basic Metabolic Panel 4 Months R09.89 - Other specified symptoms and signs involving the circulatory and respiratory systems Medications: Refilled losartan 50 mg PO QPM 90 tabs 2RF metoprolol succinate ER 25 mg PO QPM 90 tabs 1RF Coding Level of Care Code Est Pt Level 4 (23741) Diagnoses Orthostatic hypotension I95.1 Labile hypertension R09.89
--- OUTSIDE RECORDS SUMMARY | 2025-03-12 11:04 | XMS_ITS | Patient Health Record ---
Author Organization [facility] Address [address] [place] [address] Care Team Providers Care Signal Tower Operator Name Role Phone Jose Cruz KIM [facility] Primary Care Provider Darshan Hayes Jr [phone] Allergies No Known Allergies Results Component Value Reference Range Notes Pathology Reviewed date:10/23/2024 09:03:23 AM Interpretation: Performing Lab:[facility], [address] [place] [phone] Notes/Report: Name: Jose Rafael Arellano ge/Sex: 74/M : 1950 Unit#: [id number] Attend Dr: Darshan Swartz MD Re10/17/24 Status : [facility] [place] [place] Location: [facility] Disch: SPEC : [id number] RECD : 10/17/243352 STATUS: CAT DÍAZ NUM: [id number] NOEL: 10/17/24-[address] [facility] [address]: Darshan Swartz MD ENTERED: 10/17/24-14 32 SP TYPE: Surgical OTHR DR: Olesya Billingsley MD ORDERED: HE Stain/3, Gross Micro L4, IHC, H. pylori Addendum Addendum 1 Entered: 10/22/24 Immunostain for H py harpreet is negative with appropriate control. Addendum Signed ____ __(signature on file) Ariadne Fostoria 10/22/24 1640 Diagnosis Gastric antrum, biop sy: [...] Rafael Arellano ge/Sex: 74/M : 1950 Unit#: [id number] Attend Dr: Darshan Swartz MD Re10/17/24 Status : [facility] Location: [facility] Disch: SPEC : [id number] RECD : 10/17/24 STATUS: CAT DÍAZ NUM: [id number] NOEL: 10/17/24-[address]: Darshan Swartz MD ENTERED: 10/17/24-14 32 SP TYPE: Surgical OTHR DR: Olesya Billingsley MD ORDERED: HE Stain/3, Gross Micro L4, IHC, H. pylori Copies To: Darshan Swartz MD [facility] [address] [place] [address] Olesya Billingsley MD [facility] Primary Care,[place] [address] [place] [address] Signed (si gnature on file) Ariadne Schulte [...] Problem Status W/U Status Risk Notes Problem 325193750 Colon cancer screening (Z12.11) Active confirmed Problem 95907959 Other dysphagia (R13.19) Active confirmed Problem Dysphagia (R13.10) Active confirmed Problem 317347603 Abnormal upper gastrointestinal barium series (R93.3) Active confirmed Problem 741004782 Long-term use of aspirin therapy (Z79.82) Active confirmed Problem 54336185 Irritable bowel syndrome with both constipation and diarrhea (K58.2) Active confirmed Problem 850040163 Encntr long-term NSAID use (Z79.1) Active confirmed Vital Signs Temperature 98.7 degrees Fahrenheit 09/24/2024 Blood pressure diastolic 00 mm Hg 09/24/2024 Height 72 in 09/24/2024 Blood pressure systolic 000 mm Hg 09/24/2024 Weight 161 lb 6 oz lbs 09/24/2024 BMI 21.88 kg/m2 09/24/2024 Encounters Encounter Location Date Provider Diagnosis [facility] [place] [address] [place] [id number] 10/17/2024 Darshan Swratz Jr Dysphagia R13.10 and Abnormal barium swallow R93.3 [facility] [address] [place] [address] 09/24/2024 Darshan Swartz Jr Abnormal upper gastrointestinal barium series R93.3 ; Other dysphagia R13.19 and Long-term use of aspirin therapy Z79.82 [facility] [address] [place] [address] 10/23/2024 Darshan Swartz Jr Assessments Encounter Date [...] Name:Darshan barrera Jr, 04/13/2025 09:20:00 AM, [address], [address], [place], [address], Insurance Providers Payer Name Payer Address Payer Phone Subscriber Number Group Number Insured Name Patient Relationship to Insured Coverage Start Date Coverage End Date MEDICARE OF [place] [address] [place] [address] [id number] Jose Rafael Arellano Self - patient is the insured [facility] [address] [place] [phone] [id number] Jose Rafael Arellano Self - patient is [...]
--- OUTSIDE RECORDS SUMMARY | 2025-03-12 11:04 | XMS_ITS ---
Author Organization [facility] Address [address] [place] [address] Care Team Providers Care Spinning Supervisor Name Role Phone Po Olesya KIM Primary Care Provider Darshan Hayes Jr Unavailable [phone] Allergies No Known Allergies REASON FOR VISIT [...] Problem Status W/U Status Risk Notes Problem 949331841 Abnormal upper gastrointestinal barium series (R93.3) Active confirmed Problem 17464779 Other dysphagia (R13.19) Active confirmed Problem 469766597 Long-term use of aspirin therapy (Z79.82) Active confirmed Vital Signs Temperature 98.7 degrees Fahrenheit 09/24/20 24 Blood pressure systolic 000 mm Hg 09/24/20 24 Blood pressure diastolic 00 mm Hg 024 Height 72 in 09/24/2024 Weight 161 lb 6 oz lbs 09/24/2024 BMI 21.88 kg/m2 09/24/2024 Encounters Encounter Location Date Provider Diagnosis [facility] [address] [place] [address] 09/24/2024 Darshan Swartz Jr Abnormal upper gastrointestinal [...] Name:Darshan barrera Jr, 04/13/2025 09:20:00 AM, [address], [address], [place], [address], Progress Notes * Jose Rafael ARELLANO TDOB:1950 (74 yo M)Acc No.[id number]:09/24/2024 Progress Notes Patient:Jose Rafael Arnold Provider:?Darshan Swartz MD :1950???Age:74 Y???Sex:Male John e:09/24/2024 Address:[address], [facility] Pcp:Olesya Billingsley MD Subjective: * Chief Complaints: [...] for 09/24/2024)* sched for 10/17/24 at 12:30 [facility] * Procedure Codes:?3017F COLOR ECTAL CA SCREEN DOC REV, G9903 Pt scrn [facility] id as non user, G9744 [...] MD Date:?1 11/24/2023 Generated for Megha gupta/Martir/Roderick on:?03/12/2025 11:04 AM EDT History and Physical Notes * [...]
--- OUTSIDE RECORDS SUMMARY | 2025-03-12 11:04 | XMS_ITS ---
Author Organization [facility] Address [address] [place] [address] Care Team Providers Care Spike Machine Feeder Name Role Phone Po Olesya KIM Primary Care Provider Darshan Hayes Jr REASON FOR VISIT dysphagia,abn barium swallow Problems Problem Type SNOMED Code ICD Code Onset Dates Problem Status W/U Status Risk Notes Problem Dysphagia (R13.10) Active confirmed Encounters Encounter Location Date Provider Diagnosis [facility] Outpatient [address], [place] [id number] 10/17/2024 Darshan Swartz Jr Dysphagia R13.10 and Abnormal barium swallow R93.3 Assessments Encounter Date Diagnosis (ICD Code) Assessment Notes Treatment Notes Treatment Clinical Notes Section Notes 10/17/2024 Dysphagia (ICD-10 - R13.10) 10/17/2024 Abnormal barium swallow (ICD-10 - R93.3) Plan Of Treatment Next Appt Details Provider Name:Darshan barrera Jr, 04/13/2025 09:20:00 AM, [address], [address], [place], [address], Progress Notes * Jose Rafael ARELLANO TDOB:1950 (74 yo M)Acc No.[id number]:10/17/2024 EGD/MAC Patient:?Jose Rafael ARELLANO Provider:?Darshan Swartz MD :1950???Age:74 Y???Sex:Male John e:10/17/2024 Address:[address], [id number] Pcp:Olesya Billingsley MD Subjective: * Chief Complaints: * ???1. Dysphagia,abn barium s wallow. * Medical History:? Objective: * Vitals:? Assessment: * Assessment: 1.?Dysphagia - R13.10 (Prima ry)???2.?Abnormal barium swallow - R93.3??? Plan: * Treatment: * Procedure Codes:?85466 UPPER GI ENDOSCOPY, BIOPSY * * The named appointment provid er may or may not be the originator of this progress note, and it is not deemed complete until electronically signed by the appointment provider. Sign off status: Pending * Provider:?Darshan Swartz MD Date:?12/18/2023 Generated for Megha gupta/Martir/Kyungsmitting on:?03/12/2025 11:03 AM EDT
--- OUTSIDE RECORDS SUMMARY | 2025-03-12 11:04 | XMS_ITS ---
Author Organization [facility] Address [address] [place] [address] Care Team Providers Care Concrete Buster Operator Name Role Phone lOesya Billingsley MD Primary Care Provider Drew Swartz Jr, Darshan Cheek [phone] REASON FOR VISIT pathology Encounters Encounter Location Date Provider Diagnosis [facility] [address] [place] [address] 10/23/2024 Darshan Swartz Jr Plan Of Treatment Next Appt Details Provider Name:Darshan barrera Jr, 04/13/2025 09:20:00 AM, [address], [address], [place], [address], Progress Notes * Jose Rafael ARELLANO TDOB:1950 (74 yo M)Acc No.[id number]:10/23/2024 Patient:?Jose Rafael Arellano :1950???Age:74 Y???Sex:Male Address:[place], [address] * true * Date:? Generated for Jarrodi candy/Martir/eTransmitting on:?03/12/2025 11:03 AM EDT
== END 2025-03-12 10:23 | disposition home or self-care (01) ==
LOC: HO.HKA 10:01
PROVIDERS: PCP Internal Medicine; Visit Provider Internal Medicine Hypertension Specialist
DX: I95.1 Orthostatic hypotension (principal); R09.89 Other specified symptoms and signs involving the circulatory and respiratory systems
CPT/HCPCS: 99214

== ENCOUNTER → 2025-03-12 10:00 | Outpatient (BNVA) | payer MEDICARE, OTHER, SELFPAY | PROVIDERS: PCP Internal Medicine; Visit Provider Internal Medicine Hypertension Specialist | DX: I95.1 Orthostatic hypotension (principal); R09.89 Other specified symptoms and signs involving the circulatory and respiratory systems | CPT/HCPCS: 99212 ==

== ENCOUNTER 2025-03-23 15:17 | Outpatient (AMB) | payer MEDICARE, OTHER, SELFPAY ==
--- OUTSIDE RECORDS SUMMARY | 2025-03-23 15:19 | XMS_ITS ---
Author Organization [facility] Address [address] [place] [address] Care Team Providers Care Assistant Center Director Name Role Phone Po Olesya KIM Primary Care Provider Darshan Hayes Jr Unavailable [phone] Allergies No Known Allergies REASON FOR VISIT [...] Problem Status W/U Status Risk Notes Problem 799091506 Abnormal upper gastrointestinal barium series (R93.3) Active confirmed Problem 82854548 Other dysphagia (R13.19) Active confirmed Problem 100829513 Long-term use of aspirin therapy (Z79.82) Active confirmed Vital Signs Temperature 98.7 degrees Fahrenheit 09/24/20 24 Blood pressure systolic 000 mm Hg 09/24/20 24 Blood pressure diastolic 00 mm Hg 024 Height 72 in 09/24/2024 Weight 161 lb 6 oz lbs 09/24/2024 BMI 21.88 kg/m2 09/24/2024 Encounters Encounter Location Date Provider Diagnosis [facility] [address] [place] [address] 09/24/2024 Darshan Swartz Jr Abnormal upper gastrointestinal [...] [address], [address], [place], [address], Progress Notes * Jose Rafael ARELLANO TDOB:1950 (74 yo M)Acc No.[id number]:09/24/2024 Progress Notes Patient:Jose Rafael Arnold Provider:?Darshan Swartz MD :1950???Age:74 Y???Sex:Male John e:09/24/2024 Address:[address], [facility] Pcp:Olesya Billingsley MD Subjective: * Chief Complaints: [...] for 09/24/2024)* sched for 10/17/24 at 12:30 [facility] * Procedure Codes:?3017F COLOR ECTAL CA SCREEN DOC REV, G9903 Pt scrn [facility] id as non user, G9744 PATIENT NOT [...] MD Date:?1 11/24/2023 Generated for Megha gupta/Martir/Roderick on:?03/23/2025 03:19 PM EDT History and Physical Notes * [...]
--- OUTSIDE RECORDS SUMMARY | 2025-03-23 15:19 | XMS_ITS ---
Author Organization [facility] Address [address] [place] [address] Care Team Providers Care Supervisor Metalizing Name Role Phone Po Olesya KIM Primary Care Provider Darshan Hayes Jr REASON FOR VISIT dysphagia,abn barium swallow Problems Problem Type SNOMED Code ICD Code Onset Dates Problem Status W/U Status Risk Notes Problem Dysphagia (R13.10) Active confirmed Encounters Encounter Location Date Provider Diagnosis [facility] Out[facility] [address] [place], [place] [id number] 10/17/2024 Darshan Swartz Jr Dysphagia R13.10 and Abnormal barium swallow R93.3 Assessments Encounter Date Diagnosis (ICD Code) Assessment Notes Treatment Notes Treatment Clinical Notes Section Notes 10/17/2024 Dysphagia (ICD-10 - R13.10) 10/17/2024 Abnormal barium swallow (ICD-10 - R93.3) Plan Of Treatment Next Appt Details Provider Name:Darshan barrera Jr, 04/13/2025 09:20:00 AM, [address], [address], [place], [address], Progress Notes * Jose Rafael ARELLANO TDOB:1950 (74 yo M)Acc No.[id number]:10/17/2024 EGD/MAC Patient:?Jose Rafael ARELLANO Provider:?Darshan Swartz MD :1950???Age:74 Y???Sex:Male John e:10/17/2024 Address:[address], [id number] Pcp:Olesya Billingsley MD Subjective: * Chief Complaints: * ???1. Dysphagia,abn barium s wallow. * Medical History:? Objective: * Vitals:? Assessment: * Assessment: 1.?Dysphagia - R13.10 (Prima ry)???2.?Abnormal barium swallow - R93.3??? Plan: * Treatment: * Procedure Codes:?51304 UPPER GI ENDOSCOPY, BIOPSY * * The named appointment provid er may or may not be the originator of this progress note, and it is not deemed complete until electronically signed by the appointment provider. Sign off status: Pending * Provider:?Darshan Swartz MD Date:?12/18/2023 Generated for Megha gupta/Martir/Kyungsmitting on:?03/23/2025 03:19 PM EDT
--- OUTSIDE RECORDS SUMMARY | 2025-03-23 15:19 | XMS_ITS | Patient Health Record ---
Author Organization [facility] Address [address] [place] [address] Care Team Providers Care Passenger Service Manager Name Role Phone Jose Cruz [facility] Primary Care Provider Darshan Hayes Jr [phone] Allergies No Known Allergies Results Component Value Reference Range Notes Pathology Reviewed date:10/23/2024 09:03:23 AM Interpretation: Performing Lab:[facility], [address] [place] [id number] Notes/Report: Name: Jose Rafael Arellano ge/Sex: 74/M : 1950 Unit#: [id number] Attend Dr: Darshan Swartz MD Re10/17/24 Status : [facility] Location: [facility] Disch: SPEC : [id number] RECD : 10/17/244088 STATUS: CAT [place] NUM: [id number] NOEL: 10/17/24-1242 [facility] DR: Darshan Swartz MD ENTERED: 10/17/24-14 32 SP TYPE: Surgical OTHR DR: Olesya Billingsley MD ORDERED: HE Stain/3, Gross Micro L4, IHC, H. pylori Addendum Addendum 1 Entered: 10/22/24 Immunostain for H py harpreet is negative with appropriate control. Addendum Signed ____ __(signature on file) [place] 10/22/24 1640 Diagnosis Gastric antrum, biop sy: [...] Rafael Arellano ge/Sex: 74/M : 1950 Unit#: [id number] Attend Dr: Darshan Swartz MD Re10/17/24 [place] [facility] [place] [facility] Disch: SPEC : [id number] RECD : 10/17/24 STATUS: CAT DÍAZ NUM: [id number] NOEL: 10/17/24-[address]: Darshan Swartz MD ENTERED: 10/17/24-14 32 SP TYPE: Surgical OTHR DR: Olesya Billingsley MD ORDERED: HE Stain/3, Gross Micro L4, IHC, H. pylori Copies To: Darshan Swartz MD [facility] [address] [place] [address] Olesya Billingsley MD [facility] [address] [place] [address] Signed (si gnature on file) Ariadne Schulte [...] Problem Status W/U Status Risk Notes Problem 031502445 Colon cancer screening (Z12.11) Active confirmed Problem 45171310 Other dysphagia (R13.19) Active confirmed Problem Dysphagia (42773300) Dysphagia (R13.10) Active confirmed Problem 117873048 Abnormal upper gastrointestinal barium series (R93.3) Active confirmed Problem 726719287 Long-term use of aspirin therapy (Z79.82) Active confirmed Problem 03149435 Irritable bowel syndrome with both constipation and diarrhea (K58.2) Active confirmed Problem 187996361 Encntr long-term NSAID use (Z79.1) Active confirmed Vital Signs Temperature 98.7 degrees Fahrenheit 09/24/2024 Blood pressure diastolic 00 mm Hg 09/24/2024 Height 72 in 09/24/2024 Blood pressure systolic 000 mm Hg 09/24/2024 Weight 161 lb 6 oz lbs 09/24/2024 BMI 21.88 kg/m2 09/24/2024 Encounters Encounter Location Date Provider Diagnosis [facility] [address] [place] [id number] 10/17/2024 Darshan Swartz Jr Dysphagia R13.10 and Abnormal barium swallow R93.3 [facility] [address] [place] [address] 09/24/2024 Darshan Swartz Jr Abnormal upper gastrointestinal barium series R93.3 ; Other dysphagia R13.19 and Long-term use of aspirin therapy Z79.82 [facility] [address] [place] [address] 10/23/2024 Darshan Swartz Jr Assessments Encounter Date [...] 09:20:00 AM, [address], [address], [place], [address], Insurance Providers Payer Name Payer Address Payer Phone Subscriber Number Group Number Insured Name Patient Relationship to Insured Coverage Start Date Coverage End Date MEDICARE OF [place] [address] [place] [address] [id number] Jose Rafael Arellano Self - patient is the insured [employer] [address] [place] [address] [id number] Jose Rafael Arellano Self - patient is [...]
--- OUTSIDE RECORDS SUMMARY | 2025-03-23 15:19 | XMS_ITS ---
Author Organization [facility] Address [address] [place] [address] Care Team Providers Care Chronograph Operator Name Role Phone Olesya Billingsley MD Primary Care Provider Drew Swartz Jr, Darshan Cheek [phone] REASON FOR VISIT pathology Encounters Encounter Location Date Provider Diagnosis [facility] [address] [place] [address] 10/23/2024 Darshan Swartz Jr Plan Of Treatment Next Appt Details Provider Name:Darshan barrera Jr, 04/13/2025 09:20:00 AM, [address], [address], [place], [address], Progress Notes * Jose Rafael ARELLANO TDOB:1950 (74 yo M)Acc No.[id number]:10/23/2024 Patient:?Jose Rafael Arellano :1950???Age:74 Y???Sex:Male Address:[place], [address] * true * Date:? Generated for Jarrodi candy/Martir/eTransmitting on:?03/23/2025 03:19 PM EDT
--- NOTE | 2025-03-23 15:20 | A.OFFVIS_ITS ---
Vital Signs 03/23/25 15:22 Height 5 ft 10.5 in Weight 155 lb 3.287 oz BMI 22.0 BP 80/62 L Blood Pressure Location Lt brachial Position Sitting Pulse 69 Pulse Source Pulse Oximeter Intake Visit Reasons: 6m follow up Alteration Tailor Required: No Accompanied by: Self / Same As Patient Allergies Seasonal Allergies Allergy (Mild, Verified 03/12/25 10:09) Nasal congestion lisinopril Adverse Reaction (Intermediate, Verified 03/12/25 10:09) cough Medication List - Last Reconciled 03/23/25 by Akil Crystal MD albuterol sulfate 90 mcg/actuation 2 puffs inhalation Q6H PRN aspirin 81 mg PO DAILY 90 days atorvastatin 10 mg PO BEDTIME budesonide-formoterol 160-4.5 mcg/actuation (Symbicort) 2 puffs inhalation BID cholecalciferol (vitamin D3) 25 mcg PO DAILY cyanocobalamin (vitamin B-12) 1,000 mcg PO DAILY losartan 50 mg PO QPM metoprolol succinate ER 25 mg PO QPM omeprazole 20 mg PO DAILY PRN sennosides-docusate sodium 8.6-50 mg (Senna Plus) 2 tab-caps (2 x 8.6-50 mg) PO BEDTIME HPI Comments Details: Jose Rafael returns for follow-up. Remote history of atrial fibrillation more than 15 years ago. Brief episode per patient but no recurrences since that time. Otherwise, he also has a history of hypertension as well as orthostatic hy potension. Orthostatic syncope with increased beta-blockers in the past. Blood pressure is still ongoing issue where he has very high and very low readings but he states he got used to it. Apparently, for the most part the labile nature is not as bad as in the past. It has been as much as 200 mm Hg as well as 60 mm Hg at different times. Today's blood pressure is 80/62 mm Hg. He just feels tired. Otherwise fine. Not dizzy or presyncopal. [facility] Medical History (Updated 01/13/25 @ 14:51 by Kiley Krishnan MD) Episodes of staring Syncope Essential hypertension H/O coronary angiogram (~04/2024) Hypotension Screening for prostate cancer Urinary incontinence Hx of radiation therapy History of chemotherapy Colon cancer screening Hypercholesterolemia Asthma GERD (gastroesophageal reflux disease) Cancer of tonsil Orthostatic hypotension PAF (paroxysmal atrial fibrillation) Surgical History History of endoscopy (~10/2024) H/O colonoscopy S/P repair of hydrocele History of tonsillectomy Family History Father Dementia Hx of CABG Mother Diabetes Social History Household Members: Spouse Housing: House Are you a primary janitor caretaker to a significant other at home: No Do you presently have visiting nurse or other home services: No Alcohol intake: former Patient Tobacco Use Status: Never used Tobacco Tobacco use type: Cigarette e-Cigarette/Vaping Use: Never Used Second Hand Smoke Exposure: No service: No Current occupational status: retired Cognitive needs: No Hearing needs: No Vision needs: Yes Review of Systems Const Denies chills, Denies fatigue, Denies fever(s), Denies frequent falls, Denies weakness, Denies weight gain and Denies weight loss ENT Denies dizziness Card Denies chest pain, Denies leg edema, Denies lightheadedness, Denies palpitations, Denies dyspnea and Denies dyspnea on exertion Resp Denies cough, Denies dyspnea and Denies dyspnea on exertion GI Denies hematochezia Musc Denies abnormal gait, Denies muscle weakness, Denies numbness, Denies radiating pain into limb and Denies tingling Neuro Denies abnormal gait, Denies dizziness, Denies frequent falls, Denies numbness, Denies tingling and Denies weakness Endo Denies fatigue and Denies palpitations Physical Exam Vital Signs: Last Vital Signs Pulse 69 03/23/25 15:22 BP 80/62 L 03/23/25 15:22 BMI result Body Mass Index 22.0 Const General: comfortable and no acute distress Orientation/consciousness: patient oriented x3 HEENT Other: Unremarkable Head: Yes normal to inspection Neck Neck: Yes normal visual inspection Chest Chest palpation & inspection: normal inspection of the chest Resp Auscultation: clear to auscultation bilaterally Cardio Palpation: normal PMI Heart sounds: S1 normal heart sound present, S2 normal heart sound present, no gallops, no murmurs and no rubs GI Palpation (GI): Soft to palpation Back/Spine/Pelvis Other: unremarkable Skin General skin exam: no rashes or lesions noted Neuro General: patient oriented x3 Extrem General: Yes normal to inspection Psych Mental Status: mental status grossly normal Assessment & Plan Assessment & Plan (1) Essential hypertension: Code(s): I10 - Essential (primary) hypertension Category: Medical Plan: Difficult to treat because of concurrent orthostatic hypotension. Currently on lisinopril/metoprolol. As the current reading is quite low, advised him to hold off on meds for couple of days and monitor his blood pressure at home. Understands that. He has also been on amlodipine in the past but not in his list anymore. Also concurrently seeing Nephrology. According to that note, no renal artery stenosis on Doppler. No hyperaldosteronism and unlikely pheochromocytoma. Orthostatic precautions/TEDs. (2) Orthostatic hypotension: Code(s): I95.1 - Orthostatic hypotension Category: Medical Plan: As discussed above. (3) PAF (paroxysmal atrial fibrillation): Comment: no recurrence had only 1 episode and so no anticoagulation Code(s): I48.0 - Paroxysmal atrial fibrillation Category: Medical Plan: PREETI in the past had shown sinus rhythm only with occasional PAC/PVCs but no atrial fibrillation. Echocardiogram with preserved LVEF at 60-65% and otherwise unremarkable. Continue beta-blockers. No need for anticoagulation as there is only 1 episode, based on history which is also remote. Plan Discussion Notes During our discussion, I addressed the patient's hypotension and outlined the recommendation to temporarily discontinue Losartan and Metoprolol. We reviewed possible benefits and potential risks of pausing these medications, emphasizing the importance of close monitoring of blood pressure to make informed self- adjustments. I explained alternative options depending on how blood pressure trends, and the patient acknowledged understanding of his capability to adjust doses based on his body's response. Follow-up will be arranged to manage his blood pressure. Patient was informed and verbally consented to the use of an ambient scribe for clinic note documentation during this visit. Patient Instructions: - Stop taking Losartan and Metoprolol for a couple of days. - Check your blood pressure regularly. - Restart your medicine if your blood pressure goes up. - Pay attention to how you feel and make changes as needed. Coding Level of Care Code Est Pt Level 4 (05700) Complex EM visit Add On G2211 Diagnoses Essential hypertension I10 Orthostatic hypotension I95.1 PAF (paroxysmal atrial fibrillation) I48.0
[2025-03-23 15:22] VITALS: BP 80/62; PULSE 69; BMI 22.0
== END 2025-03-23 15:39 | disposition home or self-care (01) ==
LOC: HO.HCS 15:17
PROVIDERS: PCP Internal Medicine; Visit Provider Internal Medicine
DX: I10 Essential (primary) hypertension (principal); I95.1 Orthostatic hypotension; I48.0 Paroxysmal atrial fibrillation
CPT/HCPCS: 99214; G2211

== ENCOUNTER → 2025-03-23 15:17 | Outpatient (BNVA) | payer MEDICARE, OTHER, SELFPAY | PROVIDERS: PCP Internal Medicine; Visit Provider Internal Medicine | DX: I48.0 Paroxysmal atrial fibrillation (principal); I95.1 Orthostatic hypotension; I10 Essential (primary) hypertension | CPT/HCPCS: 99212 ==

== ENCOUNTER 2025-07-08 09:14 | Outpatient (AMB) | payer MEDICARE, OTHER, SELFPAY ==
--- OUTSIDE RECORDS SUMMARY | 2024-10-17 08:30 | XMS_ITS ---
Author Organization [facility] Address [address] [place] [address] Care Team Providers Care Plant Tour Guide Name Role Phone Po Olesya KIM Primary Care Provider Drew Swartz Jr, Darshan Cheek [phone] REASON FOR VISIT dysphagia,abn barium swallow Problems Problem Type SNOMED Code ICD Code Onset Dates Problem Status W/U Status Risk Notes Problem Dysphagia (14529023) Dysphagia (R13.10) Active confirmed Encounters Encounter Location Date Provider Diagnosis [facility] [place] Outpatient [address] [place] [id number] 10/17/2024 Darshan Swartz Jr Dysphagia R13.10 and Abnormal barium swallow R93.3 Assessments Encounter Date Diagnosis (ICD Code) Assessment Notes Treatment Notes Treatment Clinical Notes Section Notes 10/17/2024 Dysphagia (ICD-10 - R13.10) 10/17/2024 Abnormal barium swallow (ICD-10 - R93.3) Plan Of Treatment Next Appt Details Provider Name:Darshan barrera Jr, 07/20/2025 11:20:00 AM, [address], [address], [place], [address], Progress Notes * Jose Rafael ARELLANO TDOB:1950 (75 yo M)Acc No.[id number]:10/17/2024 EGD/MAC Patient: Franny Jose Rafael OWENS Provider: Susie Swartz MD :1950 A ge:74 Y S ex:Male Date:10/17/2024 Address:[address] [place], [id number] Pcp:Olesya Billingsley MD Subjective: * Chief Complaints: [...] 12/18/2023 Generated for Megha gupta/Martir/Kyungsmitting on: 0 2025 09:57 AM EDT
--- OUTSIDE RECORDS SUMMARY | 2025-04-13 05:20 | XMS_ITS ---
Author Organization [facility] Address [address] [place] [address] Care Team Providers Care Supervisor Blood Donor Recruiters Name Role Phone Olesya Billingsley MD Primary Care Provider Darshan Hayes Jr [phone] REASON FOR VISIT patient presents today for DYSPHAGIA Encounters Encounter Location Date Provider Diagnosis [facility] [address] [place] [address] 04/13/2025 Darshan Swartz Jr Plan Of Treatment Next Appt Details Provider Name:Darshan barrera Jr, 07/20/2025 11:20:00 AM, [address] [place] [address], [address], [place], [address], Progress Notes * Jose Rafael ARELLANO TDOB:1950 (75 yo M)Acc No.[id number]:04/13/2025 Progress Notes Patient: Jose Rafael AMAYA Provider: Susie Swartz MD :1950 A ge:74 Y S ex:Male Date:04/13/2025 Address:[id number] Pcp:Olesya Billingsley MD Subjective: * Chief Complaints: [...] MD Date: 0 04/13/2025 Generated for Megha gupta/Martir/Roderick on: 2025 09:57 AM EDT
[2025-07-08 09:28] VITALS: BP 148/82; PULSE 73; O2SAT 98; BMI 21.8
--- NOTE | 2025-07-08 09:28 | AM.OFFVISMDC ---
Intake Vital Signs 07/08/25 09:28 Height 5 ft 10.5 in Weight 154 lb BMI 21.8 BP 148/82 H Blood Pressure Location Lt brachial Position Sitting Pulse 73 Pulse Source Pulse Oximeter Pulse Oximetry (%) 98 Oxygen Delivery Method Room Air Intake Visit Reasons: [facility] [place] G0439 Allergies Seasonal Allergies Allergy (Mild, Verified 07/08/25 09:29) Nasal congestion lisinopril Adverse Reaction (Intermediate, Verified 07/08/25 09:29) cough Medication List - Last Reconciled 07/08/25 by Olesya Billingsley MD albuterol sulfate 90 mcg/actuation 2 puffs inhalation Q6H PRN aspirin 81 mg PO DAILY 90 days atorvastatin 10 mg PO BEDTIME budesonide-formoterol 160-4.5 mcg/actuation (Symbicort) 2 puffs inhalation BID cholecalciferol (vitamin D3) 25 mcg PO DAILY cyanocobalamin (vitamin B-12) 1,000 mcg PO DAILY losartan 50 mg PO DAILY PRN metoprolol succinate ER 25 mg PO QPM omeprazole 20 mg PO DAILY PRN sennosides-docusate sodium 8.6-50 mg (Senna Plus) 2 tab-caps (2 x 8.6-50 mg) PO BEDTIME HPI V G0439 HPI Details [place] of care Cardiology Dr. Crystal, nephrology Dr. Buzz bloom, vascular Dr. Naidu, gastroenterology Dr. Swartz, urology Dr. Rivas [facility] Medical History (Updated 07/08/25 @ 10:13 by Olesya Billingsley MD) PAF (paroxysmal atrial fibrillation) Episodes of staring Syncope Essential hypertension H/O coronary angiogram (~04/2024) Hypotension Screening for prostate cancer Urinary incontinence Hx of radiation therapy History of chemotherapy Colon cancer screening Hypercholesterolemia Asthma GERD (gastroesophageal reflux disease) Cancer of tonsil Orthostatic hypotension Surgical History History of endoscopy (~10/2024) H/O colonoscopy S/P repair of hydrocele History of tonsillectomy Family History Father Dementia Hx of CABG Mother Diabetes Social History (Updated 07/08/25 @ 10:09 by Olesya Billingsley MD) Household Members: Spouse Housing: House Are you a primary human services care specialist to a significant other at home: No Do you presently have visiting nurse or other home services: No Alcohol intake: former Comment: rare Patient Tobacco Use Status: Never used Tobacco Tobacco use type: Cigarette e-Cigarette/Vaping Use: Never Used Second Hand Smoke Exposure: No service: No Current occupational status: retired Cognitive needs: No Hearing needs: No Vision needs: Yes Questionnaire Medicare Wellness Checkup [age] What gender do you identify with?: male During the past 4 weeks, how much have you been bothered by emotional problems such as feeling anxious, depressed, irritable, sad or downhearted, and blue?: moderately During the past 4 weeks, has your physical & emotional health limited your social activities with family, friends, neighbors, or groups?: not at all During the past 4 weeks, how much bodily pain have you generally had?: mild pain During the past 4 weeks, was someone available to help you if you needed & wanted help?: yes, a little During the past 4 weeks, what was the hardest physical activity you could do for at least 2 minutes?: heavy Can you get to places out of walking distance without help? (For eg., can you travel alone on buses, taxis or drive your car?): Yes Can you go shopping for groceries or clothes without someone's help?: Yes Can you prepare your own meals?: Yes Can you do your housework without help?: Yes Because of any health problems, do you need the help of another person with your personal care needs such as eating, bathing, dressing or getting around the house?: No Can you handle your own money without help?: Yes During the past 4 weeks, how would you rate your health in general?: very good During the past 4 weeks how have things been going for you?: very well; could hardly better Are you having difficulties driving your car?: no Do you always fasten your seat belt when you are in a car?: yes, usually During past 4 weeks, have you been bothered by the following: never: Falling or dizzy when standing up, Sexual problems?, Trouble eating well? and Problems using the telephone? and seldom: Teeth or denture problems? and Tiredness or fatigue? Have you fallen 2 or more times in the past year?: Yes Are you afraid of falling?: Yes Are you a smoker?: no During the past 4 weeks, how many drinks of wine, beer, or other alcoholic beverages did you have?: no alcohol at all Do you exercise for about 20 minutes 3 or more times a week?: no, I usually do not exercise this much Have you been given information to help with the following?: no: Hazards in your house that might hurt you? and no: Keeping track of your medications? How often do you have trouble taking medicines the way you have been told to take them?: I always take medicine as prescribed How confident are you that you can control & manage most of your health problems?: very confident What is your race?: White PHQ-9 Over the last 2 weeks, how often have you been bothered by any of the following problems? 1. Little interest or pleasure in doing things: not at all 2. Feeling down, depressed, or hopeless: not at all 3. Trouble falling or staying asleep, or sleeping too much: several days 4. Feeling tired or having little energy: several days 5. Poor appetite or overeating: not at all 6. Feeling bad about yourself - or that you are a failure or have let yourself or your family down: not at all 7. Trouble concentrating on things, such as reading the newspaper or watching television: not at all 8. Moving or speaking so slowly that other people could have noticed. Or the opposite - being so fidgety or restless that you have been moving around a lot more than usual: not at all 9. Thoughts that you would be better off or of hurting yourself in some way: not at all Total score: 2 Depression Screening Interpretation: Positive Depression Screening Done: Yes Source: Developed by Drs. Scotty Jessica, Liliam Shaw, Deangelo Carvalho and colleagues, with an educational juan miguel from [employer]. Review of Systems Const Denies poor appetite and Denies weakness Eyes Denies no additional complaints ENT Reports Normal hearing present, Denies dizziness, Denies nasal congestion, Denies tinnitus and Denies sore throat Card Denies chest pain, Denies syncope, Denies rapid heart rate and Denies dyspnea Resp Denies cough and Denies dyspnea GI Denies change in stool character, Reports constipation, Denies diarrhea, Denies nausea and Denies vomiting Denies dysuria and Denies urinary frequency Neuro Reports Normal hearing present, Denies confusion, Denies dizziness, Denies syncope and Denies weakness Psych Denies confusion Physical Exam Vital Signs: Last Vital Signs Pulse 73 07/08/25 09:28 BP 148/82 H 07/08/25 09:28 Pulse Ox 98 07/08/25 09:28 Oxygen Delivery Method Room Air 07/08/25 09:28 BMI result Body Mass Index 21.8 Const General: No confusion Orientation/consciousness: No confusion HEENT Head: Yes normocephalic Ears: external ears normal and TM's normal bilaterally Face and sinus: Yes normal facial exam Mouth: moist mucous membranes Throat: Yes tonsils normal Eyes Conjunctivae: conjunctivae normal Pupils: Equal, round and reactive pupils present and Pupil accommodation reflex normal Direct Ophthalmoscopy: normal light reflex Neck Neck: No lymphadenopathy Thyroid: Thyroid normal Chest Chest palpation & inspection: normal inspection of the chest Resp Effort & Inspection: normal respiratory effort and no audible wheezes Auscultation: clear to auscultation bilaterally, no crackles, no wheezes and lung sounds not diminished Cardio Rate: regular rate Rhythm: regular rhythm Peripheral pulses: radial pulses present and dorsalis pedis present GI Other: guaiac negative prostate enlarged Palpation (GI): no masses Auscultation: normal bowel sounds and normoactive bowel sounds Male General Exam: Yes normal external exam Skin General skin exam: no rashes or lesions noted Rashes: no rashes Neuro General: No confusion Cranial nerves: Yes Equal, round and reactive pupils present and Yes Normal hearing present Cognition (Neuro): normal cognition Gait exam (Neuro): Normal gait present Motor exam (neuro): 5/5 motor strength present throughout Deep tendon reflexes (DTR's): Right brachioradialis reflex intensity grade: 2+, Left brachioradialis reflex intensity grade: 2+, Right patellar reflex intensity grade: 2+ and Left patellar reflex intensity grade: 2+ Extrem General: No edema Immunizations Tenivac (PF) 5 Lf unit-2 Lf unit/0.5 mL intramuscular suspension Performing Provider: Olesya Billingsley MD Performing Location: [facility] Administered by: Brook Fraga CMA on 07/08/25 10:26 Dose Route Admin Location Dispensed Lot Number Expiration Date NDC Scheduling Specialist 0.5 mL IM Left Deltoid 0.5 mL [id number] 02/03/27 82524-116-42 [employer] Total Dispensed Waste 0.5 mL 0 % VIS Given Date VIS Provided VIS Publication Date 07/08/25 Single Vaccine 21 Eligibility Eligibility Date Funding Source Not [facility] Eligible 07/08/25 Private Assessment & Plan Assessment & Plan (1) Medicare annual wellness visit, subsequent: Code(s): Z00.00 - Encounter for general adult medical examination without abnormal findings Plan: Patient is advised to eat healthy, keep well hydrated, keep active and have adequate sleep. (2) Syncope: Code(s): R55 - Syncope and collapse Qualifiers: Syncope type: unspecified Qualified Code(s): R55 - Syncope and collapse Plan: Patient has been follow-up with Cardiology, Nephrology and Neurology. (3) GERD (gastroesophageal reflux disease): Code(s): K21.9 - Gastro-esophageal reflux disease without esophagitis Qualifiers: Esophagitis presence: without esophagitis Qualified Code(s): K21.9 - Gastro-esophageal reflux disease without esophagitis Plan: Avoid the foods that causes that usually spicy foods, tomato products, juices, coffee, soda and foods that your sensitive to. After eating do not lie down, allow 3-4 hours before in lie down. And keep the head of bed above 30 degrees to avoid the acid from going up. (4) Orthostatic hypotension: Code(s): I95.1 - Orthostatic hypotension Plan: Patient has been placed on metoprolol and continue to monitor blood pressure (5) Hypercholesterolemia: Code(s): E78.00 - Pure hypercholesterolemia, unspecified Plan: Avoid fried foods, chicken skin, eggs, butter margarine, pastries and meat. Be it pork or beef they have a lot of cholesterol. LDL goal of less than 100 and triglyceride of less than 150. (6) Labile hypertension: Code(s): R09.89 - Other specified symptoms and signs involving the circulatory and respiratory systems Plan: Patient has been seeing Nephrology and Cardiology. (7) Carotid artery disease: Code(s): I77.9 - Disorder of arteries and arterioles, unspecified Plan: Patient also sees vascular patient is on aspirin 81 mg once a day (8) BPH (benign prostatic hyperplasia): Comment: tried on med but BP effect Code(s): N40.0 - Benign prostatic hyperplasia without lower urinary tract symptoms Qualifiers: Lower urinary tract symptom detail: urinary frequency Lower urinary tract symptom presence: symptoms present Qualified Code(s): N40.1 - Benign prostatic hyperplasia with lower urinary tract symptoms; R35.0 - Frequency of micturition Plan History of Present Illness The patient is a 75-year-old male presenting for an annual wellness visit. He has a history of atrial fibrillation diagnosed over 15 years ago, for which he follows up with cardiology. He experiences episodes of syncope and labile hypertension, with orthostatic hypotension noted. The patient has a history of gastroesophageal reflux disease (GERD) and hypercholesterolemia. He is currently on atorvastatin for cholesterol management and omeprazole for GERD. He has benign prostatic hyperplasia (BPH) with a significantly enlarged prostate, previously evaluated by urology. The patient experiences nocturia, waking up four to five times at night to urinate. The patient has coronary artery disease and has been advised to take aspirin 81 mg daily. He also has a history of mild anemia noted in blood work from August 2024. He has cataracts in both eyes, which are being monitored. Additionally, he has a diagnosis of small vessel occlusive disease and an occluded left internal carotid artery, as revealed by an MRI in January 2025. 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 Review of Systems - Cardiovascular: Denies chest pain, orthopnea, or syncope - Respiratory: Denies dyspnea, cough, or wheezing - Gastrointestinal: Reports occasional dysphagia, denies nausea or vomiting - Neurological: Denies dizziness, headaches, or balance issues - Genitourinary: Reports nocturia, denies dysuria - Musculoskeletal: Reports foot callus causing discomfort - Ophthalmologic: Reports cataracts being monitored Physical Exam General: Cooperative, healthy appearing, comfortable, no acute distress and well developed Orientation: Patient oriented x3 Limitations: No limitations Head: Normal to inspection Ears: Hearing grossly normal bilaterally Nose: Normal external nose present Face and sinus: Normal facial exam Eyes: Appearance normal, both eyes and all related structures. Watching cataracts on both sides, more significant on the left. Neck: Normal visual inspection and Yes full ROM Respiratory: Normal respiratory effort and able to speak in complete sentences. Clear to auscultation bilaterally Cardiovascular: Regular rate and rhythm. Normal S1 and S2 GI: Normal to inspection. Soft to palpation and nontender Skin: No rashes or lesions noted Neuro: Patient oriented x3 Extremities: Normal to inspection. Reports a terrible callus on the foot that bothers daily. Results - Labs: Mild anemia noted in August 2024 - Imaging: MRI in January 2025 showed no acute stroke, nonhemorrhagic ischemia, white matter disease, occluded left internal carotid artery - Imaging: EEG in January was negative for seizures Plan Patient was informed and verbally consented to the use of an ambient scribe for clinic note documentation during this visit. 1. Atrial Fibrillation The patient has a long-standing history of atrial fibrillation, managed with regular cardiology follow-ups. He is currently on metoprolol and aspirin for rate control and stroke prevention. 2. Gastroesophageal Reflux Disease (Gerd) The patient is on omeprazole for management of GERD symptoms. 3. Hypercholesterolemia The patient is on atorvastatin for cholesterol management, with a goal of LDL less than 100 mg/dL. 4. Benign Prostatic Hyperplasia (Bph) The patient has a significantly enlarged prostate, previously evaluated by urology, and experiences nocturia. 5. Syncope The patient experiences episodes of syncope, with a recent EEG being negative for seizures. 6. Labile Hypertension The patient has labile hypertension, with adjustments made to his antihypertensive regimen as needed. 7. Orthostatic Hypotension The patient experiences orthostatic hypotension, and medication adjustments have been made to manage this condition. 8. Coronary Artery Disease The patient is on aspirin for coronary artery disease management and follows up with cardiology. 9. Mild Anemia Mild anemia was noted in the patient's blood work from August 2024. 10. Cataracts The patient has cataracts in both eyes, which are being monitored by his adult protective caseworker. 11. Small Vessel Occlusive Disease The patient has small vessel occlusive disease, as indicated by MRI findings. 12. Occluded Left Internal Carotid Artery The patient has an occluded left internal carotid artery, as revealed by MRI. Discussion Notes During the visit, we discussed the management of atrial fibrillation with metoprolol and aspirin for stroke prevention. The patient was advised to continue omeprazole for GERD and atorvastatin for cholesterol management. We reviewed the importance of monitoring blood pressure and adjusting antihypertensive medications as needed. The patient was informed about the significance of regular follow-ups with cardiology, urology, and ophthalmology for ongoing conditions. Patient Instructions - Continue taking metoprolol and aspirin as prescribed. - Take omeprazole daily for GERD management. - Monitor blood pressure regularly and report any significant changes. - Follow up with cardiology, urology, and ophthalmology as scheduled. - Reduce fluid intake before bedtime to improve sleep quality. - Maintain a healthy diet and engage in regular physical activity. Orders: Orders Td Immunization Today Z23 - Encounter for immunization Comprehensive Met. Panel Today E78.00 - Pure hypercholesterolemia, unspecified Free T4 (Free Thyroxine) Today E78.00 - Pure hypercholesterolemia, unspecified Ferritin Today E78.00 - Pure hypercholesterolemia, unspecified UA CC w/rflx Micro + Cult Today E78.00 - Pure hypercholesterolemia, unspecified, R30.0 - Dysuria IRON PROFILE Today E78.00 - Pure hypercholesterolemia, unspecified Complete Blood Count Auto Diff Today E78.00 - Pure hypercholesterolemia, unspecified Lipid Panel Today E78.00 - Pure hypercholesterolemia, unspecified Reticulocyte Count Today E78.00 - Pure hypercholesterolemia, unspecified Thyroid Stimulating Hormone Today E78.00 - Pure hypercholesterolemia, unspecified Vitamin B12 and Folate Today E78.00 - Pure hypercholesterolemia, unspecified Quality Reporting (2019) Depression/Bipolar (159/160/161/177) PHQ-9: Total score: 2 Coding Level of Care Code Medicare Subsequent (G0439) Diagnoses Medicare annual wellness visit, subsequent Z00.00 Syncope, unspecified syncope type R55 Syncope type: unspecified Gastroesophageal reflux disease without esophagitis K21.9 Esophagitis presence: without esophagitis Orthostatic hypotension I95.1 Hypercholesterolemia E78.00 Labile hypertension R09.89 Carotid artery disease I77.9 Benign prostatic hyperplasia with urinary frequency N40.1; R35.0 Lower urinary tract symptom detail: urinary frequency Lower urinary tract symptom presence: symptoms present
--- OUTSIDE RECORDS SUMMARY | 2025-07-08 09:58 | XMS_ITS | Patient Health Record ---
Author Organization [facility] Address [address] [place] [address] Care Team Providers Care Hook Up Name Role Phone Olesya Billingsley MD Primary Care Provider Darshan Hayes Jr Unavailable [phone] Allergies No Known Allergies Results Component Value Reference Range Notes Pathology Reviewed date:10/23/2024 09:03:23 AM Interpretation: Performing Lab:[facility], [address] [place] [id number] Notes/Report: Reason For Referral No Information Medications Medication [...] Problem Status W/U Status Risk Notes Problem 375998911 Colon cancer screening (Z12.11) Active confirmed Problem 74643977 Other dysphagia (R13.19) Active confirmed Problem Dysphagia (62432857) Dysphagia (R13.10) Active confirmed Problem 464805895 Abnormal upper gastrointestinal barium series (R93.3) Active confirmed Problem 883010567 Long-term use of aspirin therapy (Z79.82) Active confirmed Problem 93579777 Irritable bowel syndrome with both constipation and diarrhea (K58.2) Active confirmed Problem 002952806 Encntr long-term NSAID use (Z79.1) Active confirmed Vital Signs Temperature 98.7 degrees Fahrenheit 09/24/2024 Blood pressure diastolic 00 mm Hg 09/24/2024 Height 72 in 09/24/2024 Blood pressure systolic 000 mm Hg 09/24/2024 Weight 161 lb 6 oz lbs 09/24/2024 BMI 21.88 kg/m2 09/24/2024 Encounters Encounter Location Date Provider Diagnosis [facility] [facility] [address] [place] [id number] 10/17/2024 Darshan Swartz Jr Dysphagia R13.10 and Abnormal barium swallow R93.3 [facility] [address] [id number] 09/24/2024 Darshan Swartz Jr Abnormal upper gastrointestinal barium series R93.3 ; Other dysphagia R13.19 and Long-term use of aspirin therapy Z79.82 [facility] [address] [address] 10/23/2024 Darshan Swartz Jr Assessments Encounter Date [...] ENDOSCOPY 09/24/2024 Next Appt Details Provider Name:Darshan Alvarez barrera , 07/20/2025 11:20:00 AM, [address] [place] [address], [facility] [address], [place], [address], Insurance Providers Payer Name Payer Address Payer Phone Subscriber Number Group Number Insured Name Patient Relationship to Insured Coverage Start Date Coverage End Date MEDICARE OF [place] [address] [place] [address] [id number] Jose Rafael Arellano Self - patient is the insured [employer] [address] [place] [phone] [id number] Jose Rafael Arellano Self - patient is [...]
== END 2025-07-08 10:33 | disposition home or self-care (01) ==
LOC: HO.HMCH 09:15
PROVIDERS: PCP Internal Medicine; Visit Provider Internal Medicine
DX: Z00.00 Encounter for general adult medical examination without abnormal findings (principal); K21.9 Gastro-esophageal reflux disease without esophagitis; I95.1 Orthostatic hypotension; E78.00 Pure hypercholesterolemia, unspecified; R55 Syncope and collapse; R09.89 Other specified symptoms and signs involving the circulatory and respiratory systems; I77.9 Disorder of arteries and arterioles, unspecified; N40.1 Benign prostatic hyperplasia with lower urinary tract symptoms; R35.0 Frequency of micturition; Z23 Encounter for immunization

== ENCOUNTER → 2025-07-08 09:14 | Outpatient (BNVA) | payer MEDICARE, OTHER, SELFPAY | PROVIDERS: PCP Internal Medicine; Visit Provider Internal Medicine | DX: Z00.00 Encounter for general adult medical examination without abnormal findings (principal); Z23 Encounter for immunization; K21.9 Gastro-esophageal reflux disease without esophagitis; I95.1 Orthostatic hypotension; I77.9 Disorder of arteries and arterioles, unspecified; E78.00 Pure hypercholesterolemia, unspecified; R09.89 Other specified symptoms and signs involving the circulatory and respiratory systems; N40.1 Benign prostatic hyperplasia with lower urinary tract symptoms; R35.0 Frequency of micturition | CPT/HCPCS: 90471; 90714 ==

== ENCOUNTER 2025-07-10 11:10 | Outpatient (REF) | payer MEDICARE, OTHER, SELFPAY ==
--- OUTSIDE RECORDS SUMMARY | 2024-10-17 08:30 | XMS_ITS ---
Author Organization [facility] Address [address] [place] [address] Care Team Providers Care Photographer Finish Name Role Phone Po Olesya KIM Primary Care Provider Drew Swartz Jr, Darshan Cheek REASON FOR VISIT dysphagia,abn barium swallow Problems Problem Type SNOMED Code ICD Code Onset Dates Problem Status W/U Status Risk Notes Problem Dysphagia (70081377) Dysphagia (R13.10) Active confirmed Encounters Encounter Location Date Provider Diagnosis [facility] [place] Outpatient [address] [place] [id number] 10/17/2024 Darshan Swartz Jr Dysphagia R13.10 and Abnormal barium swallow R93.3 Assessments Encounter Date Diagnosis (ICD Code) Assessment Notes Treatment Notes Treatment Clinical Notes Section Notes 10/17/2024 Dysphagia (ICD-10 - R13.10) 10/17/2024 Abnormal barium swallow (ICD-10 - R93.3) Plan Of Treatment Next Appt Details Provider Name:Darshan barrera Jr, 07/20/2025 11:20:00 AM, [address], [address], [place], [address], Progress Notes * Jose Rafael ARELLANO TDOB:1950 (75 yo M)Acc No.[id number]:10/17/2024 EGD/MAC Patient: Franny Jose Rafael OWENS Provider: Susie Swartz MD :1950 A ge:74 Y S ex:Male Date:10/17/2024 Address:[address] [place], [place] Pcp:Olesya Billingsley MD Subjective: * Chief Complaints: [...] 12/18/2023 Generated for Megha gupta/Martir/Kyungsmitting on: 0 07/10/2025 12:17 PM EDT
--- OUTSIDE RECORDS SUMMARY | 2025-04-13 05:20 | XMS_ITS ---
Author Organization [facility] Address [address] [place] [address] Care Team Providers Care Production Helper Name Role Phone Olesya Billingsley MD Primary Care Provider Darshan Hayes Jr REASON FOR VISIT patient presents today for DYSPHAGIA Encounters Encounter Location Date Provider Diagnosis [facility] [address] [place] [address] 04/13/2025 Darshan Swartz Jr Plan Of Treatment Next Appt Details Provider Name:Darshan barrera Jr, 07/20/2025 11:20:00 AM, [address] [place] [address], [address], [place], [address], Progress Notes * Jose Rafael ARELLANO TDOB:1950 (75 yo M)Acc No.[id number]:04/13/2025 Progress Notes Patient: Jose Rafael AMAYA Provider: Susie Swartz MD :1950 A ge:74 Y S ex:Male Date:04/13/2025 Address:[address] [id number] Pcp:Olesya Billingsley MD Subjective: * Chief Complaints: [...] 0 04/13/2025 Generated for Megha gupta/Martir/Roderick on: 0 07/10/2025 12:18 PM EDT
[2025-07-10 12:06] LABS: MANUAL DIFF FLAG NO
--- OUTSIDE RECORDS SUMMARY | 2025-07-10 12:18 | XMS_ITS | Patient Health Record ---
Author Organization [facility] Address [address] [place] [address] Care Team Providers Care Vessel Engineer Name Role Phone Olesya Billingsley MD Primary Care Provider Darshan Hayes Jr Unavailable [phone] Allergies No Known Allergies Results Component Value Reference Range Notes Pathology Reviewed date:10/23/2024 09:03:23 AM Interpretation: Performing Lab:[facility], [address] [place] [id number] Notes/Report: Reason For Referral No Information Medications [...] Problem Status W/U Status Risk Notes Problem 170119840 Colon cancer screening (Z12.11) Active confirmed Problem 75715886 Other dysphagia (R13.19) Active confirmed Problem Dysphagia (31039337) Dysphagia (R13.10) Active confirmed Problem 793281970 Abnormal upper gastrointestinal barium series (R93.3) Active confirmed Problem 167939519 Long-term use of aspirin therapy (Z79.82) Active confirmed Problem 25326320 Irritable bowel syndrome with both constipation and diarrhea (K58.2) Active confirmed Problem 301562465 Encntr long-term NSAID use (Z79.1) Active confirmed Vital Signs Temperature 98.7 degrees Fahrenheit 09/24/2024 Blood pressure diastolic 00 mm Hg 09/24/2024 Height 72 in 09/24/2024 Blood pressure systolic 000 mm Hg 09/24/2024 Weight 161 lb 6 oz lbs 09/24/2024 BMI 21.88 kg/m2 09/24/2024 Encounters Encounter Location Date Provider Diagnosis [facility] [place] [facility] [address] [place] [id number] 10/17/2024 Darshan Swartz Jr Dysphagia R13.10 and Abnormal barium swallow R93.3 [facility] [address] [address] 09/24/2024 Darshan Swartz Jr Abnormal upper gastrointestinal barium series R93.3 ; Other dysphagia R13.19 and Long-term use of aspirin therapy Z79.82 [facility] [address] [address] 10/23/2024 Darshan Swartz Jr Assessments Encounter Date [...] Name:Darshan Alvarez barrera , 07/20/2025 11:20:00 AM, [address] [place] [address], [facility] [address], [place], [address], Insurance Providers Payer Name Payer Address Payer Phone Subscriber Number Group Number Insured Name Patient Relationship to Insured Coverage Start Date Coverage End Date MEDICARE OF [place] [address] [place] [id number] [phone] [id number] Jose Rafael Arellano Self - patient is the insured [employer] [address] [place] [phone] [id number] Jose Rafael Arellano Self - patient is [...]
[2025-07-10 12:32] LABS: Hematocrit 39.3 % (42.0-52.0); Hemoglobin 13.5 g/dl (14.0-18.0); Imm Gran Abs Auto 0.01 X10*3/uL (0.00-0.03); Imm Gran Pct Auto 0.2 % (0.0-0.4); Lymphocytes Absolute Auto 0.6 X10*3/uL (1.2-4.9); Mean Corpuscular HGB Conc 34.4 g/dl (31.0-36.0); Mean Corpuscular Hemoglobin 30.6 pg (27.0-33.0); Mean Corpuscular Volume 89.1 fL (80.0-98.0); NRBC Abs Auto 0.000 X10*3/uL (0.0-0.012); NRBC Pct Auto 0.0 /100WBC (0.0-0.2); Platelet Count 193 X10*3/uL (160-400); Red Blood Count 4.41 X10*6/uL (4.60-5.80); Reticulocytes Absolute 0.043 X10*6/uL (0.026-0.095); White Blood Count 5.1 X10*3/uL (4.8-10.8)
[2025-07-10 12:33] LABS: Hematocrit 39.5 % (42.0-52.0); Hemoglobin 13.7 g/dl (14.0-18.0); Mean Corpuscular HGB Conc 34.7 g/dl (31.0-36.0); Mean Corpuscular Hemoglobin 30.8 pg (27.0-33.0); Mean Corpuscular Volume 88.8 fL (80.0-98.0); NRBC Abs Auto 0.000 X10*3/uL (0.0-0.012); NRBC Pct Auto 0.0 /100WBC (0.0-0.2); Platelet Count 199 X10*3/uL (160-400); Red Blood Count 4.45 X10*6/uL (4.60-5.80); White Blood Count 4.7 X10*3/uL (4.8-10.8)
[2025-07-10 13:01] LABS: Appearance Urine Clear; Glucose Urine UA Negative (Negative); PH 6.5 (5.0-9.0); Specific Gravity - Urine 1.010 (1.005-1.025)
[2025-07-10 13:06] LABS: Alanine Aminotransferase 21 U/L (0-40); Albumin Level 4.2 g/dL (3.5-5.0); Alkaline Phosphatase 74 U/L (39-117); Anion Gap 10 (12-20); Aspartate Amino Transferase 31 U/L (5-37); Blood Urea Nitrogen 15 mg/dL (9-16); Calcium 9.0 mg/dL (8.4-10.2); Carbon Dioxide 27 mmol/L (22-29); Chloride 101 mmol/L (96-108); Cholesterol 149 mg/dL (<200); Estimated Glomerular Filt Rate > 60; HDL Cholesterol 66 mg/dL (>40); Iron 76 mcg/dL (45-160); Percent Iron Saturation 28 % (15-50); Potassium 4.3 mmol/L (3.3-5.1); Sodium 134 mmol/L (135-145); Total Iron Binding Capacity 270 mcg/dL (228-428); Total Protein 6.5 g/dL (6.5-8.0); Triglycerides 26 mg/dL (<150); Unsaturated Iron Binding 194 ug/dL
[2025-07-10 13:22] LABS: Thyroid Stimulating Hormone 2.31 uIU/mL (0.32-4.0)
[2025-07-10 13:23] LABS: Ferritin 149 ng/mL (20-250); Free T4 (Free Thyroxine) 1.22 ng/dL (0.71-1.85)
[2025-07-10 13:30] LABS: Folate 8.4 ng/mL (> or = 4.0); Vitamin B12 485 pg/mL (200-900)
== END 2025-07-10 11:11 | disposition home or self-care (01) ==
LOC: HO.LAB 11:10
PROVIDERS: PCP Internal Medicine; Visit Provider Internal Medicine Hypertension Specialist
DX: R09.89 Other specified symptoms and signs involving the circulatory and respiratory systems (principal); E78.00 Pure hypercholesterolemia, unspecified; R30.0 Dysuria; Z13.0 Encounter for screening for diseases of the blood and blood-forming organs and certain disorders involving the immune mechanism
CPT/HCPCS: 36415; 80053; 80061; 81003; 82607; 82728; 82746; 83540; 84439; 84443; 85025; 85027; 85045

== ENCOUNTER 2025-07-14 09:35 | Outpatient (AMB) | payer MEDICARE, OTHER, SELFPAY ==
--- OUTSIDE RECORDS SUMMARY | 2024-10-17 08:30 | XMS_ITS ---
Author Organization [facility] Address [address] [place] [address] Care Team Providers Care Tuft Machine Operator Name Role Phone Po Olesya KIM Primary Care Provider Drew Swartz Jr, Darshan Cheek REASON FOR VISIT dysphagia,abn barium swallow Problems Problem Type SNOMED Code ICD Code Onset Dates Problem Status W/U Status Risk Notes Problem Dysphagia (02001545) Dysphagia (R13.10) Active confirmed Encounters Encounter Location Date Provider Diagnosis [facility] [place] Outpatient [address] [place] [id number] 10/17/2024 Darshan Swartz Jr Dysphagia R13.10 and Abnormal barium swallow R93.3 Assessments Encounter Date Diagnosis (ICD Code) Assessment Notes Treatment Notes Treatment Clinical Notes Section Notes 10/17/2024 Dysphagia (ICD-10 - R13.10) 10/17/2024 Abnormal barium swallow (ICD-10 - R93.3) Plan Of Treatment Next Appt Details Provider Name:Darshan barrera Jr, 07/20/2025 11:20:00 AM, [address], [address], [place], [address], Progress Notes * Jose Rafael ARELLANO TDOB:1950 (75 yo M)Acc No.[id number]:10/17/2024 EGD/MAC Patient: Franny Jose Rafael OWENS Provider: Susie Swartz MD :1950 A ge:74 Y S ex:Male Date:10/17/2024 Address:[address] [place], [place] Pcp:Olesya Billingsley MD Subjective: * Chief Complaints: [...] Pending * Provider: Susie Swartz MD Date: 1 12/18/2023 Generated for Megha gupta/Martir/Kyungsmitting on: 0 07/14/2025 11:04 AM EDT
--- OUTSIDE RECORDS SUMMARY | 2025-04-13 05:20 | XMS_ITS ---
Author Organization [facility] Address [address] [place] [address] Care Team Providers Care Ship Rigger Name Role Phone Olesya Billingsley MD Primary Care Provider Darshan Hayes Jr REASON FOR VISIT patient presents today for DYSPHAGIA Encounters Encounter Location Date Provider Diagnosis [facility] [address] [place] [address] 04/13/2025 Darshan Swartz Jr Plan Of Treatment Next Appt Details Provider Name:Darshan barrera Jr, 07/20/2025 11:20:00 AM, [address] [place] [address], [address], [place], [address], Progress Notes * Jose Rafael ARELLANO TDOB:1950 (75 yo M)Acc No.[id number]:04/13/2025 Progress Notes Patient: Jose Rafael AMAYA Provider: Susie Swartz MD :1950 A ge:74 Y S ex:Male Date:04/13/2025 Address:[id number] Pcp:Olesya Billingsley MD Subjective: * Chief Complaints: [...] 0 04/13/2025 Generated for Megha gupta/Martir/Roderick on: 07/14/2025 11:04 AM EDT
[2025-07-14 09:39] VITALS: BP 130/80; PULSE 70; O2SAT 96; BMI 21.6
--- NOTE | 2025-07-14 09:39 | HO.NEPHOV ---
Vital Signs 07/14/25 09:39 Height 5 ft 10.5 in Weight 153 lb BMI 21.6 BP 130/80 Blood Pressure Location Lt brachial Position Sitting Pulse 70 Pulse Source Pulse Oximeter Pulse Oximetry (%) 96 Oxygen Delivery Method Room Air Intake Visit Reasons: 4 MO F/U CONF Desktop Operator Required: No Accompanied by: Self / Same As Patient Allergies Seasonal Allergies Allergy (Mild, Verified 07/14/25 09:40) Nasal congestion lisinopril Adverse Reaction (Intermediate, Verified 07/14/25 09:40) cough Medication List - Last Reconciled 07/14/25 by Jourdan Krishnan MD albuterol sulfate 90 mcg/actuation 2 puffs inhalation Q6H PRN aspirin 81 mg PO DAILY 90 days atorvastatin 10 mg PO BEDTIME budesonide-formoterol 160-4.5 mcg/actuation (Symbicort) 2 puffs inhalation BID cholecalciferol (vitamin D3) 25 mcg PO DAILY cyanocobalamin (vitamin B-12) 1,000 mcg PO DAILY losartan 50 mg PO DAILY PRN metoprolol succinate ER 25 mg PO QPM omeprazole 20 mg PO DAILY PRN sennosides-docusate sodium 8.6-50 mg (Senna Plus) 2 tab-caps (2 x 8.6-50 mg) PO BEDTIME HPI Comments Details: . Jose Rafael is a pleasant 73-year-old man with a history of hypertension for more than 10 years. He has been referred for labile hypertension. Jose Rafael is currently on losartan 50 mg and metoprolol 25 mg daily. He takes amlodipine 10 mg as needed. He is taken about 4 or 5 times this month. There has been a wide fluctuation in his blood pressure. Blood pressure has been as high as 239/130 mm Hg. And the low reading has been as low as 70/50 mm Hg. He has not undergone any workup for hypertension. He has a history of atrial fibrillation. He is on metoprolol for rate control. There is a history of peripheral as disease. He has been followed by Dr. Naidu. There was suspicion for carotid stenosis and is scheduled for an angiogram. He has no history of any kidney disease. No history of smoking. No history of dyslipidemia. He has no history of weight loss. No palpitation. No unexplained sweating. No edema. No urinary symptoms. No polyuria polydipsia. No hematuria. No headaches. No blurred vision. 04/28/2024. Recently hospitalized for rapid AFib. He underwent workup for the hypertension. Plasma renin activity and aldosterone were normal. Catecholamines were also normal. Doppler of the renal arteries did not reveal any renal artery stenosis. There has been wide fluctuation of blood pressure. 06/05/2024. He has been monitoring blood pressure at home BP readings have been rather low. 07/03/24 ;Doing better;He started Losartan 50 mg Q PM.Home BP acceptable 12/02/24 ;Tolerating meds ;No syncopy ;NOt using TEDs 03/12/25 Had 1 episode of BP spike last week up to 180 SBP- took extra amlodipine No syncope NOT using TEDS 07/14/25 The patient is a 75-year-old male presenting for follow-up regarding labile hypertension. Renal function is stable, and blood pressure fluctuated significantly during recent oral surgery. He monitors blood pressure twice daily and rarely experiences lightheadedness. The patient takes metoprolol and losartan as needed, with blood pressure ranging between 130/90 mmHg. Losartan is not refilled as it is used only when necessary to avoid low blood pressure. Mild anemia is present with stable hemoglobin levels over two years, requiring no intervention. Kidney function and electrolytes are normal, and blood test results are satisfactory. Surgical History: - Oral surgery for tooth removal and implant preparation Medications: - Metoprolol for hypertension - Losartan for hypertension, used as needed Diagnostic Results: - Hemoglobin level: 0.5, stable over two years - Kidney function: Normal - Electrolytes: Within normal range [facility] Medical History (Updated 07/08/25 @ 10:13 by Olesya Billingsley MD) PAF (paroxysmal atrial fibrillation) Episodes of staring Syncope Essential hypertension H/O coronary angiogram (~04/2024) Hypotension Screening for prostate cancer Urinary incontinence Hx of radiation therapy History of chemotherapy Colon cancer screening Hypercholesterolemia Asthma GERD (gastroesophageal reflux disease) Cancer of tonsil Orthostatic hypotension Surgical History History of endoscopy (~10/2024) H/O colonoscopy S/P repair of hydrocele History of tonsillectomy Family History Father Dementia Hx of CABG Mother Diabetes Social History Household Members: Spouse Housing: House Are you a primary day care center director to a significant other at home: No Do you presently have visiting nurse or other home services: No Alcohol intake: former Comment: rare Patient Tobacco Use Status: Never used Tobacco Tobacco use type: Cigarette e-Cigarette/Vaping Use: Never Used Second Hand Smoke Exposure: No service: No Current occupational status: retired Cognitive needs: No Hearing needs: No Vision needs: Yes Physical Exam Vital Signs: Last Vital Signs Pulse 70 07/14/25 09:39 BP 130/80 07/14/25 09:39 Pulse Ox 96 07/14/25 09:39 Oxygen Delivery Method Room Air 07/14/25 09:39 BMI result Body Mass Index 21.6 Awake. Comfortable. Neck is supple. Mucosa moist. Lungs clear Heart S1-S2 heard no gallop. Abdomen soft. Extremities no edema. No involuntary movements. No myoclonus. Results Reviewed Nephrology Results: Hgb, (14.0-18.0) 13.7 g/dl L 07/10/25 WBC, (4.8-10.8) 4.7 X10*3/uL L 07/10/25 Plt Count, (160-400) 199 X10*3/uL 07/10/25 Sodium, (135-145) 134 mmol/L L 07/10/25 Potassium, (3.3-5.1) 4.3 mmol/L 07/10/25 Chloride, (96-108) 101 mmol/L 07/10/25 Carbon Dioxide, (22-29) 27 mmol/L 07/10/25 BUN, (9-16) 15 mg/dL 07/10/25 Creatinine, (0.5-1.4) 0.78 mg/dL 07/10/25 Calcium, (8.4-10.2) 9.0 mg/dL Δ 07/10/25 Urine Protein, (Neg-Trace) Negative mg/dL 07/10/25 Renal US 04/17/24 Assessment & Plan Assessment & Plan (1) Orthostatic hypotension: Code(s): I95.1 - Orthostatic hypotension Category: Medical Plan: As discussed above. (2) Labile hypertension: Code(s): R09.89 - Other specified symptoms and signs involving the circulatory and respiratory systems Category: Medical Plan . Jose Rafael is a 75-year-old man with a history of labile hypertension. Blood pressure continues to fluctuate. No renal artery stenosis based on renal Doppler. No evidence of hyperaldosteronism based on recent plasma renin activity and aldosterone levels. Pheochromocytoma is also seems unlikely based on recent catecholamines levels. Continue metoprolol 25 mg. Also takes Losartan 50 mg Q PM -PRN ; Has not taken it in a while Discussed importance of orthostatic precautions. Encouraged to use TEDs At present renal function stable. He has a history of mild hyponatremia. Recent Na 134- asymptomatic Encouraged him to limit free water intake for now. Coding Level of Care Code Est Pt Level 4 (54092) Diagnoses Orthostatic hypotension I95.1 Labile hypertension R09.89
--- OUTSIDE RECORDS SUMMARY | 2025-07-14 11:04 | XMS_ITS | Patient Health Record ---
Author Organization [facility] Address [address] [place] [address] Care Team Providers Care Automobile Service Writer Name Role Phone Olesya Billingsley MD Primary Care Provider Darshan Hayes Jr Unavailable [phone] Allergies No Known Allergies Results Component Value Reference Range Notes Pathology Reviewed date:10/23/2024 09:03:23 AM Interpretation: Performing Lab:[facility], [address] [place] [id number] Notes/Report: Reason For Referral No Information Medications [...] Problem Status W/U Status Risk Notes Problem 608909102 Colon cancer screening (Z12.11) Active confirmed Problem 02062400 Other dysphagia (R13.19) Active confirmed Problem Dysphagia (97326897) Dysphagia (R13.10) Active confirmed Problem 825605853 Abnormal upper gastrointestinal barium series (R93.3) Active confirmed Problem 114951510 Long-term use of aspirin therapy (Z79.82) Active confirmed Problem 79683198 Irritable bowel syndrome with both constipation and diarrhea (K58.2) Active confirmed Problem 087695849 Encntr long-term NSAID use (Z79.1) Active confirmed Vital Signs Temperature 98.7 degrees Fahrenheit 09/24/2024 Blood pressure diastolic 00 mm Hg 09/24/2024 Height 72 in 09/24/2024 Blood pressure systolic 000 mm Hg 09/24/2024 Weight 161 lb 6 oz lbs 09/24/2024 BMI 21.88 kg/m2 09/24/2024 Encounters Encounter Location Date Provider Diagnosis [facility] [place] [address] [place] [id number] 10/17/2024 Darshan Swartz Jr Dysphagia R13.10 and Abnormal barium swallow R93.3 [facility] [address] [phone] 09/24/2024 Darshan Swartz Jr Abnormal upper gastrointestinal barium series R93.3 ; Other dysphagia R13.19 and Long-term use of aspirin therapy Z79.82 [facility] [address] [phone] 10/23/2024 Darshan Swartz Jr Assessments Encounter Date [...] Name:Darshan Alvarez barrera , 07/20/2025 11:20:00 AM, [address] [place] [address], [facility] [address], [place], [address], Insurance Providers Payer Name Payer Address Payer Phone Subscriber Number Group Number Insured Name Patient Relationship to Insured Coverage Start Date Coverage End Date MEDICARE OF [place] [address] [place] [id number] Jose Rafael Arellano Self - patient is the insured [employer] [address] [place] [address] [id number] Jose Rafael Arellano Self - patient is [...]
== END 2025-07-14 09:51 | disposition home or self-care (01) ==
LOC: HO.HKA 09:36
PROVIDERS: PCP Internal Medicine; Visit Provider Internal Medicine Hypertension Specialist
DX: I95.1 Orthostatic hypotension (principal); R09.89 Other specified symptoms and signs involving the circulatory and respiratory systems
CPT/HCPCS: 99214

== ENCOUNTER → 2025-07-14 09:35 | Outpatient (BNVA) | payer MEDICARE, OTHER, SELFPAY | PROVIDERS: PCP Internal Medicine; Visit Provider Internal Medicine Hypertension Specialist | DX: I95.1 Orthostatic hypotension (principal); R09.89 Other specified symptoms and signs involving the circulatory and respiratory systems; Z79.82 Long term (current) use of aspirin | CPT/HCPCS: 99212 ==

== ENCOUNTER 2025-09-15 10:03 | Outpatient (AMB) | payer MEDICARE, OTHER, SELFPAY ==
--- OUTSIDE RECORDS SUMMARY | 2024-10-17 07:30 | XMS_ITS ---
Author Organization [facility] Address [address] [place] [address] Care Team Providers Care Industrial Services Worker Name Role Phone Olesya Billingsley MD Primary Care Provider Darshan Hayes Jr [phone] REASON FOR VISIT dysphagia,abn barium swallow Problems Problem Type SNOMED Code ICD Code Onset Dates Problem Status W/U Status Risk Notes Problem Dysphagia (38188112) Dysphagia (R13.10) Active confirmed Encounters Encounter Location Date Provider Diagnosis [facility] [place] [address] [place] [id number] 10/17/2024 Darshan Swartz Jr Dysphagia R13.10 and Abnormal barium swallow R93.3 Assessments Encounter Date Diagnosis (ICD Code) Assessment Notes Treatment Notes Treatment Clinical Notes Section Notes 10/17/2024 Dysphagia (ICD-10 - R13.10) 10/17/2024 Abnormal barium swallow (ICD-10 - R93.3) Plan Of Treatment No Information Progress Notes * Jose Rafael ARELLANO TDOB:1950 (75 yo M)Acc No.[id number]:10/17/2024 EGD/MAC Patient: Franny OWENS Jose Rafael Restrepo Provider: Susie Swartz MD :1950 A ge:74 Y S ex:Male Date:10/17/2024 Address:[address] Pcp:Olesya Billingsley MD Subjective: * Chief Complaints: * 1 . Dysphagia,abn barium swallow. * Medical History: Objective: * Vitals: Assessment: * Assessment: 1. D ysphagia - R13.10 (Primary) 2 . A bnormal barium swallow - R93.3 ? Plan: * Treatment: * Procedure Codes: 4 3239 UPPER GI ENDOSCOPY, BIOPSY * * The named appointment provid er may or may not be the originator of this progress note, and it is not deemed complete until electronically signed by the appointment provider. Sign off status: Pending * Provider: Susie Swartz MD Date: 12/18/2023 Generated for Megha gupta/Martir/Kyungsmitting on: 11/15/2024 11:29 AM EST
--- OUTSIDE RECORDS SUMMARY | 2025-04-13 04:20 | XMS_ITS ---
Author Organization [facility] Address [address] [place] [address] Care Team Providers Care Electronic Game Developer Name Role Phone Olesya Billingsley MD Primary Care Provider Darshan Hayes Jr [phone] REASON FOR VISIT patient presents today for DYSPHAGIA Encounters Encounter Location Date Provider Diagnosis [facility] [address] [place] [address] 04/13/2025 Darshan Swartz Jr Plan Of Treatment No Information Progress Notes * Jose Rafael AARON TDOB:1950 (75 yo M)Acc No.[id number]:04/13/2025 Progress Notes Patient: Jose Rafael AMAYA Provider: Susie Swartz MD :1950 A ge:74 Y S ex:Male Date:04/13/2025 Address:[address], [facility] Pcp:Olesya Billingsley MD Subjective: * Chief Complaints: * 1 . patient presents today for DYSPHAGIA. * Medical History: Objective: * Vitals: Assessment: Plan: * Treatment: * * The named appointment provid er may or may not be the originator of this progress note, and it is not deemed complete until electronically signed by the appointment provider. Sign off status: Pending * Provider: Susie Swartz MD Date: 0 04/13/2025 Generated for Megha gupta/Martir/eTransmitting on: 1 11/15/2024 11:30 AM EST
--- NOTE | 2025-09-15 10:17 | A.OFFVIS_ITS ---
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 Required: No Accompanied by: Self / Same As Patient Allergies Seasonal Allergies Allergy (Mild, Verified 07/14/25 09:40) Nasal congestion lisinopril Adverse Reaction (Intermediate, Verified 07/14/25 09:40) cough Medication List - Last Reconciled 09/15/25 by Akil Crystal MD albuterol sulfate 90 mcg/actuation 2 puffs inhalation Q6H PRN aspirin 81 mg PO DAILY 90 days atorvastatin 10 mg PO BEDTIME budesonide-formoterol 160-4.5 mcg/actuation (Symbicort) 2 puffs inhalation BID cholecalciferol (vitamin D3) 25 mcg PO DAILY cyanocobalamin (vitamin B-12) 1,000 mcg PO DAILY losartan 50 mg PO DAILY PRN metoprolol succinate ER 25 mg PO QPM omeprazole 20 mg PO DAILY PRN sennosides-docusate sodium 8.6-50 mg (Senna Plus) 2 tab-caps (2 x 8.6-50 mg) PO BEDTIME HPI Comments Details: Jose Rafael returns for follow-up. Remote history of atrial fibrillation more than 15 years ago. Brief episode per patient but no recurrences since that time. Otherwise, he also has a history of hypertension as well as orthostatic hypo tension. Orthostatic syncope with increased beta-blockers in the past. In the past, blood pressures have been widely variable, as much as 200 mm Hg versus 60 mm Hg systolic at different times. During the last clinic visit, it was 80/60 mm Hg. Today's blood pressure is slightly high but quite reasonable considering the overall labile nature. According to him, he is doing overall quite well. He has not had any dizzy spells or syncopal episodes. [facility] Medical History PAF (paroxysmal atrial fibrillation) Episodes of staring Syncope Essential hypertension H/O coronary angiogram (~04/2024) Hypotension Screening for prostate cancer Urinary incontinence Hx of radiation therapy History of chemotherapy Colon cancer screening Hypercholesterolemia Asthma GERD (gastroesophageal reflux disease) Cancer of tonsil Orthostatic hypotension Surgical History History of endoscopy (~10/2024) H/O colonoscopy S/P repair of hydrocele History of tonsillectomy Family History Father Dementia Hx of CABG Mother Diabetes Social History Household Members: Spouse Housing: House Are you a primary child care lead teacher to a significant other at home: No Do you presently have visiting nurse or other home services: No Alcohol intake: former Comment: rare Patient Tobacco Use Status: Never used Tobacco Tobacco use type: Cigarette e-Cigarette/Vaping Use: Never Used Second Hand Smoke Exposure: No service: No Current occupational status: retired Cognitive needs: No Hearing needs: No Vision needs: Yes Review of Systems Const Denies chills, Denies fatigue, Denies fever(s), Denies frequent falls, Denies weakness, Denies weight gain and Denies weight loss ENT Denies dizziness Card Denies chest pain, Denies leg edema, Denies lightheadedness, Denies palpitations, Denies dyspnea and Denies dyspnea on exertion Resp Denies cough, Denies dyspnea and Denies dyspnea on exertion GI Denies hematochezia Musc Denies abnormal gait, Denies muscle weakness, Denies numbness, Denies radiating pain into limb and Denies tingling Neuro Denies abnormal gait, Denies dizziness, Denies frequent falls, Denies numbness, Denies tingling and Denies weakness Endo Denies fatigue and Denies palpitations Physical Exam Vital Signs: Last Vital Signs Pulse 67 09/15/25 10:19 BP 150/82 H 09/15/25 10:19 BMI result Body Mass Index 21.9 Const General: comfortable and no acute distress Orientation/consciousness: patient oriented x3 HEENT Other: Unremarkable Head: Yes normal to inspection Neck Neck: Yes normal visual inspection Chest Chest palpation & inspection: normal inspection of the chest Resp Auscultation: clear to auscultation bilaterally Cardio Palpation: normal PMI Heart sounds: S1 normal heart sound present, S2 normal heart sound present, no gallops, no murmurs and no rubs GI Palpation (GI): Soft to palpation Back/Spine/Pelvis Other: unremarkable Skin General skin exam: no rashes or lesions noted Neuro General: patient oriented x3 Extrem General: Yes normal to inspection Psych Mental Status: mental status grossly normal Office Procedures EKG Details: EKG with underlying sinus rhythm at 67/Min; T inversions in the inferior leads but similar to prior; [place] [address][id number], Complete Assessment & Plan Assessment & Plan (1) Essential hypertension: Code(s): I10 - Essential (primary) hypertension Category: Medical Plan: Difficult to treat because of concurrent orthostatic hypotension. Various different regimens have been tried in the past. Currently, he is on metoprolol in the evening and losartan as needed. He states that works very well. We will not make any further changes at this time. Also concurrently seeing Nephrology. According to that note, no renal artery stenosis on Doppler. No hyperaldosteronism and unlikely pheochromocytoma. Orthostatic precautions/TEDs. (2) Orthostatic hypotension: Code(s): I95.1 - Orthostatic hypotension Category: Medical Plan: As discussed above. (3) PAF (paroxysmal atrial fibrillation): Code(s): I48.0 - Paroxysmal atrial fibrillation Category: Medical Plan: PREETI in the past had shown sinus rhythm only with occasional PAC/PVCs but no atrial fibrillation. Echocardiogram with preserved LVEF at 60-65% and otherwise unremarkable. Continue beta-blockers. No need for anticoagulation as there is only 1 episode, based on history which is also remote. Plan Discussion Notes During the visit, we discussed the management of the patient's hypertension with the current medication regimen of Metoprolol and Losartan. We acknowledged the variability in blood pressure readings and agreed to continue with the current treatment plan as it is the most effective combination tried so far. We also reviewed the patient's cardiac history, including a past episode of atrial fibrillation. Patient was informed and verbally consented to the use of an ambient scribe for clinic note documentation during this visit. Patient Instructions: - Continue taking Metoprolol in the evening and Losartan as needed in the morning. - Monitor blood pressure regularly and report any significant changes. - Follow up with the kidney doctor every six months. - Contact the clinic if any new symptoms or concerns arise. Coding Level of Care Code Est Pt Level 4 (16509) Complex EM visit Add On G2211 Diagnoses Essential hypertension I10 Orthostatic hypotension I95.1 PAF (paroxysmal atrial fibrillation) I48.0 CPT Codes EKG - CPT: 75516-[id number], Complete ([id number])
[2025-09-15 10:19] VITALS: BP 150/82; PULSE 67; BMI 21.9
--- OUTSIDE RECORDS SUMMARY | 2025-09-15 11:30 | XMS_ITS | Patient Health Record ---
Author Organization [facility] Address [address] [place] [address] Care Team Providers Care Coke Production Heater Name Role Phone Olesya Billingsley MD Primary Care Provider Darshan Hayes Jr Unavailable [phone] Allergies No Known Allergies Results Component Value Reference Range Notes Pathology Reviewed date:10/23/2024 09:03:23 AM Interpretation: Performing Lab:[facility], [address] [place] [id number] Notes/Report: Reason For Referral No Information Medications Medication SIG (Take, Route, Frequency, Duration) Notes Start Date End Date Status Vitamin D Active Ibuprofen PRN Active Vitamin B-12 Active Losartan Potassium as needed A ctive Metoprolol Succinate ER 25 MG TAKE 1 TABLET BY MOUTH IN THE EVENING Oral; Duration: 30 Active Aspirin Low Dose 81 MG TAKE 1 TABLET BY MOUTH DAILY Oral; Duration: 90 Active Immunizations Vaccine Route Administration Date Status Comme nts Influenza Unknown 08/18/2020 Administered Influenza Unknown 09/10/2024 Administered Influenza Unknown 08/19/2024 Administered Social History Alcohol Screen Question Answer [...] Problem Status W/U Status Risk Notes Problem Colon cancer screening (432506893) Colon cancer screening (Z12.11) Active confirmed Problem Dysphagia (95062384) Other dysphagia (R13.19) Active confirmed Problem Dysphagia (22431329) Dysphagia (R13.10) Active confirmed Problem Abnormal upper gastrointestinal barium series (R93.3) Active confirmed Problem Long-term current use of antiplatelet drug (52407600885912 1) Long-term use of aspirin therapy (Z79.82) Active confirmed Problem Irritable bowel syndrome (03449473) Irritable bowel syndrome with both constipation and diarrhea (K58.2) Active confirmed Problem 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 current use of non-steroidal anti-inflammato ry drug (76580249973762 3) Encntr long-term NSAID use (Z79.1) Active confirmed Vital Signs Temperature 98.0 degrees Fahrenheit 07/20/2025 Blood pressure diastolic 01 mm Hg 07/20/2025 Height 72 in 07/20/2025 Blood pressure systolic 001 mm Hg 07/20/2025 Weight 153.4 lbs 07/20/2025 BMI 20.8 kg/m2 07/20/2025 Encounters Encounter Location Date Provider Diagnosis [facility] [place] [address] [place] [id number] 10/17/2024 Darshan Swartz Jr Dysphagia R13.10 and Abnormal barium swallow R93.3 [facility] [address] [place] [phone] 09/24/2024 Darshan Swartz Jr Abnormal upper gastrointestinal barium series R93.3 ; Other dysphagia R13.19 and Long-term use of aspirin therapy Z79.82 [facility] [address] [place] [phone] 07/20/2025 Darshan Swartz Jr Other dysphagia R13.19 ; Colon cancer screening Z12.11 and Irritable bowel syndrome with both constipation and diarrhea K58.2 [facility] [address] [place] [phone] 10/23/2024 Darshan Swartz Jr Assessments Encounter Date [...] antiplatelet drugs one week before the procedure. 07/20/2025 Colon cancer screening (ICD-10 - Z12.11) At this time, he is doing well. Reflux symptoms are under good control with diet, lifestyle modifications, and weight management. He will continue OTC antacids as needed. Follow-up will be on a as needed basis. We discussed fiber supplementation for irritable bowel syndrome. He will continue this. Follow-up will be on a as needed basis. He is up-to-date on colorectal cancer screening. No follow-up is arranged at this time. Today's visit was 30 minutes. 07/20/2025 Other dysphagia (ICD-10 - R13.19) At this time, he is doing well. Reflux symptoms are under good control with diet, lifestyle modifications, and weight management. He will continue OTC antacids as needed. Follow-up will be on a as needed basis. We discussed fiber supplementation for irritable bowel syndrome. He will continue this. Follow-up will be on a as needed basis. He is up-to-date on colorectal cancer screening. No follow-up is arranged at this time. Today's visit was 30 minutes. 09/24/2024 Long-term use of aspirin therapy (ICD-10 [...] antiplatelet drugs one week before the procedure. 07/20/2025 Irritable bowel syndrome with both constipation and diarrhea (ICD-10 - K58.2) At this time, he is doing well. Reflux symptoms are under good control with diet, lifestyle modifications, and weight management. He will continue OTC antacids as needed. Follow-up will be on a as needed basis. We discussed fiber supplementation for irritable bowel syndrome. He will continue this. Follow-up will be on a as needed basis. He is up-to-date on colorectal cancer screening. No follow-up is arranged at this time. Today's visit was 30 minutes. Plan Of Treatment Future Test Test Name Order Date COLONOSCOPY 02/09/2021 UPPER GI ENDOSCOPY 09/24/2024 Insurance Providers Payer Name Payer Address Payer Phone Subscriber Number Group Number Insured Name Patient Relationship to Insured Coverage Start Date Coverage End Date MEDICARE OF [place] [address] [place] [id number] Jose Rafael Arellano Self - patient is the insured [employer] [address] [place] [id number] Jose Rafael Arellano Self - patient is the insured Medical (General) History Medical History History ICD Code Hypertension with labile blood pressure Hyperlipidemia Osteoarthritis Asthma Gastroesophageal reflux disease Paroxysmal atrial fibrillation Colonoscopy 02/23, normal, ten-year follo wup Surgical History Surgery Date(Month/Year) Dental extraction Tonsil cancer, status post surgery, chem otherapy, and radiation Hospitalization History Reason Date(Month/Year) Labile blood pressure/transient cerebral ischemia 04/28
== END 2025-09-15 10:34 | disposition home or self-care (01) ==
LOC: HO.HCS 10:03
PROVIDERS: PCP Internal Medicine; Visit Provider Internal Medicine
DX: I10 Essential (primary) hypertension (principal); I95.1 Orthostatic hypotension; I48.0 Paroxysmal atrial fibrillation
CPT/HCPCS: 93010; 99214; G2211

== ENCOUNTER → 2025-09-15 10:03 | Outpatient (BNVA) | payer MEDICARE, OTHER, SELFPAY | PROVIDERS: PCP Internal Medicine; Visit Provider Internal Medicine | DX: I10 Essential (primary) hypertension (principal); I95.1 Orthostatic hypotension; I48.0 Paroxysmal atrial fibrillation | CPT/HCPCS: 93005; 99212 ==

== ENCOUNTER 2025-10-27 10:13 | Outpatient (AMB) | payer MEDICARE, OTHER, SELFPAY ==
--- OUTSIDE RECORDS SUMMARY | 2024-10-17 07:30 | XMS_ITS ---
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 Name Role Phone Olesya Billingsley MD Primary Care Provider Darshan Hayes Jr REASON FOR VISIT dysphagia,abn barium swallow Problems Problem Type SNOMED Code ICD Code Onset Dates Problem Status W/U Status Risk Notes Problem Dysphagia (95598476) Dysphagia (R13.10) Active confirmed Encounters Encounter Location Date Provider Diagnosis [facility] [place] Outpatient [address] [place] [id number] 10/17/2024 Darshan Swartz Jr Dysphagia R13.10 and Abnormal barium swallow R93.3 Assessments Encounter Date Diagnosis (ICD Code) Assessment Notes Treatment Notes Treatment Clinical Notes Section Notes 10/17/2024 Dysphagia (ICD-10 - R13.10) 10/17/2024 Abnormal barium swallow (ICD-10 - R93.3) Plan Of Treatment No Information Progress Notes * Jose Rafael ARELLANO TDOB:1950 (75 yo M)Acc No.[id number]:10/17/2024 EGD/MAC Patient: Franny zazueta Jose Rafael Restrepo Provider: Susie Swartz MD :1950 A ge:74 Y S ex:Male Date:10/17/2024 Address:[address] [id number] Pcp:Olesya Billingsley MD Subjective: * Chief Complaints: * D ysphagia,abn barium swallow Assessment: * Assessment: 1. D ysphagia - R13.10 (Primary) 2 . A bnormal barium swallow - R93.3 ? Plan: * Procedure Codes: 4 3239 UPPER GI ENDOSCOPY, BIOPSY Billing Information: * Procedure Codes: 97130 UPPER GI ENDOSCOPY, BIOPSY. * The named appointment provid er may or may not be the originator of this progress note, and it is not deemed complete until electronically signed by the appointment provider. Sign off status: Pending * Provider: Susie Swartz MD Date: 12/18/2023 Generated for Megha gupta/Martir/Kyungsmitting on: 12/28/2024 11:18 AM EST
--- OUTSIDE RECORDS SUMMARY | 2025-04-13 04:20 | XMS_ITS ---
Author Organization [facility] Address [address] [place] [address] Care Team Providers Care Animal Damage Control Agent Name Role Phone Olesya Billingsley MD Primary Care Provider Darshan Hayes Jr REASON FOR VISIT patient presents today for DYSPHAGIA Encounters Encounter Location Date Provider Diagnosis [facility] [address] [place] [address] 04/13/2025 Darshan Swartz Jr Plan Of Treatment No Information Progress Notes * ADAN Jose Rafael TDOB:1950 (75 yo M)Acc No.[id number]:04/13/2025 Progress Notes Patient: Jose Rafael Lopez Provider: Susie Swartz MD :1950 A ge:74 Y S ex:Male Date:04/13/2025 Address:[address], [facility] Pcp:Olesya Billingsley MD Subjective: * Chief Complaints: * p atient presents today for DYSPHAGIA * The named appointment provid er may or may not be the originator of this progress note, and it is not deemed complete until electronically signed by the appointment provider. Sign off status: Pending * Provider: Susie Swartz MD Date: 0 04/13/2025 Generated for Printi ng/Faxing/eTransmitting on: 1 12/28/2024 11:18 AM EST
[2025-10-27 10:18] VITALS: BP 140/106; PULSE 72; BMI 22.1
--- NOTE | 2025-10-27 10:18 | A.OFFPC_ITS ---
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: No Accompanied by: Self / Same As Patient Allergies Seasonal Allergies Allergy (Mild, Verified 10/27/25 10:18) Nasal congestion lisinopril Adverse Reaction (Intermediate, Verified 10/27/25 10:18) cough Medication List - Last Reconciled 10/27/25 by Olesya Billingsley MD albuterol sulfate 90 mcg/actuation 2 puffs inhalation Q6H PRN aspirin 81 mg PO DAILY 90 days atorvastatin 10 mg PO BEDTIME budesonide-formoterol 160-4.5 mcg/actuation (Symbicort) 2 puffs inhalation BID cholecalciferol (vitamin D3) 25 mcg PO DAILY cyanocobalamin (vitamin B-12) 1,000 mcg PO DAILY losartan 50 mg PO DAILY PRN metoprolol succinate ER 25 mg PO QPM omeprazole 20 mg PO DAILY PRN sennosides-docusate sodium 8.6-50 mg (Senna Plus) 2 tab-caps (2 x 8.6-50 mg) PO BEDTIME Tobacco use date assessed: 10/27/25 Fall risk assessment: 2 + Falls in past year Last assessed Fall Risk: 10/27/25 Dental Screening Dental Screen Date: 10/27/25 Did you have a dental visit in the last 12 months?: Yes Did you have a dental problem in the last 6 months where you did not have access to dental care?: No Was dental information given to patient?: Patient has dentist HPI HPI Comments History of Present Illness Details History of Present Illness The patient is a 75-year-old male presenting for a follow-up for management of multiple chronic conditions. His past medical history is significant for orthostatic hypotension, GERD, hypercholesterolemia, asthma, BPH, a history of TIA, carotid stenosis, erosive gastritis, and coronary artery disease. His last colonoscopy was in 2020. The patient was last seen on July 20, 2025, for dysphagia and has follow-up with gastroenterology. He also saw cardiology in September for atrial fibrillation and is followed by nephrology. He reports that orthostatic syncope has increased with beta-blockers. Regarding his GERD, his reflux symptoms are well-controlled with [id number] antacids. For his asthma, he uses Symbicort a couple of times a week when he feels short of breath but does not use a rescue inhaler. Blood work from July 10 showed stable mild anemia with a hemoglobin of 13.5, normal platelets, and normal white blood cell count. It also revealed mild hyponatremia with a sodium of 134, for which he was advised to limit fluids. His renal function, blood sugar, iron, liver enzymes, B12, folic acid, and thyroid function were all within normal limits. His LDL was 78, which is an increase from 60 in April 2024. The patient is up to date on his vaccinations, including flu, COVID, shingles, tetanus, RSV, and pneumonia shots. Health Maintenance The patient is up-to-date on all his vaccinations, including flu, COVID, shingles, tetanus, RSV, and pneumonia. No new immunizations are due at this time. The patient did not need any medication refills at this visit. Social History - Diet: The patient acknowledges eating dessert, which could be reduced. - Functional Status: Reports having issu es with balance. Results - CBC (July 10): Mild stable anemia with hemoglobin of 13.5; normal platelets and white blood cell count. - Chemistry Panel (July 10): Mild hy ponatremia with sodium of 134; normal renal function with creatinine of 0.78; normal blood sugar. - Lipid Panel (July 10): LDL cholest marika of 78. - Other Labs (July 10): Normal iron studies, liver function tests, B12, folic acid, and thyroid function. - Procedures: Last colonoscopy was perfo rmed in 2020. [facility] Medical History PAF (paroxysmal atrial fibrillation) Episodes of staring Syncope Essential hypertension H/O coronary angiogram (~04/2024) Hypotension Screening for prostate cancer Urinary incontinence Hx of radiation therapy History of chemotherapy Colon cancer screening Hypercholesterolemia Asthma GERD (gastroesophageal reflux disease) Cancer of tonsil Orthostatic hypotension Surgical History History of endoscopy (~10/2024) H/O colonoscopy S/P repair of hydrocele History of tonsillectomy Family History Father Dementia Hx of CABG Mother Diabetes Social History Household Members: Spouse Housing: House Are you a primary care program director to a significant other at home: No Do you presently have visiting nurse or other home services: No Alcohol intake: former Comment: rare Patient Tobacco Use Status: Never used Tobacco Tobacco use type: Cigarette e-Cigarette/Vaping Use: Never Used Second Hand Smoke Exposure: No service: No Current occupational status: retired Cognitive needs: No Hearing needs: No Vision needs: Yes Questionnaire PHQ-9 Over the last 2 weeks, how often have you been bothered by any of the following problems? 1. Little interest or pleasure in doing things: not at all 2. Feeling down, depressed, or hopeless: not at all 3. Trouble falling or staying asleep, or sleeping too much: several days 4. Feeling tired or having little energy: several days 5. Poor appetite or overeating: not at all 6. Feeling bad about yourself - or that you are a failure or have let yourself or your family down: not at all 7. Trouble concentrating on things, such as reading the newspaper or watching television: not at all 8. Moving or speaking so slowly that other people could have noticed. Or the opposite - being so fidgety or restless that you have been moving around a lot more than usual: not at all 9. Thoughts that you would be better off or of hurting yourself in some way: not at all Total score: 2 Source: Developed by Drs. Scotty Jessica, Liliam Shaw, Deangelo Carvalho and colleagues, with an educational juan miguel from [employer]. Thrive Questionnaire Date Thrive assessed: 10/27/25 I am a: Patient What is your living situation today?: I have a steady place to live Within the past 12 months, did the food you bought not last and you didn't have the money to get more?: I choose not to answer this question Do you have trouble paying for medicines?: No Do you have trouble getting transportation to medical appointments?: No Do you have trouble paying your heating and electricity bill?: No Do you have trouble taking care of your child, family member or friend?: No Do you have trouble with day-to-day activities such as bathing, preparing meals, shopping, managing finances, etc.?: No Are you currently unemployed and looking for a job?: No Are you interested in more education?: No Please select the resources that you would like help with: None Currently or been in a relationship where the following occur: No concerns reported THRIVE Score: 0 AUDIT C Alcohol Use Questionnaire (AUDIT-C) 1. How often do you have a drink containing alcohol?: Monthly or less 2. How many drinks containing alcohol do you have on a typical day when you are drinking?: 1 or 2 3. How often do you have six or more drinks on one occasion?: Never Total Score: 1 LUZ ELENA-7 AMB Questionnaire LUZ ELENA-7 Date LUZ ELENA - 7 assessed: 10/27/25 Feeling nervous, anxious, or on edge: 0 = Not at all Not being able to stop or control worryin = Not at all Worrying too much about different things: 0 = Not at all Trouble relaxin = Not at all Being so restless that it is hard to sit still: 0 = Not at all Becoming easily annoyed or irritable: 0 = Not at all Feeling afraid as if something awful might happen: 0 = Not at all Total LUZ ELENA-7 score (0-4 normal; 5-9 mild; 10-14 moderate; 15-21 severe): 0 Source: Developed by Drs. Scotty Jessica, Liliam Shaw, Deangelo Carvalho and colleagues, with an educational juan miguel from [employer]. Review of Systems Narrative Review of Systems - Constitutional: Reports falling asleep after dinner. - Cardiovascular: Denies palpitations. - Respiratory: Reports intermittent shortness of breath a couple of times a week. - Gastrointestinal: Reports dysphagia, requiring fluids with meals to prevent choking. - Neurological: Reports impaired balance. Physical exam (Primary Care) Vital Signs: Last Vital Signs Pulse 72 10/27/25 10:18 BP 140/106 H 10/27/25 10:18 Oxygen Delivery Method Room Air 10/27/25 10:18 BMI result Body Mass Index 22.1 Tobacco/Smoking Status: Tobacco use Status Tobacco use date assessed 10/27/25 10/27/25 10:19 Patient Tobacco Use Status Never used Tobacco 10/27/25 10:19 Tobacco use type Cigarette 10/27/25 10:19 e-Cigarette/Vaping Use Never Used 10/27/25 10:19 PHQ-9: PHQ-9 Score PHQ-9: Total score 2 10/27/25 10:40 Thrive Assessment: Date of Thrive Assessment Date Thrive assessed 10/27/25 10/27/25 10:22 Currently or been in a relationship where the following occur: No concerns reported Narrative Physical Exam - Vitals: Blood pressure was noted to be a little high. Const General: alert; No acute distress Eyes Conjunctivae: conjunctivae normal Resp Auscultation: clear to auscultation bilaterally Cardio Rate: regular rate Rhythm: regular rhythm GI Inspection: Yes normal to inspection Extrem General: Yes normal to inspection and No edema Coding Level of Care Code Est Pt Level 4 (06400) Add On Problem Visit Only Diagnoses Labile hypertension R09.89 Hypercholesterolemia E78.00 Gastroesophageal reflux disease without esophagitis K21.9 Esophagitis presence: without esophagitis Benign prostatic hyperplasia with urinary frequency N40.1; R35.0 Lower urinary tract symptom detail: urinary frequency Lower urinary tract symptom presence: symptoms present Anemia, unspecified type D64.9 Anemia type: unspecified type Mild intermittent asthma without complication J45.20 Asthma complication type: uncomplicated Asthma persistence: intermittent Asthma severity: mild Assessment & Plan Assessment & Plan (1) Labile hypertension: Code(s): R09.89 - Other specified symptoms and signs involving the circulatory and respiratory systems Category: Medical Plan: Patient is being followed up by Cardiology and Nephrology. Continuing to monitor blood pressure is on losartan p.r.n. 50 mg and metoprolol succinate 25 mg once a day. (2) Hypercholesterolemia: Code(s): E78.00 - Pure hypercholesterolemia, unspecified Category: Medical Plan: Avoid fried foods, chicken skin, eggs, butter margarine, pastries and meat. Be it pork or beef they have a lot of cholesterol on atorvastatin 10 mg at bedtime LDL goal of less than 70 and triglyceride of less than 150 (3) GERD (gastroesophageal reflux disease): Code(s): K21.9 - Gastro-esophageal reflux disease without esophagitis Category: Medical Qualifiers: Esophagitis presence: without esophagitis Qualified Code(s): K21.9 - Gastro-esophageal reflux disease without esophagitis Plan: Avoid the foods that causes that usually spicy foods, tomato products, juices, coffee, soda and foods that your sensitive to. After eating do not lie down, allow 3-4 hours before in lie down. And keep the head of bed above 30 degrees to avoid the acid from going up. (4) BPH (benign prostatic hyperplasia): Comment: tried on med but BP effect Code(s): N40.0 - Benign prostatic hyperplasia without lower urinary tract symptoms Category: Medical Qualifiers: Lower urinary tract symptom detail: urinary frequency Lower urinary tract symptom presence: symptoms present Qualified Code(s): N40.1 - Benign prostatic hyperplasia with lower urinary tract symptoms; R35.0 - Frequency of micturition Plan: Stable (5) Anemia: Code(s): D64.9 - Anemia, unspecified Category: Medical Qualifiers: Anemia type: unspecified type Qualified Code(s): D64.9 - Anemia, unspecified Plan: Continue to monitor. Stable (6) Asthma: Code(s): J45.909 - Unspecified asthma, uncomplicated Category: Medical Qualifiers: Asthma complication type: uncomplicated Asthma persistence: intermittent Asthma severity: mild Qualified Code(s): J45.20 - Mild intermittent asthma, uncomplicated Plan: On albuterol inhaler and Symbicort Plan Plan Patient was informed and verbally consented to the use of an ambient scribe for clinic note documentation during this visit. 1. Hypercholesterolemia The patient's LDL cholesterol is 78, which is above the goal of less than 70 for patients with a history of carotid artery disease. The LDL has been trending upward. The plan is to increase atorvastatin from 10 mg to 20 mg daily. The patient was instructed to take two of his remaining 10 mg tablets daily until the supply is finished, at which point he will start the new 20 mg tablet prescription. 2. Hypertension The patient's blood pressure will continue to be managed without changes to his current regimen. He will continue taking metoprolol succinate 25 mg once daily and losartan 50 mg as needed. He remains under the care of cardiology and nephrology for blood pressure management. 3. Asthma The patient's asthma is stable. He will continue to monitor his symptoms and use his albuterol inhaler and Symbicort as needed. The patient was reminded to rinse his mouth after using Symbicort. 4. Gastroesophageal Reflux Disease The patient's reflux symptoms are stable and well-controlled. He will continue his current regimen of [id number] antacids and monitor his symptoms. 5. Mild Hyponatremia The patient has a mild hyponatremia with a sodium level of 134. Nephrology is aware of this finding. The patient has been encouraged to limit free water intake, though it is understood that he needs adequate fluid with meals due to dysphagia. Discussion Notes I reviewed the patient's recent lab work, noting his stable mild anemia and mild hyponatremia. I reiterated the orthotic aide's recommendation to limit free water intake, while acknowledging his need for adequate fluids during meals due to dysphagia to prevent choking. We discussed his hypercholesterolemia, observing that his LDL has increased to 78, which is above the goal of <70 given his history of carotid artery disease. We discussed the options of improving his diet versus increasing medication, and the patient agreed to an increase in his atorvastatin dose. I instructed him to take two of his remaining 10 mg tablets daily until he finishes the supply, after which he will start a new prescription for 20 mg tablets. I confirmed that the patient is up-to-date with all recommended vaccinations and does not require any refills at this time. We concluded with anticipatory guidance regarding infection prevention. Patient Instructions - Your dose of atorvastatin (a cholesterol medicine) will be increased to 20 mg once a day. To finish your current pills, please take two of the 10 mg tablets each day until they are gone. Then you can start the new 20 mg prescription. - Continue taking your other medications as prescribed, including metoprolol 25 mg daily and losartan 50 mg as needed for your blood pressure. - For your asthma, continue to use your Symbicort inhaler when you feel short of breath, and remember to rinse your mouth with water after each use. - Try to limit the amount of plain water you drink, as recommended by your kidney doctor. However, it is important to continue drinking fluids with your meals to help with swallowing. - You are up-to-date on all your vaccinations. Continue to be careful to avoid getting sick. - Be careful and move slowly to avoid falls, as you have mentioned having some trouble with your balance. Orders: Orders Lipid Panel Today E78.00 - Pure hypercholesterolemia, unspecified Comprehensive Met. Panel Today E78.00 - Pure hypercholesterolemia, unspecified Medications: Changed From atorvastatin 10 mg PO BEDTIME 90 tabs 1RF R55 - Syncope and collapse To atorvastatin 20 mg PO BEDTIME 90 tabs 3RF R55 - Syncope and collapse
--- OUTSIDE RECORDS SUMMARY | 2025-10-27 11:18 | XMS_ITS | Patient Health Record ---
Author Organization [facility] Address [address] [place] [address] Care Team Providers Care Cotton Opener Name Role Phone Olesya Billingsley MD Primary Care Provider Darshan Hayes Jr Unavailable Allergies No Known Allergies Reason For Referral No Information Medications Medication SIG (Take, Route, Frequency, Duration) Notes Start Date End Date Status Vitamin D Active Ibuprofen PRN Active Vitamin B-12 Active Losartan Potassium as needed A ctive Metoprolol Succinate ER 25 MG Tablet Extended Release 24 Hour TAKE 1 TABLET BY MOUTH IN THE EVENING Oral; Duration: 30 Active Aspirin Low Dose 81 MG Tablet Delayed Release TAKE 1 TABLET BY MOUTH DAILY Oral; Duration: 90 Active Immunizations Vaccine Route Administration Date Status Comme nts Influenza Unknown 08/18/2020 Administered Influenza Unknown 08/19/2024 Administered Influenza Unknown 09/10/2024 Administered Social History Social History Drugs/Alcohol: Social Info Question Answer Notes Alcohol Screen Did you have a drink containing alcohol in the past year? No Points 0 Interpretation Negative Additional Details Category Social Info Options Details Miscellaneous: Marital status: Occupation: retired Section Notes: There is no tobacco use, [...] Status Risk Notes Problem Colon cancer screening (620105984) Colon cancer screening (Z12.11) Active confirmed Problem Dysphagia (66745109) Other dysphagia (R13.19) Active confirmed Problem Dysphagia (84606912) Dysphagia (R13.10) Active confirmed Problem Abnormal upper gastrointestinal barium series (R93.3) Active confirmed Problem Long-term current use of antiplatelet drug (39195323225666 1) Long-term use of aspirin therapy (Z79.82) Active confirmed Problem Irritable bowel syndrome (03767615) Irritable bowel syndrome with both constipation and diarrhea (K58.2) Active confirmed 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 current use of non-steroidal anti-inflammato ry drug ([id number] 3) Encntr long-term NSAID use (Z79.1) Active confirmed Vital Signs Temperature 98.0 degrees Fahrenheit 07/20/2025 Blood pressure diastolic 01 mm Hg 07/20/2025 Height 72 in 07/20/2025 Blood pressure systolic 001 mm Hg 07/20/2025 Weight 153.4 lbs 07/20/2025 BMI 20.8 kg/m2 07/20/2025 Encounters Encounter Location Date Provider Diagnosis [facility] [address] [place] [address] 07/20/2025 Darshan Swartz Jr Other dysphagia R13.19 ; Colon cancer screening Z12.11 and Irritable bowel syndrome with both constipation and diarrhea K58.2 Assessments Encounter Date Diagnosis (ICD Code) Assessment Notes Treatment Notes Treatment Clinical Notes Section Notes 07/20/2025 Colon cancer screening (ICD-10 - Z12.11) [...] time. Today's visit was 30 minutes. 07/20/2025 Irritable bowel syndrome with both constipation [...] OF [place] [address] [place] [address] [id number] Jose Rafael Arellano Self - patient is the insured [employer] [address] [place] [phone] [id number] Jose Rafael Arellano Self - patient is the insured Medical (General) History Medical History History ICD Code Hypertension with labile blood pressure Hyperlipidemia Osteoarthritis Asthma Gastroesophageal reflux disease Paroxysmal atrial fibrillation Colonoscopy 02/23, normal, ten-year follo wup Surgical History Surgery Date(Month/Year) Tonsil cancer, status post surgery, chem otherapy, and radiation Dental extraction Hospitalization History Reason Date(Month/Year) Labile blood pressure/transient cerebral ischemia 04/28
== END 2025-10-27 10:52 | disposition home or self-care (01) ==
LOC: HO.HMCH 10:13
PROVIDERS: PCP Internal Medicine; Visit Provider Internal Medicine
DX: R09.89 Other specified symptoms and signs involving the circulatory and respiratory systems (principal); E78.00 Pure hypercholesterolemia, unspecified; K21.9 Gastro-esophageal reflux disease without esophagitis; N40.1 Benign prostatic hyperplasia with lower urinary tract symptoms; R35.0 Frequency of micturition; D64.9 Anemia, unspecified; J45.20 Mild intermittent asthma, uncomplicated

== ENCOUNTER → 2025-10-27 10:13 | Outpatient (BNVA) | payer MEDICARE, OTHER, SELFPAY | PROVIDERS: PCP Internal Medicine; Visit Provider Internal Medicine | DX: K21.9 Gastro-esophageal reflux disease without esophagitis (principal); R09.89 Other specified symptoms and signs involving the circulatory and respiratory systems; E78.00 Pure hypercholesterolemia, unspecified; N40.1 Benign prostatic hyperplasia with lower urinary tract symptoms; R35.0 Frequency of micturition; D64.9 Anemia, unspecified; J45.20 Mild intermittent asthma, uncomplicated; Z13.31 Encounter for screening for depression; Z13.39 Encounter for screening examination for other mental health and behavioral disorders; Z79.899 Other long term (current) drug therapy | CPT/HCPCS: 96127; 99212 ==